=== PATIENT | female | born 1975 | race African-American/Black ===

== ENCOUNTER 2017-02-10 10:36 | Observation (INO) | payer OTHER ==
[~2017-02-10 10:36] MED LIST: ASPI81CH CHEW; ATOR20TA15 PO; FERR325T8 PO; LOSA50TA PO; METO100T9 PO; SERT-132 PO
--- NOTE | 2017-02-10 11:42 | HHI.HP ---
HPI Service [facility] Primary Care Physician Non-Staff Admission Diagnosis Diagnoses: (1) Chest pain Diagnosis: Principal Travel History International Travel<30 Days: No Contact w/Intl Traveler <30 Da: No History of Present Illness Written by Daniel Oliveira, acting as scribe for Dr. Gould on 02/10/17 at 11: 41. 41-year-old female with known history of hypertension, hyperlipidemia, coronary artery disease status post stenting, rheumatoid arthritis, chronic pain who presented to the hospital because of chest discomfort. Patient has a rather complicated recent history. 10 days ago she did go to [facility] with same complaint and underwent cardiac catheterization with stent placement. Patient states that she now has a total of 5 stents. She has not followed up with the hr leader. She states that she called for an appointment however they did not take her insurance so she was not able to follow-up. The patient did go to [facility] in [place] approximate 3 days ago for similar complaints with chest discomfort. Patient was found to have a hemoglobin of 7.2 and had a full hematology workup performed. Patient has follow-up with her dredge hand this afternoon. Patient also has initial appointment with her primary medical doctor today at 11 AM. Patient states that she ran out of her medication metoprolol 3 days ago and since then she has noticed her blood pressure being elevated more frequently. She has had intermittent chest discomfort since being discharged from the hospital was gotten worse with the elevation in her blood pressure. She states the pain is located center part of her chest with a fullness into her neck. They're associated nausea, no vomiting. She has had shortness of breath, lightheadedness, dizziness. Denies any diaphoresis. Patient did go to emergency department and had initial workup done which was unremarkable. Is recommended that the patient be observed and chest pain center. I will need to contact patient's hr leader in [place] in order to arrange appropriate management of this patient. Review of Systems Respiratory: COMPLAINS OF: Shortness of breath Cardiovascular: COMPLAINS OF: Chest pain Gastrointestinal: COMPLAINS OF: Nausea Except as stated in HPI: all other systems reviewed are Neg Past Family Social History Past Medical History Hypertension Hyperlipidemia Rheumatoid arthritis History of myocardial infarction Coronary artery disease Diabetes Past Surgical History Cardiac catheterization status post 5 stents Reported Medications Reported Meds & Active Scripts Active [Metoprolol Succinate ER 24 HR ] 1 EA Ea 100 Mg PO DAILY Reported Sertraline (Sertraline HCl) 50 Mg Tab 50 Mg PO DAILY Metoprolol Succinate ER 24 HR (Metoprolol Succinate) 100 Mg Tab 100 Mg PO DAILY Losartan (Losartan Potassium) 50 Mg Tab 50 Mg PO DAILY Ferrous Sulfate 325 Mg (65 Mg Iron) Tablet 325 Mg PO BIDPC Atorvastatin (Atorvastatin Calcium) 20 Mg Tab 20 Mg PO HS Aspirin 81 Mg Chew 81 Mg CHEW DAILY Allergies: Coded Allergies: Penicillins (Verified Allergy, Severe, Hives, 02/10/17) Family History Reviewed and remarkable for heart disease, diabetes Social History Patient quit smoking a few days ago. Prior to that she smoked one pack a cigarettes a day since she was 16 years old. Denies any alcohol or illicit drugs Physical Exam Physical Exam GENERAL: Well-developed, well-nourished, in no acute distress. alert and orientated HEENT: Head is normocephalic without any lesions or masses noted. Facial features are symmetric. Eyes: Pupils equal round reactive to light. Extraocular muscles are intact. Conjunctivae were clear. Oropharyngeal: Pharynx without any erythema edema. Tongue is midline without deviation. Buccal mucosa is moist without any masses or lesions NECK: Supple without any masses. Trachea midline no deviation. No JVD, no bruits are appreciated CARDIAC: Regular rhythm, regular rate. S1/S2 are heard. No murmurs gallops or rubs. LUNGS: Clear to auscultation bilaterally. No wheeze, rhonchi or rales. No use of accessory muscles on inspiration or expiration. ABDOMEN: Soft, nontender. Nondistended. Bowel sounds heard in all 4 quadrants. No organomegaly or masses. Negative rebound, negative guarding EXTREMITIES: No edema, pulses are equal bilaterally. No cyanosis or clubbing NEUROLOGY: Mood and affect appear appropriate. Cranial nerves II through XII grossly intact. Muscle strength 5/5 in upper and lower extremities bilaterally. Deep tendon reflexes are 2+ in upper and lower extremities bilaterally. Assessment and Plan Assessment and Plan Chest pain, typical Patient does have increased risk factors to include hypertension, hyperlipidemia, coronary disease, tobacco use, family history of heart disease Patient has been ruled out for acute coronary event with serial cardiac enzymes which are negative, serial EKGs without any changes. Patient with recent cardiac catheterization 10 days ago with stent placement. I did take the time to contact the patient's hr leader . His office was very receptive and made an appointment for the patient. Was able to schedule patient appointment for tomorrow morning 02/11/17 at 9 AM for appropriate outpatient follow-up We'll continue home medications with aspirin, metoprolol, atorvastatin, losartan. Hypertension, hyperlipidemia, coronary artery disease Home medications have been continued Anemia Ferrous sulfate 3 was continued Patient continue follow-up with outpatient dredge hand Outpatient follow-up I also took the time to contact the patient's primary medical doctor in [facility]. Was able to reschedule her outpatient appointment for her regular medical illnesses to 02/15/17 at 11 AM. DVT prevention Low risk, early ambulation Discharge disposition Discharge home in stable condition Activity: Ad татьяна. Diet: Healthy heart diet Medications per medication reconciliation Follow-up primary medical doctor 02/15/17 11 AM, follow-up with hr leader 02/11 at 9 AM Code Status Full code Discussed Condition With Patient, nursing staff, primary medical doctor's office, hr leader office Daniel Oliveira Feb 10, 2017 11:42 Mich Gould MD Feb 10, 2017 11:42
[2017-02-10 11:48] VITALS: PULSE 91
[2017-02-10] MEDS ORDERED: ONDANSETRON HCL 4 MG/2 ML VIAL IVP PRN (12:15)
[2017-02-10] MEDS ORDERED: ACETAMINOPHEN/HYDROcodone 325 MG/7.5 MG TAB PO PRN (12:15)
[2017-02-10] MEDS ORDERED: ACETAMINOPHEN 325 MG TAB PO PRN ×2 (12:15)
[2017-02-10] MEDS ORDERED: NALOXONE HCL 0.4 MG/ML AMP IV PRN (12:15)
[2017-02-10] MEDS ORDERED: SODIUM CHLORIDE 0.9% FLUSH 10 ML FLUSH IV FLUSH PRN (12:15)
[2017-02-10] MEDS ORDERED: METOPROLOL SUCCINATE PO (12:17)
[2017-02-10] MEDS ORDERED: ZOLO50TA PO (12:17)
[2017-02-10] MEDS ORDERED: ATOR20TA15 PO (12:17)
[2017-02-10] MEDS ORDERED: COZA50TA PO (12:17)
[2017-02-10 12:58] LABS: CREATINE KINASE 25 U/L (26-192)
--- NOTE | 2017-02-10 13:42 | HHI.DCPOC ---
Discharge Care Plan Diagnosis: (1) Chest pain Goals to Promote Your Health * To prevent worsening of your condition and complications * To maintain your health at the optimal level Directions to Meet Your Goals Take your medications as prescribed Follow your dietary instruction Follow activity as directed Keep your appointments as scheduled Take your immunizations and boosters as scheduled If your symptoms worsen call your PCP, if no PCP go to Urgent Care Center or Emergency Room Smoking is Dangerous to Your Health. Avoid second hand smoke Call the 24-hour hour crisis hotline for domestic abuse at Daniel Oliveira Feb 10, 2017 13:42
[2017-02-10 15:26] VITALS: BP 139/87; PULSE 91; RESP 18; TEMP 96.3; O2SAT 99
[2017-02-10] MEDS ORDERED: FERROUS SULFATE 325 MG (65 MG ELEMENTAL IRON) TAB PO SCH (18:00)
[2017-02-10] MEDS ORDERED: ATORVASTATIN 20 MG TAB PO SCH (21:00)
[2017-02-10] MEDS ORDERED: SODIUM CHLORIDE 0.9% FLUSH 10 ML FLUSH IV FLUSH SCH (21:00)
[2017-02-11] MEDS ORDERED: LOSARTAN 50 MG TAB PO SCH (09:00)
[2017-02-11] MEDS ORDERED: SERTRALINE HCL 50 MG TAB PO SCH (09:00)
[2017-02-11] MEDS ORDERED: ASPIRIN 81 MG CHEW TAB CHEW SCH (09:00)
[2017-02-11] MEDS ORDERED: METOPROLOL SUCCINATE 50 MG EXTENDED RELEASE TAB PO SCH (09:00)
--- NOTE | 2017-02-11 09:24 | EKG ---
Date Performed: 02/10/2017 Time Performed: 12:04:52 PTAGE: 41 years EKG: Sinus rhythm NORMAL ECG NO PREVIOUS TRACING DOCTOR: Kali New Interpretating Date/Time 02/11/2017 09:10:16
[2017-02-28] MEDS ORDERED: FAMO1TAB73 PO (17:29)
[2017-02-28] MEDS ORDERED: PRED50 PO (17:29)
[2017-02-28] MEDS ORDERED: TOPR100T PO (17:33)
[2017-02-28] MEDS ORDERED: HUMALOG SQ (17:37)
[2017-02-28] MEDS ORDERED: LANTUS2P SQ (17:37)
== END 2017-02-10 16:01 | disposition home or self-care (01) ==
LOC: PHEDDLT 10:36 → PH3A 10:46
PROVIDERS: ADMIT Hospitalist; ATTEND Hospitalist
DX: R07.89 Other chest pain (principal); I25.10 Atherosclerotic heart disease of native coronary artery without angina pectoris; I10 Essential (primary) hypertension; E11.9 Type 2 diabetes mellitus without complications; E78.5 Hyperlipidemia, unspecified; D64.9 Anemia, unspecified; I25.2 Old myocardial infarction; M06.9 Rheumatoid arthritis, unspecified; Z72.0 Tobacco use; Z82.49 Family history of ischemic heart disease and other diseases of the circulatory system; Z95.5 Presence of coronary angioplasty implant and graft
CPT/HCPCS: 71010; 71275; 80048; 80307; 82550; 83735; 84443; 84484; 85025; 85379; 85610; 85652; 85730; 93005; 96374; 96375; 99285; G0378; J1885; J2270; J2405; J2930; Q9967; 99281

== ENCOUNTER 2017-04-18 01:07 | Emergency (ER) | payer MEDICAID ==
[~2017-04-18] VITALS: Ht 162.6 cm; Wt 60.0 kg
[~2017-04-18 01:07] MED LIST changes: +COZA50TA PO; +FAMO1TAB73 PO; +HUMALOG SQ; +LANTUS2P SQ; -LOSA50TA PO; -METO100T9 PO; +PRED50 PO; -SERT-132 PO; +TOPR100T PO
[2017-04-18 01:09] VITALS: BP 142/84; PULSE 91; RESP 16; TEMP 98.5; O2SAT 99
[2017-04-18] MEDS ORDERED: ZOLO25TA PO (02:24)
[2017-04-18] MEDS ORDERED: TRAZ50TA12 PO (02:24)
[2017-04-18] MEDS ORDERED: ALPR.5 PO (02:24)
[2017-04-18] MEDS ORDERED: ISOS20TA PO (02:24)
[2017-04-18] MEDS ORDERED: SODIUM CHLORIDE 0.9% FLUSH 10 ML FLUSH IV FLUSH PRN (02:30)
[2017-04-18] MEDS ORDERED: KETOROLAC TROMETHAMINE 30 MG/ML (IVP) VIAL IVP ONE (02:30)
--- NOTE | 2017-04-18 02:46 | PD ---
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 She also states that she has been having sciatica pain on the right side for the past few days as well. She's not tried any pain medication at home. Denies any saddle anesthesia difficulty urinating. She states she saw a little bit of blood in her urine recently as well. She states she has an appointment to follow-up with an ovarian cancer specialist later this month, she is concerned that her mass may have gotten worse though. Denies any nausea denies vomiting denies any constipation denies any fevers. States pain is severe, right lower quadrant, nonradiating, context as above PFSH Past Medical History Hx Anticoagulant Therapy: Yes (ASA) Bipolar Disorder: Yes Depression: Yes Cardiac Catheterization: Yes Cardiovascular Problems: Yes (cad; chf) High Cholesterol: Yes Congestive Heart Failure: Yes Coronary Artery Disease: Yes Diabetes: Yes Patient Takes Glucophage: No Diminished Hearing: No Hypertension: Yes ?: Not LMP: 03/24/17 : 3 Para: 2 Tubal Ligation: Yes Past Surgical History Appendectomy: Yes Cholecystectomy: Yes Coronary Stent: Yes (5) Family History Family Hypercholesterolemia: Yes Social History Alcohol Use: No Tobacco Use: No Substance Use: No Allergies-Medications (Allergen,Severity, Reaction): Coded Allergies: Penicillins (Verified Allergy, Severe, Hives, 04/18/17) shellfish derived (Verified Allergy, Unknown, RASH , 04/18/17) Reported Meds & Prescriptions Reported Meds & Active Scripts Active Cozaar (Losartan Potassium) 50 Mg Tab 50 Mg PO DAILY Atorvastatin (Atorvastatin Calcium) 20 Mg Tab 20 Mg PO HS Reported Xanax (Alprazolam) 0.5 Mg Tab 0.5 Mg PO Q4H PRN Trazodone (Trazodone HCl) 50 Mg Tab 50 Mg PO HS Zoloft (Sertraline HCl) 25 Mg Tab Unknown Dose PO DAILY Isosorbide Mononitrate 20 Mg Tab 20 Mg PO DAILY Take 2 doses 7 hours apart. Humalog Inj (Insulin Human Lispro) 1,000 Unit/10 Ml Vial 0 SQ TIDAC PRN Lantus Inj (Insulin Glargine) 1,000 Unit/10 Ml Vial 30 Units SQ HS Toprol XL (Metoprolol Succinate) 100 Mg Tab 100 Mg PO BID Ferrous Sulfate 325 Mg (65 Mg Iron) Tablet 325 Mg PO BIDPC Aspirin 81 Mg Chew 81 Mg CHEW DAILY Review of Systems Except as stated in HPI: all other systems reviewed are Neg Physical Exam Narrative GENERAL: WD/WN in nad. SKIN: Warm and dry. HEAD: Atraumatic. Normocephalic. EYES: Pupils equal and round. No scleral icterus. No injection or drainage. ENT: No nasal bleeding or discharge. Mucous membranes pink and moist. NECK: Trachea midline. No JVD. CARDIOVASCULAR: Regular rate and rhythm. RESPIRATORY: No accessory muscle use. Clear to auscultation. Breath sounds equal bilaterally. GASTROINTESTINAL: Abdomen soft, non-tender, nondistended. Hepatic and splenic margins not palpable. : declined by patient. MUSCULOSKELETAL: Extremities without clubbing, cyanosis, or edema. No obvious deformities. NEUROLOGICAL: Awake and alert. No obvious cranial nerve deficits. Motor grossly within normal limits. Five out of 5 muscle strength in the arms and legs. Normal speech. PSYCHIATRIC: Appropriate mood and affect; insight and judgment normal. Data Data Last Documented VS Vital Signs Date Time Temp Pulse Resp B/P (MAP) Pulse Ox O2 Delivery O2 Flow Rate FiO2 04/18/17 05:31 04/18/17 01:09 98.5 91 16 99 Room Air Orders Orders Complete Blood Count With Diff (04/18/17 02:28) Comprehensive Metabolic Panel (04/18/17 02:28) Lipase (04/18/17 02:28) Urinalysis - C+S If Indicated (04/18/17 02:28) Iv Access Insert/Monitor (04/18/17 02:28) Ecg Monitoring (04/18/17 02:28) Oximetry (04/18/17 02:28) Sodium Chloride 0.9% Flush (Ns Flush) (04/18/17 02:30) Ketorolac Inj (Toradol Inj) (04/18/17 02:30) Ed Urine Pregnancytest Poc (04/18/17 02:28) Us Pelvis Comp W Doppler (04/18/17 ) Ed Discharge Order (04/18/17 05:14) Labs Laboratory Tests Test 04/18/17 02:30 04/18/17 03:40 White Blood Count 11.3 TH/MM3 Red Blood Count 4.07 MIL/MM3 Hemoglobin 11.7 GM/DL Hematocrit 34.6 % Mean Corpuscular Volume 85.2 FL Mean Corpuscular Hemoglobin 28.8 PG Mean Corpuscular Hemoglobin Concent 33.8 % Red Cell Distribution Width 18.1 % Platelet Count 416 TH/MM3 Mean Platelet Volume 7.4 FL Neutrophils (%) (Auto) 58.0 % Lymphocytes (%) (Auto) 32.9 % Monocytes (%) (Auto) 5.4 % Eosinophils (%) (Auto) 2.9 % Basophils (%) (Auto) 0.8 % Neutrophils # (Auto) 6.6 TH/MM3 Lymphocytes # (Auto) 3.7 TH/MM3 Monocytes # (Auto) 0.6 TH/MM3 Eosinophils # (Auto) 0.3 TH/MM3 Basophils # (Auto) 0.1 TH/MM3 CBC Comment DIFF FINAL Differential Comment Blood Urea Nitrogen 20 MG/DL Creatinine 1.03 MG/DL Random Glucose 257 MG/DL Total Protein 8.0 GM/DL Albumin 3.9 GM/DL Calcium Level 9.5 MG/DL Alkaline Phosphatase 114 U/L Aspartate Amino Transf (AST/SGOT) 15 U/L Alanine Aminotransferase (ALT/SGPT) 24 U/L Total Bilirubin 0.2 MG/DL Sodium Level 135 MEQ/L Potassium Level 3.8 MEQ/L Chloride Level 103 MEQ/L Carbon Dioxide Level 24.6 MEQ/L Anion Gap 7 MEQ/L Estimat Glomerular Filtration Rate 72 ML/MIN Lipase 390 U/L Urine Color YELLOW Urine Turbidity HAZY Urine pH 5.5 Urine Specific [place] 1.026 Urine Protein TRACE mg/dL Urine Glucose (UA) 1000 mg/dL Urine Ketones NEG mg/dL Urine Occult Blood TRACE Urine Nitrite NEG Urine Bilirubin NEG Urine Urobilinogen LESS THAN 2.0 MG/DL Urine Leukocyte Esterase LARGE Urine RBC 10 /hpf Urine WBC 6 /hpf Urine Squamous Epithelial Cells 34 /hpf Urine Bacteria OCC /hpf Microscopic Urinalysis Comment CULT NOT INDICATED MDM Medical Decision Making Medical Screen Exam Complete: Yes Emergency Medical Condition: Yes Differential Diagnosis CHronic pelvic pain, ovarian cyst, torsion, PID, sciatica. Narrative Course Patient is acute on chronic abdominal pain and sciatic pain all with low risk features. torsion excluded in er with pelvic US. Discussed need for testing for infection and STD and patient declined stating she would do this with her MIXER WET POUR. labs are reassuring, pain meds given and patient appears comfortable. Discussed follow up with [employer]OUR and return to ed criteria. Diagnosis Primary Impression: Abdominal pain Qualified Codes: R10.84 - Generalized abdominal pain Additional Instructions: Follow up with your OBGYN as scheduled. Disposition: 01 DISCHARGE HOME Condition: Stable Mk Mcdonald MD Apr 18, 2017 02:46
[2017-04-18 02:49] LABS: AUTOMATED NEUTROPHIL # 6.6 TH/MM3 (1.8-7.7); BASOPHIL # 0.1 TH/MM3 (0-0.2); BASOPHIL % 0.8 % (0.0-2.0); EOSINOPHIL # 0.3 TH/MM3 (0-0.4); EOSINOPHIL % 2.9 % (0.0-4.0); HEMATOCRIT 34.6 % (35.0-46.0); HEMO FLAGS DIFF FINAL; LYMPH % 32.9 % (9.0-44.0); LYMPHOCYTE # 3.7 TH/MM3 (1.0-4.8); MEAN CELL VOLUME 85.2 FL (80.0-100.0); MEAN CORPUSCULAR HEMOGLOBIN 28.8 PG (27.0-34.0); MEAN CORPUSCULAR HGB CONC 33.8 % (32.0-36.0); MONO % 5.4 % (0.0-8.0); PLATELET COUNT 416 TH/MM3 (150-450); RED BLOOD COUNT 4.07 MIL/MM3 (4.00-5.30); RED CELL DISTRIBUTION WIDTH 18.1 % (11.6-17.2); WHITE BLOOD COUNT 11.3 TH/MM3 (4.0-11.0)
[2017-04-18 03:13] LABS: ALKALINE PHOSPHATASE 114 U/L (45-117); ALT (GPT) 24 U/L (10-53); ANION GAP 7 MEQ/L (5-15); AST (GOT) 15 U/L (15-37); BICARBONATE 24.6 MEQ/L (21.0-32.0); BLOOD UREA NITROGEN 20 MG/DL (7-18); CHLORIDE 103 MEQ/L (98-107); GLOMERULAR FILTRATION RATE 72 ML/MIN (>89); POTASSIUM 3.8 MEQ/L (3.5-5.1); SODIUM (NA) 135 MEQ/L (136-145); TOTAL BILIRUBIN ADULT 0.2 MG/DL (0.2-1.0)
--- NOTE | 2017-04-18 04:01 | RADRPT ---
EXAM DATE/TIME: 04/18/2017 03:12 [facility] COMPARISON: No previous studies available for comparison. INDICATIONS : Pelvic pain. MEDICAL HISTORY : Hypercholesterolemia. Hypertension. Coronary artery disease. Congestive heart failure. Diabetes. SURGICAL HISTORY : Appendectomy. Cholecystectomy. Tubal ligation. Cardiac catheterization. ENCOUNTER: Initial ACUITY: 4-6 days PAIN SCORE: 8/10 LOCATION: Bilateral pelvis MEASUREMENTS: UTERUS: 9.5 x 6.1 x 3.8 cm ENDOMETRIAL STRIPE: 6 mm RIGHT OVARY: 4.3 x 2.2 x 2.2 cm LEFT OVARY: 2.5 x 1.8 x 1.6 cm FINDINGS: UTERUS: The myometrium has homogeneous echotexture without mass. RIGHT OVARY: There is a complex hypoechoic cystic appearing lesion in the right ovary measuring 1.7 x 1.5 x 1.2 cm which demonstrated no color flow. LEFT OVARY: Ovary contains no mass or significant cystic lesion. MISCELLANEOUS: No free fluid. CONCLUSION: 1. Complex hypoechoic cystic lesion in the right ovary most consistent with a complex cyst. 2. The uterus and left ovary are unremarkable. Julian Michel MD on April 18, 2017 at 3:58 Board Certified Radiologist. This report was verified electronically.
[2017-04-18 04:08] LABS: BACTERIA, URINE OCC /hpf; BLOOD, URINE TRACE (NEG); COMMENT (UR) CULT NOT INDICATED; CULTURE IF INDICATED CULT NOT INDICATED; GLUCOSE,URINE 1000 mg/dL (NEG); KETONE, URINE NEG (NEG); NITRITE,URINE NEG (NEG); PH, URINE 5.5 (5.0-8.5); SQUAMOUS EPITHELIAL CELL URINE 34 /hpf (0-5); URINE COLOR YELLOW (YELLW/STRAW)
== END 2017-04-18 05:41 | disposition home or self-care (01) ==
LOC: NEPE 01:07
DX: R10.31 Right lower quadrant pain (principal); G89.29 Other chronic pain; M54.30 Sciatica, unspecified side; F31.9 Bipolar disorder, unspecified; I25.10 Atherosclerotic heart disease of native coronary artery without angina pectoris; I11.0 Hypertensive heart disease with heart failure; I50.9 Heart failure, unspecified; E78.00 Pure hypercholesterolemia, unspecified; E11.9 Type 2 diabetes mellitus without complications
CPT/HCPCS: 76856; 80053; 81001; 83690; 84703; 85025; 93975; 96374; 99285; J1885

== ENCOUNTER 2017-07-01 04:39 | Observation (INO) | payer MEDICAID, OTHER ==
[2017-07-01] VITALS (10 sets, daily range): BP systolic 136–205; BP diastolic 79–94; PULSE 69–83; RESP 14–20; TEMP 97.9–98.8; O2SAT 93–100
[~2017-07-01] VITALS: Ht 152.4 cm; Wt 61.3 kg
[~2017-07-01 04:39] MED LIST changes: +ALPR.5 PO; +ASPI-516 CHEW; -ASPI81CH CHEW; -FAMO1TAB73 PO; +FERR325T18 PO; -FERR325T8 PO; +ISOS20TA PO; -PRED50 PO; +TRAZ50TA12 PO; +ZOLO25TA PO
[2017-07-01] MEDS ORDERED: METO25TA3 PO (04:59)
[2017-07-01] MEDS ORDERED: MORPHINE SULFATE 2 MG/ML INJ IV PUSH ONE ×3 (05:00→21:45)
[2017-07-01] MEDS ORDERED: ONDANSETRON HCL 4 MG/2 ML VIAL IV PUSH ONE (05:00)
[2017-07-01] MEDS ORDERED: LANTUS2P SQ (05:18)
[2017-07-01] MEDS ORDERED: ZOLO50TA PO (05:18)
[2017-07-01 05:29] LABS: AUTOMATED NEUTROPHIL # 6.8 TH/MM3 (1.8-7.7); BASOPHIL # 0.1 TH/MM3 (0-0.2); BASOPHIL % 1.4 % (0.0-2.0); EOSINOPHIL # 0.3 TH/MM3 (0-0.4); EOSINOPHIL % 2.9 % (0.0-4.0); HEMATOCRIT 27.6 % (35.0-46.0); HEMOGLOBIN 9.6 GM/DL (11.6-15.3); LYMPH % 16.7 % (9.0-44.0); LYMPHOCYTE # 1.5 TH/MM3 (1.0-4.8); MEAN CELL VOLUME 85.9 FL (80.0-100.0); MEAN CORPUSCULAR HEMOGLOBIN 29.9 PG (27.0-34.0); MEAN CORPUSCULAR HGB CONC 34.9 % (32.0-36.0); MEAN PLATELET VOLUME 6.9 FL (7.0-11.0); MONO % 5.3 % (0.0-8.0); MONOCYTE # 0.5 TH/MM3 (0-0.9); NEUT % 73.7 % (16.0-70.0); PLATELET COUNT 567 TH/MM3 (150-450); RED BLOOD COUNT 3.21 MIL/MM3 (4.00-5.30); RED CELL DISTRIBUTION WIDTH 14.5 % (11.6-17.2); WHITE BLOOD COUNT 9.2 TH/MM3 (4.0-11.0)
--- NOTE | 2017-07-01 05:30 | RADRPT ---
EXAM DATE/TIME: 07/01/2017 05:09 [facility] COMPARISON: No previous studies available for comparison. INDICATIONS : Chest pain. MEDICAL HISTORY : Myocardial infarction. Hypertension Diabetes mellitus type II. SURGICAL HISTORY : CABG. ENCOUNTER: Initial ACUITY: 1 day PAIN SCORE: 10/10 LOCATION: Bilateral chest FINDINGS: PA and lateral views of the chest demonstrate the lungs to be symmetrically aerated without evidence of mass, infiltrate or effusion. Myocardium. No pulmonary vascular engorgement. Median sternotomy wir es. Osseous structures are intact. CONCLUSION: 1. Cardiomegaly. 2. Clear lungs. Guille Ruffin Jr., MD on July 01, 2017 at 5:28 Board Certified Radiologist. This report was verified electronically.
[2017-07-01 05:50] LABS: ALBUMIN 2.8 GM/DL (3.4-5.0); AST (GOT) 17 U/L (15-37); BICARBONATE 25.1 MEQ/L (21.0-32.0); BLOOD UREA NITROGEN 6 MG/DL (7-18); CALCIUM 8.8 MG/DL (8.5-10.1); CHLORIDE 103 MEQ/L (98-107); CREATININE 0.79 MG/DL (0.50-1.00); GLOMERULAR FILTRATION RATE 98 ML/MIN (>89); GLUCOSE,RANDOM 246 MG/DL (74-106); LIPASE 177 U/L (73-393); SODIUM (NA) 140 MEQ/L (136-145)
--- NOTE | 2017-07-01 05:50 | PD ---
HPI Chief Complaint: Chest Pain Time Seen by Provider: 04:55 Travel History International Travel<30 days: No Contact w/Intl Traveler<30days: No Traveled to known affect area: No History of Present Illness HPI 41-year-old female 1 week post operative CABG. She had a open-heart triple- vessel surgery at [facility] in [place]. 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 Her mother of 43 from a massive heart attack her aunt of 45 and her grandmother at 62 from coronary artery disease that led to cardiac .She was enroute to have CABG at [facility] when had [place] , and taken to [place] She is now out of the hospital for 5 days. She was lying on a air mattress where she sleeping with her cousin. And she turned and felt sudden pop near her sternum and her upper back. She has a fresh CABG scar. No signs of diffusion of her wound however possibly she moved her sternum and wires with movement tonight. She is not She has no decrease in breath sounds she has well aerated lungs heart rate is normal rate however she is mildly hypertensive 202/70. She says it is out of pain that she's having such hypertension. PFSH Past Medical History Hx Anticoagulant Therapy: Yes (ASA) Bipolar Disorder: Yes Depression: Yes Cardiac Catheterization: Yes Cardiovascular Problems: Yes (CAD) High Cholesterol: Yes Congestive Heart Failure: Yes Coronary Artery Disease: Yes Diabetes: Yes Patient Takes Glucophage: No Diminished Hearing: No Hypertension: Yes ?: Not : 3 Para: 2 Tubal Ligation: Yes Past Surgical History Appendectomy: Yes Cholecystectomy: Yes Coronary Stent: Yes (5) Family History Family Hypercholesterolemia: Yes Social History Alcohol Use: No Tobacco Use: No Substance Use: No Allergies-Medications (Allergen,Severity, Reaction): Coded Allergies: Penicillins (Verified Allergy, Severe, Hives, 07/01/17) shellfish derived (Verified Allergy, Unknown, RASH , 07/01/17) Reported Meds & Prescriptions Reported Meds & Active Scripts Active Atorvastatin (Atorvastatin Calcium) 20 Mg Tab 20 Mg PO HS Reported Lantus Inj (Insulin Glargine) 1,000 Unit/10 Ml Vial 30 Units SQ HS Zoloft (Sertraline HCl) 50 Mg Tab 50 Mg PO DAILY Metoprolol Tartrate 25 Mg Tab 25 Mg PO BID Xanax (Alprazolam) 0.5 Mg Tab 0.5 Mg PO Q4H PRN Humalog Inj (Insulin Human Lispro) 1,000 Unit/10 Ml Vial 0 SQ TIDAC PRN Ferrous Sulfate 325 Mg (65 Mg Iron) Tablet 325 Mg PO BIDPC Aspirin 81 Mg Chew 81 Mg CHEW DAILY Review of Systems Except as stated in HPI: all other systems reviewed are Neg Cardiovascular: Positive: Chest Pain or Discomfort Gastrointestinal: Positive: Nausea (upper back pain ) Physical Exam Narrative GENERAL: Patient is awake alert complaining of pain in the substernal area as well as substernal and upper left back SKIN: Warm and dry. HEAD: Atraumatic. Normocephalic. EYES: Pupils equal and round. No scleral icterus. No injection or drainage. ENT: No nasal bleeding or discharge. Mucous membranes pink and moist. NECK: Trachea midline. No JVD. CARDIOVASCULAR: Regular rate and rhythm. RESPIRATORY: No accessory muscle use. Clear to auscultation. Breath sounds equal bilaterally. CHEST Sternum midline vertical scar fresh not infected no dishesion of wound edges GASTROINTESTINAL: Abdomen soft, non-tender, nondistended. Hepatic and splenic margins not palpable. MUSCULOSKELETAL: Extremities without clubbing, cyanosis, or edema. No obvious deformities. NEUROLOGICAL: Awake and alert. No obvious cranial nerve deficits. Motor grossly within normal limits. Five out of 5 muscle strength in the arms and legs. Normal speech. PSYCHIATRIC: Appropriate mood and affect; insight and judgment normal. Data Data Last Documented VS Vital Signs Date Time Temp Pulse Resp B/P (MAP) Pulse Ox O2 Delivery O2 Flow Rate FiO2 07/01/17 07:12 79 14 158/86 (110) 97 Room Air Orders Orders Morphine Inj (Morphine Inj) (07/01/17 05:00) Electrocardiogram (07/01/17 04:57) Complete Blood Count With Diff (07/01/17 04:57) Comprehensive Metabolic Panel (07/01/17 04:57) Lipase (07/01/17 04:57) Chest, Pa & Lat (07/01/17 04:57) Troponin I (07/01/17 04:57) Ondansetron Inj (Zofran Inj) (07/01/17 05:00) Fentanyl Inj (Fentanyl Inj) (07/01/17 05:45) Labetalol Inj (Trandate Inj) (07/01/17 06:00) Place In Observation (07/01/17 ) Vital Signs (Adult) Q4H (07/01/17 08:00) Activity Oob With Assistance (07/01/17 08:00) Refining Machine Operator / Telemetry .CONTINUOUS (07/01/17 08:00) Intake + Output PRIYA.QSHIFT (07/01/17 08:00) Sodium Chloride 0.9% Flush (Ns Flush) (07/01/17 08:00) Sodium Chloride 0.9% Flush (Ns Flush) (07/01/17 09:00) Ondansetron Inj (Zofran Inj) (07/01/17 08:00) Creatine Kinase (Cpk) (07/01/17 08:00) Creatine Kinase (Cpk) (07/01/17 14:00) Troponin I (07/01/17 08:00) Troponin I (07/01/17 14:00) Electrocardiogram (07/01/17 08:00) Electrocardiogram (07/01/17 14:00) Scd Bilateral/Knee High PRIYA.BID (07/01/17 08:00) Naloxone Inj (Narcan Inj) (07/01/17 08:00) Docusate Sodium-Senna (Gracy-Colace) (07/01/17 09:00) Magnesium Hydroxide Liq (Milk Of Magnesi (07/01/17 08:00) Sennosides (Senokot) (07/01/17 08:00) Bisacodyl Supp (Dulcolax Supp) (07/01/17 08:00) Lactulose Liq (Lactulose Liq) (07/01/17 08:00) Admit Order (Ed Use Only) (07/01/17 08:00) Labs Laboratory Tests Test 07/01/17 05:13 White Blood Count 9.2 TH/MM3 Red Blood Count 3.21 MIL/MM3 Hemoglobin 9.6 GM/DL Hematocrit 27.6 % Mean Corpuscular Volume 85.9 FL Mean Corpuscular Hemoglobin 29.9 PG Mean Corpuscular Hemoglobin Concent 34.9 % Red Cell Distribution Width 14.5 % Platelet Count 567 TH/MM3 Mean Platelet Volume 6.9 FL Neutrophils (%) (Auto) 73.7 % Lymphocytes (%) (Auto) 16.7 % Monocytes (%) (Auto) 5.3 % Eosinophils (%) (Auto) 2.9 % Basophils (%) (Auto) 1.4 % Neutrophils # (Auto) 6.8 TH/MM3 Lymphocytes # (Auto) 1.5 TH/MM3 Monocytes # (Auto) 0.5 TH/MM3 Eosinophils # (Auto) 0.3 TH/MM3 Basophils # (Auto) 0.1 TH/MM3 CBC Comment DIFF FINAL Differential Comment Blood Urea Nitrogen 6 MG/DL Creatinine 0.79 MG/DL Random Glucose 246 MG/DL Total Protein 7.4 GM/DL Albumin 2.8 GM/DL Calcium Level 8.8 MG/DL Alkaline Phosphatase 130 U/L Aspartate Amino Transf (AST/SGOT) 17 U/L Alanine Aminotransferase (ALT/SGPT) 21 U/L Total Bilirubin 0.2 MG/DL Sodium Level 140 MEQ/L Potassium Level 3.2 MEQ/L Chloride Level 103 MEQ/L Carbon Dioxide Level 25.1 MEQ/L Anion Gap 12 MEQ/L Estimat Glomerular Filtration Rate 98 ML/MIN Troponin I 0.08 NG/ML Lipase 177 U/L MDM Medical Decision Making Medical Screen Exam Complete: Yes Emergency Medical Condition: Yes Medical Record Reviewed: Yes Differential Diagnosis sternotomy pain ACS graft slippage GERD PE sternal separation other Narrative Course pt has risk factors for ACS even though recent grafts done possible failure to stay patent and ischemia is possible. Pt has elevations in lead III and flips T waves on EKG anterior septal leads again mostlikely post operative. I call to [facility] and try to get old records and EKG from post operative period , I am only able to talk to a medical services assistant who reads me her trop on discharge which was slightly elevated. Pt is pain free after medical managemtn in ER with IV narcotics but needs admit and serial trop , her first trop slightly elevated , could be trending downwards .. Medical records requested from [place] they will snd in AM , pt admitted Critical Care Narrative close monitoring and multiple calls to get trop and EKG from [facility] to assure no ACS post operative and ischemic / or reperfusion arrhythmia , 30 mins CC time Diagnosis Primary Impression: Post-operative pain Additional Impression: Chest pain Qualified Codes: R07.9 - Chest pain, unspecified Admitting Information Admitting Physician Requests: Admit Scripts Walker with Front Wheels (Walker with Front Wheels) 1 Mis Mis EA .ROUTE DIRECTED, #1 0 Refills Prov: Hannah Lu 07/04/17 Hydrocodone-Acetaminophen ([place]) 5 Mg-325 Mg Tab 1 TAB PO Q6H Y for PAIN, #12 TAB 0 Refills Prov: Rafa Narayanan MD 07/04/17 Nitroglycerin SL (Nitroglycerin SL) 0.4 Mg Subl 0.4 MG SL DIRECTED Y for CHEST PAIN, #100 TAB.SL 0 Refills ONE TABLET UNDER THE TONGUE NEEDED FOR CHEST PAIN, MAY REPEAT EVERY FIVE MINUTES FOR A TOTAL OF 3 DOSES OR CALL 911 IF NO RELIEF Prov: Hannah Lu 07/04/17 Clindamycin (Clindamycin) 300 Mg Cap 600 MG PO Q8H for Infection for 7 Days, #42 CAP 0 Refills Prov: Hannah Lu 07/04/17 Brett Madrigal MD Jul 01, 2017 05:50
[2017-07-01 05:56] LABS: ALKALINE PHOSPHATASE 130 U/L (45-117); ALT (GPT) 21 U/L (10-53); TOTAL BILIRUBIN ADULT 0.2 MG/DL (0.2-1.0); TOTAL PROTEIN 7.4 GM/DL (6.4-8.2); TROPONIN I 0.08 NG/ML (0.02-0.05)
[2017-07-01] MEDS ORDERED: LABETALOL HCL 100 MG/20 ML VIAL IV PUSH ONE (06:00)
[2017-07-01] MEDS ORDERED: MAGNESIUM HYDROXIDE SUSP 30 ML CUP PO PRN (08:00)
[2017-07-01] MEDS ORDERED: NALOXONE HCL 0.4 MG/ML AMP IV PUSH PRN (08:00)
[2017-07-01] MEDS ORDERED: SENNOSIDES 8.6 MG TAB PO PRN (08:00)
[2017-07-01] MEDS ORDERED: BISACODYL 10 MG SUPP RECTAL PRN (08:00)
[2017-07-01] MEDS ORDERED: SODIUM CHLORIDE 0.9% FLUSH 10 ML FLUSH IV FLUSH PRN (08:00)
[2017-07-01] MEDS ORDERED: LACTULOSE SYRUP 20 GM/30 ML CUP PO PRN (08:00)
[2017-07-01] MEDS ORDERED: GLUCAGON 1 MG/ML VIAL OTHER PRN (08:15)
[2017-07-01] MEDS ORDERED: DEXTROSE 50% IN WATER 50 ML VIAL(D50) IV PUSH PRN (08:15)
[2017-07-01] MEDS ORDERED: NITROGLYCERIN 2% OINT 1 GM PACKET TOPICAL PRN (08:15)
[2017-07-01] MEDS: ASPIRIN 81 MG CHEW TAB CHEW SCH (09:59)
[2017-07-01] MEDS: DOCUSATE SODIUM 50 MG/SENNA 8.6 MG TAB PO SCH ×2 (09:59→21:44)
[2017-07-01] MEDS: METOPROLOL TARTRATE 25 MG TAB PO SCH ×2 (09:59→21:45)
[2017-07-01] MEDS: FERROUS SULFATE 325 MG (65 MG ELEMENTAL IRON) TAB PO SCH ×2 (09:59→17:29)
[2017-07-01] MEDS: MORPHINE SULFATE 2 MG/ML INJ IV PUSH PRN ×3 (10:07→17:30)
[2017-07-01] MEDS: ONDANSETRON HCL 4 MG/2 ML VIAL IVP PRN ×2 (10:07→21:39)
[2017-07-01 10:30] LABS: TROPONIN I 0.08 NG/ML (0.02-0.05)
[2017-07-01] MEDS: ALPRAZolam 0.5 MG TAB PO PRN ×2 (10:55→21:58)
[2017-07-01] MEDS: SERTRALINE HCL 50 MG TAB PO SCH (10:55)
[2017-07-01] MEDS: SODIUM CHLORIDE 0.9% FLUSH 10 ML FLUSH IV FLUSH SCH ×2 (10:56→21:39)
[2017-07-01] MEDS: INSULIN ASPART SUPPLEMENTAL SCALE SQ SCH ×3 (12:00→22:07)
[2017-07-01] MEDS ORDERED: ACETAMINOPHEN/HYDROcodone 325 MG/7.5 MG TAB PO PRN (15:00)
[2017-07-01] MEDS ORDERED: ACETAMINOPHEN/HYDROcodone 325 MG/10 MG TAB PO PRN (15:00)
[2017-07-01 15:39] LABS: TROPONIN I 0.08 NG/ML (0.02-0.05)
[2017-07-01] MEDS ORDERED: oxyCODONE/ACETAMINOPHEN 7.5 MG/325 MG TAB PO PRN (16:30)
--- NOTE | 2017-07-01 16:35 | HHI.HP ---
[facility] Zunilda Trujillo MD Admission Diagnosis post CABG pain Diagnoses: Travel History International Travel<30 Days: No Contact w/Intl Traveler <30 Da: No Traveled to Known Affected Are: No History of Present Illness Patient is a 41-year-old female with past medical history of hypertension, hyperlipidemia, CAD status post CABG 2 weeks ago, has a history of WA 7, rheumatoid arthritis, chronic pain, history of hemorrhagic cyst, diabetes on insulin presented to the emergency room with excruciating chest pain. Patient states that she was discharged on June 22 (had her CABG done on June 15 ) at [facility]. She has been staying with her cousin and been sleeping on a air mattress. Apparently as she was turning this morning she heard a crack and experienced excruciating pain 10 out of 10 with elevated her blood pressures. She came to the emergency room for further evaluation. She was given fentanyl and her pain decreased from to 3 out of 10 but now is back up to 8 out of 10. She does have radiation to her back. She admits to nausea but no vomiting. She admits to headache. She denies any diaphoresis. States that she was on Percocet prior to this but she went finished a course of Percocets. 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 Pain right now as an 8 out of 10. Morphine is not really making it better. Review of Systems Except as stated in HPI: all other systems reviewed are Neg Past Family Social History Past Medical History hypertension, hyperlipidemia, CAD status post CABG 2 weeks ago, has a history of WA 7, rheumatoid arthritis, chronic pain, history of hemorrhagic cyst, diabetes Past Surgical History Cardiac catheter status post 6 stents placed, CABG, cholecystectomy, appendectomy, tubal ligation Reported Medications Reported Meds & Active Scripts Active Atorvastatin (Atorvastatin Calcium) 20 Mg Tab 20 Mg PO HS Reported Lantus Inj (Insulin Glargine) 1,000 Unit/10 Ml Vial 20 Units SQ HS Zoloft (Sertraline HCl) 50 Mg Tab 50 Mg PO DAILY Metoprolol Tartrate 25 Mg Tab 25 Mg PO BID Xanax (Alprazolam) 0.5 Mg Tab 0.5 Mg PO Q4H PRN Humalog Inj (Insulin Human Lispro) 1,000 Unit/10 Ml Vial 0 SQ TIDAC PRN Ferrous Sulfate 325 Mg (65 Mg Iron) Tablet 325 Mg PO BIDPC Aspirin 81 Mg Chew 81 Mg CHEW DAILY Allergies: Coded Allergies: Penicillins (Verified Allergy, Severe, Hives, 07/01/17) shellfish derived (Verified Allergy, Unknown, RASH , 07/01/17) Family History Mother at age 42 of an WA, she also had sarcoidosis, grandmother had pancreatic cancer. Diabetes also runs in the family. Social History She quit smoking about a month ago. Used to smoke a pack a day then decreased to a pack a week.She has been smoking since the age of 16. Denies alcohol or illegal drug use. Physical Exam Vital Signs Vital Signs Date Time Temp Pulse Resp B/P (MAP) Pulse Ox O2 Delivery O2 Flow Rate FiO2 07/01/17 15:57 98.8 74 20 167/81 (109) 97 07/01/17 15:43 18 07/01/17 13:44 18 07/01/17 12:13 98.5 69 20 136/81 (99) 98 07/01/17 10:44 98.6 81 20 156/93 (114) 95 07/01/17 09:37 78 18 184/94 (124) 100 Room Air 07/01/17 07:12 79 14 158/86 (110) 97 Room Air 07/01/17 06:18 79 18 165/79 (107) Room Air 07/01/17 05:51 78 179/90 (119) 07/01/17 04:54 98 07/01/17 04:41 83 18 195/94 (127) 98 Physical Exam GENERAL: This is a well-nourished, well-developed patient, appears tired. SKIN: Large incision over her chest. Healing well with no signs of infection HEAD: Atraumatic. Normocephalic. No temporal or scalp tenderness. EYES: Pupils equal round and reactive. Extraocular motions intact. No scleral icterus. No injection or drainage. ENT: Nose without drainage. Airway patent. NECK: Trachea midline. Supple CARDIOVASCULAR: Regular rate and rhythm without murmurs. RESPIRATORY: Clear to auscultation. Breath sounds equal bilaterally. No wheezes GASTROINTESTINAL: Abdomen soft, non-tender, nondistended. No guarding. MUSCULOSKELETAL: Extremities without edema. Moves extremities. NEUROLOGICAL: Awake and alert. Motor and sensory grossly within normal limits. Normal speech. Laboratory Laboratory Tests Test 07/01/17 05:13 07/01/17 09:50 07/01/17 14:24 White Blood Count 9.2 Red Blood Count 3.21 Hemoglobin 9.6 Hematocrit 27.6 Mean Corpuscular Volume 85.9 Mean Corpuscular Hemoglobin 29.9 Mean Corpuscular Hemoglobin Concent 34.9 Red Cell Distribution Width 14.5 Platelet Count 567 Mean Platelet Volume 6.9 Neutrophils (%) (Auto) 73.7 Lymphocytes (%) (Auto) 16.7 Monocytes (%) (Auto) 5.3 Eosinophils (%) (Auto) 2.9 Basophils (%) (Auto) 1.4 Neutrophils # (Auto) 6.8 Lymphocytes # (Auto) 1.5 Monocytes # (Auto) 0.5 Eosinophils # (Auto) 0.3 Basophils # (Auto) 0.1 CBC Comment DIFF FINAL Differential Comment Blood Urea Nitrogen 6 Creatinine 0.79 Random Glucose 246 Total Protein 7.4 Albumin 2.8 Calcium Level 8.8 Alkaline Phosphatase 130 Aspartate Amino Transf (AST/SGOT) 17 Alanine Aminotransferase (ALT/SGPT) 21 Total Bilirubin 0.2 Sodium Level 140 Potassium Level 3.2 Chloride Level 103 Carbon Dioxide Level 25.1 Anion Gap 12 Estimat Glomerular Filtration Rate 98 Troponin I 0.08 0.08 0.08 Lipase 177 Total Creatine Kinase 31 45 Result Diagram: 07/01/17 0513 07/01/17 0513 Imaging Last Impressions Chest X-Ray 07/01/17 0457 Signed Impressions: Service Date/Time: June 05:09 - CONCLUSION: 1. Cardiomegaly. 2. Clear lungs. Guille Ruffin Jr., MD Caprini VTE Risk Assessment Caprini VTE Risk Assessment: Mod/High Risk (score >= 2) Caprini Risk Assessment Model Point Value = 1 Point Value = 2 Point Value = 3 Point Value = 5 Age 41-60 Minor surgery BMI > 25 kg/m2 Swollen legs Varicose veins or History of unexplained or recurrent spontaneous Oral contraceptives or hormone replacement Sepsis (< 1 month) Serious lung disease, including pneumonia (< 1 month) Abnormal pulmonary function Acute myocardial infarction Congestive heart failure (< 1 month) History of inflammatory bowel disease Medical patient at bed rest Age 61-74 Arthroscopic surgery Major open surgery (> 45 min) Laparoscopic surgery (> 45 min) Malignancy Confined to bed (> 72 hours) Immobilizing plaster cast Central venous access Age >= 75 History of VTE Family history of VTE Factor V Leiden Prothrombin [id number] Lupus anticoagulant Anticardiolipin antibodies Elevated serum homocysteine Heparin-induced thrombocytopenia Other congenital or acquired thrombophilia Stroke (< 1 month) Elective arthroplasty Hip, pelvis, or leg fracture Acute spinal cord injury (< 1 month) Prophylaxis Regimen Total Risk Factor Score Risk Level Prophylaxis Regimen 0-1 Low Early ambulation 2 Moderate Order ONE of the following: *Sequential Compression Device (SCD) *Heparin 5000 units SQ BID 3-4 Higher Order ONE of the following medications: *Heparin 5000 units SQ TID *Enoxaparin/Lovenox 40 mg SQ daily (WT < 150 kg, CrCl > 30 mL/min) *Enoxaparin/Lovenox 30 mg SQ daily (WT < 150 kg, CrCl > 10-29 mL/min) *Enoxaparin/Lovenox 30 mg SQ BID (WT < 150 kg, CrCl > 30 mL/min) AND/OR *Sequential Compression Device (SCD) 5 or more Highest Order ONE of the following medications: *Heparin 5000 units SQ TID (Preferred with Epidurals) *Enoxaparin/Lovenox 40 mg SQ daily (WT < 150 kg, CrCl > 30 mL/min) *Enoxaparin/Lovenox 30 mg SQ daily (WT < 150 kg, CrCl > 10-29 mL/min) *Enoxaparin/Lovenox 30 mg SQ BID (WT < 150 kg, CrCl > 30 mL/min) AND *Sequential Compression Device (SCD) Assessment and Plan Assessment and Plan Chest pain: Patient experiencing excruciating chest pain at the incision site with some radiation to her back after rolling on an air mattress. Patient with extensive cardiac history and she is status post CABG admitted to [facility] June 05, 2017 and per pt discharged on 06/22, CABG done on . Patient is known to Dr. Hernandez. Serial troponins are 0.08 x3. I have consulted cardiology for further evaluation recommendations although I do suspect that her pain may be coming from her incision as she may have pulled on the wires when moving around however will be cautions and get a cardiac eval. After discussion with the ED physician, I was told that her troponin was lower than 0.08 was CABG. pt confirms this. I reviewed records and last trop was 0.045 on 06/11. EKG reviewed and shows T wave inversions on lead V1-6.I do not appreciate any ST elevations. Hypertension: Home meds have been resumed. Better controlled. Still somewhat elevated however this may be related to her pain. Continue aggressive pain control. Hyperlipidemia: Home med resumed rheumatoid arthritis: stable diabetes: resumed home dose insulin w slidding scale, heart healthy and DM diet. Code Status Pt wishes to be DNR and doesn't want any blood transfusions. Discussed Condition With ER physician, patient and RN Elizabeth Acevedo MD Jul 01, 2017 16:35
[2017-07-01] MEDS ORDERED: POTASSIUM CHLORIDE 20 MEQ CONTROLLED RELEASE TAB PO ONE (17:00)
[2017-07-01] MEDS ORDERED: ENALAPRILAT 1.25 MG/ML VIAL IV PUSH PRN (17:00)
[2017-07-01] MEDS: oxyCODONE/ACETAMINOPHEN 10 MG/325 MG TAB PO PRN (17:51)
--- NOTE | 2017-07-01 19:36 | EKG ---
Date Performed: 07/01/2017 Time Performed: 14:42:42 PTAGE: 41 years EKG: Sinus rhythm POSSIBLE LEFT ATRIAL ENLARGEMENT MODERATE T-WAVE ABNORMALITY, CONSIDER ANTEROLATERAL ISCHEMIA ABNORM AL ECG Since PREVIOUS TRACING , no significant change noted PREVIOUS TRACIN07/01/2017 09.56 DOCTOR: Tracy Cast Interpretating Date/Time 07/01/2017 19:36:20
[2017-07-01] MEDS ORDERED: INSULIN DETEMIR 100 UNITS/ML VIAL SQ SCH (21:00)
[2017-07-01] MEDS: ATORVASTATIN 20 MG TAB PO SCH (21:44)
[2017-07-01] MEDS ORDERED: cloNIDine HCL 0.1 MG TAB PO ONE (21:45)
[2017-07-01] MEDS: INSULIN DETEMIR 100 UNITS/ML VIAL SQ SCH (22:06)
[2017-07-02] VITALS (8 sets, daily range): BP systolic 118–174; BP diastolic 68–94; PULSE 63–88; RESP 16–18; TEMP 98–98.7; O2SAT 96–97
[2017-07-02] MEDS: INSULIN ASPART SUPPLEMENTAL SCALE SQ SCH ×4 (07:34→22:00)
[2017-07-02] MEDS: DOCUSATE SODIUM 50 MG/SENNA 8.6 MG TAB PO SCH ×2 (07:46→22:00)
[2017-07-02] MEDS: SERTRALINE HCL 50 MG TAB PO SCH (07:46)
[2017-07-02] MEDS: METOPROLOL TARTRATE 25 MG TAB PO SCH ×2 (07:46→22:00)
[2017-07-02] MEDS: FERROUS SULFATE 325 MG (65 MG ELEMENTAL IRON) TAB PO SCH ×2 (07:47→18:37)
[2017-07-02] MEDS: ASPIRIN 81 MG CHEW TAB CHEW SCH (07:47)
[2017-07-02] MEDS: SODIUM CHLORIDE 0.9% FLUSH 10 ML FLUSH IV FLUSH SCH ×2 (07:48→22:00)
[2017-07-02] MEDS: MORPHINE SULFATE 2 MG/ML INJ IV PUSH PRN ×2 (07:48→16:06)
[2017-07-02] MEDS: ONDANSETRON HCL 4 MG/2 ML VIAL IVP PRN (07:58)
[2017-07-02] MEDS: ALPRAZolam 0.5 MG TAB PO PRN ×2 (11:44→18:37)
[2017-07-02] MEDS: oxyCODONE/ACETAMINOPHEN 10 MG/325 MG TAB PO PRN ×2 (11:45→18:38)
--- NOTE | 2017-07-02 13:03 | MB ---
cc: ONESIMO VILLASENOR M.D. DATE OF CONSULTATION 07/02/2017 REASON FOR CONSULTATION Chest pain status post CABG . HISTORY OF PRESENT ILLNESS This is a 41-year-old female who I saw one time in my office for a history of coronary artery disease and multiple stents, hyperlipidemia, hypertension, rheumatoid arthritis and type 2 diabetes mellitus. I ordered a cardiac evaluation on this patient, however, the patient disappeared and did not show up for her appointment a couple of times. Apparently she was in the [place] when she passed out. She was taken to the [facility] and was found to have had a heart attack. She had a left heart catheterization and from there she was rushed and had one-vessel bypass surgery with the ASH to LAD two weeks ago. Last night she presented to [place] emergency room with severe chest pain and a toothache. The patient denies unprovoked or exertional shortness of breath. She also denies light-headedness, dizziness, lower extremity edema or PND. The initial workup included a 12-lead EKG which showed a normal sinus and mild T-wave inversions. Cardiac enzyme came back slightly positive with a troponin of 0.08. The pain is localized around the incision line on her sternum, however, the patient does not have any exertional exacerbation of this pain. ALLERGIES PENICILLIN, SHELLFISH. PAST MEDICAL HISTORY 1. As mentioned above, coronary artery disease status post multiple stents and recent one-vessel bypass surgery in [place] two weeks ago. 2. Hypertension 3. Hyperlipidemia 4. Type 2 diabetes mellitus 5. Rheumatoid arthritis 6. Chronic pain REVIEW OF SYSTEMS HEENT: No complaints of light headedness or dizziness. CARDIOVASCULAR: Acute chest pain two weeks after one vessel bypass open heart surgery. PULMONARY: No history of asthma or COPD. GI: No history of GERD, GI bleed. : No history of renal failure. ENDOCRINE: Positive for type 2 diabetes mellitus. MUSCULOSKELETAL: Positive for rheumatoid arthritis. The remainder of her review of systems is within normal limits. PHYSICAL EXAMINATION VITAL SIGNS: Temperature of 98.8, heart rate of 70, respiratory rate of 16. The patient's blood pressure is 100/97. NECK: Supple with no jugular venous distention. CHEST: Clear to auscultation and percussion. HEART: S1 normal intensity, S2 single, regular rate and rhythm. No S3 appreciated. ABDOMEN: Benign. EXTREMITIES: No edema, clubbing or cyanosis. IMPRESSION 1. Localized chest pain around the sternal incision secondary to open heart surgery. 2. Abscess and severe swelling on the right side of the lower jaw. 3. History of coronary artery disease status post multiple stenting. 4. Hypertension 5. Hyperlipidemia 6. Type 2 diabetes mellitus 7. Rheumatoid arthritis 8. Chronic pain RECOMMENDATIONS I believe the chest pain is secondary to recent open heart surgery with an incision in the sternum. I recommend pain medications. There is no impression of an acute coronary syndrome. The EKG changes and the mildly positive troponin is expected two weeks after open heart surgery. There is no risk of the patient developing endocarditis with her tooth abscess, however, I recommended antibiotics because that is pretty large. Thank you for this consultation. I will see the patient in my office for followup in the next week. MD WILLI Maldonado/RASHAWN /12:03 PM /12:46 PM
[2017-07-02] MEDS ORDERED: CLINDAMYCIN INJ 600 MG in SODIUM CHLORIDE 0.9% INJ 100 ML IV SCH (13:15)
--- NOTE | 2017-07-02 13:22 | HHI.PR ---
Subjective Remarks Pt states that her chest pain is improved on currently regimen but she did require some IV morphine earlier. Pt now has pain in her left lower jaw and noticed swelling over night. Has trouble chewing and the percocets don't seem to help her jaw pain. Objective Vitals Vital Signs Date Time Temp Pulse Resp B/P (MAP) Pulse Ox O2 Delivery O2 Flow Rate FiO2 07/02/17 11:59 98.0 88 18 155/80 (105) 97 07/02/17 08:58 18 07/02/17 07:41 98.7 75 18 174/90 (118) 97 07/02/17 04:57 98.0 66 18 121/69 (86) 97 07/02/17 04:45 63 07/02/17 00:00 65 07/01/17 21:51 14 07/01/17 21:15 80 07/01/17 20:51 97.9 82 18 205/88 (127) 93 07/01/17 19:00 18 07/01/17 15:57 98.8 74 20 167/81 (109) 97 07/01/17 15:43 18 07/01/17 13:44 18 I/O 07/01/17 07/01/17 07/01/17 07/02/17 07/02/17 07/02/17 07:00 15:00 23:00 07:00 15:00 23:00 Intake Total 240 ml 240 ml Balance 240 ml 240 ml Intake Oral 240 ml 240 ml # Voids 1 Result Diagram: 07/01/17 0513 07/01/17 0513 Imaging Last Impressions Chest X-Ray 07/01/17 0457 Signed Impressions: Service Date/Time: June 05:09 - CONCLUSION: 1. Cardiomegaly. 2. Clear lungs. Guille Ruffin Jr., MD Objective Remarks GENERAL: This is a well-nourished, well-developed patient, appears tired. SKIN: Large incision over her chest. Healing well with no signs of infection ENT: large abscess noted on the right lower mandible, no obvious pus noted but very tender to touch, swelling over the jaw also noted NECK: Trachea midline. Supple CARDIOVASCULAR: Regular rate and rhythm without murmurs. RESPIRATORY: Clear to auscultation. Breath sounds equal bilaterally. No wheezes GASTROINTESTINAL: Abdomen soft, non-tender, nondistended. No guarding. MUSCULOSKELETAL: Extremities without edema. Moves extremities. NEUROLOGICAL: Awake and alert. Motor and sensory grossly within normal limits. Normal speech. A/P Assessment and Plan Chest pain: Patient with extensive cardiac history and she is status post CABG admitted to [facility] June 05, 2017 and per pt discharged on , CABG done on 06/15/17. Patient is known to Dr. Hernandez. Patient experiencing excruciating chest pain at the incision site with some radiation to her back after rolling on an air mattress on admission, pt was evaluated by Dr. Hernandez, optical goods drill operator and pain is secondary to recent open heart surgery. He recommended to continue pain control and f/u as an outpatient w him. Hypertension: on Home meds have been resumed. Better controlled. Still somewhat elevated however this may be related to her pain. Tooth abscess; noted today. start IV clindamycin. I have placed a call to Dr. Duran, [place] and will discuss case w him. Pt doesn't have a dentist she follows with Hyperlipidemia: Home med resumed rheumatoid arthritis: stable diabetes: resumed home dose insulin w slidding scale, heart healthy and DM diet. Discharge Planning started on IV clinda. Hopefully she responds to the abx. awaiting call back from Elizabeth Vega MD Jul 02, 2017 13:22
[2017-07-02] MEDS: CLINDAMYCIN 600 MG/NS PREMIX 50 ML IV SCH (16:06)
--- NOTE | 2017-07-02 18:31 | EKG ---
Date Performed: 07/01/2017 Time Performed: 09:56:40 PTAGE: 41 years EKG: Sinus rhythm POSSIBLE LEFT ATRIAL ENLARGEMENT MODERATE T-WAVE ABNORMALITY, CONSIDER LATERAL ISCHEMIA ABNORMAL ECG PREVIOUS TRACING : 07/01/2017 04.42 DOCTOR: Pedro Thompson Interpretating Date/Time 07/02/2017 18:31:20
[2017-07-02] MEDS: INSULIN DETEMIR 100 UNITS/ML VIAL SQ SCH (22:00)
[2017-07-02] MEDS: ATORVASTATIN 20 MG TAB PO SCH (22:00)
--- NOTE | 2017-07-02 23:17 | EKG ---
Date Performed: 07/01/2017 Time Performed: 04:42:24 PTAGE: 41 years EKG: Sinus rhythm MODERATE T-WAVE ABNORMALITY, CONSIDER ANTEROLATERAL ISCHEMIA ABNORMAL ECG NO PREVIOUS TRACING DOCTOR: Pedro Thompson Interpretating Date/Time 07/02/2017 23:17:07
[2017-07-03] MEDS: CLINDAMYCIN 600 MG/NS PREMIX 50 ML IV SCH ×3 (00:21→16:02)
[2017-07-03] MEDS: oxyCODONE/ACETAMINOPHEN 10 MG/325 MG TAB PO PRN ×3 (00:21→17:52)
[2017-07-03 03:44] VITALS: BP 105/64; PULSE 68; RESP 16; TEMP 97.7; O2SAT 99
[2017-07-03] MEDS: ONDANSETRON HCL 4 MG/2 ML VIAL IVP PRN ×3 (04:00→20:10)
[2017-07-03] MEDS: MORPHINE SULFATE 2 MG/ML INJ IV PUSH PRN ×3 (06:08→20:10)
[2017-07-03 08:00] VITALS: BP 105/59; PULSE 68; RESP 20; TEMP 96.1; O2SAT 96
[2017-07-03] MEDS: INSULIN ASPART SUPPLEMENTAL SCALE SQ SCH ×3 (08:00→17:50)
[2017-07-03 08:10] VITALS: PULSE 66
[2017-07-03] MEDS: METOPROLOL TARTRATE 25 MG TAB PO SCH (08:51)
[2017-07-03] MEDS: SERTRALINE HCL 50 MG TAB PO SCH (08:52)
[2017-07-03] MEDS: ASPIRIN 81 MG CHEW TAB CHEW SCH (08:52)
[2017-07-03] MEDS: FERROUS SULFATE 325 MG (65 MG ELEMENTAL IRON) TAB PO SCH ×2 (08:52→17:55)
[2017-07-03] MEDS: DOCUSATE SODIUM 50 MG/SENNA 8.6 MG TAB PO SCH (08:52)
[2017-07-03] MEDS: ALPRAZolam 0.5 MG TAB PO PRN ×2 (09:18→17:52)
[2017-07-03] MEDS: SODIUM CHLORIDE 0.9% FLUSH 10 ML FLUSH IV FLUSH SCH ×2 (09:20→21:00)
[2017-07-03 12:00] VITALS: BP 130/70; PULSE 70; RESP 20; TEMP 96.5; O2SAT 99
--- NOTE | 2017-07-03 13:06 | HHI.PR ---
Subjective Remarks in no acute distress. still with on and off chest pain and some pain to the right jaw. no fever. Objective Vitals Vital Signs Date Time Temp Pulse Resp B/P (MAP) Pulse Ox O2 Delivery O2 Flow Rate FiO2 07/03/17 08:00 96.1 68 20 105/59 (74) 96 07/03/17 03:44 97.7 68 16 105/64 (78) 99 07/02/17 23:24 98.2 71 16 119/68 (85) 97 07/02/17 19:58 98.5 84 16 118/69 (85) 97 07/02/17 16:11 18 07/02/17 14:20 88 18 169/94 (119) 96 I/O 07/02/17 07/02/17 07/02/17 07/03/17 07/03/17 07/03/17 07:00 15:00 23:00 07:00 15:00 23:00 # Voids 1 Result Diagram: 07/01/17 0513 07/01/17 0513 Imaging Last Impressions Chest X-Ray 07/01/17 0457 Signed Impressions: Service Date/Time: June 05:09 - CONCLUSION: 1. Cardiomegaly. 2. Clear lungs. Guille Ruffin Jr., MD Objective Remarks GENERAL: This is a well-nourished, well-developed patient, in no apparent distress. CARDIOVASCULAR: Regular rate and regular rhythm without murmurs, gallops, or rubs. RESPIRATORY: Clear to auscultation. Breath sounds equal bilaterally. No wheezes , rales, or rhonchi. GASTROINTESTINAL: Abdomen soft, non-tender, nondistended. Normal, active bowel sounds MUSCULOSKELETAL: Extremities without clubbing, cyanosis, or edema. NEURO: Alert & Oriented x4 to person, place, time, situation. Moves all ext x4 Medications and IVs Inpatient Medications Acetaminophen/ Hydrocodone Bitart ([place] 7.5-325 Mg) 1 tab Q4H PRN PO PAIN SCALE 3 TO 6; Start 07/01/17 at 15:00; Stop 07/01/17 at 16:31; Status DC Acetaminophen/ Hydrocodone Bitart ([place] 10-325 Mg) 1 tab Q4H PRN PO PAIN SCALE 7 TO 10; Start 07/01/17 at 15:00; Stop 07/01/17 at 16:31; Status DC Alprazolam (Xanax) 0.5 mg Q4H PRN PO ANXIETY Last administered on 07/03/17at 09: 18; Start 07/01/17 at 08:15 Aspirin (Aspirin Chew) 81 mg DAILY CHEW Last administered on 07/03/17at 08:52; Start 07/01/17 at 09:00 Atorvastatin Calcium (Lipitor) 20 mg HS PO Last administered on 07/02/17at 22:00 ; Start 07/01/17 at 21:00 Bisacodyl (Dulcolax Supp) 10 mg DAILY PRN RECTAL SEVERE CONSITIPATION; Start at 08:00 Clindamycin/ Sodium Chloride 50 ml @ 100 mls/hr Q8H IV Last administered on 07/03/17at 06:06; Start 07/02/17 at 14:00 Clonidine (Catapres) 0.1 mg ONCE ONCE PO Last administered on 07/01/17at 21:45; Start 07/01/17 at 21:45; Stop 07/01/17 at 21:46; Status DC Dextrose (D50w (Vial) Inj) 50 ml UNSCH PRN IV PUSH HYPOGLYCEMIA-SEE COMMENTS; Start 07/01/17 at 08:15 Enalaprilat (Vasotec Inj) 1.25 mg Q6H PRN IV PUSH SBP>160, DBP>90 Last administered on 07/01/17at 17:55; Start 07/01/17 at 17:00 Fentanyl Citrate (fentaNYL INJ) 50 mcg ONCE ONCE IV PUSH Last administered on 07/01/17at 05:46; Start 07/01/17 at 05:45; Stop 07/01/17 at 05:46; Status DC Ferrous Sulfate (Ferrous Sulfate) 325 mg BIDPC PO Last administered on at 08:52; Start 07/01/17 at 09:00 Glucagon (Glucagon Inj) 1 mg UNSCH PRN OTHER HYPOGLYCEMIA-SEE COMMENTS; Start 07/01/17 at 08:15 Insulin Aspart (NovoLOG SUPPLEMENTAL SCALE) 1 ACHS SLIDING SCALE SQ Last administered on 07/03/17at 12:55; Start 07/01/17 at 12:00 Insulin Detemir (Levemir Inj) 30 units HS SQ Last administered on 07/02/17at 22: 00; Start 07/01/17 at 21:00 Labetalol HCl (Trandate Inj) 10 mg ONCE ONCE IV PUSH Last administered on at 06:17; Start 07/01/17 at 06:00; Stop 07/01/17 at 06:01; Status DC Lactulose (Lactulose Liq) 30 ml DAILY PRN PO SEVERE CONSITIPATION; Start at 08:00 Magnesium Hydroxide (Milk Of Magnesia Liq) 30 ml Q12H PRN PO Mild constipation ; Start 07/01/17 at 08:00 Metoprolol Tartrate (Lopressor) 25 mg BID PO Last administered on 07/03/17at 08: 51; Start 07/01/17 at 09:00 Morphine Sulfate (Morphine Inj) 2 mg ONCE ONCE IV PUSH Last administered on 07/01/17at 21:46; Start 07/01/17 at 21:45; Stop 07/01/17 at 21:46; Status DC Naloxone HCl (Narcan Inj) 0.4 mg UNSCH PRN IV PUSH SEE LABEL COMMENTS; Start at 08:00 Nitroglycerin (Nitroglycerin 2% Oint) 0.5 inch Q6H PRN TOPICAL CHEST PAIN; Start 07/01/17 at 08:15 Ondansetron HCl (Zofran Inj) 4 mg Q6H PRN IVP NAUSEA OR VOMITING Last administered on 07/03/17at 13:01; Start 07/01/17 at 08:00 Oxycodone/ Acetaminophen (Percocet 7.5-325 Mg) 1 tab Q4H PRN PO PAIN SCALE 3 TO 5; Start 07/01/17 at 16:30 Oxycodone/ Acetaminophen (Percocet 10-325 Mg) 1 tab Q4H PRN PO PAIN SCALE 7 TO 10 Last administered on 07/03/17at 09:19; Start 07/01/17 at 16:30 Potassium Chloride (KCl) 40 meq ONCE ONCE PO Last administered on 07/01/17at 17: 29; Start 07/01/17 at 17:00; Stop 07/01/17 at 17:25; Status DC Senna/Docusate Sodium (Gracy-Colace) 1 tab BID PO Last administered on 07/03/17at 08:52; Start 07/01/17 at 09:00 Sennosides (Senokot) 17.2 mg Q12H PRN PO Moderate constipation; Start 07/01/17 at 08:00 Sertraline HCl (Zoloft) 50 mg DAILY PO Last administered on 07/03/17at 08:52; Start 07/01/17 at 09:00 Sodium Chloride (NS Flush) 2 ml BID IV FLUSH Last administered on 07/03/17at 09: 20; Start 07/01/17 at 09:00 A/P Assessment and Plan A/P Chest pain: Patient with extensive cardiac history and she is status post CABG admitted to [facility] June 05, 2017 and per pt discharged on , CABG done on 06/15/17. Patient is known to Dr. Hernandez. Patient experiencing excruciating chest pain at the incision site with some radiation to her back after rolling on an air mattress on admission, pt was evaluated by Dr. Hernandez, plate corrector and pain is secondary to recent open heart surgery. He recommended to continue pain control and f/u as an outpatient with him. Hypertension: on Home meds have been resumed. Better controlled. Still somewhat elevated however this may be related to her pain. Tooth abscess; continue IV clindamycin.case has been d/w Dr. Duran, [facility] ; recommended abx, pain control and f/u in the office. Hyperlipidemia: Home med resumed rheumatoid arthritis: stable diabetes: resumed home dose insulin w slidding scale, heart healthy and DM diet. Discharge Planning dc home tomorrow if stable. Rafa Narayanan MD Jul 03, 2017 13:06
[2017-07-03 16:00] VITALS: BP 103/63; PULSE 96; RESP 20; TEMP 97.3; O2SAT 99
[2017-07-03 20:22] VITALS: BP 168/80; PULSE 77; RESP 16; TEMP 98.4; O2SAT 99
[2017-07-04] VITALS (7 sets, daily range): BP systolic 124–151; BP diastolic 60–80; PULSE 68–73; RESP 15–20; TEMP 98.2–98.7; O2SAT 96–98
[2017-07-04] MEDS: ATORVASTATIN 20 MG TAB PO SCH ×2 (00:05→20:28)
[2017-07-04] MEDS: oxyCODONE/ACETAMINOPHEN 10 MG/325 MG TAB PO PRN ×3 (00:05→18:41)
[2017-07-04] MEDS: DOCUSATE SODIUM 50 MG/SENNA 8.6 MG TAB PO SCH ×3 (00:06→20:28)
[2017-07-04] MEDS: METOPROLOL TARTRATE 25 MG TAB PO SCH ×3 (00:06→20:28)
[2017-07-04] MEDS: CLINDAMYCIN 600 MG/NS PREMIX 50 ML IV SCH ×4 (00:07→22:00)
[2017-07-04] MEDS: INSULIN ASPART SUPPLEMENTAL SCALE SQ SCH ×5 (00:28→21:00)
[2017-07-04] MEDS: INSULIN DETEMIR 100 UNITS/ML VIAL SQ SCH ×2 (00:29→21:00)
[2017-07-04] MEDS: MORPHINE SULFATE 2 MG/ML INJ IV PUSH PRN ×3 (05:05→20:28)
--- NOTE | 2017-07-04 08:44 | HHI.PR ---
Subjective Remarks in no acute distress. pain and swelling of the right jaw has much improved. no other complaints over night. Objective Vitals Vital Signs Date Time Temp Pulse Resp B/P (MAP) Pulse Ox O2 Delivery O2 Flow Rate FiO2 07/04/17 08:19 98.2 69 20 124/62 (82) 96 07/04/17 05:37 18 07/04/17 04:25 98.7 72 16 151/80 (103) 98 07/04/17 00:38 98.2 73 15 143/78 (99) 97 07/04/17 00:38 18 07/03/17 20:22 98.4 77 16 168/80 (109) 99 07/03/17 16:00 97.3 96 20 103/63 (76) 99 07/03/17 12:00 96.5 70 20 130/70 (90) 99 I/O 07/03/17 07/03/17 07/03/17 07/04/17 07/04/17 07/04/17 07:00 15:00 23:00 07:00 15:00 23:00 Intake Total 2 ml 250 ml Balance 2 ml 250 ml Intake Oral 200 ml IV Total 2 ml 50 ml # Voids 1 3 # Bowel Movements 0 Result Diagram: 07/01/17 0513 07/01/17 0513 Imaging Last Impressions Chest X-Ray 07/01/17 0457 Signed Impressions: Service Date/Time: June 05:09 - CONCLUSION: 1. Cardiomegaly. 2. Clear lungs. Guille Ruffin Jr., MD Objective Remarks GENERAL: This is a well-nourished, well-developed patient, in no apparent distress. CARDIOVASCULAR: Regular rate and regular rhythm without murmurs, gallops, or rubs. RESPIRATORY: Clear to auscultation. Breath sounds equal bilaterally. No wheezes , rales, or rhonchi. GASTROINTESTINAL: Abdomen soft, non-tender, nondistended. Normal, active bowel sounds MUSCULOSKELETAL: Extremities without clubbing, cyanosis, or edema. NEURO: Alert & Oriented x4 to person, place, time, situation. Moves all ext x4 Medications and IVs Inpatient Medications Acetaminophen/ Hydrocodone Bitart ([place] 7.5-325 Mg) 1 tab Q4H PRN PO PAIN SCALE 3 TO 6; Start 07/01/17 at 15:00; Stop 07/01/17 at 16:31; Status DC Acetaminophen/ Hydrocodone Bitart ([place] 10-325 Mg) 1 tab Q4H PRN PO PAIN SCALE 7 TO 10; Start 07/01/17 at 15:00; Stop 07/01/17 at 16:31; Status DC Alprazolam (Xanax) 0.5 mg Q4H PRN PO ANXIETY Last administered on 07/03/17at 17: 52; Start 07/01/17 at 08:15 Aspirin (Aspirin Chew) 81 mg DAILY CHEW Last administered on 07/03/17at 08:52; Start 07/01/17 at 09:00 Atorvastatin Calcium (Lipitor) 20 mg HS PO Last administered on 07/04/17at 00:05 ; Start 07/01/17 at 21:00 Bisacodyl (Dulcolax Supp) 10 mg DAILY PRN RECTAL SEVERE CONSITIPATION; Start at 08:00 Clindamycin/ Sodium Chloride 50 ml @ 100 mls/hr Q8H IV Last administered on 07/04/17at 06:23; Start 07/02/17 at 14:00 Clonidine (Catapres) 0.1 mg ONCE ONCE PO Last administered on 07/01/17at 21:45; Start 07/01/17 at 21:45; Stop 07/01/17 at 21:46; Status DC Dextrose (D50w (Vial) Inj) 50 ml UNSCH PRN IV PUSH HYPOGLYCEMIA-SEE COMMENTS; Start 07/01/17 at 08:15 Enalaprilat (Vasotec Inj) 1.25 mg Q6H PRN IV PUSH SBP>160, DBP>90 Last administered on 07/01/17at 17:55; Start 07/01/17 at 17:00 Fentanyl Citrate (fentaNYL INJ) 50 mcg ONCE ONCE IV PUSH Last administered on 07/01/17at 05:46; Start 07/01/17 at 05:45; Stop 07/01/17 at 05:46; Status DC Ferrous Sulfate (Ferrous Sulfate) 325 mg BIDPC PO Last administered on at 17:55; Start 07/01/17 at 09:00 Glucagon (Glucagon Inj) 1 mg UNSCH PRN OTHER HYPOGLYCEMIA-SEE COMMENTS; Start 07/01/17 at 08:15 Insulin Aspart (NovoLOG SUPPLEMENTAL SCALE) 1 ACHS SLIDING SCALE SQ Last administered on 07/04/17at 00:28; Start 07/01/17 at 12:00 Insulin Detemir (Levemir Inj) 30 units HS SQ Last administered on 07/04/17at 00: 29; Start 07/01/17 at 21:00 Labetalol HCl (Trandate Inj) 10 mg ONCE ONCE IV PUSH Last administered on at 06:17; Start 07/01/17 at 06:00; Stop 07/01/17 at 06:01; Status DC Lactulose (Lactulose Liq) 30 ml DAILY PRN PO SEVERE CONSITIPATION; Start at 08:00 Magnesium Hydroxide (Milk Of Magnesia Liq) 30 ml Q12H PRN PO Mild constipation ; Start 07/01/17 at 08:00 Metoprolol Tartrate (Lopressor) 25 mg BID PO Last administered on 07/04/17at 00: 06; Start 07/01/17 at 09:00 Morphine Sulfate (Morphine Inj) 2 mg ONCE ONCE IV PUSH Last administered on 07/01/17at 21:46; Start 07/01/17 at 21:45; Stop 07/01/17 at 21:46; Status DC Naloxone HCl (Narcan Inj) 0.4 mg UNSCH PRN IV PUSH SEE LABEL COMMENTS; Start at 08:00 Nitroglycerin (Nitroglycerin 2% Oint) 0.5 inch Q6H PRN TOPICAL CHEST PAIN; Start 07/01/17 at 08:15 Ondansetron HCl (Zofran Inj) 4 mg Q6H PRN IVP NAUSEA OR VOMITING Last administered on 07/03/17at 20:10; Start 07/01/17 at 08:00 Oxycodone/ Acetaminophen (Percocet 7.5-325 Mg) 1 tab Q4H PRN PO PAIN SCALE 3 TO 5; Start 07/01/17 at 16:30 Oxycodone/ Acetaminophen (Percocet 10-325 Mg) 1 tab Q4H PRN PO PAIN SCALE 7 TO 10 Last administered on 07/04/17at 00:05; Start 07/01/17 at 16:30 Potassium Chloride (KCl) 40 meq ONCE ONCE PO Last administered on 07/01/17at 17: 29; Start 07/01/17 at 17:00; Stop 07/01/17 at 17:25; Status DC Senna/Docusate Sodium ([place]acy-Colace) 1 tab BID PO Last administered on 07/04/17at 00:06; Start 07/01/17 at 09:00 Sennosides (Senokot) 17.2 mg Q12H PRN PO Moderate constipation; Start 07/01/17 at 08:00 Sertraline HCl (Zoloft) 50 mg DAILY PO Last administered on 07/03/17at 08:52; Start 07/01/17 at 09:00 Sodium Chloride (NS Flush) 2 ml BID IV FLUSH Last administered on 07/03/17at 09: 20; Start 07/01/17 at 09:00 A/P Assessment and Plan A/P Chest pain: Patient with extensive cardiac history and she is status post CABG admitted to [facility] June 05, 2017 and per pt discharged on , CABG done on 06/15/17. Patient is known to Dr. Hernandez. Patient experiencing excruciating chest pain at the incision site with some radiation to her back after rolling on an air mattress on admission, pt was evaluated by Dr. Hernandez, alarm service technician and pain is secondary to recent open heart surgery. He recommended to continue pain control and f/u as an outpatient with him. Hypertension: on Home meds have been resumed. Better controlled. Tooth abscess; awitch to po clindamycin.case has been d/w Dr. Duran, [facility] ; recommended abx, pain control and f/u in the office. Hyperlipidemia: Home med resumed rheumatoid arthritis: stable diabetes: resumed home dose insulin w slidding scale, heart healthy and DM diet. Discharge Planning dc home today. f/u; pcp, cardiology and oral surgery. Rafa Narayanan MD Jul 04, 2017 08:44
[2017-07-04] MEDS ORDERED: CLIN300C5 PO (08:45)
[2017-07-04] MEDS ORDERED: NITR1SUB3 SL (08:46)
--- NOTE | 2017-07-04 08:50 | HHI.DS ---
Discharge Summary Admission Date Jul 01, 2017 at 08:02 Discharge Date: Jul 04, 2017 Admitting Diagnosis post CABG pain (1) Tooth abscess ICD Code: K04.7 - Periapical abscess without sinus Diagnosis: Secondary (2) Chest pain ICD Code: R07.9 - Chest pain Diagnosis: Principal Status: Acute Procedures none Brief History - From Admission Patient is a 41-year-old female with past medical history of hypertension, hyperlipidemia, CAD status post CABG 2 weeks ago, has a history of UT 7, rheumatoid arthritis, chronic pain, history of hemorrhagic cyst, diabetes on insulin presented to the emergency room with excruciating chest pain. Patient states that she was discharged on June 22 (had her CABG done on June 15 ) at [facility]. She has been staying with her cousin and been sleeping on a air mattress. Apparently as she was turning this morning she heard a crack and experienced excruciating pain 10 out of 10 with elevated her blood pressures. She came to the emergency room for further evaluation. She was given fentanyl and her pain decreased from to 3 out of 10 but now is back up to 8 out of 10. She does have radiation to her back. She admits to nausea but no vomiting. She admits to headache. She denies any diaphoresis. States that she was on Percocet prior to this but she went finished a course of Percocets. He tells me that she is known to Dr. Hernandez, soup person. Pain right now as an 8 out of 10. Morphine is not really making it better. CBC/BMP: 07/01/17 0513 07/01/17 0513 Significant Findings Laboratory Tests Test 07/01/17 09:50 07/01/17 14:24 Troponin I 0.08 NG/ML (0.02-0.05) 0.08 NG/ML (0.02-0.05) Imaging Last Impressions Chest X-Ray 07/01/17 0457 Signed Impressions: Service Date/Time: June 05:09 - CONCLUSION: 1. Cardiomegaly. 2. Clear lungs. Guille Ruffin Jr., MD PE at Discharge GENERAL: This is a well-nourished, well-developed patient, in no apparent distress. CARDIOVASCULAR: Regular rate and regular rhythm without murmurs, gallops, or rubs. RESPIRATORY: Clear to auscultation. Breath sounds equal bilaterally. No wheezes , rales, or rhonchi. GASTROINTESTINAL: Abdomen soft, non-tender, nondistended. Normal, active bowel sounds MUSCULOSKELETAL: Extremities without clubbing, cyanosis, or edema. NEURO: Alert & Oriented x4 to person, place, time, situation. Moves all ext x4 Hospital Course patient was admitted with chest pain. she was seen by cardiology who recommended outpatient follow-up. she was found to have a tooth abscess for which she was placed on IV antibiotic. case was d/w the oral surgery who recommended outpatient follow-up. Pt Condition on Discharge: Stable Discharge Disposition: Disch w/ Home Health Serv Discharge Time: <= 30 minutes Discharge Instructions DIET: Follow Instructions for: Heart Healthy Diet Activities you can perform: Regular-No Restrictions Rafa Narayanan MD Jul 04, 2017 08:50
[2017-07-04] MEDS: ASPIRIN 81 MG CHEW TAB CHEW SCH (09:21)
[2017-07-04] MEDS: FERROUS SULFATE 325 MG (65 MG ELEMENTAL IRON) TAB PO SCH ×2 (09:21→18:41)
[2017-07-04] MEDS: SERTRALINE HCL 50 MG TAB PO SCH (09:21)
[2017-07-04] MEDS: SODIUM CHLORIDE 0.9% FLUSH 10 ML FLUSH IV FLUSH SCH ×2 (09:22→20:50)
[2017-07-04] MEDS: ONDANSETRON HCL 4 MG/2 ML VIAL IVP PRN (09:26)
[2017-07-04 10:01] LABS: MAGNESIUM 1.8 MG/DL (1.5-2.5)
[2017-07-04] MEDS ORDERED: NORC5TAB PO (11:25)
[2017-07-04] MEDS ORDERED: WALKER WHEELS/F1 MIS (12:13)
--- NOTE | 2017-07-04 14:34 | HHI.FF ---
Face to Face Verification Diagnosis: (1) S/P CABG (coronary artery bypass graft) (2) Physical deconditioning Physical Therapy Order: Evaluate and Treat, Improve ambulation, Strength and gait training I have seen patient Piper Nielsen on 07/04/17. My clinical findings support the need for the requested home health care services because: Ltd mobility - disease progression Deconditioned w/ increased weakness Limited ability to care for self I certify that my clinical findings support that this patient is homebound because: Post-op weakness Unsteady gait/balance Unsafe to leave home unassisted Unable to use public transportation Hannah Lu Jul 04, 2017 14:34
[2017-07-04] MEDS: ALPRAZolam 0.5 MG TAB PO PRN (20:29)
[2017-07-05] VITALS: BP 153/81; PULSE 75; RESP 17; TEMP 98.9; O2SAT 95
[2017-07-05 04:00] VITALS: BP 149/68; PULSE 79; RESP 18; TEMP 97.8; O2SAT 96
[2017-07-05] MEDS: MORPHINE SULFATE 2 MG/ML INJ IV PUSH PRN (04:21)
[2017-07-05] MEDS: ONDANSETRON HCL 4 MG/2 ML VIAL IVP PRN (04:35)
[2017-07-05] MEDS: CLINDAMYCIN 600 MG/NS PREMIX 50 ML IV SCH (06:23)
[2017-07-05 07:45] VITALS: PULSE 71
--- NOTE | 2017-07-05 08:45 | HHI.PR ---
Subjective Remarks in no acute distress. no chest pain or sob. no new complaints. Objective Vitals Vital Signs Date Time Temp Pulse Resp B/P (MAP) Pulse Ox O2 Delivery O2 Flow Rate FiO2 07/05/17 05:21 18 07/05/17 04:00 97.8 79 18 149/68 (95) 96 07/05/17 00:00 98.9 75 17 153/81 (105) 95 07/04/17 19:38 18 07/04/17 18:42 98.2 70 18 125/60 (81) 96 07/04/17 15:15 70 07/04/17 12:53 98.2 68 20 128/60 (82) 98 I/O 07/04/17 07/04/17 07/04/17 07/05/17 07/05/17 07/05/17 07:00 15:00 23:00 07:00 15:00 23:00 Intake Total 200 ml 200 ml Balance 200 ml 200 ml Intake Oral 200 ml 200 ml Result Diagram: 07/01/17 0513 07/04/17 0921 Imaging Last Impressions Chest X-Ray 07/01/17 0457 Signed Impressions: Service Date/Time: June 05:09 - CONCLUSION: 1. Cardiomegaly. 2. Clear lungs. Guille Ruffin Jr., MD Objective Remarks GENERAL: This is a well-nourished, well-developed patient, in no apparent distress. CARDIOVASCULAR: Regular rate and regular rhythm without murmurs, gallops, or rubs. RESPIRATORY: Clear to auscultation. Breath sounds equal bilaterally. No wheezes , rales, or rhonchi. GASTROINTESTINAL: Abdomen soft, non-tender, nondistended. Normal, active bowel sounds MUSCULOSKELETAL: Extremities without clubbing, cyanosis, or edema. NEURO: Alert & Oriented x4 to person, place, time, situation. Moves all ext x4 Procedures none Medications and IVs Inpatient Medications Acetaminophen/ Hydrocodone Bitart ([place] 7.5-325 Mg) 1 tab Q4H PRN PO PAIN SCALE 3 TO 6; Start 07/01/17 at 15:00; Stop 07/01/17 at 16:31; Status DC Acetaminophen/ Hydrocodone Bitart ([place] 10-325 Mg) 1 tab Q4H PRN PO PAIN SCALE 7 TO 10; Start 07/01/17 at 15:00; Stop 07/01/17 at 16:31; Status DC Alprazolam (Xanax) 0.5 mg Q4H PRN PO ANXIETY Last administered on 07/04/17at 20: 29; Start 07/01/17 at 08:15 Aspirin (Aspirin Chew) 81 mg DAILY CHEW Last administered on 07/04/17at 09:21; Start 07/01/17 at 09:00 Atorvastatin Calcium (Lipitor) 20 mg HS PO Last administered on 07/04/17at 20:28 ; Start 07/01/17 at 21:00 Bisacodyl (Dulcolax Supp) 10 mg DAILY PRN RECTAL SEVERE CONSITIPATION; Start at 08:00 Clindamycin/ Sodium Chloride 50 ml @ 100 mls/hr Q8H IV Last administered on 07/05/17at 06:23; Start 07/02/17 at 14:00 Clonidine (Catapres) 0.1 mg ONCE ONCE PO Last administered on 07/01/17at 21:45; Start 07/01/17 at 21:45; Stop 07/01/17 at 21:46; Status DC Dextrose (D50w (Vial) Inj) 50 ml UNSCH PRN IV PUSH HYPOGLYCEMIA-SEE COMMENTS; Start 07/01/17 at 08:15 Enalaprilat (Vasotec Inj) 1.25 mg Q6H PRN IV PUSH SBP>160, DBP>90 Last administered on 07/01/17at 17:55; Start 07/01/17 at 17:00 Fentanyl Citrate (fentaNYL INJ) 50 mcg ONCE ONCE IV PUSH Last administered on 07/01/17at 05:46; Start 07/01/17 at 05:45; Stop 07/01/17 at 05:46; Status DC Ferrous Sulfate (Ferrous Sulfate) 325 mg BIDPC PO Last administered on at 18:41; Start 07/01/17 at 09:00 Glucagon (Glucagon Inj) 1 mg UNSCH PRN OTHER HYPOGLYCEMIA-SEE COMMENTS; Start 07/01/17 at 08:15 Insulin Aspart (NovoLOG SUPPLEMENTAL SCALE) 1 ACHS SLIDING SCALE SQ Last administered on 07/04/17at 00:28; Start 07/01/17 at 12:00 Insulin Detemir (Levemir Inj) 30 units HS SQ Last administered on 07/04/17at 00: 29; Start 07/01/17 at 21:00 Labetalol HCl (Trandate Inj) 10 mg ONCE ONCE IV PUSH Last administered on at 06:17; Start 07/01/17 at 06:00; Stop 07/01/17 at 06:01; Status DC Lactulose (Lactulose Liq) 30 ml DAILY PRN PO SEVERE CONSITIPATION; Start at 08:00 Magnesium Hydroxide (Milk Of Magnesia Liq) 30 ml Q12H PRN PO Mild constipation ; Start 07/01/17 at 08:00 Metoprolol Tartrate (Lopressor) 25 mg BID PO Last administered on 07/04/17 20: 28; Start 07/01/17 at 09:00 Morphine Sulfate (Morphine Inj) 2 mg ONCE ONCE IV PUSH Last administered on 07/01/17at 21:46; Start 07/01/17 at 21:45; Stop 07/01/17 at 21:46; Status DC Naloxone HCl (Narcan Inj) 0.4 mg UNSCH PRN IV PUSH SEE LABEL COMMENTS; Start at 08:00 Nitroglycerin (Nitroglycerin 2% Oint) 0.5 inch Q6H PRN TOPICAL CHEST PAIN; Start 07/01/17 at 08:15 Ondansetron HCl (Zofran Inj) 4 mg Q6H PRN IVP NAUSEA OR VOMITING Last administered on 07/05/17at 04:35; Start 07/01/17 at 08:00 Oxycodone/ Acetaminophen (Percocet 7.5-325 Mg) 1 tab Q4H PRN PO PAIN SCALE 3 TO 5; Start 07/01/17 at 16:30 Oxycodone/ Acetaminophen (Percocet 10-325 Mg) 1 tab Q4H PRN PO PAIN SCALE 7 TO 10 Last administered on 07/04/17at 18:41; Start 07/01/17 at 16:30 Potassium Chloride (KCl) 40 meq ONCE ONCE PO Last administered on 07/01/17at 17: 29; Start 07/01/17 at 17:00; Stop 07/05/17 at 04:10; Status DC Senna/Docusate Sodium (Gracy-Colace) 1 tab BID PO Last administered on 07/04/17at 20:28; Start 07/01/17 at 09:00 Sennosides (Senokot) 17.2 mg Q12H PRN PO Moderate constipation; Start 07/01/17 at 08:00 Sertraline HCl (Zoloft) 50 mg DAILY PO Last administered on 07/04/17at 09:21; Start 07/01/17 at 09:00 Sodium Chloride (NS Flush) 2 ml BID IV FLUSH Last administered on 07/04/17at 09: 22; Start 07/01/17 at 09:00 A/P Problem List: (1) Tooth abscess ICD Code: K04.7 - Periapical abscess without sinus (2) Chest pain ICD Code: R07.9 - Chest pain Status: Acute Assessment and Plan A/P Chest pain: Patient with extensive cardiac history and she is status post CABG admitted to [facility] June 05, 2017 and per pt discharged on , CABG done on 06/15/17. Patient is known to Dr. Hernandez. Patient experiencing excruciating chest pain at the incision site with some radiation to her back after rolling on an air mattress on admission, pt was evaluated by Dr. Hernandez, return agent and pain is secondary to recent open heart surgery. He recommended to continue pain control and f/u as an outpatient with him. Hypertension: on Home meds have been resumed. Better controlled. Tooth abscess; awitch to po clindamycin.case has been d/w Dr. Duran, [facility] ; recommended abx, pain control and f/u in the office. Hyperlipidemia: Home med resumed rheumatoid arthritis: stable diabetes: resumed home dose insulin w slidding scale, heart healthy and DM diet. Discharge Planning dc to rehab when the arrangements made. f/u; pcp, cardiology and oral surgery. Rafa Narayanan MD Jul 05, 2017 08:45
[2017-07-05] MEDS: INSULIN ASPART SUPPLEMENTAL SCALE SQ SCH (08:54)
[2017-07-05 09:01] VITALS: BP 158/88; PULSE 73; RESP 16; TEMP 98.1; O2SAT 96
[2017-07-05] MEDS: METOPROLOL TARTRATE 25 MG TAB PO SCH (09:04)
[2017-07-05] MEDS: SERTRALINE HCL 50 MG TAB PO SCH (09:04)
[2017-07-05] MEDS: ASPIRIN 81 MG CHEW TAB CHEW SCH (09:05)
[2017-07-05] MEDS: FERROUS SULFATE 325 MG (65 MG ELEMENTAL IRON) TAB PO SCH (09:05)
[2017-07-05] MEDS: DOCUSATE SODIUM 50 MG/SENNA 8.6 MG TAB PO SCH (09:05)
[2017-07-05] MEDS: SODIUM CHLORIDE 0.9% FLUSH 10 ML FLUSH IV FLUSH SCH (09:05)
--- NOTE | 2017-07-05 09:25 | HHI.DCPOC ---
Discharge Care Plan Diagnosis: (1) Tooth abscess (2) Physical deconditioning (3) S/P CABG (coronary artery bypass graft) (4) Chest pain Goals to Promote Your Health * To prevent worsening of your condition and complications * To maintain your health at the optimal level Directions to Meet Your Goals Follow-up with her guest services attendant Dr. Hernandez as outpatient. Follow up with Dr. Duran of oral maxillofacial surgeon for possible drainage and/or tooth extraction. Take your medications as prescribed Follow your dietary instruction Follow activity as directed Keep your appointments as scheduled Take your immunizations and boosters as scheduled If your symptoms worsen call your PCP, if no PCP go to Urgent Care Center or Emergency Room Smoking is Dangerous to Your Health. Avoid second hand smoke Call the 24-hour hour crisis hotline for domestic abuse at [facility] Lu Jul 05, 2017 09:25
[2017-07-05] MEDS ORDERED: ACETAMINOPHEN/HYDROcodone 325 MG/7.5 MG TAB PO PRN (09:45)
[2017-07-05] MEDS ORDERED: ACETAMINOPHEN/HYDROcodone 325 MG/5 MG TAB PO PRN (09:45)
[2017-07-05] MEDS ORDERED: MORPHINE SULFATE 2 MG/ML INJ IV PUSH PRN (10:45)
== END 2017-07-05 13:21 | disposition home or self-care (01) ==
LOC: NEPC 04:39 → NEDA 08:02 → NEPHCDU 10:28 → UNDODISOB 07-04 16:46
PROVIDERS: ADMIT Internal Medicine; ATTEND Internal Medicine
DX: R07.9 Chest pain, unspecified (principal); G89.18 Other acute postprocedural pain; K04.7 Periapical abscess without sinus; I25.10 Atherosclerotic heart disease of native coronary artery without angina pectoris; I11.0 Hypertensive heart disease with heart failure; I50.9 Heart failure, unspecified; I25.2 Old myocardial infarction; E78.5 Hyperlipidemia, unspecified; E11.9 Type 2 diabetes mellitus without complications; M06.9 Rheumatoid arthritis, unspecified; F17.210 Nicotine dependence, cigarettes, uncomplicated; Z79.4 Long term (current) use of insulin; Z95.5 Presence of coronary angioplasty implant and graft; Z95.1 Presence of aortocoronary bypass graft
CPT/HCPCS: 71046; 80053; 82550; 82948; 83690; 83735; 84132; 84484; 85025; 93005; 96372; 96374; 96375; 96376; 97161; 99291; G0378; G8987; G8988; J1815; J2270; J2405; J3010

== ENCOUNTER 2017-07-19 21:13 | Emergency (ER) | payer OTHER ==
[2017-07-20] MEDS: MORPHINE SULFATE 4 MG/ML INJ IV PUSH (00:15)
[2017-07-20] MEDS: ONDANSETRON HCL 4 MG/2 ML VIAL IV (00:15)
[2017-07-20 01:10] LABS: AUTOMATED NEUTROPHIL # 7.4 TH/MM3 (1.8-7.7); BASOPHIL # 0.1 TH/MM3 (0-0.2); BASOPHIL % 0.5 % (0.0-2.0); EOSINOPHIL # 0.3 TH/MM3 (0-0.4); EOSINOPHIL % 2.8 % (0.0-4.0); HEMATOCRIT 36.5 % (35.0-46.0); HEMO FLAGS DIFF FINAL; HEMOGLOBIN 12.1 GM/DL (11.6-15.3); LYMPH % 31.2 % (9.0-44.0); LYMPHOCYTE # 3.8 TH/MM3 (1.0-4.8); MEAN CELL VOLUME 85.8 FL (80.0-100.0); MEAN CORPUSCULAR HEMOGLOBIN 28.4 PG (27.0-34.0); MEAN CORPUSCULAR HGB CONC 33.1 % (32.0-36.0); MEAN PLATELET VOLUME 7.3 FL (7.0-11.0); MONO % 5.4 % (0.0-8.0); MONOCYTE # 0.7 TH/MM3 (0-0.9); NEUT % 60.1 % (16.0-70.0); PLATELET COUNT 472 TH/MM3 (150-450); RED BLOOD COUNT 4.25 MIL/MM3 (4.00-5.30); WHITE BLOOD COUNT 12.3 TH/MM3 (4.0-11.0)
[2017-07-20] MEDS: LABETALOL HCL 100 MG/20 ML VIAL IV PUSH (01:15)
[2017-07-20 01:17] LABS: ANION GAP 8 MEQ/L (5-15); BICARBONATE 25.9 MEQ/L (21.0-32.0); BLOOD UREA NITROGEN 13 MG/DL (7-18); CALCIUM 9.1 MG/DL (8.5-10.1); CHLORIDE 101 MEQ/L (98-107); CREATININE 0.89 MG/DL (0.50-1.00); GLOMERULAR FILTRATION RATE 85 ML/MIN (>89); GLUCOSE,RANDOM 200 MG/DL (74-106); POTASSIUM 3.6 MEQ/L (3.5-5.1); SODIUM (NA) 135 MEQ/L (136-145)
== END 2017-07-20 02:43 | disposition home or self-care (01) ==
LOC: NEPC 21:13
DX: R07.89 Other chest pain (principal); S09.90XA Unspecified injury of head, initial encounter; E78.00 Pure hypercholesterolemia, unspecified; E11.9 Type 2 diabetes mellitus without complications; F31.9 Bipolar disorder, unspecified; I25.10 Atherosclerotic heart disease of native coronary artery without angina pectoris; I11.0 Hypertensive heart disease with heart failure; I50.9 Heart failure, unspecified; W10.9XXA Fall (on) (from) unspecified stairs and steps, initial encounter; Z79.4 Long term (current) use of insulin; Z87.891 Personal history of nicotine dependence; Z95.1 Presence of aortocoronary bypass graft
CPT/HCPCS: 70450; 71046; 72125; 80048; 85025; 93005; 96374; 96375; 99285-25

== ENCOUNTER 2017-07-25 00:10 | Observation (INO) | payer OTHER ==
[~2017-07-25] VITALS: Ht 162.6 cm; Wt 70.6 kg
[2017-07-25] VITALS (13 sets, daily range): BP systolic 106–130; BP diastolic 57–80; PULSE 77–97; RESP 16–20; TEMP 98–100.1; O2SAT 94–100
[~2017-07-25 00:10] MED LIST changes: +CLIN300C5 PO; -COZA50TA PO; -ISOS20TA PO; +METO25TA3 PO; +NITR1SUB3 SL; +NORC5TAB PO; -TOPR100T PO; -TRAZ50TA12 PO; +WALKER WHEELS/F1 MIS; -ZOLO25TA PO; +ZOLO50TA PO
--- NOTE | 2017-07-25 00:49 | PD ---
HPI Chief Complaint: Chest Pain Time Seen by Provider: 00:46 Travel History International Travel<30 days: No Contact w/Intl Traveler<30days: No Traveled to known affect area: No History of Present Illness HPI 41-year-old female patient with previous history of CAD status post stenting and CABG, WA on June 04, LAD stents, hypertension, diabetes, presents to the ER today for 1 day history of left-sided chest pains with radiation down the left arm, left leg, and left neck area. She states is currently a 10 out of 10. She denies any shortness of breath, coughing, fevers, but states she has been nauseous. She denies any other issues. She states that the last time she had the symptoms, she had an [place]. Modifying Factors: None Associated Signs & Symptoms: Left-sided chest, arm, leg pain Risk Factors: Cardiac history PFSH Past Medical History Hx Anticoagulant Therapy: Yes (ASA) Arthritis: Yes Blood Disorders: No Bipolar Disorder: Yes Anxiety: Yes Depression: Yes Cancer: No Cardiac Catheterization: Yes Cardiovascular Problems: Yes (CAD) High Cholesterol: Yes Congestive Heart Failure: Yes Coronary Artery Disease: Yes Diabetes: Yes Patient Takes Glucophage: No Diminished Hearing: No Endocrine: Yes Hypertension: Yes Implanted Vascular Access Dvce: Yes Musculoskeletal: No Neurologic: No Psychiatric: Yes Reproductive: No Respiratory: No ?: Not : 3 Para: 2 Miscarriage: 1 Tubal Ligation: Yes (1999) Past Surgical History Appendectomy: Yes (1980) Body Medical Devices: STENTS Cardiac Surgery: Yes (triple bypass 06/15/17) Cholecystectomy: Yes (2012) Coronary Stent: Yes () Other Surgery: Yes Family History Family Hypercholesterolemia: Yes Social History Alcohol Use: No Tobacco Use: No (quit in May 2017) Substance Use: No Allergies-Medications (Allergen,Severity, Reaction): Coded Allergies: Penicillins (Verified Allergy, Severe, Hives, 07/25/17) shellfish derived (Verified Allergy, Unknown, RASH , 07/25/17) Reported Meds & Prescriptions Reported Meds & Active Scripts Active [place] (Hydrocodone-Acetaminophen) 5 Mg-325 Mg Tab 1 Tab PO Q6H PRN Walker with Front Wheels (Device) 1 Mis Mis Ea .ROUTE DIRECTED Nitroglycerin SL (Nitroglycerin) 0.4 Mg Subl 0.4 Mg SL DIRECTED PRN ONE TABLET UNDER THE TONGUE NEEDED FOR CHEST PAIN, MAY REPEAT EVERY FIVE MINUTES FOR A TOTAL OF 3 DOSES OR CALL 911 IF NO RELIEF Clindamycin (Clindamycin HCl) 300 Mg Cap 600 Mg PO Q8H 7 Days Atorvastatin (Atorvastatin Calcium) 20 Mg Tab 20 Mg PO HS Reported Lantus Inj (Insulin Glargine) 1,000 Unit/10 Ml Vial 30 Units SQ HS Zoloft (Sertraline HCl) 50 Mg Tab 50 Mg PO DAILY Metoprolol Tartrate 25 Mg Tab 25 Mg PO BID Xanax (Alprazolam) 0.5 Mg Tab 0.5 Mg PO Q4H PRN Humalog Inj (Insulin Human Lispro) 1,000 Unit/10 Ml Vial 0 SQ TIDAC PRN Ferrous Sulfate 325 Mg (65 Mg Iron) Tablet 325 Mg PO BIDPC Aspirin 81 Mg Chew 81 Mg CHEW DAILY Review of Systems Except as stated in HPI: all other systems reviewed are Neg Physical Exam Narrative GENERAL: Well-developed middle age female patient currently in mild distress. Awake and oriented 3. SKIN: Focused skin assessment warm/dry. HEAD: Atraumatic. Normocephalic. EYES: Pupils equal and round. No scleral icterus. No injection or drainage. ENT: No nasal bleeding or discharge. Mucous membranes pink and moist. NECK: Trachea midline. No JVD. Supple. CARDIOVASCULAR: Regular rate and rhythm. No murmur appreciated. Pulses are present and equal bilaterally. RESPIRATORY: No accessory muscle use. Clear to auscultation. Breath sounds equal bilaterally. GASTROINTESTINAL: Abdomen soft, non-tender, nondistended. Hepatic and splenic margins not palpable. MUSCULOSKELETAL: No obvious deformities. No clubbing. No cyanosis. No edema. NEUROLOGICAL: Awake and alert. No obvious cranial nerve deficits. Motor grossly within normal limits. Normal speech. PSYCHIATRIC: Appropriate mood and affect; insight and judgment normal. Data Data Last Documented VS Vital Signs Date Time Temp Pulse Resp B/P (MAP) Pulse Ox O2 Delivery O2 Flow Rate FiO2 07/25/17 00:49 90 16 100 Room Air 07/25/17 00:49 2.00 07/25/17 00:33 98.0 108/57 (74) Orders Orders Electrocardiogram (07/25/17 00:46) Ckmb (Isoenzyme) Profile (07/25/17 00:46) Complete Blood Count With Diff (07/25/17 00:46) Comprehensive Metabolic Panel (07/25/17 00:46) Magnesium (Mg) (07/25/17 00:46) Prothrombin Time / Inr (Pt) (07/25/17 00:46) Act Partial Throm Time (Ptt) (07/25/17 00:46) Troponin I (07/25/17 00:46) Chest, Single Ap (07/25/17 00:46) Ecg Monitoring (07/25/17 00:46) Bilateral Bp Monitoring (07/25/17 00:46) Iv Access Insert/Monitor (07/25/17 00:46) Oximetry (07/25/17 00:46) Oxygen Administration (07/25/17 00:46) Aspirin Chew (Aspirin Chew) (07/25/17 01:00) Sodium Chloride 0.9% Flush (Ns Flush) (07/25/17 01:00) Cta Thor Abd Aorta W Iv C W3d (07/25/17 00:46) Ed Urine Pregnancytest Poc (07/25/17 00:46) Morphine Inj (Morphine Inj) (07/25/17 01:15) Ondansetron Inj (Zofran Inj) (07/25/17 01:15) Iohexol 350 Inj (Omnipaque 350 Inj) (07/25/17 02:08) Morphine Inj (Morphine Inj) (07/25/17 03:00) Labs Laboratory Tests Test 07/25/17 01:00 White Blood Count 15.2 TH/MM3 Red Blood Count 3.97 MIL/MM3 Hemoglobin 11.3 GM/DL Hematocrit 33.2 % Mean Corpuscular Volume 83.5 FL Mean Corpuscular Hemoglobin 28.4 PG Mean Corpuscular Hemoglobin Concent 34.0 % Red Cell Distribution Width 15.8 % Platelet Count 368 TH/MM3 Mean Platelet Volume 7.6 FL Neutrophils (%) (Auto) 77.3 % Lymphocytes (%) (Auto) 15.2 % Monocytes (%) (Auto) 6.0 % Eosinophils (%) (Auto) 1.0 % Basophils (%) (Auto) 0.5 % Neutrophils # (Auto) 11.8 TH/MM3 Lymphocytes # (Auto) 2.3 TH/MM3 Monocytes # (Auto) 0.9 TH/MM3 Eosinophils # (Auto) 0.2 TH/MM3 Basophils # (Auto) 0.1 TH/MM3 CBC Comment DIFF FINAL Differential Comment Prothrombin Time 9.9 SEC Prothromb Time International Ratio 1.0 RATIO Activated Partial Thromboplast Time 25.7 SEC Blood Urea Nitrogen 22 MG/DL Creatinine 0.94 MG/DL Random Glucose 282 MG/DL Total Protein 7.7 GM/DL Albumin 3.5 GM/DL Calcium Level 8.9 MG/DL Magnesium Level 1.6 MG/DL Alkaline Phosphatase 129 U/L Aspartate Amino Transf (AST/SGOT) 9 U/L Alanine Aminotransferase (ALT/SGPT) 14 U/L Total Bilirubin 0.2 MG/DL Sodium Level 136 MEQ/L Potassium Level 3.6 MEQ/L Chloride Level 102 MEQ/L Carbon Dioxide Level 26.3 MEQ/L Anion Gap 8 MEQ/L Estimat Glomerular Filtration Rate 80 ML/MIN Total Creatine Kinase 30 U/L Troponin I 0.09 NG/ML MDM Medical Decision Making Medical Screen Exam Complete: Yes Emergency Medical Condition: Yes Medical Record Reviewed: Yes Interpretation(s) EKG shows normal sinus rhythm at a rate of 86 bpm with no signs of acute ST-T changes. Laboratory Tests Test 07/25/17 01:00 White Blood Count 15.2 TH/MM3 (4.0-11.0) Red Blood Count 3.97 MIL/MM3 (4.00-5.30) Hemoglobin 11.3 GM/DL (11.6-15.3) Hematocrit 33.2 % (35.0-46.0) Neutrophils (%) (Auto) 77.3 % (16.0-70.0) Neutrophils # (Auto) 11.8 TH/MM3 (1.8-7.7) Blood Urea Nitrogen 22 MG/DL (7-18) Random Glucose 282 MG/DL (74-106) Alkaline Phosphatase 129 U/L (45-117) Aspartate Amino Transf (AST/SGOT) 9 U/L (15-37) Estimat Glomerular Filtration Rate 80 ML/MIN (>89) Troponin I 0.09 NG/ML (0.02-0.05) Differential Diagnosis ACS versus cervical radiculopathy versus aortic dissection Narrative Course Lab work shows elevation of troponin. EKG did not show any signs of acute changes. There is concern that this could be related to a non-ST elevation [place] considering the patient's history. Aspirin, nitroglycerin, and morphine was given in the ER. CT was done due to the atypical symptoms and did not show any signs of dissection or aortic aneurysm. She does have some signs of pericardial effusion and my plan at this point would be to admit her for further evaluation. Case is discussed with family practice resident service for admission. Diagnosis Primary Impression: Chest pain Additional Impression: Pericardial effusion Admitting Information Admitting Physician Requests: Admit Alexa Crump MD Jul 25, 2017 00:49
[2017-07-25] MEDS ORDERED: SODIUM CHLORIDE 0.9% FLUSH 10 ML FLUSH IVF PRN (01:00)
[2017-07-25] MEDS ORDERED: ASPIRIN 81 MG CHEW TAB PO ONE (01:00)
--- NOTE | 2017-07-25 01:13 | RADRPT ---
EXAM DATE/TIME: 07/25/2017 01:01 [facility] COMPARISON: CHEST SINGLE AP, February 10, 2017, 2:47. INDICATIONS : Sudden onset left sided chest pain radiating down left arm MEDICAL HISTORY : Hypercholesterolemia. Diabetes mellitus type II. Congestive heart failure. HTN SURGICAL HISTORY : Tubal ligation. Appendectomy. Cholecystectomy. Triple bypass ENCOUNTER: Initial ACUITY: 1 day PAIN SCORE: 7/10 LOCATION: Bilateral chest FINDINGS: The patient is status post sternotomy. The heart size is normal. The lungs are clear. CONCLUSION: No acute disease. Kurt Lim MD on July 25, 2017 at 1:10 Board Certified Radiologist. This report was verified electronically.
[2017-07-25] MEDS ORDERED: MORPHINE SULFATE 2 MG/ML INJ IV PUSH ONE ×2 (01:15→03:00)
[2017-07-25] MEDS ORDERED: ONDANSETRON HCL 4 MG/2 ML VIAL IV PUSH ONE (01:15)
[2017-07-25 01:35] LABS: AUTOMATED NEUTROPHIL # 11.8 TH/MM3 (1.8-7.7); BASOPHIL # 0.1 TH/MM3 (0-0.2); BASOPHIL % 0.5 % (0.0-2.0); EOSINOPHIL # 0.2 TH/MM3 (0-0.4); HEMATOCRIT 33.2 % (35.0-46.0); HEMOGLOBIN 11.3 GM/DL (11.6-15.3); LYMPH % 15.2 % (9.0-44.0); LYMPHOCYTE # 2.3 TH/MM3 (1.0-4.8); MEAN CELL VOLUME 83.5 FL (80.0-100.0); MEAN CORPUSCULAR HEMOGLOBIN 28.4 PG (27.0-34.0); MEAN PLATELET VOLUME 7.6 FL (7.0-11.0); MONOCYTE # 0.9 TH/MM3 (0-0.9); NEUT % 77.3 % (16.0-70.0); PLATELET COUNT 368 TH/MM3 (150-450); RED BLOOD COUNT 3.97 MIL/MM3 (4.00-5.30); RED CELL DISTRIBUTION WIDTH 15.8 % (11.6-17.2); WHITE BLOOD COUNT 15.2 TH/MM3 (4.0-11.0)
[2017-07-25 01:41] LABS: PROTHROMBIN TIME - PATIENT 9.9 SEC (9.8-11.6)
[2017-07-25 01:49] LABS: ALBUMIN 3.5 GM/DL (3.4-5.0); ALT (GPT) 14 U/L (10-53); AST (GOT) 9 U/L (15-37); BICARBONATE 26.3 MEQ/L (21.0-32.0); BLOOD UREA NITROGEN 22 MG/DL (7-18); CALCIUM 8.9 MG/DL (8.5-10.1); CHLORIDE 102 MEQ/L (98-107); CREATININE 0.94 MG/DL (0.50-1.00); GLOMERULAR FILTRATION RATE 80 ML/MIN (>89); GLUCOSE,RANDOM 282 MG/DL (74-106); MAGNESIUM 1.6 MG/DL (1.5-2.5); SODIUM (NA) 136 MEQ/L (136-145)
[2017-07-25 01:53] LABS: ALKALINE PHOSPHATASE 129 U/L (45-117); TOTAL BILIRUBIN ADULT 0.2 MG/DL (0.2-1.0); TOTAL PROTEIN 7.7 GM/DL (6.4-8.2); TROPONIN I 0.09 NG/ML (0.02-0.05)
[2017-07-25] MEDS ORDERED: IOHEXOL 350 MG/ML 10 ML VIAL (for RAD DIAG) IVCONTRAST ONE (02:08)
--- NOTE | 2017-07-25 02:46 | RADRPT ---
EXAM DATE/TIME: 07/25/2017 02:07 [facility] COMPARISON: CHEST PA & LAT, July 01, 2017, 5:09. INDICATIONS : Left chest pain; rule out aortic dissection. IV CONTRAST: 94 cc Omnipaque 350 (iohexol) IV RADIATION DOSE: 12.51 CTDIvol (mGy) MEDICAL HISTORY : Cardiovascular disease. Hypertension. SURGICAL HISTORY : CABG Appendectomy.Cholecystectomy.Tubal ligation, cardiac stents ENCOUNTER: Initial ACUITY: 1 day PAIN SCALE: 10/10 LOCATION: Left chest TECHNIQUE: Volumetric scanning was performed using a multi-row detector CT scanner. The data was post processed with a variety of visualization algorithms including full volume maximum intensity projection, multi -planar sliding thin slab reformation, curved planar reformation, and surface rendering techniques. Using automated exposure control and adjustment of the mA and/or kV according to patient size, radiat ion dose was kept as low as reasonably achievable to obtain optimal diagnostic quality images. DICOM format image data is available electronically for review and comparison. FINDINGS: LUNGS: There is mild increased density posterior lower lobes bilaterally likely related to minimal atelectas is or consolidation. MEDIASTINUM: The patient is status post sternotomy. There is a moderate pericardial effusion measuring up to 0.9 c m. There is an increased soft tissue density seen posterior to the sternum. There is adenopathy in th e prevascular, right paratracheal and AP window regions measuring up to 1.4 cm. ABDOMEN: The liver and spleen are free of focal defects. The gallbladder and pancreas demonstrate no abnormali ty. The adrenal glands are normal. The kidneys demonstrate no evidence of solid renal mass or hydrone phrosis. No free fluid or abdominal masses are identified. No para-aortic adenopathy is seen. PELVIS: No evidence of free fluid or pelvic mass. No abnormally enlarged inguinal or retroperitoneal lymph no sandhya are present. The bladder is unremarkable. There are appear to be cysts at the ovaries bilaterally seen as peripheral areas of enhancement measuring 2.4 cm on the right and 1.5 cm on the left. THORACIC AORTA: The thoracic aortic root is normal with normal branching of the great vessels. There is no evidence of aneurysm or dissection. ABDOMINAL AORTA: The aorta is normal in caliber without aneurysm or dissection. The renal arteries are patent bilater ally. The proximal celiac and superior mesenteric arteries are patent and normal in diameter. PELVIC VESSELS: There is atherosclerotic change of the common iliac regions bilaterally. The internal iliac and exter nal iliac vessels are patent without aneurysm or stenosis. CONCLUSION: 1. Moderate pericardial effusion measuring up to 0.9 cm. 2. Diffuse soft tissue density seen posterior to the sternum. The patient is status post sternotomy. It is uncertain when the patient underwent surgery. 3. Enlarged lymph nodes in the mediastinum. 4. All these findings can also be associated with infection following coronary bypass surgery in the correct clinical situation. Kurt Lim MD on July 25, 2017 at 2:37 Board Certified Radiologist. This report was verified electronically.
[2017-07-25] MEDS ORDERED: IOHEXOL 350 MG/ML 100 ML BTL (for Cath Lab) OTHER ONE (03:27)
--- NOTE | 2017-07-25 04:06 | HHI.HP ---
HPI Service Family Medicine Primary Care Physician Zunilda Trujillo MD Admission Diagnosis atypical chest pain/non-ST elevation NC/pericardial effusion Diagnoses: International Travel<30 Days: No Contact w/Intl Traveler<30days: No Known Affected Area: No History of Present Illness 41 y/o F, hx of multiple previous NC's in the last 2 years, presents with chest pain and shortness of breath. She was scared she was going to fall asleep and from another NC, so she called [facility]. She had tried 2 tramadols and this did not alleviate her pain, and morphine x 2 in the ED did not alleviate the pain either. The pain started at 12:30PM on 07/24 and started in the posterior left shoulder area and radiated down the left side of her chest, left arm to the fingers, and down posteriorly to the edge of the shoulder blade. The pain is a sharp pain and has continued to be 10/10 despite medications. When she turns her head to the left the pain increases. This pain feels the same as when she had her NC. She continues to feel numbness in her left arm and left leg, and severe weakness of the left leg. She also has vague LUQ abdominal pain. She was nauseas during the episode but this has been alleviated by zofran. She has also had a mild headache since 8PM last night which is unique for her. She does admit to feeling sweats/chills and she feels like her left arm is cold and numb. er SOB started a few hours after her chest pain and occurs with inspiration. This is also similar to previous heart attacks. Her last heart attack was in 06/04/17 in [place] which led to a triple bypass. She passed out at the [place] and [facility] took her to [facility]. Previous to this, she had a heart attack in March 2017 in [facility] and had a stent placed. Review of Systems Constitutional: DENIES: Weight loss, Chills Endocrine: DENIES: Polydipsia, Polyuria Eyes: COMPLAINS OF: Blurred vision (+ blurry vision in R eye x 1 week, and sees spots in right eye) Ears, nose, mouth, throat: DENIES: Throat pain Respiratory: DENIES: Cough, Wheezing Cardiovascular: COMPLAINS OF: Palpitations (yes on Wednesday while laying down, for the first time), DENIES: Syncope Gastrointestinal: DENIES: Constipation, Diarrhea Genitourinary: DENIES: Abnormal vaginal bleeding, Dysmenorrhea Integumentary: DENIES: Rash Neurologic: DENIES: Paresthesias, Seizures Psychiatric: COMPLAINS OF: Depression (positive bipolar depression), DENIES: Confusion Past Family Social History Past Medical History CAD: 7 heart attacks (1st in 2015, last in May 2017 as per HPI), 6 stents, triple bypass - in [facility] but lost insurance, sees PCP Dr. Trujillo in [place] ( last saw 2 weeks ago), does not currently have cardiology follow up Bipolar disorder DMII HTN Past Surgical History Gallbladder removed 2012 BTL 1999 Appendectomy 1980 Allergies: Coded Allergies: Penicillins (Verified Allergy, Severe, Hives, 07/25/17) shellfish derived (Verified Allergy, Unknown, RASH , 07/25/17) Family History Mother: CAD Grandmother: pancreatic Ca, CAD Aunt: CAD, stroke Social History lives in [place] with a cousin, lives in apartment, no job but gets child support and food stamps smoked 1ppd/day x 25 years (stopped 4 months ago), non-drinker, no drug use Physical Exam Vital Signs Vital Signs Date Time Temp Pulse Resp B/P (MAP) Pulse Ox O2 Delivery O2 Flow Rate FiO2 07/25/17 00:49 90 16 100 Room Air 07/25/17 00:49 100 Nasal Cannula 2.00 07/25/17 00:38 89 16 100 Nasal Cannula 2.00 07/25/17 00:33 98.0 89 16 108/57 (74) 97 Physical Exam GENERAL: This is a well-nourished, well-developed patient, in no apparent distress. no facial droop, normal speech SKIN: No rashes, ecchymoses or lesions. Cool and dry. HEAD: Atraumatic. Normocephalic. No temporal or scalp tenderness. EYES: Pupils equal round and reactive. Extraocular motions intact. No scleral icterus. No injection or drainage. ENT: Nose without bleeding, purulent drainage or septal hematoma. Throat without erythema, tonsillar hypertrophy or exudate. Uvula midline. Airway patent. NECK: Trachea midline. No JVD or lymphadenopathy. Supple, nontender, no meningeal signs. CARDIOVASCULAR: Regular rate and rhythm without murmurs, gallops, or rubs. L shoulder pain is recreated with deep palpation RESPIRATORY: Clear to auscultation. Breath sounds equal bilaterally. No wheezes , rales, or rhonchi. GASTROINTESTINAL: Abdomen soft, non-tender, nondistended. No hepato-splenomegaly , or palpable masses. No guarding. hypoactive bowel sounds MUSCULOSKELETAL: Extremities without clubbing, cyanosis, or edema. No joint tenderness, effusion, or edema noted. No calf tenderness. Negative Homans sign bilaterally. NEUROLOGICAL: Awake and alert. Cranial nerves II through XII intact. Motor and sensory grossly within normal limits. 5/5 strength RUE, 4/5 strength in LUE, 5/ 5 RLE, 3/5 strength LLE Laboratory Laboratory Tests Test 07/25/17 01:00 White Blood Count 15.2 Red Blood Count 3.97 Hemoglobin 11.3 Hematocrit 33.2 Mean Corpuscular Volume 83.5 Mean Corpuscular Hemoglobin 28.4 Mean Corpuscular Hemoglobin Concent 34.0 Red Cell Distribution Width 15.8 Platelet Count 368 Mean Platelet Volume 7.6 Neutrophils (%) (Auto) 77.3 Lymphocytes (%) (Auto) 15.2 Monocytes (%) (Auto) 6.0 Eosinophils (%) (Auto) 1.0 Basophils (%) (Auto) 0.5 Neutrophils # (Auto) 11.8 Lymphocytes # (Auto) 2.3 Monocytes # (Auto) 0.9 Eosinophils # (Auto) 0.2 Basophils # (Auto) 0.1 CBC Comment DIFF FINAL Differential Comment Prothrombin Time 9.9 Prothromb Time International Ratio 1.0 Activated Partial Thromboplast Time 25.7 Blood Urea Nitrogen 22 Creatinine 0.94 Random Glucose 282 Total Protein 7.7 Albumin 3.5 Calcium Level 8.9 Magnesium Level 1.6 Alkaline Phosphatase 129 Aspartate Amino Transf (AST/SGOT) 9 Alanine Aminotransferase (ALT/SGPT) 14 Total Bilirubin 0.2 Sodium Level 136 Potassium Level 3.6 Chloride Level 102 Carbon Dioxide Level 26.3 Anion Gap 8 Estimat Glomerular Filtration Rate 80 Total Creatine Kinase 30 Troponin I 0.09 Result Diagram: 07/25/17 0100 07/25/17 0100 Septic Shock Reassessment Septic shock perfusion: reassessment completed Caprini VTE Risk Assessment Caprini VTE Risk Assessment: No/Low Risk (score <= 1) Caprini Risk Assessment Model Point Value = 1 Point Value = 2 Point Value = 3 Point Value = 5 Age 41-60 Minor surgery BMI > 25 kg/m2 Swollen legs Varicose veins or History of unexplained or recurrent spontaneous Oral contraceptives or hormone replacement Sepsis (< 1 month) Serious lung disease, including pneumonia (< 1 month) Abnormal pulmonary function Acute myocardial infarction Congestive heart failure (< 1 month) History of inflammatory bowel disease Medical patient at bed rest Age 61-74 Arthroscopic surgery Major open surgery (> 45 min) Laparoscopic surgery (> 45 min) Malignancy Confined to bed (> 72 hours) Immobilizing plaster cast Central venous access Age >= 75 History of VTE Family history of VTE Factor V Leiden Prothrombin [id number] Lupus anticoagulant Anticardiolipin antibodies Elevated serum homocysteine Heparin-induced thrombocytopenia Other congenital or acquired thrombophilia Stroke (< 1 month) Elective arthroplasty Hip, pelvis, or leg fracture Acute spinal cord injury (< 1 month) Prophylaxis Regimen Total Risk Factor Score Risk Level Prophylaxis Regimen 0-1 Low Early ambulation 2 Moderate Order ONE of the following: *Sequential Compression Device (SCD) *Heparin 5000 units SQ BID 3-4 Higher Order ONE of the following medications: *Heparin 5000 units SQ TID *Enoxaparin/Lovenox 40 mg SQ daily (WT < 150 kg, CrCl > 30 mL/min) *Enoxaparin/Lovenox 30 mg SQ daily (WT < 150 kg, CrCl > 10-29 mL/min) *Enoxaparin/Lovenox 30 mg SQ BID (WT < 150 kg, CrCl > 30 mL/min) AND/OR *Sequential Compression Device (SCD) 5 or more Highest Order ONE of the following medications: *Heparin 5000 units SQ TID (Preferred with Epidurals) *Enoxaparin/Lovenox 40 mg SQ daily (WT < 150 kg, CrCl > 30 mL/min) *Enoxaparin/Lovenox 30 mg SQ daily (WT < 150 kg, CrCl > 10-29 mL/min) *Enoxaparin/Lovenox 30 mg SQ BID (WT < 150 kg, CrCl > 30 mL/min) AND *Sequential Compression Device (SCD) Assessment and Plan Assessment and Plan 41 y/o F, pmhx of CAD with multiple recent NC's, CABG, and stent placement, presents with chest discomfort and elevated troponin. WBC found to be elevated and CT reveals pericardial effusion. Code Status Full Code Discussed Condition With Problem List: (1) Chest pain ICD Codes: R07.9 - Chest pain Status: Acute Plan: Initial troponin elevated at .09 f/u serial troponins x 2 STAT EKG f/u serial EKG's Nitro topical PRN chest pain Morphine PRN CP Supplemental O2 for sats <92% Cont home Metoprolol (hold for SBP <100, HR <50) Add Lipitor 40 HS (2) Pericardial effusion ICD Codes: I31.3 - Pericardial effusion (noninflammatory) Status: Acute Plan: R/o pericarditis, + pleuritic chest pain - afebrile, HR WNL, no pericardial friction rub, no JVD - f/u troponins - f/u ESR, CRP - f/u Echo Pericardial effusion differential as follows: - Post-op hemopericardium - NC - Aortic dissection (r/o with CT) Aorta CTA: Moderate pericardial effusion measuring 0.9 cm. Diffuse soft tissue density seen posterior to the sternum. Enlarged lymph nodes in the mediastinum. All these findings can be associated with infection following CABG (3) Hypertension ICD Codes: I10 - Essential (primary) hypertension Status: Chronic Plan: Blood pressure 108/57 on admission Continue blood pressure meds and hold for hypotension (4) Diabetes ICD Codes: E11.9 - Type 2 diabetes mellitus without complications Plan: Hold home insulin regimen Follow-up bedside glucose levels Cover with low-dose sliding scale (5) Left-sided weakness ICD Codes: R53.1 - Weakness Status: Acute Plan: Rule out stroke - Rule out ACS - Continue statin - Follow up lipid panel - CT noncontrast head - MRI brain -MRA brain -MRA carotids - Neuro checks every 4 - NIH stroke scale - Follow up echo (6) fen/ppx Status: Acute Plan: Fluids: Nothing by mouth until ACS protocol ruled out Electrolytes: Follow-up BMP in a.m. and titrate accordingly Nutrition: Nothing by mouth GI ppx: Protonix daily for hx of reflux/CP DVT ppx: Hold, Elvia Franklin MD R2 Jul 25, 2017 04:05
[2017-07-25] MEDS ORDERED: ACETAMINOPHEN/HYDROcodone 325 MG/7.5 MG TAB PO PRN (04:45)
[2017-07-25] MEDS ORDERED: ACETAMINOPHEN 500 MG CPLT PO PRN (04:45)
[2017-07-25] MEDS ORDERED: ALPRAZolam 0.5 MG TAB PO PRN (05:00)
[2017-07-25] MEDS ORDERED: GLUCAGON 1 MG/ML VIAL OTHER PRN (05:00)
[2017-07-25] MEDS ORDERED: DEXTROSE 50% IN WATER 50 ML VIAL(D50) IV PUSH PRN (05:00)
[2017-07-25] MEDS: MORPHINE SULFATE 4 MG/ML INJ IV PUSH PRN ×7 (05:21→22:36)
[2017-07-25] MEDS: SODIUM CHLORIDE 0.9% FLUSH 10 ML FLUSH IV FLUSH PRN ×2 (05:22→07:25)
[2017-07-25] MEDS ORDERED: NITROGLYCERIN 2% OINT 1 GM PACKET TOP SCH (06:00)
[2017-07-25] MEDS: SODIUM CHLORIDE 0.9% FLUSH 10 ML FLUSH IV FLUSH SCH ×2 (09:00→20:37)
[2017-07-25] MEDS ORDERED: ASPIRIN 81 MG CHEW TAB CHEW SCH (09:00)
[2017-07-25] MEDS ORDERED: ACETAMINOPHEN/HYDROcodone 325 MG/5 MG TAB PO PRN (09:45)
[2017-07-25] MEDS: INSULIN ASPART SUPPLEMENTAL SCALE SQ SCH ×3 (10:08→21:00)
[2017-07-25] MEDS: FERROUS SULFATE 325 MG (65 MG ELEMENTAL IRON) TAB PO SCH ×2 (10:09→18:03)
[2017-07-25] MEDS: METOPROLOL TARTRATE 25 MG TAB PO SCH ×2 (10:09→20:37)
[2017-07-25] MEDS: PANTOPRAZOLE SOD 40 MG DELAYED RELEASE TAB PO SCH (10:10)
[2017-07-25] MEDS: SERTRALINE HCL 50 MG TAB PO SCH (10:10)
[2017-07-25 11:17] LABS: HEMOGLOBIN A1C 8.6 % (4.3-6.0)
--- NOTE | 2017-07-25 12:18 | EKG ---
Date Performed: 07/25/2017 Time Performed: 00:20:40 PTAGE: 41 years EKG: Sinus rhythm POSSIBLE LEFT ATRIAL ENLARGEMENT INDETERMINATE AXIS PATTERN CONSISTENT WITH PULMONARY DISEASE POSSIB LE RIGHT VENTRICULAR CONDUCTION DELAY MODERATE T-WAVE ABNORMALITY, CONSIDER ANTEROLATERAL ISCHEMIA AB NORMAL ECG PREVIOUS TRACING 07/14/17 Since the prior tracing, there has been no significant change DOCTOR: Omero Lew Interpretating Date/Time 07/25/2017 12:16:37
--- NOTE | 2017-07-25 12:18 | EKG ---
Date Performed: 07/25/2017 Time Performed: 05:09:20 PTAGE: 41 years EKG: Sinus rhythm Possible left atrial abnormality rSr'(V1) - probable normal variant Lateral T wave changes are abnor mal Abnormal ECG PREVIOUS TRACING : 07/19/2017 23.33 Since the prior tracing, there has been no significant zepeda DOCTOR: Omero Lew Interpretating Date/Time 07/25/2017 12:16:50
--- NOTE | 2017-07-25 12:22 | HHI.FPPN ---
Subjective Remarks Attending medical note: 41-year-old female admitted with chest pain and shortness of breath. Very significant past medical history of having had coronary bypass grafting at [facility] in [place] on 06/04/17. 3 vessels bypassed. Patient has had a series of myocardial infarctions over the last 2 years and a very strong family history of ischemic heart disease. The most recent pain started midday on 07/24/17 in the left posterior shoulder radiating to the left side of the chest and into the left arm down to the hands. Described as sharp and 10 over 10. There is a positional component to the pain and is also made worse on deep inspiration. Patient also describes a heaviness to her left lower extremity and possible left-sided weakness. Past medical history also includes hypertension. Initial EKG did show nonspecific ST -T wave changes with T-wave inversion in the precordial leads. Troponin 0.09. Please refer to the resident history and physical for complete discussion of past medical history, social, family history and review of systems. Objective Vitals Vital Signs Date Time Temp Pulse Resp B/P (MAP) Pulse Ox O2 Delivery O2 Flow Rate FiO2 07/25/17 08:00 98.6 83 20 106/66 (79) 94 07/25/17 05:17 98.5 86 18 130/72 (91) 97 07/25/17 04:45 100 Nasal Cannula 2.00 07/25/17 00:49 90 16 100 Room Air 07/25/17 00:49 100 Nasal Cannula 2.00 07/25/17 00:38 89 16 100 Nasal Cannula 2.00 07/25/17 00:33 98.0 89 16 108/57 (74) 97 Result Diagram: 07/25/17 0100 07/25/17 0100 Objective Remarks Vital signs noted. Presenting blood pressure 108/57 pulse 90 per minute respirations 16 temperature afebrile. Gen. appearance comfortable although is complaining of left shoulder pain radiating to the left back and some left anterior left chest pain. HEENT: Nonlocalizing. Neck: No bruits. Lungs: Diminished clear breath sounds, no definite localized findings. Cardiac: S1-S2 no pericardial rubs appreciated. No irregularities in rhythm, no significant murmurs. Abdomen: Soft, no organomegaly, no tenderness. Extremities: Without edema, feet are warm and dry. Neurologic: Cranial nerves II through XII not localize grossly. No drift to the outstretched arm. Patient can with difficulty due to pain stand on her tiptoes, also on her heels. Because of discomfort did not ask her to arise from a squatting position. A/P Assessment and Plan Clinical assessment: 41-year-old woman with very significant history of vascular disease, status post multiple MIs, stent placement, CABG 3 the latter one month ago in [place], [place]. Now admitted with chest pain which appears to be more somatic related to left shoulder, left neck, back. Aggravated by position, worse with deep inspiration. Note is made of her EKG and troponin levels, the troponin levels have been elevated in this range over time. Question if the patient has developed a post pericardiotomy syndrome, a Jeanette's type picture. Cardiology consult will be pending. Hyperlipidemia Hypertension Diabetes mellitus last hemoglobin A1c in chart noted on 07/25/17 to be 8.6. Patient seen and examined. Case reviewed and discussed with resident team. Agree with plan of care is discussed with me and documented in the resident note. Problem List: (1) Chest pain ICD Codes: R07.9 - Chest pain Status: Acute Plan: Initial troponin elevated at .09 f/u serial troponins x 2 STAT EKG f/u serial EKG's Nitro topical PRN chest pain Morphine PRN CP Supplemental O2 for sats <92% Cont home Metoprolol (hold for SBP <100, HR <50) Add Lipitor 40 HS (2) Pericardial effusion ICD Codes: I31.3 - Pericardial effusion (noninflammatory) Status: Acute Plan: R/o pericarditis, + pleuritic chest pain - afebrile, HR WNL, no pericardial friction rub, no JVD - f/u troponins - f/u ESR, CRP - f/u Echo Pericardial effusion differential as follows: - Post-op hemopericardium - MD - Aortic dissection (r/o with CT) Aorta CTA: Moderate pericardial effusion measuring 0.9 cm. Diffuse soft tissue density seen posterior to the sternum. Enlarged lymph nodes in the mediastinum. All these findings can be associated with infection following CABG (3) Hypertension ICD Codes: I10 - Essential (primary) hypertension Status: Chronic Plan: Blood pressure 108/57 on admission Continue blood pressure meds and hold for hypotension (4) Diabetes ICD Codes: E11.9 - Type 2 diabetes mellitus without complications Plan: Hold home insulin regimen Follow-up bedside glucose levels Cover with low-dose sliding scale (5) Left-sided weakness ICD Codes: R53.1 - Weakness Status: Acute Plan: Rule out stroke - Rule out ACS - Continue statin - Follow up lipid panel - CT noncontrast head - MRI brain -MRA brain -MRA carotids - Neuro checks every 4 - NIH stroke scale - Follow up echo (6) fen/ppx Status: Acute Plan: Fluids: Nothing by mouth until ACS protocol ruled out Electrolytes: Follow-up BMP in a.m. and titrate accordingly Nutrition: Nothing by mouth GI ppx: Protonix daily for hx of reflux/CP DVT ppx: Hold, SCDs Je Ann MD Jul 25, 2017 12:21
--- NOTE | 2017-07-25 15:32 | MB ---
cc: IVELISSE OBRIEN DO DATE OF CONSULTATION: 07/25/2017 REASON FOR CONSULTATION: Chest pain, elevated troponin. HISTORY OF PRESENT ILLNESS: Piper Nielsen is a 41-year-old female who presented to the [facility] Emergency Room due to chest pain. The patient has had a difficult history over the past few months but apparently she originally had six stents placed over the past two years. She was seeing Dr. Hernandez but has since lost her insurance and can no longer see him. Then she was in the [place] and passed out. When she woke up, she was in the hospital and had a heart attack. Apparently she had already had a cardiac catheterization previously and they got the records and decided that she needed one-vessel bypass with the ASH to LAD. She presented here to [place] earlier this month for chest pain which was felt to be musculoskeletal due to her incision. She since went home and presented again with chest pain after falling down a set of wet stairs. This time, she was lying in bed and noted the pain coming down the left side of her neck and into the left shoulder down the left side of her chest and into her leg as well as down her left arm. The pain is sharp in nature. It hurts more with deep breaths. She took two Tramadol and this did not alleviate her pain. She states that she was scared that she was going to fall asleep and from another myocardial infarction and so she called EMS. In the emergency room, she was given two doses of morphine, which she states did not help, although she believes that the doses were too small and she required more medications. PAST MEDICAL HISTORY: 1. Coronary artery disease with a history of multiple myocardial infarctions. 2. Bipolar disorder. 3. Diabetes mellitus. 4. Hypertension. PAST SURGICAL HISTORY: 1. History of six stents per the patient. 2. Single-vessel bypass with ASH to the left anterior descending in [facility] in [place] (May of 2017). 3. Gallbladder removed (2012). 4. BPL (2010). 5. Appendectomy (1980). ALLERGIES: 1. PENICILLIN. 2. SHELLFISH. MEDICATIONS: 1. Clindamycin 600 milligrams every 8 hours for seven days. 2. Iron 325 milligrams twice a day. 3. Lipitor 20 milligrams every night. 4. Nitro sublingual as needed for chest pain. 5. Metoprolol Tartrate 25 milligrams twice a day. 6. [place] 5/325 every six hours as needed for pain. 7. Zoloft 50 milligrams daily. 8. Xanax 0.5 milligrams every four hours as needed for anxiety. 9. Lantus 30 units every night. 10. Humalog sliding scale. FAMILY HISTORY: Multiple people in her family on her mother's side had coronary artery disease at a young age. SOCIAL HISTORY: The patient smokes one pack a day for twenty-five years stopping around four months ago. She denies alcohol or drug abuse. REVIEW OF SYSTEMS Fourteen systems were reviewed including osteopathic with pertinent positives and negatives as above; otherwise negative. PHYSICAL EXAMINATION: VITAL SIGNS: Temperature 98.5, heart rate 86, blood pressure 130/72, respirations 18, pulse ox 97% on room air. GENERAL: In general the patient appears well and in no acute distress, alert awake and oriented x3. HEAD, EYES, EARS, NOSE, THROAT: Extraocular muscles intact. Mucous membranes moist. NECK: Supple. No JVD at 45 degrees. No carotid bruits heard bilaterally. Carotid upstroke is brisk in nature. HEART: Regular rate and rhythm. Positive first and second heart sounds with no noted murmurs, gallops or rubs. Pain is increased with deep breathing. Pain is also reproduced and increased with palpation of the anterior chest wall along the incision. LUNGS: Clear to auscultation bilaterally. No wheezes, rales or rhonchi. ABDOMEN: The abdomen is soft, nontender and nondistended. No organomegaly noted. EXTREMITIES: No clubbing, cyanosis or edema. Femoral and distal pulses are intact bilaterally. NEUROLOGIC: No focal deficits. OSTEOPATHIC: Osteopathically, no kyphoscoliosis, lordosis or paraspinal tender points. LABORATORY FINDINGS: Hemoglobin 15.3, hematocrit 33.2, platelets 368,000. Potassium 3.6, BUN 22, creatinine 0.94. Troponin 0.09. EKGs: Electrocardiogram (July 25, 2017 at 11:13): sinus rhythm, anteroseptal and lateral T-wave changes possibly nonspecific versus ischemic in nature. IMPRESSION: 1. Noncoronary chest pain more likely alert pleuritic versus musculoskeletal. 2. Small pericardial effusion noted on CT. 3. Hypertension 4. Diabetes mellitus 5. History of coronary artery disease with a history of myocardial infarction as well as coronary artery bypass grafting. 6. Family history of premature coronary artery disease. 7. Elevated troponin. 8. History of tobacco abuse. RECOMMENDATIONS: Piper Nielsen presented with chest pain which is very atypical for coronary insufficiency and appears to be more pleuritic or musculoskeletal in nature. 1. She does have an EKG which does show S-T-T wave changes laterally with significant change from her previous one in early June. These changes may be nonspecific versus possibly due to ischemia. 2. She does have a mildly elevated troponin which is similar to her previous admission. We will continue to follow this for three sets. 3. As she may have Jeanette syndrome, although EKG does not show typical pericarditis pattern, will check an erythrocyte sedimentation rate to further determine acute reactive nature. If felt to be pericarditis, possibly Jeanette syndrome, then she will be placed on aspirin high-dose therapy [id number]. 4. Depending on the results of the echo and the troponins, may consider doing a stress test as I think this will help determine further if she has true ischemia but also help the patient if there is no ischemia to feel better and less anxious about her situation. 5. Further recommendations will be made based on the hospital course. Thank you for allowing me to see Piper Nielsen. If there are any questions, please do not hesitate to call. Ivelisse Obrien DO VGP/JCC /12:59 PM /3:08 PM
[2017-07-25] MEDS ORDERED: KETOROLAC TROMETHAMINE 30 MG/ML (IVP) VIAL IV PUSH ONE (18:45)
[2017-07-25 18:58] LABS: TROPONIN I 0.06 NG/ML (0.02-0.05)
[2017-07-25] MEDS: ATORVASTATIN 40 MG TAB PO SCH (20:37)
[2017-07-25] MEDS ORDERED: ATORVASTATIN 40 MG TAB PO SCH (21:00)
[2017-07-26] VITALS (9 sets, daily range): BP systolic 107–157; BP diastolic 60–97; PULSE 79–99; RESP 18–20; TEMP 97.8–100.6; O2SAT 9–98
[2017-07-26] MEDS: MORPHINE SULFATE 4 MG/ML INJ IV PUSH PRN ×4 (01:21→18:09)
[2017-07-26] MEDS ORDERED: ACETAMINOPHEN 325 MG TAB PO PRN (07:45)
[2017-07-26] MEDS ORDERED: NALOXONE HCL 0.4 MG/ML AMP IV PUSH PRN (07:45)
[2017-07-26] MEDS ORDERED: MORPHINE SULFATE 2 MG/ML INJ IV PUSH PRN (07:45)
[2017-07-26] MEDS ORDERED: ACETAMINOPHEN/HYDROcodone 325 MG/5 MG TAB PO PRN (07:45)
[2017-07-26] MEDS: INSULIN ASPART SUPPLEMENTAL SCALE SQ SCH ×4 (08:00→22:11)
[2017-07-26] MEDS: SERTRALINE HCL 50 MG TAB PO SCH (08:50)
[2017-07-26] MEDS: ASPIRIN 325 MG TAB PO SCH (08:50)
[2017-07-26] MEDS: SODIUM CHLORIDE 0.9% FLUSH 10 ML FLUSH IV FLUSH SCH ×2 (08:50→22:10)
[2017-07-26] MEDS: ACETAMINOPHEN/HYDROcodone 325 MG/7.5 MG TAB PO PRN (08:51)
[2017-07-26] MEDS: METOPROLOL TARTRATE 25 MG TAB PO SCH ×2 (08:51→22:10)
[2017-07-26] MEDS: PANTOPRAZOLE SOD 40 MG DELAYED RELEASE TAB PO SCH (08:53)
[2017-07-26] MEDS: FERROUS SULFATE 325 MG (65 MG ELEMENTAL IRON) TAB PO SCH ×2 (08:53→17:25)
[2017-07-26 09:49] LABS: AUTOMATED NEUTROPHIL # 10.2 TH/MM3 (1.8-7.7); BASOPHIL % 0.3 % (0.0-2.0); EOSINOPHIL # 0.2 TH/MM3 (0-0.4); EOSINOPHIL % 1.1 % (0.0-4.0); HEMATOCRIT 32.4 % (35.0-46.0); LYMPH % 13.3 % (9.0-44.0); LYMPHOCYTE # 1.8 TH/MM3 (1.0-4.8); MEAN CORPUSCULAR HEMOGLOBIN 28.4 PG (27.0-34.0); MEAN CORPUSCULAR HGB CONC 33.8 % (32.0-36.0); MEAN PLATELET VOLUME 7.6 FL (7.0-11.0); MONO % 8.1 % (0.0-8.0); MONOCYTE # 1.1 TH/MM3 (0-0.9); NEUT % 77.2 % (16.0-70.0); PLATELET COUNT 313 TH/MM3 (150-450); RED BLOOD COUNT 3.86 MIL/MM3 (4.00-5.30); RED CELL DISTRIBUTION WIDTH 16.1 % (11.6-17.2); WHITE BLOOD COUNT 13.2 TH/MM3 (4.0-11.0)
[2017-07-26 10:38] LABS: BLOOD UREA NITROGEN 20 MG/DL (7-18); CALCIUM 8.6 MG/DL (8.5-10.1); CHLORIDE 99 MEQ/L (98-107); CHOLESTEROL 134 MG/DL (120-200); CREATININE 0.82 MG/DL (0.50-1.00); GLOMERULAR FILTRATION RATE 94 ML/MIN (>89); GLUCOSE,RANDOM 147 MG/DL (74-106); SODIUM (NA) 135 MEQ/L (136-145)
[2017-07-26] MEDS ORDERED: REGADENOSON INJ 0.4 MG/5 ML SYR ONE (10:39)
[2017-07-26 10:46] LABS: CHOLESTEROL/ HDL RATIO 3.09 RATIO; HDL CHOLESTEROL 43.3 MG/DL (40.0-60.0); LDL CHOLESTEROL 55 MG/DL (0-99); TRIGLYCERIDES 179 MG/DL (42-150)
--- NOTE | 2017-07-26 11:19 | HHI.FPPN ---
Subjective Remarks Pt seen and examined bedside today. Pt is currently getting her echocardiogram and is s/p myocardial perfusion scan this AM. She continues to feel wobbly when she ambulates but she is able to go to the bathroom by herself. Denies any pain with urination. Continues to complain of the same 10/10 chest pain that radiates to her arm and leg, and is not alleviated by morphine. She states she believes her SOB on inspiration is getting worse today. She is not in respiratory distress at time of exam. She has been experiencing fever/chills since this AM. +BM. No N/V (Elvia Betancourt MD R2) Objective Vitals Vital Signs Date Time Temp Pulse Resp B/P (MAP) Pulse Ox O2 Delivery O2 Flow Rate FiO2 07/26/17 08:41 100.6 95 18 134/63 (86) 97 07/26/17 04:00 99.2 99 18 129/77 (94) 95 07/26/17 03:44 85 07/26/17 00:00 99.7 83 18 107/60 (76) 9 07/25/17 23:45 86 07/25/17 20:41 98 21 07/25/17 20:00 100.1 97 18 123/74 (90) 96 07/25/17 19:44 95 07/25/17 18:07 99.6 90 20 114/80 (91) 99 07/25/17 16:00 82 07/25/17 13:33 20 07/25/17 12:05 94 07/25/17 12:00 98.1 77 20 110/70 (83) 97 I/O 07/25/17 07/25/17 07/25/17 07/26/17 07/26/17 07/26/17 07:00 15:00 23:00 07:00 15:00 23:00 Intake Total 360 ml Output Total 0 ml Balance 360 ml Intake Oral 360 ml Output Urine Total 0 ml # Voids 2 # Bowel Movements 0 (Elvia Betancourt MD R2) Result Diagram: 07/26/17 0849 07/26/17 0849 Objective Remarks Vital signs noted. Temp of 100.6 this AM Gen. appearance comfortable although is complaining of left shoulder pain radiating to the left back and some left anterior left chest pain. HEENT: Nonlocalizing. Neck: No bruits. Lungs: Diminished clear breath sounds, no definite localized findings. Cardiac: S1-S2 no pericardial rubs appreciated. No irregularities in rhythm, no significant murmurs. Abdomen: Soft, no organomegaly, no tenderness. Extremities: Without edema, feet are warm and dry. Neurologic: Cranial nerves II through XII not localize grossly. No drift to the outstretched arm. (Elvia Betancourt MD R2) A/P Assessment and Plan Clinical assessment: 41-year-old woman with very significant history of vascular disease, status post multiple MIs, stent placement, CABG 3 the latter one month ago in [place], [place]. Now admitted with chest pain which appears to be more somatic related to left shoulder, left neck, back. Aggravated by position, worse with deep inspiration. Note is made of her EKG and troponin levels, the troponin levels have been elevated in this range over time. Question if the patient has developed a post pericardiotomy syndrome, a Jeanette's type picture. Cardiology consult will be pending. Hyperlipidemia Hypertension Diabetes mellitus last hemoglobin A1c in chart noted on 07/25/17 to be 8.6. Patient seen and examined. Case reviewed and discussed with resident team. Agree with plan of care is discussed with me and documented in the resident note. Discharge Planning pending cardiac cath, cardiac clearance, and clinical improvement (Elvia Betancourt MD R2) Problem List: (1) Chest pain ICD Codes: R07.9 - Chest pain Status: Acute Plan: Initial troponin elevated at .09, trend was --> .07, .06 f/u serial troponins x 2 Per cardiac consult; - She does have an EKG which does show S-T-T wave changes laterally with significant change from her previous one in early June. These changes may be nonspecific versus possibly due to ischemia - f/u Mycocardial perfusion scan results Nitro topical PRN chest pain [place] and morphine PRN CP Supplemental O2 for sats <92% Cont home Metoprolol (hold for SBP <100, HR <50) Cont Lipitor 40 HS (2) Pericardial effusion ICD Codes: I31.3 - Pericardial effusion (noninflammatory) Status: Acute Plan: R/o pericarditis, + pleuritic chest pain, febrile this AM at 100.6 and HR 95 (NEW) - no pericardial friction rub, no JVD - elevated ESR, elevated CRP - f/u Echo Pericardial effusion differential as follows: - Post-op hemopericardium - [place] - Jeanette Syndrome Aorta CTA: Moderate pericardial effusion measuring 0.9 cm. Diffuse soft tissue density seen posterior to the sternum. Enlarged lymph nodes in the mediastinum. All these findings can be associated with infection following CABG (3) Hypertension ICD Codes: I10 - Essential (primary) hypertension Status: Chronic Plan: Blood pressure 108/57 on admission Continue blood pressure meds and hold for hypotension (4) Diabetes ICD Codes: E11.9 - Type 2 diabetes mellitus without complications Plan: Hold home insulin regimen Follow-up bedside glucose levels Cover with low-dose sliding scale (5) fen/ppx Status: Acute Plan: Fluids: Nothing by mouth for myocardial perfusion scan Electrolytes: Follow-up BMP in a.m. and titrate accordingly Nutrition: Nothing by mouth GI ppx: Protonix daily for hx of reflux/CP DVT ppx: Hold, SCDs (Elvia Betancourt MD R2) Elvia Betancourt MD R2 Jul 26, 2017 11:19 Je Ann MD Jul 26, 2017 12:40
[2017-07-26] MEDS ORDERED: AMINOPHYLLINE INJ 250 MG/10 ML VIAL ONE (11:26)
--- NOTE | 2017-07-26 12:17 | RADRPT ---
EXAM DATE/TIME: 07/26/2017 10:20 [facility] COMPARISON: No previous studies available for comparison. INDICATIONS : Substernal chest pain with elevated troponins. Angina. Coronary artery disease. DOSE: 26.1 mCi Tc99m Myoview at stress. 8.5 mCi Tc99m Myoview at rest. 0.4 mg Lexiscan STRESS SYMPTOMS: Dyspnea and headache. EJECTION FRACTION: 65% MEDICAL HISTORY : Hypertension. Diabetes mellitus type 2. SURGICAL HISTORY : Cholecystectomy. Coronary artery stent. Appendectomy. ENCOUNTER: Initial ACUITY: 2 days PAIN SCALE: 4/10 LOCATION: Substernal chest TECHNIQUE: The patient underwent pharmacologic stress with infusion of prescribed dose. Continuous ECG tracing was monitored during stress. Gated SPECT imaging was performed after stress and conventional SPECT i maging was performed at rest. The examination was performed on a SPECT/CT scanner, both attenuation and non-corrected datasets were reviewed. FINDINGS: DISTRIBUTION: The maximum perfused segment at stress is in the septal wall. PERFUSION STUDY: There is decreased perfusion throughout the apex on stress images compared to the rest images the mos t prominent at the anterior wall. GATED STUDY: There is intact wall motion and thickening without hypokinetic or dyskinetic segments. CONCLUSION: Suspected apical ischemia. RISK CATEGORY: Intermediate (1-3% Annual Mortality Rate) Kurt Lim MD on July 26, 2017 at 12:11 Board Certified Radiologist. This report was verified electronically.
--- NOTE | 2017-07-26 12:34 | PD.CARD.PN ---
Subjective Subjective Remarks Feels about the same Chest pain still pleuritic in nature Objective Medications Current Medications Medications (Trade) Dose Ordered Sig/Mary Route Start Time Stop Time Status Last Admin (Ferrous Sulfate) 325 mg BIDPC PO 07/25/17 09:00 07/26/17 08:53 (Lopressor) 25 mg BID PO 07/25/17 09:00 07/26/17 08:51 (Zoloft) 50 mg DAILY PO 07/25/17 09:00 07/26/17 08:50 (NS Flush) 2 ml BID IV FLUSH 07/25/17 09:00 07/26/17 08:50 (NS Flush) 2 ml UNSCH PRN IV FLUSH 07/25/17 04:45 07/25/17 07:25 (Aspirin) 325 mg DAILY PO 07/26/17 09:00 07/26/17 08:50 (Tylenol) 500 mg Q4H PRN PO 07/25/17 04:45 (Protonix) 40 mg DAILY PO 07/25/17 09:00 07/26/17 08:53 (Lipitor) 40 mg HS PO 07/25/17 21:00 07/25/17 20:37 (Xanax) 0.5 mg Q8H PRN PO 07/25/17 05:00 07/25/17 07:36 (D50w (Vial) Inj) 50 ml UNSCH PRN IV PUSH 07/25/17 05:00 (Glucagon Inj) 1 mg UNSCH PRN OTHER 07/25/17 05:00 (NovoLOG SUPPLEMENTAL SCALE) 1 ACHS SLIDING SCALE SQ 07/25/17 08:00 07/25/17 21:00 (Tylenol) 650 mg Q6H PRN PO 07/26/17 07:45 ([place] 5-325 Mg) 1 tab Q4H PRN PO 07/26/17 07:45 ([place] 7.5-325 Mg) 1 tab Q4H PRN PO 07/26/17 07:45 07/26/17 08:51 (Morphine Inj) 2 mg Q3H PRN IV PUSH 07/26/17 07:45 07/26/17 12:15 (Narcan Inj) 0.4 mg UNSCH PRN IV PUSH 07/26/17 07:45 Vital Signs / I&O Vital Signs Date Time Temp Pulse Resp B/P (MAP) Pulse Ox O2 Delivery O2 Flow Rate FiO2 07/26/17 08:41 100.6 95 18 134/63 (86) 97 07/26/17 04:00 99.2 99 18 129/77 (94) 95 07/26/17 03:44 85 07/26/17 00:00 99.7 83 18 107/60 (76) 9 07/25/17 23:45 86 07/25/17 20:41 98 21 07/25/17 20:00 100.1 97 18 123/74 (90) 96 07/25/17 19:44 95 07/25/17 18:07 99.6 90 20 114/80 (91) 99 07/25/17 16:00 82 07/25/17 13:33 20 I/O 07/25/17 07/25/17 07/25/17 07/26/17 07/26/17 07/26/17 07:00 15:00 23:00 07:00 15:00 23:00 Intake Total 360 ml Output Total 0 ml Balance 360 ml Intake Oral 360 ml Output Urine Total 0 ml # Voids 2 # Bowel Movements 0 Physical Exam GENERAL: NAD, AAOx3 SKIN: Warm and dry. HEAD: Atraumatic. Normocephalic. EYES: Pupils equal and round. No scleral icterus. No injection or drainage. ENT: No nasal bleeding or discharge. Mucous membranes pink and moist. NECK: Trachea midline. No JVD. CARDIOVASCULAR: Regular rate and rhythm. RESPIRATORY: No accessory muscle use. Clear to auscultation. Breath sounds equal bilaterally. GASTROINTESTINAL: Abdomen soft, non-tender, nondistended. Hepatic and splenic margins not palpable. MUSCULOSKELETAL: Extremities without clubbing, cyanosis, or edema. No obvious deformities. NEUROLOGICAL: Awake and alert. No obvious cranial nerve deficits. Motor grossly within normal limits. Five out of 5 muscle strength in the arms and legs. Normal speech. PSYCHIATRIC: Appropriate mood and affect; insight and judgment normal. Laboratory Laboratory Tests Test 07/25/17 13:15 07/25/17 17:25 07/26/17 08:49 Troponin I 0.07 NG/ML 0.06 NG/ML Erythrocyte Sedimentation Rate 64 mm/hr Magnesium Level 2.0 MG/DL C-Reactive Protein 13.00 MG/DL Thyroid Stimulating Hormone 3rd Gen 0.682 uIU/ML White Blood Count 13.2 TH/MM3 Red Blood Count 3.86 MIL/MM3 Hemoglobin 11.0 GM/DL Hematocrit 32.4 % Mean Corpuscular Volume 84.0 FL Mean Corpuscular Hemoglobin 28.4 PG Mean Corpuscular Hemoglobin Concent 33.8 % Red Cell Distribution Width 16.1 % Platelet Count 313 TH/MM3 Mean Platelet Volume 7.6 FL Neutrophils (%) (Auto) 77.2 % Lymphocytes (%) (Auto) 13.3 % Monocytes (%) (Auto) 8.1 % Eosinophils (%) (Auto) 1.1 % Basophils (%) (Auto) 0.3 % Neutrophils # (Auto) 10.2 TH/MM3 Lymphocytes # (Auto) 1.8 TH/MM3 Monocytes # (Auto) 1.1 TH/MM3 Eosinophils # (Auto) 0.2 TH/MM3 Basophils # (Auto) 0.0 TH/MM3 CBC Comment DIFF FINAL Differential Comment Blood Urea Nitrogen 20 MG/DL Creatinine 0.82 MG/DL Random Glucose 147 MG/DL Calcium Level 8.6 MG/DL Sodium Level 135 MEQ/L Potassium Level 3.7 MEQ/L Chloride Level 99 MEQ/L Carbon Dioxide Level 24.0 MEQ/L Anion Gap 12 MEQ/L Estimat Glomerular Filtration Rate 94 ML/MIN Triglycerides Level 179 MG/DL Cholesterol Level 134 MG/DL LDL Cholesterol 55 MG/DL HDL Cholesterol 43.3 MG/DL Cholesterol/HDL Ratio 3.09 RATIO Human Chorionic Gonadotropin, Quant LESS THAN 1 MIU/ML Imaging Last 24 hours Impressions Myocardial Perfusion Scan Nuc Med 07/26/17 0600 Signed Impressions: Service Date/Time: Wednesday, July 26, 2017 10:20 - CONCLUSION: Suspected apical ischemia. RISK CATEGORY: Intermediate (1-3%% Annual Mortality Rate ) Kurt Lim MD Assessment and Plan Problem List: (1) Chest pain ICD Codes: R07.9 - Chest pain Status: Acute (2) Diabetes ICD Codes: E11.9 - Type 2 diabetes mellitus without complications (3) Hypertension ICD Codes: I10 - Essential (primary) hypertension Status: Chronic (4) Left-sided weakness ICD Codes: R53.1 - Weakness Status: Acute (5) Pericardial effusion ICD Codes: I31.3 - Pericardial effusion (noninflammatory) Status: Acute (6) S/P CABG (coronary artery bypass graft) ICD Codes: Z95.1 - Presence of aortocoronary bypass graft Assessment and Plan 1) Atypical chest pain 2) Abnormal stress test Plan for [facility] tomorrow 3) Echo pending 4) If no significant CAD, then probable high dose ASA Mendoza Benton DO Jul 26, 2017 12:34
[2017-07-26] MEDS ORDERED: ONDANSETRON HCL 4 MG/2 ML VIAL IV PUSH PRN (16:00)
--- NOTE | 2017-07-26 16:05 | ECHRPT ---
Indication: CVA/TIA CONCLUSIONS Normal left ventricular size. Mild concentric left ventricular hypertrophy. The left ventricular systolic function is normal (EF 55%). The right ventricular size is normal. Trace mitral valve regurgitation. There is trace tricuspid valve regurgitation. The estimated pulmonary arterial pressure is 35 mmHg. BP: / HR: Rhythm: Sinus MEASUREMENTS (Male / Female) Normal Values Technical Quality:Fair 2D ECHO LV Diastolic Diameter PLAX 4.5 cm 4.2 - 5.9 / 3.9 - 5.3 cm LV Systolic Diameter PLAX 2.9 cm IVS Diastolic Thickness 1.0 cm 0.6 - 1.0 / 0.6 - 0.9 cm LVPW Diastolic Thickness 1.0 cm 0.6 - 1.0 / 0.6 - 0.9 cm LV Relative Wall Thickness 0.5 RV Internal Dim ED PLAX 2.2 cm LVOT Diameter 1.9 cm Aortic Root Diameter 2.6 cm LA Systolic Diameter LX 2.8 cm 3.0 - 4.0 / 2.7 - 3.8 cm M-MODE AV Cusp Separation MM 2.1 cm DOPPLER AV Peak Velocity 110.0 cm/s AV Peak Gradient 4.8 mmHg AV Mean Gradient 3.0 mmHg AV Velocity Time Integral 18.1 cm LVOT Peak Velocity 85.0 cm/s LVOT Peak Gradient 2.9 mmHg LVOT Velocity Time Integral 13.9 cm AV Area Cont Eq vti 2.2 cm AV Area Cont Eq pk 2.2 cm Mitral E Point Velocity 77.5 cm/s Mitral A Point Velocity 49.9 cm/s Mitral E to A Ratio 1.6 LV E' Lateral Velocity 5.7 cm/s Mitral E to LV E' Lateral Ratio 13.7 LV E' Septal Velocity 8.1 cm/s Mitral E to LV E' Septal Ratio 9.6 TR Peak Velocity 250.0 cm/s TR Peak Gradient 25.0 mmHg Right Atrial Pressure 10.0 mmHg Pulmonary Artery Systolic Pressu 35.0 mmHg Right Ventricular Systolic Press 35.0 mmHg PV Peak Velocity 39.1 cm/s PV Peak Gradient 0.6 mmHg FINDINGS LEFT VENTRICLE Normal left ventricular size. Mild concentric left ventricular hypertrophy. The left ventricular systolic function is normal (EF 55%). RIGHT VENTRICLE The right ventricular size is normal. LEFT ATRIUM The left atrial size is normal. ATRIAL SEPTUM No atrial level shunt is demonstrated by color flow Doppler interrogation. MITRAL VALVE Trace mitral valve regurgitation. AORTIC VALVE Trileaflet aortic valve. No aortic valve stenosis or regurgitation. TRICUSPID VALVE There is trace tricuspid valve regurgitation. The estimated pulmonary arterial pressure is 35 mmHg. PULMONARY VALVE No pulmonary valve regurgitation or stenosis. VESSELS The inferior vena cava is normal in size. PERICARDIUM Trace effusion Aba Brown MD, FACC (Electronically Signed) Final Date:26 July 2017 16:03
[2017-07-26] MEDS: ONDANSETRON HCL 4 MG/2 ML VIAL IV PUSH PRN (17:01)
--- NOTE | 2017-07-26 19:45 | EKG ---
Date Performed: 07/25/2017 Time Performed: 11:13:44 PTAGE: 41 years EKG: Sinus rhythm . Ant/septal and lateral T wave changes may be due to myocardial ischemia Since previous tracing, no significant change noted Abnormal ECG PREVIOUS TRACING : 07/25/2017 05.09 DOCTOR: Ulysses Tran Interpretating Date/Time 07/26/2017 19:43:37
--- NOTE | 2017-07-26 19:45 | EKG ---
Date Performed: 07/25/2017 Time Performed: 16:37:30 PTAGE: 41 years EKG: Sinus rhythm MODERATE T-WAVE ABNORMALITY, CONSIDER ANTEROLATERAL ISCHEMIA Since previous tracing, no significant change noted ABNORMAL ECG PREVIOUS TRACING : 07/25/2017 11.13 DOCTOR: Ulysses Tran Interpretating Date/Time 07/26/2017 19:43:15
[2017-07-26] MEDS ORDERED: ACETAMINOPHEN 1000 MG/100 ML 65 ML IV ONE (21:15)
[2017-07-26] MEDS: ATORVASTATIN 40 MG TAB PO SCH (22:10)
[2017-07-27] VITALS (9 sets, daily range): BP systolic 110–140; BP diastolic 70–82; PULSE 79–97; RESP 17–18; TEMP 97.5–98.7; O2SAT 93–98
[2017-07-27] MEDS: MORPHINE SULFATE 4 MG/ML INJ IV PUSH PRN ×4 (00:31→23:30)
[2017-07-27] MEDS: SODIUM CHLORIDE 0.9% FLUSH 10 ML FLUSH IV FLUSH SCH ×2 (07:48→21:27)
[2017-07-27] MEDS: PANTOPRAZOLE SOD 40 MG DELAYED RELEASE TAB PO SCH (07:49)
[2017-07-27] MEDS: METOPROLOL TARTRATE 25 MG TAB PO SCH ×2 (07:49→21:28)
[2017-07-27] MEDS: ONDANSETRON HCL 4 MG/2 ML VIAL IV PUSH PRN ×2 (07:49→15:57)
[2017-07-27] MEDS: FERROUS SULFATE 325 MG (65 MG ELEMENTAL IRON) TAB PO SCH ×2 (07:50→17:14)
[2017-07-27] MEDS: ACETAMINOPHEN/HYDROcodone 325 MG/7.5 MG TAB PO PRN (07:50)
[2017-07-27] MEDS: SERTRALINE HCL 50 MG TAB PO SCH (07:50)
[2017-07-27] MEDS: ASPIRIN 325 MG TAB PO SCH ×3 (07:51→21:28)
[2017-07-27] MEDS ORDERED: diphenhydrAMINE HCL 50 MG/ML VIAL IV PUSH ONE (09:00)
[2017-07-27] MEDS ORDERED: FAMOTIDINE 20 MG/2 ML VIAL IV PUSH ONE (09:00)
[2017-07-27] MEDS ORDERED: methylPREDNISolone SOD SUCC 125 MG/2 ML VIAL IV PUSH ONE (09:00)
[2017-07-27] MEDS: INSULIN ASPART SUPPLEMENTAL SCALE SQ SCH ×5 (09:00→21:28)
[2017-07-27 09:41] LABS: AUTOMATED NEUTROPHIL # 7.8 TH/MM3 (1.8-7.7); BASOPHIL % 0.4 % (0.0-2.0); EOSINOPHIL # 0.2 TH/MM3 (0-0.4); HEMATOCRIT 37.1 % (35.0-46.0); HEMOGLOBIN 12.5 GM/DL (11.6-15.3); LYMPH % 17.3 % (9.0-44.0); LYMPHOCYTE # 1.8 TH/MM3 (1.0-4.8); MEAN CELL VOLUME 85.2 FL (80.0-100.0); MEAN CORPUSCULAR HEMOGLOBIN 28.7 PG (27.0-34.0); MEAN CORPUSCULAR HGB CONC 33.6 % (32.0-36.0); MEAN PLATELET VOLUME 7.8 FL (7.0-11.0); MONO % 6.9 % (0.0-8.0); MONOCYTE # 0.7 TH/MM3 (0-0.9); NEUT % 73.4 % (16.0-70.0); PLATELET COUNT 390 TH/MM3 (150-450); RED BLOOD COUNT 4.36 MIL/MM3 (4.00-5.30); WHITE BLOOD COUNT 10.7 TH/MM3 (4.0-11.0)
[2017-07-27 10:00] LABS: BICARBONATE 23.1 MEQ/L (21.0-32.0); CALCIUM 9.5 MG/DL (8.5-10.1); CREATININE 0.74 MG/DL (0.50-1.00)
[2017-07-27] MEDS ORDERED: HEPARIN-NS/PF INJ 1,000 ML ONE (10:13)
[2017-07-27] MEDS ORDERED: VERAPAMIL HCL 5 MG/2 ML VIAL ONE (10:17)
[2017-07-27] MEDS ORDERED: MIDAZOLAM HCL 2 MG/2 ML VIAL ONE (10:17)
[2017-07-27] MEDS ORDERED: HEPARIN SODIUM - IV 10,000 UNITS/10 ML VIAL ONE (10:17)
[2017-07-27] MEDS ORDERED: NITROGLYCERIN INJ 5 ML ONE (10:19)
[2017-07-27] MEDS ORDERED: MISC INFORMATION XX ONE (13:00)
--- NOTE | 2017-07-27 14:33 | HHI.FPPN ---
Subjective Remarks Patient evaluated by resident team following cardiac catheterization. No acute events overnight and vital signs remained stable. Following the procedure, the patient is feeling fairly well. Denies nausea/vomiting, worsening chest pain, shortness of breath. She inquires about her pain medicine and desires something other than [place] for pain. She has been receiving 4 mg IV morphine every 3 hours for breakthrough, but she requests something other than [place] as this has made her sick in the past. Objective Vitals Vital Signs Date Time Temp Pulse Resp B/P (MAP) Pulse Ox O2 Delivery O2 Flow Rate FiO2 07/27/17 13:45 96 Room Air 07/27/17 08:44 97.9 97 18 129/71 (90) 97 07/27/17 08:00 Room Air 2.00 21 07/27/17 07:00 91 07/27/17 04:02 80 07/27/17 04:00 97.7 82 18 110/70 (83) 95 07/27/17 00:00 84 07/27/17 00:00 98.7 84 18 118/73 (88) 98 07/26/17 20:00 100.6 98 20 157/97 (117) 98 07/26/17 20:00 Room Air 07/26/17 20:00 95 07/26/17 16:05 97.8 85 18 126/63 (84) 98 07/26/17 16:00 85 I/O 07/26/17 07/26/17 07/26/17 07/27/17 07/27/17 07/27/17 07:00 15:00 23:00 07:00 15:00 23:00 Intake Total 820 ml Balance 820 ml Intake Oral 720 ml IV Total 100 ml # Voids 2 5 # Bowel Movements 0 Result Diagram: 07/27/17 0753 07/27/17 0753 Objective Remarks Gen: Well-nourished, well-developed patient sitting in chair in no acute distress. HEENT: Nonlocalizing. Lungs: Coarse breath sounds appreciated in the bilateral lower lung [place]. Moving air equal bilaterally. No wheezes appreciated Cardiac: S1-S2 no pericardial rubs appreciated. No irregularities in rhythm, no significant murmurs. Abdomen: Soft, no organomegaly, no tenderness. Extremities: Without edema, feet are warm and dry. Neurologic: Cranial nerves II through XII not localize grossly. No drift to the outstretched arm. A/P Assessment and Plan Clinical assessment: 41-year-old woman with very significant history of vascular disease, status post multiple MIs, stent placement, CABG 3 the latter one month ago in [place], [place]. Now admitted with chest pain which appears to be more somatic related to left shoulder, left neck, back. Aggravated by position, worse with deep inspiration. Note is made of her EKG and troponin levels, the troponin levels have been elevated in this range over time. Question if the patient has developed a post pericardiotomy syndrome, a Jeanette's type picture. Cardiology consult will be pending. Hyperlipidemia Hypertension Diabetes mellitus last hemoglobin A1c in chart noted on 07/25/17 to be 8.6. Patient seen and examined. Case reviewed and discussed with resident team. Agree with plan of care is discussed with me and documented in the resident note. Discharge Planning pending cardiac cath, cardiac clearance, and clinical improvement Problem List: (1) Chest pain ICD Codes: R07.9 - Chest pain Status: Acute Plan: Initial troponin elevated at .09, trend was --> .07, .06 Per cardiac consult; - She does have an EKG which does show S-T-T wave changes laterally with significant change from her previous one in early June. These changes may be nonspecific versus possibly due to ischemia - Mycocardial perfusion scan on 07/26 showed suspected apical ischemia - Cardiac cath results from 07/27 pending - Will follow cardiology recommendations for treatment Nitro topical PRN chest pain [place] and morphine PRN CP Supplemental O2 for sats <92% Cont home Metoprolol (hold for SBP <100, HR <50) Cont Lipitor 40 HS (2) Pericardial effusion ICD Codes: I31.3 - Pericardial effusion (noninflammatory) Status: Acute Plan: R/o pericarditis, + pleuritic chest pain, afebrile overnight - no pericardial friction rub, no JVD - elevated ESR, elevated CRP - CT chest on admission showed moderate pericardial effusion - Echocardiogram showing trace pericardial effusion, preserved EF Pericardial effusion differential as follows: - Post-op hemopericardium - [place] - Jeanette Syndrome Aorta CTA: Moderate pericardial effusion measuring 0.9 cm. Diffuse soft tissue density seen posterior to the sternum. Enlarged lymph nodes in the mediastinum. All these findings can be associated with infection following CABG - Cardiology consultation, awaiting results of cardiac catheter to determine further management and possibly high-dose aspirin therapy (3) Hypertension ICD Codes: I10 - Essential (primary) hypertension Status: Chronic Plan: Blood pressure 108/57 on admission Continue blood pressure meds and hold for hypotension (4) Diabetes ICD Codes: E11.9 - Type 2 diabetes mellitus without complications Plan: Hold home insulin regimen Follow-up bedside glucose levels Cover with low-dose sliding scale Daily BMPs showing random glucose in the 140s Follow daily BMPs (5) fen/ppx Status: Acute Plan: Fluids: No IV fluids at this time Electrolytes: Follow-up BMP in a.m. and titrate accordingly Nutrition: Heart healthy diet GI ppx: Protonix daily for hx of reflux/CP DVT ppx: Hold, SCDs Shlomo Ojeda MD R1 Jul 27, 2017 14:33
[2017-07-27] MEDS: traMADol HCL 50 MG TAB PO PRN ×2 (15:53→21:27)
[2017-07-27] MEDS: ATORVASTATIN 40 MG TAB PO SCH (21:27)
--- NOTE | 2017-07-27 23:41 | PD.CARD.PN ---
Subjective Subjective Remarks Patient was seen earlier post-cath, late entry note No complaints Objective Medications Current Medications Medications (Trade) Dose Ordered Sig/Mary Route Start Time Stop Time Status Last Admin (Ferrous Sulfate) 325 mg BIDPC PO 07/25/17 09:00 07/27/17 17:14 (Lopressor) 25 mg BID PO 07/25/17 09:00 07/27/17 21:28 (Zoloft) 50 mg DAILY PO 07/25/17 09:00 07/27/17 07:50 (NS Flush) 2 ml BID IV FLUSH 07/25/17 09:00 07/27/17 21:27 (NS Flush) 2 ml UNSCH PRN IV FLUSH 07/25/17 04:45 07/25/17 07:25 (Tylenol) 500 mg Q4H PRN PO 07/25/17 04:45 (Protonix) 40 mg DAILY PO 07/25/17 09:00 07/27/17 07:49 (Lipitor) 40 mg HS PO 07/25/17 21:00 07/27/17 21:27 (Xanax) 0.5 mg Q8H PRN PO 07/25/17 05:00 07/25/17 07:36 (D50w (Vial) Inj) 50 ml UNSCH PRN IV PUSH 07/25/17 05:00 (Glucagon Inj) 1 mg UNSCH PRN OTHER 07/25/17 05:00 (NovoLOG SUPPLEMENTAL SCALE) 1 ACHS SLIDING SCALE SQ 07/25/17 08:00 07/27/17 21:28 (Tylenol) 650 mg Q6H PRN PO 07/26/17 07:45 ([place] 5-325 Mg) 1 tab Q4H PRN PO 07/26/17 07:45 (Narcan Inj) 0.4 mg UNSCH PRN IV PUSH 07/26/17 07:45 (Morphine Inj) 4 mg Q3H PRN IV PUSH 07/26/17 13:45 07/27/17 23:30 (Zofran Inj) 4 mg Q8HR PRN IV PUSH 07/26/17 16:00 07/27/17 15:57 (Aspirin) 650 mg Q8HR PO 07/27/17 14:00 07/27/17 21:28 (Norvasc) 5 mg DAILY PO 07/28/17 09:00 (Ultram) 50 mg Q4H PRN PO 07/27/17 15:30 07/27/17 21:27 Vital Signs / I&O Vital Signs Date Time Temp Pulse Resp B/P (MAP) Pulse Ox O2 Delivery O2 Flow Rate FiO2 07/27/17 21:13 93 07/27/17 20:00 Room Air 07/27/17 20:00 98.1 86 17 140/82 (101) 96 07/27/17 16:58 97.5 82 18 125/70 (88) 98 07/27/17 15:49 79 07/27/17 13:45 96 Room Air 07/27/17 08:44 97.9 97 18 129/71 (90) 97 07/27/17 08:00 Room Air 2.00 21 07/27/17 07:00 91 07/27/17 04:02 80 07/27/17 04:00 97.7 82 18 110/70 (83) 95 07/27/17 00:00 84 07/27/17 00:00 98.7 84 18 118/73 (88) 98 Physical Exam GENERAL: NAD, AAOx3 SKIN: Warm and dry. HEAD: Atraumatic. Normocephalic. EYES: Pupils equal and round. No scleral icterus. No injection or drainage. ENT: No nasal bleeding or discharge. Mucous membranes pink and moist. NECK: Trachea midline. No JVD. CARDIOVASCULAR: Regular rate and rhythm. RESPIRATORY: No accessory muscle use. Clear to auscultation. Breath sounds equal bilaterally. GASTROINTESTINAL: Abdomen soft, non-tender, nondistended. Hepatic and splenic margins not palpable. MUSCULOSKELETAL: Extremities without clubbing, cyanosis, or edema. No obvious deformities. NEUROLOGICAL: Awake and alert. No obvious cranial nerve deficits. Motor grossly within normal limits. Five out of 5 muscle strength in the arms and legs. Normal speech. PSYCHIATRIC: Appropriate mood and affect; insight and judgment normal. Laboratory Laboratory Tests Test 07/27/17 07:53 White Blood Count 10.7 TH/MM3 Red Blood Count 4.36 MIL/MM3 Hemoglobin 12.5 GM/DL Hematocrit 37.1 % Mean Corpuscular Volume 85.2 FL Mean Corpuscular Hemoglobin 28.7 PG Mean Corpuscular Hemoglobin Concent 33.6 % Red Cell Distribution Width 16.0 % Platelet Count 390 TH/MM3 Mean Platelet Volume 7.8 FL Neutrophils (%) (Auto) 73.4 % Lymphocytes (%) (Auto) 17.3 % Monocytes (%) (Auto) 6.9 % Eosinophils (%) (Auto) 2.0 % Basophils (%) (Auto) 0.4 % Neutrophils # (Auto) 7.8 TH/MM3 Lymphocytes # (Auto) 1.8 TH/MM3 Monocytes # (Auto) 0.7 TH/MM3 Eosinophils # (Auto) 0.2 TH/MM3 Basophils # (Auto) 0.0 TH/MM3 CBC Comment DIFF FINAL Differential Comment Blood Urea Nitrogen 13 MG/DL Creatinine 0.74 MG/DL Random Glucose 144 MG/DL Calcium Level 9.5 MG/DL Sodium Level 134 MEQ/L Potassium Level 3.7 MEQ/L Chloride Level 101 MEQ/L Carbon Dioxide Level 23.1 MEQ/L Anion Gap 10 MEQ/L Estimat Glomerular Filtration Rate 106 ML/MIN Assessment and Plan Problem List: (1) Chest pain ICD Codes: R07.9 - Chest pain Status: Acute (2) Diabetes ICD Codes: E11.9 - Type 2 diabetes mellitus without complications (3) Hypertension ICD Codes: I10 - Essential (primary) hypertension Status: Chronic (4) Left-sided weakness ICD Codes: R53.1 - Weakness Status: Acute (5) Pericardial effusion ICD Codes: I31.3 - Pericardial effusion (noninflammatory) Status: Acute (6) S/P CABG (coronary artery bypass graft) ICD Codes: Z95.1 - Presence of aortocoronary bypass graft Assessment and Plan 1) Atypical chest pain 2) Abnormal stress test ASH to LAD patent, otherwise small vessel disease, con't medical management 3) EF 55-60% 4) Pain consistent more with pleuritic nature Will increase ASA to 650mg q8 for a week, then 650mg q12 for a week, then 650mg daily for a week, then 325mg daily for a week, then 81mg daily Mendoza Benton DO Jul 27, 2017 23:41
[2017-07-28] VITALS (7 sets, daily range): BP systolic 142–176; BP diastolic 63–97; PULSE 67–85; RESP 15–20; TEMP 97.5–98.3; O2SAT 77–100
[2017-07-28] MEDS: ONDANSETRON HCL 4 MG/2 ML VIAL IV PUSH PRN (01:15)
[2017-07-28] MEDS: traMADol HCL 50 MG TAB PO PRN ×6 (01:20→22:04)
[2017-07-28] MEDS: MORPHINE SULFATE 4 MG/ML INJ IV PUSH PRN ×3 (03:31→12:07)
[2017-07-28] MEDS: ASPIRIN 325 MG TAB PO SCH ×3 (05:42→20:29)
[2017-07-28] MEDS: INSULIN ASPART SUPPLEMENTAL SCALE SQ SCH ×4 (08:00→20:30)
[2017-07-28 08:32] LABS: AUTOMATED NEUTROPHIL # 13.3 TH/MM3 (1.8-7.7); BASOPHIL % 0.1 % (0.0-2.0); EOSINOPHIL % 0.1 % (0.0-4.0); HEMATOCRIT 35.2 % (35.0-46.0); HEMOGLOBIN 11.3 GM/DL (11.6-15.3); LYMPH % 11.7 % (9.0-44.0); LYMPHOCYTE # 1.9 TH/MM3 (1.0-4.8); MEAN CELL VOLUME 86.1 FL (80.0-100.0); MEAN CORPUSCULAR HEMOGLOBIN 27.7 PG (27.0-34.0); MEAN CORPUSCULAR HGB CONC 32.2 % (32.0-36.0); MEAN PLATELET VOLUME 7.8 FL (7.0-11.0); MONO % 6.5 % (0.0-8.0); MONOCYTE # 1.1 TH/MM3 (0-0.9); NEUT % 81.6 % (16.0-70.0); PLATELET COUNT 392 TH/MM3 (150-450); RED BLOOD COUNT 4.09 MIL/MM3 (4.00-5.30); WHITE BLOOD COUNT 16.3 TH/MM3 (4.0-11.0)
[2017-07-28 08:38] LABS: BICARBONATE 22.8 MEQ/L (21.0-32.0); CALCIUM 9.4 MG/DL (8.5-10.1); CREATININE 0.81 MG/DL (0.50-1.00)
[2017-07-28] MEDS ORDERED: amLODIPine BESYLATE 5 MG TAB PO SCH (09:00)
[2017-07-28] MEDS: SODIUM CHLORIDE 0.9% FLUSH 10 ML FLUSH IV FLUSH SCH ×2 (09:00→20:30)
[2017-07-28] MEDS: FERROUS SULFATE 325 MG (65 MG ELEMENTAL IRON) TAB PO SCH ×2 (09:59→17:58)
[2017-07-28] MEDS: METOPROLOL TARTRATE 25 MG TAB PO SCH ×2 (09:59→20:29)
[2017-07-28] MEDS: PANTOPRAZOLE SOD 40 MG DELAYED RELEASE TAB PO SCH (09:59)
[2017-07-28] MEDS: SERTRALINE HCL 50 MG TAB PO SCH (09:59)
--- NOTE | 2017-07-28 10:07 | HHI.FPPN ---
Subjective Remarks Patient seen and examined bedside this morning. Patient continues to complain of 10/10 pain in her left shoulder, substernal area, and left breast/chest area. This pain has continued despite the cardiac cath yesterday. The morphine PRN brings her pain from 10/10 to 7/10 and only briefly. She denies any N/V. She does occasionally feel "sweaty". She has a good appetite and is eating without difficulty. She continues to feel mild weakness in her L arm and L leg but she thinks this has improved since admission. She is able to ambulate to the bathroom by herself without any difficulties. Denies any difficulties breathing. No acute events overnight. (Elvia Betancourt MD R2) Objective Vitals Vital Signs Date Time Temp Pulse Resp B/P (MAP) Pulse Ox O2 Delivery O2 Flow Rate FiO2 07/28/17 04:11 74 07/28/17 04:00 97.7 80 15 161/84 (109) 96 07/28/17 00:00 82 07/28/17 00:00 97.8 85 16 142/76 (98) 97 07/27/17 21:13 93 07/27/17 20:00 Room Air 07/27/17 20:00 98.1 86 17 140/82 (101) 96 07/27/17 20:00 83 07/27/17 16:58 97.5 82 18 125/70 (88) 98 07/27/17 15:49 79 07/27/17 13:45 96 Room Air I/O 07/27/17 07/27/17 07/27/17 07/28/17 07/28/17 07/28/17 07:00 15:00 23:00 07:00 15:00 23:00 Intake Total 480 ml Balance 480 ml Intake Oral 480 ml # Voids 3 (Elvia Betancourt MD R2) Result Diagram: 07/28/17 0720 07/28/17 0720 Objective Remarks Gen: Well-nourished, well-developed patient sitting in chair in no acute distress. HEENT: Nonlocalizing. Lungs: Coarse breath sounds appreciated in the bilateral lower lung anderson. Moving air equal bilaterally. No wheezes appreciated Cardiac: S1-S2 no pericardial rubs appreciated. No irregularities in rhythm, no significant murmurs. Tenderness over palpation of midline scar, tenderness to palpation of L breast. Tenderness to MILD palpation and auscultation of chest area. No JVD. Abdomen: Soft, no organomegaly, no tenderness. Extremities: Without edema, feet are warm and dry. Neurologic: Cranial nerves II through XII not localize grossly. Motor strength 5 out of 5 on right leg compared to 4-5 on left leg, improved from time of admission. Sensory exam within normal limits. (Elvia Betancourt MD R2) A/P Assessment and Plan Clinical assessment: 41-year-old woman with very significant history of vascular disease, status post multiple MIs, stent placement, CABG 3 the latter one month ago in [place], [place]. Now admitted with chest pain which appears to be more somatic related to left shoulder, left neck, back. Aggravated by position, worse with deep inspiration. Note is made of her EKG and troponin levels, the troponin levels have been elevated in this range over time. Question if the patient has developed a post pericardiotomy syndrome, a Jeanette's type picture. Cardiology consult will be pending. Hyperlipidemia Hypertension Diabetes mellitus last hemoglobin A1c in chart noted on 07/25/17 to be 8.6. Patient seen and examined. Case reviewed and discussed with resident team. Agree with plan of care is discussed with me and documented in the resident note. Discharge Planning pending clinical improvement, pain control, follow-up with cardiology (Elvia Betancourt MD R2) Attending Attestation Patient seen and examined, discussed with resident team. I agree with assessment and management as documented and discussed with me. (Greta Jennings MD) Problem List: (1) Chest pain ICD Codes: R07.9 - Chest pain Status: Acute Plan: Initial troponin elevated at .09, trend was --> .07, .06 Per cardiac consult; - She does have an EKG which does show S-T-T wave changes laterally with significant change from her previous one in early June. These changes may be nonspecific versus possibly due to ischemia - Mycocardial perfusion scan on 07/26 showed suspected apical ischemia - Cardiac cath results from 07/27: Abnormal stress test ASH to LAD patent, otherwise small vessel disease, con't medical management - Will follow cardiology recommendations for treatment : Pain consistent more with pleuritic nature Will increase ASA to 650mg q8 for a week, then 650mg q12 for a week, then 650mg daily for a week, then 325mg daily for a week, then 81mg daily Morphine PRN CP Supplemental O2 for sats <92% Cont home Metoprolol (hold for SBP <100, HR <50) Cont Lipitor 40 HS (2) Pericardial effusion ICD Codes: I31.3 - Pericardial effusion (noninflammatory) Status: Acute Plan: R/o pericarditis, + pleuritic chest pain, afebrile overnight - no pericardial friction rub, no JVD - elevated ESR, elevated CRP - CT chest on admission showed moderate pericardial effusion - Echocardiogram showing trace pericardial effusion, preserved EF Pericardial effusion differential as follows: - Post-op hemopericardium - CT - Jeanette Syndrome Aorta CTA: Moderate pericardial effusion measuring 0.9 cm. Diffuse soft tissue density seen posterior to the sternum. Enlarged lymph nodes in the mediastinum. All these findings can be associated with infection following CABG - Cardiology consultation, awaiting results of cardiac catheter to determine further management and possibly high-dose aspirin therapy (3) Hypertension ICD Codes: I10 - Essential (primary) hypertension Status: Chronic Plan: Blood pressure 108/57 on admission Continue blood pressure meds and hold for hypotension (4) Diabetes ICD Codes: E11.9 - Type 2 diabetes mellitus without complications Plan: BS Uncontrolled over last 24hr: 203-398 HbA1c: 8.6 Home regimen: Humalog PRN sliding scale, Glargine HS Will consider adding home Lantus HS SQ 30U Follow-up bedside glucose levels Cover with low-dose sliding scale (5) fen/ppx Status: Acute Plan: Fluids: No IV fluids at this time Electrolytes: Follow-up BMP in a.m. 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
[2017-07-28] MEDS ORDERED: traMADol HCL 50 MG TAB PO PRN (13:15)
[2017-07-28] MEDS: MORPHINE SULFATE 2 MG/ML INJ IV PUSH PRN ×2 (16:19→20:30)
--- NOTE | 2017-07-28 16:56 | PD.CARD.PN ---
Subjective Subjective Remarks Still with pain all over Objective Medications Current Medications Medications (Trade) Dose Ordered Sig/Mary Route Start Time Stop Time Status Last Admin (Ferrous Sulfate) 325 mg BIDPC PO 07/25/17 09:00 07/28/17 09:59 (Lopressor) 25 mg BID PO 07/25/17 09:00 07/28/17 09:59 (Zoloft) 50 mg DAILY PO 07/25/17 09:00 07/28/17 09:59 (NS Flush) 2 ml BID IV FLUSH 07/25/17 09:00 07/28/17 09:00 (NS Flush) 2 ml UNSCH PRN IV FLUSH 07/25/17 04:45 07/25/17 07:25 (Tylenol) 500 mg Q4H PRN PO 07/25/17 04:45 (Protonix) 40 mg DAILY PO 07/25/17 09:00 07/28/17 09:59 (Lipitor) 40 mg HS PO 07/25/17 21:00 07/27/17 21:27 (Xanax) 0.5 mg Q8H PRN PO 07/25/17 05:00 07/25/17 07:36 (D50w (Vial) Inj) 50 ml UNSCH PRN IV PUSH 07/25/17 05:00 (Glucagon Inj) 1 mg UNSCH PRN OTHER 07/25/17 05:00 (NovoLOG SUPPLEMENTAL SCALE) 1 ACHS SLIDING SCALE SQ 07/25/17 08:00 07/28/17 12:00 (Tylenol) 650 mg Q6H PRN PO 07/26/17 07:45 (Narcan Inj) 0.4 mg UNSCH PRN IV PUSH 07/26/17 07:45 (Zofran Inj) 4 mg Q8HR PRN IV PUSH 07/26/17 16:00 07/28/17 01:15 (Aspirin) 650 mg Q8HR PO 07/27/17 14:00 07/28/17 14:19 (Norvasc) 5 mg DAILY PO 07/28/17 09:00 07/28/17 09:59 (Ultram) 50 mg Q4H PRN PO 07/27/17 15:30 07/28/17 14:19 (Levemir Inj) 15 units HS SQ 07/28/17 21:00 (Morphine Inj) 2 mg Q3H PRN IV PUSH 07/28/17 13:45 07/28/17 16:19 (Ultram) 50 mg Q4H PRN PO 07/28/17 13:15 Vital Signs / I&O Vital Signs Date Time Temp Pulse Resp B/P (MAP) Pulse Ox O2 Delivery O2 Flow Rate FiO2 07/28/17 12:00 97.7 77 18 162/88 (112) 98 07/28/17 12:00 77 07/28/17 08:00 73 07/28/17 07:00 Room Air 07/28/17 04:11 74 07/28/17 04:00 97.7 80 15 161/84 (109) 96 07/28/17 00:00 82 07/28/17 00:00 97.8 85 16 142/76 (98) 97 07/27/17 21:13 93 07/27/17 20:00 Room Air 07/27/17 20:00 98.1 86 17 140/82 (101) 96 07/27/17 20:00 83 07/27/17 16:58 97.5 82 18 125/70 (88) 98 I/O 07/27/17 07/27/17 07/27/17 07/28/17 07/28/17 07/28/17 07:00 15:00 23:00 07:00 15:00 23:00 Intake Total 480 ml Balance 480 ml Intake Oral 480 ml # Voids 3 Physical Exam GENERAL: NAD, AAOx3 SKIN: Warm and dry. HEAD: Atraumatic. Normocephalic. EYES: Pupils equal and round. No scleral icterus. No injection or drainage. ENT: No nasal bleeding or discharge. Mucous membranes pink and moist. NECK: Trachea midline. No JVD. CARDIOVASCULAR: Regular rate and rhythm. RESPIRATORY: No accessory muscle use. Clear to auscultation. Breath sounds equal bilaterally. GASTROINTESTINAL: Abdomen soft, non-tender, nondistended. Hepatic and splenic margins not palpable. MUSCULOSKELETAL: Extremities without clubbing, cyanosis, or edema. No obvious deformities. NEUROLOGICAL: Awake and alert. No obvious cranial nerve deficits. Motor grossly within normal limits. Five out of 5 muscle strength in the arms and legs. Normal speech. PSYCHIATRIC: Appropriate mood and affect; insight and judgment normal. Laboratory Laboratory Tests Test 07/28/17 07:20 White Blood Count 16.3 TH/MM3 Red Blood Count 4.09 MIL/MM3 Hemoglobin 11.3 GM/DL Hematocrit 35.2 % Mean Corpuscular Volume 86.1 FL Mean Corpuscular Hemoglobin 27.7 PG Mean Corpuscular Hemoglobin Concent 32.2 % Red Cell Distribution Width 16.0 % Platelet Count 392 TH/MM3 Mean Platelet Volume 7.8 FL Neutrophils (%) (Auto) 81.6 % Lymphocytes (%) (Auto) 11.7 % Monocytes (%) (Auto) 6.5 % Eosinophils (%) (Auto) 0.1 % Basophils (%) (Auto) 0.1 % Neutrophils # (Auto) 13.3 TH/MM3 Lymphocytes # (Auto) 1.9 TH/MM3 Monocytes # (Auto) 1.1 TH/MM3 Eosinophils # (Auto) 0.0 TH/MM3 Basophils # (Auto) 0.0 TH/MM3 CBC Comment DIFF FINAL Differential Comment Blood Urea Nitrogen 16 MG/DL Creatinine 0.81 MG/DL Random Glucose 222 MG/DL Calcium Level 9.4 MG/DL Sodium Level 137 MEQ/L Potassium Level 3.8 MEQ/L Chloride Level 106 MEQ/L Carbon Dioxide Level 22.8 MEQ/L Anion Gap 8 MEQ/L Estimat Glomerular Filtration Rate 95 ML/MIN Assessment and Plan Problem List: (1) Chest pain ICD Codes: R07.9 - Chest pain Status: Acute (2) Diabetes ICD Codes: E11.9 - Type 2 diabetes mellitus without complications (3) Hypertension ICD Codes: I10 - Essential (primary) hypertension Status: Chronic (4) Left-sided weakness ICD Codes: R53.1 - Weakness Status: Acute (5) Pericardial effusion ICD Codes: I31.3 - Pericardial effusion (noninflammatory) Status: Acute (6) S/P CABG (coronary artery bypass graft) ICD Codes: Z95.1 - Presence of aortocoronary bypass graft Assessment and Plan 1) Atypical chest pain 2) Abnormal stress test ASH to LAD patent, otherwise small vessel disease, con't medical management 3) EF 55-60% 4) Pain consistent more with pleuritic nature Will increase ASA to 650mg q8 for a week, then 650mg q12 for a week, then 650mg daily for a week, then 325mg daily for a week, then 81mg daily 5) Increase Norvasc to 10mg daily for BP control as well as anti-anginal 6) Will follow up with me on discharge Mendoza Benton DO Jul 28, 2017 16:56
[2017-07-28] MEDS ORDERED: amLODIPine BESYLATE 5 MG TAB PO ONE (17:00)
[2017-07-28] MEDS: ATORVASTATIN 40 MG TAB PO SCH (20:29)
[2017-07-28] MEDS ORDERED: INSULIN DETEMIR 100 UNITS/ML VIAL SQ SCH (21:00)
--- NOTE | 2017-07-28 23:56 | MA ---
cc: IVELISSE OBRIEN DO DATE: July 27, 2017 PROCEDURE Left heart catheterization, coronary angiogram, bypass angiogram. Moderate sedation, 30 minutes. PREPROCEDURE DIAGNOSIS Abnormal stress test, history of CABG x1. POSTPROCEDURE DIAGNOSIS Coronary artery disease, history of CABG x1 (06/28 graft patent) for continued medical management. MEDICATIONS Versed 1.5 mg. Fentanyl 75 mcg. Verapamil 2.5 mg. Nitro 200 mcg. Heparin 2800 units. CONTRAST 100 cc Fluoroscopy: 8.4 minutes Moderate sedation: 30 minutes ESTIMATED BLOOD LOSS 10 cc PROCEDURAL SUMMARY Piper Nielsen is a pleasant 41 year-old female who originally presented to [facility] emergency room due to chest pain. She underwent stress testing which showed apical anterior ischemia and because of this she was recommended cardiac catheterization. Risks, benefits and alternatives were explained her and she consented as such. She was brought to lab and prepped in the usual sterile fashion. Left radial artery was accessed using modified Seldinger technique and placement of a 5/6 [place] slender sheath. This was easily aspirated and flushed. A JR-4 was advanced into the left subclavian with a nonselective shot of ASH to the LAD. This was then advanced across the aortic valve and into the left ventricle for measurement of left ventricular pressure. This was pulled back across the aortic valve showing no significant gradient of aortic stenosis. JR-4 was used for selective angiography of the right coronary artery system. This was then exchanged out for a JL-4 and eventually a JL-3.5 which was used for selective angiography of the left coronary artery system. JL-3.5 was then exchanged for an IM catheter which was used for selective angiography of the ASH to LAD. This was removed over a J-wire. Radial band was placed over the arteriotomy site for hemostasis. The patient left the lab coordinator cardiovascularly stable. FINDINGS: Left main: Normal size vessel with 20-30% disease distally. It bifurcates into an LAD and circumflex. LAD: Normal-size vessel with 20% stenosis in the proximal portion. Distally there are multiple stents placed and with 100% stenosis. It gives off two major diagonals, both overall small with the first having 50% ostial stenosis and the second having 70% ostial stenosis. Left circumflex: Small vessel overall. Midportion has a 50% lesion after the takeoff of the first obtuse marginal. First obtuse marginal has a 50% ostial lesion. RCA: Small to moderate size vessel with a 70% lesion in the midportion. Distal to this there is a stent which is overall patent. ASH to LAD: Patent with no significant disease. It supplies the distal LAD which does supply some collateralization to the right coronary artery. LVEDP 10. IMPRESSION 1. Atypical chest pain which appears more pleuritic in nature. 2. History of CABG x1 (06/28 graft patent) 3. Coronary artery disease. RECOMMENDATIONS 1. Ms. Nielsen presented with chest pain which appeared more pleuritic in nature. I believe at this time the best option would be to place her on high dose aspirin therapy and taper down for the next 4 weeks. 2. She will continue medical management of her coronary artery disease. 3. She will follow up with me in the office and if still having episodes of chest pain then will consider PCI of her RCA. 4. If stable in the morning possible discharge. Thank you for allowing me to see Piper Nielsen. If there are any questions please do not hesitate to call. Ivelisse Obrien DO VGP/MILAGROS /11:08 PM /11:39 PM
[2017-07-29] VITALS: BP 155/86; PULSE 66; PULSE 67; RESP 20; TEMP 97.5; O2SAT 97
[2017-07-29] MEDS: MORPHINE SULFATE 2 MG/ML INJ IV PUSH PRN ×4 (00:40→12:21)
[2017-07-29 04:00] VITALS: BP 175/89; PULSE 71; PULSE 73; RESP 20; TEMP 97.8; O2SAT 98
[2017-07-29] MEDS: ASPIRIN 325 MG TAB PO SCH ×2 (06:07→11:50)
[2017-07-29 08:00] VITALS: BP 142/87; PULSE 70; PULSE 72; RESP 18; TEMP 97.7; O2SAT 97
[2017-07-29] MEDS: INSULIN ASPART SUPPLEMENTAL SCALE SQ SCH ×2 (08:00→11:50)
[2017-07-29 08:24] LABS: AUTOMATED NEUTROPHIL # 6.4 TH/MM3 (1.8-7.7); BASOPHIL % 0.4 % (0.0-2.0); EOSINOPHIL # 0.2 TH/MM3 (0-0.4); EOSINOPHIL % 1.6 % (0.0-4.0); HEMATOCRIT 34.9 % (35.0-46.0); HEMOGLOBIN 11.5 GM/DL (11.6-15.3); LYMPH % 31.1 % (9.0-44.0); LYMPHOCYTE # 3.3 TH/MM3 (1.0-4.8); MEAN CELL VOLUME 85.4 FL (80.0-100.0); MEAN CORPUSCULAR HEMOGLOBIN 28.1 PG (27.0-34.0); MEAN CORPUSCULAR HGB CONC 32.9 % (32.0-36.0); MEAN PLATELET VOLUME 7.3 FL (7.0-11.0); MONO % 6.8 % (0.0-8.0); MONOCYTE # 0.7 TH/MM3 (0-0.9); NEUT % 60.1 % (16.0-70.0); PLATELET COUNT 437 TH/MM3 (150-450); RED BLOOD COUNT 4.09 MIL/MM3 (4.00-5.30); RED CELL DISTRIBUTION WIDTH 15.9 % (11.6-17.2); WHITE BLOOD COUNT 10.6 TH/MM3 (4.0-11.0)
[2017-07-29] MEDS: FERROUS SULFATE 325 MG (65 MG ELEMENTAL IRON) TAB PO SCH (08:33)
[2017-07-29] MEDS: SODIUM CHLORIDE 0.9% FLUSH 10 ML FLUSH IV FLUSH SCH (08:33)
[2017-07-29] MEDS: METOPROLOL TARTRATE 25 MG TAB PO SCH (08:33)
[2017-07-29] MEDS: PANTOPRAZOLE SOD 40 MG DELAYED RELEASE TAB PO SCH (08:34)
[2017-07-29] MEDS: SERTRALINE HCL 50 MG TAB PO SCH (08:34)
[2017-07-29 09:02] LABS: BICARBONATE 28.2 MEQ/L (21.0-32.0); CALCIUM 9.4 MG/DL (8.5-10.1); CREATININE 0.68 MG/DL (0.50-1.00)
--- NOTE | 2017-07-29 10:46 | HHI.DCPOC ---
Discharge Care Plan Diagnosis: (1) Chest pain (2) Hypertension (3) Pericardial effusion Goals to Promote Your Health * To prevent worsening of your condition and complications * To maintain your health at the optimal level Directions to Meet Your Goals Take your medications as prescribed Follow your dietary instruction Follow activity as directed Keep your appointments as scheduled Take your immunizations and boosters as scheduled If your symptoms worsen call your PCP, if no PCP go to Urgent Care Center or Emergency Room Smoking is Dangerous to Your Health. Avoid second hand smoke Call the 24-hour hour crisis hotline for domestic abuse at Shlomo Ojeda MD R1 Jul 29, 2017 10:46
[2017-07-29] MEDS ORDERED: ASPI-183 PO (10:55)
[2017-07-29] MEDS ORDERED: AMLO10 PO (10:55)
[2017-07-29] MEDS ORDERED: TRAM50 PO (10:55)
[2017-07-29 12:00] VITALS: BP 133/73; PULSE 69; PULSE 70; RESP 18; TEMP 97.5; O2SAT 96
--- NOTE | 2017-07-29 13:57 | HHI.FPPN ---
Subjective Remarks No acute issues overnight. Vitals are stable, patient remains afebrile. She continues to have pleuritic chest pain. She denies any shortness of breath, fatigue, palpitations, fever, chills, nausea or vomiting. She feels ready to go home today. (Shyann Yap MD, R3) Objective Vitals Vital Signs Date Time Temp Pulse Resp B/P (MAP) Pulse Ox O2 Delivery O2 Flow Rate FiO2 07/29/17 12:00 97.5 69 18 133/73 (93) 96 07/29/17 09:30 Room Air 07/29/17 08:00 72 07/29/17 08:00 97.7 70 18 142/87 (105) 97 07/29/17 04:00 97.8 73 20 175/89 (117) 98 07/29/17 04:00 71 07/29/17 04:00 Room Air 07/29/17 00:00 Room Air 07/29/17 00:00 67 07/29/17 00:00 97.5 66 20 155/86 (109) 97 07/28/17 20:00 Room Air 07/28/17 20:00 97.5 74 18 166/97 (120) 100 07/28/17 20:00 76 07/28/17 16:00 97.5 68 20 147/88 (107) 99 07/28/17 16:00 71 I/O 07/28/17 07/28/17 07/28/17 07/29/17 07/29/17 07/29/17 07:00 15:00 23:00 07:00 15:00 23:00 Intake Total 480 ml 480 ml Balance 480 ml 480 ml Intake Oral 480 ml 480 ml # Voids 3 2 # Bowel Movements 0 (Shyann Yap MD, R3) Result Diagram: 07/29/17 0801 07/29/17 0801 Imaging Last Impressions Myocardial Perfusion Scan Nuc Med 07/26/17 0600 Signed Impressions: Service Date/Time: Wednesday, July 26, 2017 10:20 - CONCLUSION: Suspected apical ischemia. RISK CATEGORY: Intermediate (1-3%% Annual Mortality Rate ) Kurt Lim MD Chest X-Ray 07/25/17 0046 Signed Impressions: Service Date/Time: Tuesday, July 25, 2017 01:01 - CONCLUSION: No acute disease. Kurt Lim MD Aorta CTA 07/25/17 0046 Signed Impressions: Service Date/Time: Tuesday, July 25, 2017 02:07 - CONCLUSION: 1. Moderate pericardial effusion measuring up to 0.9 cm. 2. Diffuse soft tissue density seen posterior to the sternum. The patient is status post sternotomy. It is uncertain when the patient underwent surgery. 3. Enlarged lymph nodes in the mediastinum. 4. All these findings can also be associated with infection following coronary bypass surgery in the correct clinical situation. Kurt Lim MD Objective Remarks Gen: Well-nourished, well-developed patient sitting in bed in no acute distress. HEENT: Moist mucous membranes. PERRLA. EOMI. Lungs: CTA bilaterally. Moving air equal bilaterally. No wheezes appreciated Cardiac: S1-S2 no pericardial rubs appreciated. No irregularities in rhythm, no murmurs. Abdomen: Soft, no organomegaly, no tenderness. Extremities: Without edema, feet are warm and dry. Neurologic: Cranial nerves II through XII intact. Psychiatric: Flat affect. Appropriate insight and judgement. (Shyann Yap MD, R3) A/P Assessment and Plan 41 y/o F, pmhx of CAD with multiple recent HI's, CABG, and stent placement, who presented with atypical chest pain and was admitted for further cardiac evaluation. Discharge Planning Anticipate discharge home today. (Shyann Yap MD, R3) Attending Attestation Patient seen, examined, and discussed with resident team. I agree with assessment and management as documented and discussed with me. Discharge home today. (Greta Jennings MD) Problem List: (1) Chest pain ICD Codes: R07.9 - Chest pain Status: Acute Plan: Initial troponin elevated at .09, trended down to .07, .06 Mycocardial perfusion scan on 07/26 showed suspected apical ischemia s/p left heart catheterization, coronary angiogram, bypass angiogram on 07/27/17 - ASH to LAD patent, otherwise small vessel disease, con't medical management - Per cardiology, chest pain appears to be more pleuritic in nature. High- dose aspirin therapy with taper over the next 4 weeks recommended (Will increase ASA to 650mg q8 for a week, then 650mg q12 for a week, then 650mg daily for a week, then 325mg daily for a week, then 81mg daily). - Continue medical management of coronary artery disease. - Follow up with Dr. Benton as an outpatient. If still having episodes of chest pain, will consider PCI of RCA. Morphine PRN CP Supplemental O2 for sats <92% Cont home Metoprolol (hold for SBP <100, HR <50) Cont Lipitor 40 HS (2) Pericardial effusion ICD Codes: I31.3 - Pericardial effusion (noninflammatory) Status: Acute Plan: R/o pericarditis, + pleuritic chest pain, afebrile overnight - no pericardial friction rub, no JVD - elevated ESR, elevated CRP - CT chest on admission showed moderate pericardial effusion - Echocardiogram showing trace pericardial effusion, preserved EF Aorta CTA: Moderate pericardial effusion measuring 0.9 cm. Diffuse soft tissue density seen posterior to the sternum. Enlarged lymph nodes in the mediastinum. All these findings can be associated with infection following CABG - Cardiology consultation- recommendations as above (3) Hypertension ICD Codes: I10 - Essential (primary) hypertension Status: Chronic Plan: Continue home metoprolol 25mg PO BID Continue amlodipine 10mg PO daily (4) Diabetes ICD Codes: E11.9 - Type 2 diabetes mellitus without complications Plan: Blood glucose ranging 136-308 in the past 24 hours HbA1c: 8.6 Home regimen: Humalog PRN sliding scale, Glargine HS Follow-up bedside glucose levels Cover with low-dose sliding scale Continue home Lantus 30units HS on discharge (5) fen/ppx Status: Acute Plan: Fluids: None Electrolytes: wnl Nutrition: Heart healthy diet GI ppx: Protonix daily for hx of reflux/CP DVT ppx: SCDs (Shyann Yap MD, R3) Problem Qualifiers (1) Chest pain: Qualified Codes: R07.89 - Other chest pain (2) Hypertension: Qualified Codes: I10 - Essential (primary) hypertension (3) Diabetes: Qualified Codes: E11.9 - Type 2 diabetes mellitus without complications; Z79.4 - runner out (current) use of insulin Shyann Yap MD, R3 Jul 29, 2017 13:57 Greta Jennings MD Jul 29, 2017 15:00
--- NOTE | 2017-07-29 13:59 | HHI.DS ---
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 She was scared she was going to fall asleep and from another AK, so she called [facility]. She had tried 2 tramadols and this did not alleviate her pain, and morphine x 2 in the ED did not alleviate the pain either. The pain started at 12:30PM on 07/24 and started in the posterior left shoulder area and radiated down the left side of her chest, left arm to the fingers, and down posteriorly to the edge of the shoulder blade. The pain is a sharp pain and has continued to be 10/10 despite medications. When she turns her head to the left the pain increases. This pain feels the same as when she had her AK. She continues to feel numbness in her left arm and left leg, and severe weakness of the left leg. She also has vague LUQ abdominal pain. She was nauseas during the episode but this has been alleviated by zofran. She has also had a mild headache since 8PM last night which is unique for her. She does admit to feeling sweats/chills and she feels like her left arm is cold and numb. er SOB started a few hours after her chest pain and occurs with inspiration. This is also similar to previous heart attacks. Her last heart attack was in 06/04/17 in [place] which led to a triple bypass. She passed out at the [place] airport and [facility] took her to [facility]. Previous to this, she had a heart attack in March 2017 in [facility] and had a stent placed. CBC/BMP: 07/29/17 0801 07/29/17 0801 Significant Findings Laboratory Tests Test 07/27/17 07:53 07/28/17 07:20 07/29/17 08:01 Neutrophils (%) (Auto) 73.4 % (16.0-70.0) 81.6 % (16.0-70.0) Neutrophils # (Auto) 7.8 TH/MM3 (1.8-7.7) 13.3 TH/MM3 (1.8-7.7) Random Glucose 144 MG/DL (74-106) 222 MG/DL (74-106) Sodium Level 134 MEQ/L (136-145) White Blood Count 16.3 TH/MM3 (4.0-11.0) Hemoglobin 11.3 GM/DL (11.6-15.3) 11.5 GM/DL (11.6-15.3) Monocytes # (Auto) 1.1 TH/MM3 (0-0.9) Hematocrit 34.9 % (35.0-46.0) PE at Discharge Gen: Well-nourished, well-developed patient sitting in bed in no acute distress. HEENT: Moist mucous membranes. PERRLA. EOMI. Lungs: CTA bilaterally. Moving air equal bilaterally. No wheezes appreciated Cardiac: S1-S2 no pericardial rubs appreciated. No irregularities in rhythm, no murmurs. Abdomen: Soft, no organomegaly, no tenderness. Extremities: Without edema, feet are warm and dry. Neurologic: Cranial nerves II through XII intact. Psychiatric: Flat affect. Appropriate insight and judgement. Hospital Course Patient was admitted for ACS rule out. Initial troponin elevated at .09, trended down to .07, .06. CT chest on admission showed moderate pericardial effusion, Echocardiogram showing trace pericardial effusion, preserved EF. Aorta CTA: Moderate pericardial effusion measuring 0.9 cm. Diffuse soft tissue density seen posterior to the sternum. Enlarged lymph nodes in the mediastinum. All these findings can be associated with infection following CABG. Cardiology was consulted on admission and Mycocardial perfusion scan on 07/26 showed suspected apical ischemia. Patient underwent left heart catheterization, coronary angiogram, bypass angiogram on 07/27/17- ASH to LAD patent, otherwise small vessel disease. Her pain was suspected to be more pleuritic in nature, Jeanette syndrome was considered. She was started on High-dose aspirin therapy with taper over the next [address] Benton was recommended and if she continued to have episodes of chest pain they would consider PCI of RCA. Patient was hypertensive during the admission, and was started on Norvasc 10 mg by cardiology for blood pressure as well as potential symptomatic relief. On 07/29 it was determined the patient was safe for discharge with close follow-up with cardiology. Patient was agreeable Pt Condition on Discharge: Good Discharge Disposition: Discharge Home Discharge Instructions DIET: Follow Instructions for: Heart Healthy Diet Activities you can perform: Regular-No Restrictions Follow up Referrals: Cardiology - 1 Week with Mendoza Benton DO Cardiology PCP Follow-up - 1 Week PCP Follow-up New Medications: Aspirin (Aspirin) 325 Mg Tab 650 MG PO Q8HR, #91 TAB 0 Refills Take 2 tablets (650mg) every 8 hours for 1 week, then 2 tabs (650mg) every 12 hours for a week, then 2 tabs (650mg) daily for a week, then 1 tab (325mg daily) for a week, then 81mg daily Amlodipine (Norvasc) 10 Mg Tab 10 MG PO DAILY, #30 TAB Tramadol (Ultram) 50 Mg Tab 50 MG PO Q6H PRN for CHEST PAIN, #28 TAB Continued Medications: Alprazolam (Xanax) 0.5 Mg Tab 0.5 MG PO Q4H PRN for ANXIETY, TAB 0 Refills Atorvastatin (Atorvastatin) 20 Mg Tab 20 MG PO HS for Cholesterol Management, #30 TAB 3 Refills Ferrous Sulfate (Ferrous Sulfate) 325 Mg (65 Mg Iron) Tablet 325 MG PO BIDPC for Nutritional Supplement, #60 TAB 0 Refills Insulin Glargine Inj (Lantus Inj) 1,000 Unit/10 Ml Vial 30 UNITS SQ HS for Blood Sugar Management, VIAL 0 Refills Insulin Lispro (Human) Inj (Humalog Inj) 1,000 Unit/10 Ml Vial 0 SQ TIDAC PRN for SLIDING SCALE, #1 VIAL 0 Refills Metoprolol Tartrate (Metoprolol Tartrate) 25 Mg Tab 25 MG PO BID, #60 TAB 0 Refills Nitroglycerin SL (Nitroglycerin SL) 0.4 Mg Subl 0.4 MG SL DIRECTED PRN for CHEST PAIN, #100 TAB.SL 0 Refills ONE TABLET UNDER THE TONGUE NEEDED FOR CHEST PAIN, MAY REPEAT EVERY FIVE MINUTES FOR A TOTAL OF 3 DOSES OR CALL 911 IF NO RELIEF Sertraline (Zoloft) 50 Mg Tab 50 MG PO DAILY, #30 TAB 0 Refills Walker with Front Wheels (Walker with Front Wheels) 1 Mis Mis EA .ROUTE DIRECTED, #1 0 Refills Discontinued Medications: Clindamycin (Clindamycin) 300 Mg Cap 600 MG PO Q8H for Infection for 7 Days, #42 CAP 0 Refills Hydrocodone-Acetaminophen ([place]) 5 Mg-325 Mg Tab 1 TAB PO Q6H PRN for PAIN, #12 TAB 0 Refills Shlomo Ojeda MD R1 Jul 29, 2017 13:59
--- NOTE | 2017-07-29 19:21 | PD.CARD.PN ---
Subjective Subjective Remarks Patient was seen earlier today, late entry note Doing well, no complaints Objective Vital Signs / I&O Vital Signs Date Time Temp Pulse Resp B/P (MAP) Pulse Ox O2 Delivery O2 Flow Rate FiO2 07/29/17 12:00 70 07/29/17 12:00 97.5 69 18 133/73 (93) 96 07/29/17 09:30 Room Air 07/29/17 08:00 72 07/29/17 08:00 97.7 70 18 142/87 (105) 97 07/29/17 04:00 97.8 73 20 175/89 (117) 98 07/29/17 04:00 71 07/29/17 04:00 Room Air 07/29/17 00:00 Room Air 07/29/17 00:00 67 07/29/17 00:00 97.5 66 20 155/86 (109) 97 07/28/17 20:00 Room Air 07/28/17 20:00 97.5 74 18 166/97 (120) 100 07/28/17 20:00 76 I/O 07/28/17 07/28/17 07/28/17 07/29/17 07/29/17 07/29/17 07:00 15:00 23:00 07:00 15:00 23:00 Intake Total 480 ml 480 ml Balance 480 ml 480 ml Intake Oral 480 ml 480 ml # Voids 3 2 # Bowel Movements 0 Physical Exam GENERAL: NAD, AAOx3 SKIN: Warm and dry. HEAD: Atraumatic. Normocephalic. EYES: Pupils equal and round. No scleral icterus. No injection or drainage. ENT: No nasal bleeding or discharge. Mucous membranes pink and moist. NECK: Trachea midline. No JVD. CARDIOVASCULAR: Regular rate and rhythm. RESPIRATORY: No accessory muscle use. Clear to auscultation. Breath sounds equal bilaterally. GASTROINTESTINAL: Abdomen soft, non-tender, nondistended. Hepatic and splenic margins not palpable. MUSCULOSKELETAL: Extremities without clubbing, cyanosis, or edema. No obvious deformities. NEUROLOGICAL: Awake and alert. No obvious cranial nerve deficits. Motor grossly within normal limits. Five out of 5 muscle strength in the arms and legs. Normal speech. PSYCHIATRIC: Appropriate mood and affect; insight and judgment normal. Laboratory Laboratory Tests Test 07/29/17 08:01 White Blood Count 10.6 TH/MM3 Red Blood Count 4.09 MIL/MM3 Hemoglobin 11.5 GM/DL Hematocrit 34.9 % Mean Corpuscular Volume 85.4 FL Mean Corpuscular Hemoglobin 28.1 PG Mean Corpuscular Hemoglobin Concent 32.9 % Red Cell Distribution Width 15.9 % Platelet Count 437 TH/MM3 Mean Platelet Volume 7.3 FL Neutrophils (%) (Auto) 60.1 % Lymphocytes (%) (Auto) 31.1 % Monocytes (%) (Auto) 6.8 % Eosinophils (%) (Auto) 1.6 % Basophils (%) (Auto) 0.4 % Neutrophils # (Auto) 6.4 TH/MM3 Lymphocytes # (Auto) 3.3 TH/MM3 Monocytes # (Auto) 0.7 TH/MM3 Eosinophils # (Auto) 0.2 TH/MM3 Basophils # (Auto) 0.0 TH/MM3 CBC Comment DIFF FINAL Differential Comment Blood Urea Nitrogen 17 MG/DL Creatinine 0.68 MG/DL Random Glucose 88 MG/DL Calcium Level 9.4 MG/DL Sodium Level 139 MEQ/L Potassium Level 3.9 MEQ/L Chloride Level 104 MEQ/L Carbon Dioxide Level 28.2 MEQ/L Anion Gap 7 MEQ/L Estimat Glomerular Filtration Rate 117 ML/MIN Assessment and Plan Problem List: (1) Chest pain ICD Codes: R07.9 - Chest pain Status: Acute (2) Diabetes ICD Codes: E11.9 - Type 2 diabetes mellitus without complications (3) Hypertension ICD Codes: I10 - Essential (primary) hypertension Status: Chronic (4) Left-sided weakness ICD Codes: R53.1 - Weakness Status: Acute (5) Pericardial effusion ICD Codes: I31.3 - Pericardial effusion (noninflammatory) Status: Acute (6) S/P CABG (coronary artery bypass graft) ICD Codes: Z95.1 - Presence of aortocoronary bypass graft Assessment and Plan 1) Atypical chest pain 2) Abnormal stress test ASH to LAD patent, otherwise small vessel disease, con't medical management 3) EF 55-60% 4) Pain consistent more with pleuritic nature Will increase ASA to 650mg q8 for a week, then 650mg q12 for a week, then 650mg daily for a week, then 325mg daily for a week, then 81mg daily 5) Increase Norvasc to 10mg daily for BP control as well as anti-anginal 6) Will follow up with me on discharge 7) No further cardiovascular work up, cardiovascularly stable for discharge Problem Qualifiers (1) Chest pain: Qualified Codes: R07.89 - Other chest pain (2) Diabetes: Qualified Codes: E11.9 - Type 2 diabetes mellitus without complications; Z79.4 - [facility] (current) use of insulin (3) Hypertension: Qualified Codes: I10 - Essential (primary) hypertension Mendoza Benton DO Jul 29, 2017 19:21
[2017-07-30] MEDS ORDERED: BRIL90TA PO (21:32)
[2017-07-30] MEDS ORDERED: ISOS30TA3 PO (21:32)
[2017-07-30] MEDS ORDERED: ZOFR8TAB4 SL (21:32)
== END 2017-07-29 14:50 | disposition home or self-care (01) ==
LOC: NEPC 00:10 → NEDA 03:26 → INTOOBSV 03:26 → N04B 04:30
PROVIDERS: ADMIT Family Medicine; ATTEND Family Medicine
DX: R07.89 Other chest pain (principal); I30.9 Acute pericarditis, unspecified; I25.10 Atherosclerotic heart disease of native coronary artery without angina pectoris; I11.0 Hypertensive heart disease with heart failure; I50.9 Heart failure, unspecified; I25.2 Old myocardial infarction; E78.5 Hyperlipidemia, unspecified; E11.9 Type 2 diabetes mellitus without complications; R06.02 Shortness of breath; R53.1 Weakness; R10.12 Left upper quadrant pain; R51 Headache; E78.00 Pure hypercholesterolemia, unspecified; K21.9 Gastro-esophageal reflux disease without esophagitis; Z79.4 Long term (current) use of insulin; Z95.1 Presence of aortocoronary bypass graft; Z82.49 Family history of ischemic heart disease and other diseases of the circulatory system; Z87.891 Personal history of nicotine dependence; W10.9XXA Fall (on) (from) unspecified stairs and steps, initial encounter; Y92.019 Unspecified place in single-family (private) house as the place of occurrence of the external cause
CPT/HCPCS: 71045; 71275; 74174; 78452; 80048; 80053; 80061; 80307; 82550; 82948; 83036; 83735; 84443; 84484; 84702; 85025; 85610; 85652; 85730; 86140; 93005; 93017; 93306; 93459; 94150; 96372; 96374; 96375; 96376; 97110; 97116; 97162; 97166; 99152; 99153; 99285; A9502; C1769; C1893; G0378; G0481; G8987; G8988; G8989; J0131; J0280; J1200; J1644; J1815; J1885; J2250; J2270; J2405; J2785; J2930; J3010; Q9967

== ENCOUNTER 2017-07-30 21:14 | Observation (INO) | payer MEDICAID, OTHER ==
[~2017-07-30] VITALS: Ht 162.6 cm; Wt 58.3 kg
[~2017-07-30 21:14] MED LIST changes: +AMLO10 PO; +ASPI-183 PO; -ASPI-516 CHEW; -CLIN300C5 PO; -NORC5TAB PO; +TRAM50 PO
[2017-07-30 21:15] VITALS: BP 211/105; PULSE 112; RESP 18; TEMP 98.1; O2SAT 96
[2017-07-30 21:32] VITALS: BP 173/97; PULSE 103; RESP 16; TEMP 98.5; O2SAT 100
[2017-07-30] MEDS ORDERED: ISOS30TA3 PO (21:32)
[2017-07-30] MEDS ORDERED: ZOFR8TAB4 SL (21:32)
[2017-07-30] MEDS ORDERED: BRIL90TA PO ×2 (21:32)
--- NOTE | 2017-07-30 21:39 | PD ---
HPI Chief Complaint: Chest Pain Time Seen by Provider: 21:24 Travel History International Travel<30 days: No Contact w/Intl Traveler<30days: No Traveled to known affect area: No History of Present Illness HPI Patient is a 41-year-old female with a severe history of cardiac artery disease she has had open heart surgery in May of the past few months she has multiple vessel disease she had Done by Dr. Benton within the last month. She is only 41 years old and has been told there is too much disease to do any further stenting. Pt was just in the hopstial had ECHo show mild pericardial effusion and EF was 55% outpatient returning severe chest pain she took 2 aspirin total of 650 of aspirin as well as 2 tramadol without relief of her pain which is left-sided sharp pain in her chest. She has not seen the [facility] as an outpt. returns right to ER for this Pain PFSH Past Medical History Hx Anticoagulant Therapy: Yes (ASA) Arthritis: Yes Autoimmune Disease: No Blood Disorders: No Bipolar Disorder: Yes Anxiety: Yes Depression: Yes Heart Rhythm Problems: No Cancer: No Cardiac Catheterization: Yes Cardiovascular Problems: Yes (CAD) High Cholesterol: Yes Chest Pain: Yes (at present) Congestive Heart Failure: Yes Coronary Artery Disease: Yes Diabetes: Yes Patient Takes Glucophage: No Diminished Hearing: No Endocrine: Yes Gastrointestinal Disorders: Yes Genitourinary: No Hypertension: Yes Immune Disorder: No Implanted Vascular Access Dvce: Yes Musculoskeletal: Yes Neurologic: Yes Psychiatric: Yes Reproductive: No Respiratory: Yes ?: Not : 3 Para: 2 Miscarriage: 1 Tubal Ligation: Yes (1999) Past Surgical History Abdominal Surgery: Yes (Gallbladder removed, appendix removed) Appendectomy: Yes (1980) Body Medical Devices: STENTS Cardiac Surgery: Yes (triple bypass 06/15/17) Cholecystectomy: Yes (2012) Coronary Artery Bypass Graft: Yes (1 VESSEL) Coronary Stent: Yes () Gynecologic Surgery: Yes ( Tubal ligation) Other Surgery: Yes Family History Family Hypercholesterolemia: Yes Social History Alcohol Use: No Tobacco Use: No (quit in May 2017) Substance Use: No Allergies-Medications (Allergen,Severity, Reaction): Coded Allergies: Penicillins (Verified Allergy, Severe, Hives, 07/30/17) shellfish derived (Verified Allergy, Unknown, RASH , 07/30/17) Reported Meds & Prescriptions Reported Meds & Active Scripts Active Ultram (Tramadol HCl) 50 Mg Tab 50 Mg PO Q6H PRN Norvasc (Amlodipine Besylate) 10 Mg Tab 10 Mg PO DAILY Nitroglycerin SL (Nitroglycerin) 0.4 Mg Subl 0.4 Mg SL DIRECTED PRN ONE TABLET UNDER THE TONGUE NEEDED FOR CHEST PAIN, MAY REPEAT EVERY FIVE MINUTES FOR A TOTAL OF 3 DOSES OR CALL 911 IF NO RELIEF Atorvastatin (Atorvastatin Calcium) 20 Mg Tab 20 Mg PO HS Reported Brilinta (Ticagrelor) 90 Mg Tab 90 Mg PO BID Zofran Odt (Ondansetron Odt) 8 Mg Tab 8 Mg SL Q6HR PRN Lantus Inj (Insulin Glargine) 1,000 Unit/10 Ml Vial 30 Units SQ HS Zoloft (Sertraline HCl) 50 Mg Tab 50 Mg PO DAILY Metoprolol Tartrate 25 Mg Tab 25 Mg PO BID Xanax (Alprazolam) 0.5 Mg Tab 0.5 Mg PO Q4H PRN Humalog Inj (Insulin Human Lispro) 1,000 Unit/10 Ml Vial 0 SQ TIDAC PRN Ferrous Sulfate 325 Mg (65 Mg Iron) Tablet 325 Mg PO BIDPC Physical Exam Narrative GENERAL: non toxic no apparent distress and non diaphoretic, AOX3 SKIN: Warm and dry. HEAD: Atraumatic. Normocephalic. EYES: Pupils equal and round. No scleral icterus. No injection or drainage. ENT: No nasal bleeding or discharge. Mucous membranes pink and moist. NECK: Trachea midline. No JVD. CARDIOVASCULAR: Regular rate and rhythm. jhas obvious recent sternotomy midline scar RESPIRATORY: No accessory muscle use. Clear to auscultation. Breath sounds equal bilaterally. GASTROINTESTINAL: Abdomen soft, non-tender, nondistended. Hepatic and splenic margins not palpable. MUSCULOSKELETAL: Extremities without clubbing, cyanosis, or edema. No obvious deformities. NEUROLOGICAL: Awake and alert. No obvious cranial nerve deficits. Motor grossly within normal limits. Five out of 5 muscle strength in the arms and legs. Normal speech. PSYCHIATRIC: Appropriate mood and affect; insight and judgment normal. Data Data Last Documented VS Vital Signs Date Time Temp Pulse Resp B/P (MAP) Pulse Ox O2 Delivery O2 Flow Rate FiO2 07/31/17 00:55 93 16 153/75 (101) 99 Room Air 07/30/17 21:32 98.5 Orders Orders Complete Blood Count With Diff (07/30/17 21:39) Comprehensive Metabolic Panel (07/30/17 21:39) Ckmb (Isoenzyme) Profile (07/30/17 21:39) Troponin I (07/30/17 21:39) C-Reactive Protein (Crp) (07/30/17 21:39) Lipase (07/30/17 21:39) Urinalysis - C+S If Indicated (07/30/17 21:39) Chest, Pa & Lat (07/30/17 21:39) Ketorolac Inj (Toradol Inj) (07/30/17 22:15) Morphine Inj (Morphine Inj) (07/30/17 22:15) Ondansetron Inj (Zofran Inj) (07/31/17 00:15) Morphine Inj (Morphine Inj) (07/31/17 00:15) Labetalol Inj (Trandate Inj) (07/31/17 00:30) Vital Signs (Adult) PRIYA.Q4H (07/31/17 01:46) Activity Oob With Assistance (07/31/17 01:46) Water Softener Servicer / Telemetry PRIYA.Q8H (07/31/17 01:46) Notify Dr: Other (07/31/17 01:46) Resp Oxygen Charles C Titrat 1-4 L (07/31/17 ) Admit Order (Ed Use Only) (07/31/17 01:57) Labs Laboratory Tests Test 07/30/17 22:04 07/31/17 00:55 White Blood Count 11.7 TH/MM3 Red Blood Count 4.35 MIL/MM3 Hemoglobin 12.3 GM/DL Hematocrit 36.8 % Mean Corpuscular Volume 84.6 FL Mean Corpuscular Hemoglobin 28.2 PG Mean Corpuscular Hemoglobin Concent 33.4 % Red Cell Distribution Width 15.8 % Platelet Count 542 TH/MM3 Mean Platelet Volume 7.4 FL Neutrophils (%) (Auto) 65.0 % Lymphocytes (%) (Auto) 26.6 % Monocytes (%) (Auto) 5.6 % Eosinophils (%) (Auto) 2.3 % Basophils (%) (Auto) 0.5 % Neutrophils # (Auto) 7.6 TH/MM3 Lymphocytes # (Auto) 3.1 TH/MM3 Monocytes # (Auto) 0.7 TH/MM3 Eosinophils # (Auto) 0.3 TH/MM3 Basophils # (Auto) 0.1 TH/MM3 CBC Comment DIFF FINAL Differential Comment Blood Urea Nitrogen 24 MG/DL Creatinine 0.86 MG/DL Random Glucose 267 MG/DL Total Protein 8.6 GM/DL Albumin 3.6 GM/DL Calcium Level 9.0 MG/DL Alkaline Phosphatase 157 U/L Aspartate Amino Transf (AST/SGOT) 15 U/L Alanine Aminotransferase (ALT/SGPT) 23 U/L Total Bilirubin 0.1 MG/DL Sodium Level 136 MEQ/L Potassium Level 3.4 MEQ/L Chloride Level 101 MEQ/L Carbon Dioxide Level 27.1 MEQ/L Anion Gap 8 MEQ/L Estimat Glomerular Filtration Rate 89 ML/MIN Total Creatine Kinase 40 U/L Troponin I 0.06 NG/ML C-Reactive Protein 4.85 MG/DL Lipase 282 U/L Urine Color YELLOW Urine Turbidity HAZY Urine pH 6.5 Urine Specific [place] 1.022 Urine Protein TRACE mg/dL Urine Glucose (UA) 1000 mg/dL Urine Ketones NEG mg/dL Urine Occult Blood LARGE Urine Nitrite NEG Urine Bilirubin NEG Urine Urobilinogen LESS THAN 2.0 MG/DL Urine Leukocyte Esterase SMALL Urine RBC /hpf Urine WBC 1 /hpf Urine Squamous Epithelial Cells 9 /hpf Urine Mucus FEW /lpf Microscopic Urinalysis Comment CULT NOT INDICATED MDM Medical Decision Making Medical Screen Exam Complete: Yes Emergency Medical Condition: Yes Differential Diagnosis recurrent pericarditis or effusion or sternotomy scar pain or ACS graft failure , dresslers syndrome Narrative Course Toradol and morphine and trop = 0.06 ( was 0.08., 0.09 in last few days in our labs will treat pain and monitor cardiac activity sand and re admit to tele Diagnosis Primary Impression: Chest pain Scripts Walker with Front Wheels (Walker with Front Wheels) 1 Mis Mis EA .XX DIRECTED, #1 0 Refills Prov: Shlomo Ojeda MD R1 08/03/17 Aspirin (Tgt Aspirin) 81 Mg Chw 81 MG CHEW DAILY, #30 EA Prov: Elvia Betancourt MD R2 08/03/17 Colchicine (Colcrys) 0.6 Mg Tab 0.6 MG PO BID, #60 TAB Prov: Elvia Betancourt MD R2 18 Pantoprazole (Pantoprazole) 40 Mg Tab 40 MG PO DAILY, #30 TAB Prov: Elvia Betancourt MD R2 08/03/17 Magnesium Hydroxide (Qc Milk of Magnesia) 400 Mg/5 Ml Cindy 30 ML PO Q12H Y for Mild constipation, #60 Prov: Elvia Betancourt MD R2 08/03/17 Lisinopril (Lisinopril) 5 Mg Tab 5 MG PO DAILY, #30 TAB Prov: Elvia Betancourt MD R2 18 Isosorbide Mononitrate ER (Isosorbide Mononitrate ER) 60 Mg Tab 60 MG PO DAILY@0700, #30 TAB Prov: Elvia Betancourt MD R2 08/03/17 Brett Madrigal MD Jul 30, 2017 21:39
--- NOTE | 2017-07-30 22:10 | RADRPT ---
EXAM DATE/TIME: 07/30/2017 21:54 [facility] COMPARISON: CHEST PA & LAT, July 19, 2017, 22:09. INDICATIONS : Chest pain. MEDICAL HISTORY : Diabetes mellitus type I. Hypertension SURGICAL HISTORY : CABG. ENCOUNTER: Initial ACUITY: 1 day PAIN SCORE: 10/10 LOCATION: chest FINDINGS: Median sternotomy wires are again noted. The heart is stable. The pulmonary vascular pattern is matilda l. The lungs are clear. CONCLUSION: No acute cardiopulmonary disease. Mk Golden MD on July 30, 2017 at 22:06 Board Certified Radiologist. This report was verified electronically.
[2017-07-30] MEDS ORDERED: KETOROLAC TROMETHAMINE 30 MG/ML (IVP) VIAL IV PUSH ONE (22:15)
[2017-07-30] MEDS ORDERED: MORPHINE SULFATE 2 MG/ML INJ IV PUSH ONE (22:15)
[2017-07-30 22:32] LABS: AUTOMATED NEUTROPHIL # 7.6 TH/MM3 (1.8-7.7); BASOPHIL # 0.1 TH/MM3 (0-0.2); BASOPHIL % 0.5 % (0.0-2.0); EOSINOPHIL # 0.3 TH/MM3 (0-0.4); EOSINOPHIL % 2.3 % (0.0-4.0); HEMATOCRIT 36.8 % (35.0-46.0); HEMOGLOBIN 12.3 GM/DL (11.6-15.3); LYMPH % 26.6 % (9.0-44.0); LYMPHOCYTE # 3.1 TH/MM3 (1.0-4.8); MEAN CELL VOLUME 84.6 FL (80.0-100.0); MEAN CORPUSCULAR HEMOGLOBIN 28.2 PG (27.0-34.0); MEAN CORPUSCULAR HGB CONC 33.4 % (32.0-36.0); MEAN PLATELET VOLUME 7.4 FL (7.0-11.0); MONO % 5.6 % (0.0-8.0); MONOCYTE # 0.7 TH/MM3 (0-0.9); PLATELET COUNT 542 TH/MM3 (150-450); RED BLOOD COUNT 4.35 MIL/MM3 (4.00-5.30); RED CELL DISTRIBUTION WIDTH 15.8 % (11.6-17.2); WHITE BLOOD COUNT 11.7 TH/MM3 (4.0-11.0)
[2017-07-30 23:10] LABS: ALBUMIN 3.6 GM/DL (3.4-5.0); ALKALINE PHOSPHATASE 157 U/L (45-117); ALT (GPT) 23 U/L (10-53); AST (GOT) 15 U/L (15-37); BICARBONATE 27.1 MEQ/L (21.0-32.0); BLOOD UREA NITROGEN 24 MG/DL (7-18); C-REACTIVE PROTEIN 4.85 MG/DL (0.00-0.30); CHLORIDE 101 MEQ/L (98-107); CREATININE 0.86 MG/DL (0.50-1.00); GLOMERULAR FILTRATION RATE 89 ML/MIN (>89); GLUCOSE,RANDOM 267 MG/DL (74-106); SODIUM (NA) 136 MEQ/L (136-145); TOTAL BILIRUBIN ADULT 0.1 MG/DL (0.2-1.0); TOTAL PROTEIN 8.6 GM/DL (6.4-8.2); TROPONIN I 0.06 NG/ML (0.02-0.05)
[2017-07-31] VITALS (17 sets, daily range): BP systolic 112–195; BP diastolic 63–108; PULSE 65–100; RESP 16–19; TEMP 97.6–98.4; O2SAT 92–100
[2017-07-31] MEDS ORDERED: ONDANSETRON HCL 4 MG/2 ML VIAL IV PUSH ONE (00:15)
[2017-07-31] MEDS ORDERED: MORPHINE SULFATE 4 MG/ML INJ IV PUSH ONE (00:15)
[2017-07-31] MEDS ORDERED: LABETALOL HCL 100 MG/20 ML VIAL IV PUSH ONE (00:30)
[2017-07-31 01:20] LABS: BILIRUBIN, URINE NEG (NEG); BLOOD, URINE LARGE (NEG); GLUCOSE,URINE 1000 mg/dL (NEG); KETONE, URINE NEG (NEG); MUCUS URINE FEW /lpf (OCC); NITRITE,URINE NEG (NEG); PH, URINE 6.5 (5.0-8.5); SQUAMOUS EPITHELIAL CELL URINE 9 /hpf (0-5); URINE COLOR YELLOW (YELLW/STRAW); URINE LEUKOCYTE ESTERASE SMALL (NEG)
--- NOTE | 2017-07-31 01:59 | HHI.HP ---
[facility] Service Family Medicine Primary Care Physician Zunilda Trujillo MD Admission Diagnosis Diagnoses: International Travel<30 Days: No Contact w/Intl Traveler<30days: No Known Affected Area: No History of Present Illness Ms. Nielsen is a 41 y/o F with history of CAD s/p CABG presents to the ED with new onset chest pain. Patient was discharged from [facility] on 07/29/17 after being hospitalized for an episode of chest pain. Left heart catheterization was completed on 07/27/17 that required no stenting. She was then discharged for medical management of her coronary artery disease. This morning she woke up starting to have intermittent chest pain. She took her daily morning medications which improved her condition, however her awakening from a nap she started to feel left-sided chest pain. Throughout her day her chest pain began to build up to 10/10 on her pain scale. She describes the pain as a substernal, heavy pressure like someone is sitting on her chest. She is then presented to the ED for further management. She received morphine which decreased her pain to an 8/10, which is what she describes her pain is at currently. She states that she has been compliant with her medications since discharge, but has not taken her nightly medication due to presenting to the ED. Otherwise she has no complaints and denies any fevers, chills, shortness of breath, NVD, dumping, or calf tenderness. (Jaren Cabrera MD R2) Review of Systems Constitutional: DENIES: Fever, Chills Ears, nose, mouth, throat: COMPLAINS OF: Running Nose, DENIES: Throat pain Respiratory: COMPLAINS OF: Shortness of breath, DENIES: Cough Cardiovascular: COMPLAINS OF: Chest pain, Palpitations, DENIES: Syncope Gastrointestinal: COMPLAINS OF: Nausea, DENIES: Abdominal pain, Diarrhea, Vomiting Genitourinary: DENIES: Dysuria Musculoskeletal: COMPLAINS OF: Muscle aches, DENIES: Joint pain Integumentary: DENIES: Rash Hematologic/lymphatic: DENIES: Lymphadenopathy Immunologic/allergic: DENIES: Urticaria Neurologic: DENIES: Headache Psychiatric: DENIES: Mood changes (Jaren Cabrera MD R2) Past Family Social History Past Medical History CAD: 7 heart attacks (1st in 2015, last in May 2017), 6 stents, 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 Trujillo in [place] (last saw 3 weeks ago); setting up follow up with Dr. Benton Bipolar disorder DM HTN Past Surgical History Gallbladder removed 2012 BTL 1999 Appendectomy 1981 CABG 2017 (Jaren Cabrera MD R2) Allergies: Coded Allergies: Penicillins (Verified Allergy, Severe, Hives, 07/30/17) shellfish derived (Verified Allergy, Unknown, RASH , 07/30/17) Family History Mother: CAD Father: Unknown Grandmother: pancreatic Ca, CAD Aunt: CAD, stroke Social History Lives in [facility] with a cousin in an apartment. Unemployed. Currently on food stamps and child support. Tobacco - Smoked 1ppd/day x 25 years (stopped 4 months ago) Alcohol - No reported history Illicit - No reported history (Jaren Cabrera MD R2) Physical Exam Vital Signs Vital Signs Date Time Temp Pulse Resp B/P (MAP) Pulse Ox O2 Delivery O2 Flow Rate FiO2 07/31/17 00:55 93 16 153/75 (101) 99 Room Air 07/31/17 00:44 92 16 174/86 (115) 99 Room Air 07/31/17 00:00 100 16 195/108 (137) 98 Room Air 07/30/17 21:32 98.5 103 16 173/97 (122) 100 Room Air 07/30/17 21:23 108 18 100 Room Air 07/30/17 21:15 98.1 112 18 211/105 (140) 96 Room Air Physical Exam GENERAL: Well-nourished, well-developed female lying in bed in no acute distress. SKIN: Warm and dry. No rash. Midsternal, well-healed sternal surgical incision. HEENT: Atraumatic, normocephalic with extraocular motions intact. No rhinorrhea. MMM. No visible lymphadenopathy or jugulovenous distension appreciated. CARDIOVASCULAR: Regular rate and rhythm without obvious murmurs, gallops, or rubs. 2+ pulses in all four extremities. No pericardial rub appreciated. RESPIRATORY: Clear to auscultation bilaterally with no crackles, wheezes, or rhonchi. No increased work of breathing. GASTROINTESTINAL: Abdomen soft, non-tender, nondistended with positive bowel sounds. No masses appreciated. MUSCULOSKELETAL: No cyanosis or edema. No calf tenderness. Ambulating well per report. NEURO/PSYCH: Afocal. Awake, alert, and oriented x3. Normal speech and judgement. Flat affect. Laboratory Laboratory Tests Test 07/30/17 22:04 07/31/17 00:55 White Blood Count 11.7 Red Blood Count 4.35 Hemoglobin 12.3 Hematocrit 36.8 Mean Corpuscular Volume 84.6 Mean Corpuscular Hemoglobin 28.2 Mean Corpuscular Hemoglobin Concent 33.4 Red Cell Distribution Width 15.8 Platelet Count 542 Mean Platelet Volume 7.4 Neutrophils (%) (Auto) 65.0 Lymphocytes (%) (Auto) 26.6 Monocytes (%) (Auto) 5.6 Eosinophils (%) (Auto) 2.3 Basophils (%) (Auto) 0.5 Neutrophils # (Auto) 7.6 Lymphocytes # (Auto) 3.1 Monocytes # (Auto) 0.7 Eosinophils # (Auto) 0.3 Basophils # (Auto) 0.1 CBC Comment DIFF FINAL Differential Comment Blood Urea Nitrogen 24 Creatinine 0.86 Random Glucose 267 Total Protein 8.6 Albumin 3.6 Calcium Level 9.0 Alkaline Phosphatase 157 Aspartate Amino Transf (AST/SGOT) 15 Alanine Aminotransferase (ALT/SGPT) 23 Total Bilirubin 0.1 Sodium Level 136 Potassium Level 3.4 Chloride Level 101 Carbon Dioxide Level 27.1 Anion Gap 8 Estimat Glomerular Filtration Rate 89 Total Creatine Kinase 40 Troponin I 0.06 C-Reactive Protein 4.85 Lipase 282 Urine Color YELLOW Urine Turbidity HAZY Urine pH 6.5 Urine Specific [place] 1.022 Urine Protein TRACE Urine Glucose (UA) 1000 Urine Ketones NEG Urine Occult Blood LARGE Urine Nitrite NEG Urine Bilirubin NEG Urine Urobilinogen LESS THAN 2.0 Urine Leukocyte Esterase SMALL Urine RBC Urine WBC 1 Urine Squamous Epithelial Cells 9 Urine Mucus FEW Microscopic Urinalysis Comment CULT NOT INDICATED (Jaren Cabrera MD R2) Result Diagram: 07/30/17220307/30/172203 Imaging Last 72 hours Impressions Chest X-Ray 07/30/172138 Signed Impressions: Service Date/Time: Sunday, July 30, 2017 21:54 - CONCLUSION: No acute cardiopulmonary disease. Mk Golden MD (Jaren Cabrera MD R2) Caprini VTE Risk Assessment Caprini VTE Risk Assessment: Mod/High Risk (score >= 2) Caprini Risk Assessment Model Point Value = 1 Point Value = 2 Point Value = 3 Point Value = 5 Age 41-60 Minor surgery BMI > 25 kg/m2 Swollen legs Varicose veins or History of unexplained or recurrent spontaneous Oral contraceptives or hormone replacement Sepsis (< 1 month) Serious lung disease, including pneumonia (< 1 month) Abnormal pulmonary function Acute myocardial infarction Congestive heart failure (< 1 month) History of inflammatory bowel disease Medical patient at bed rest Age 61-74 Arthroscopic surgery Major open surgery (> 45 min) Laparoscopic surgery (> 45 min) Malignancy Confined to bed (> 72 hours) Immobilizing plaster cast Central venous access Age >= 75 History of VTE Family history of VTE Factor V Leiden Prothrombin [id number] Lupus anticoagulant Anticardiolipin antibodies Elevated serum homocysteine Heparin-induced thrombocytopenia Other congenital or acquired thrombophilia Stroke (< 1 month) Elective arthroplasty Hip, pelvis, or leg fracture Acute spinal cord injury (< 1 month) Prophylaxis Regimen Total Risk Factor Score Risk Level Prophylaxis Regimen 0-1 Low Early ambulation 2 Moderate Order ONE of the following: *Sequential Compression Device (SCD) *Heparin 5000 units SQ BID 3-4 Higher Order ONE of the following medications: *Heparin 5000 units SQ TID *Enoxaparin/Lovenox 40 mg SQ daily (WT < 150 kg, CrCl > 30 mL/min) *Enoxaparin/Lovenox 30 mg SQ daily (WT < 150 kg, CrCl > 10-29 mL/min) *Enoxaparin/Lovenox 30 mg SQ BID (WT < 150 kg, CrCl > 30 mL/min) AND/OR *Sequential Compression Device (SCD) 5 or more Highest Order ONE of the following medications: *Heparin 5000 units SQ TID (Preferred with Epidurals) *Enoxaparin/Lovenox 40 mg SQ daily (WT < 150 kg, CrCl > 30 mL/min) *Enoxaparin/Lovenox 30 mg SQ daily (WT < 150 kg, CrCl > 10-29 mL/min) *Enoxaparin/Lovenox 30 mg SQ BID (WT < 150 kg, CrCl > 30 mL/min) AND *Sequential Compression Device (SCD) (Jaren Cabrera MD R2) Assessment and Plan Assessment and Plan Ms. Nielsen is a 41 y/o F presenting to the ED for acute chest pain. Code Status DNR Discussed Condition With Dr. Kaitlin ED MD (Jaren Cabrera MD R2) Attending Attestation Patient seen, examined, and discussed with Dr. Ojeda. Discussed with overnight team. I agree with assessment and management as documented and discussed with me. Pt returned to the hospital for worsening chest pain. She reports at home that pain was 3/10 the day of discharge (07/29/17), but continued to worsen throughout the day yesterday (07/30/17). Will continue aspirin. Add colchicine to help with inflammation. Of note, patient had been taking colchicine 0.6mg daily but had stopped a few weeks ago. Will restart daily, but consider increase to BID if pain persists. CRP improved from 14 at last admission to 4.85 on this admission, indicating improvement in inflammation. Increase imdur to 60mg daily to help in case of coronary etiology to chest pain. Add PPI as well. Await recs from cardiology. Pt currently NPO until further recs from cardiology re: procedure are made. (Greta Jennings MD) Problem List: (1) Chest pain ICD Codes: R07.9 - Chest pain Status: Acute Plan: -DDx includes ACS, GERD, PE, pneumonia, panic attack, myocarditis, costochondritis, pleuritic. -Pt. states CP has improved with morphine. -Previous ECHO on 07/26/17 showed normal left ventricular size with ejection fraction of 55%. Mild left ventricular hypertrophy. Trace mitral regurgitation, trace tricuspid valve regurgitation. Pulmonary arterial pressure of 35 mmHg. -Previous myocardial perfusion scan on 07/26 showed suspected apical ischemia -Recent left heart catheterization on 07/27/17 showed patent ASH to LAD, otherwise small vessel disease with recommendations for continuing management -EKG showed sinus rhythm with normal intervals. No ST depressions/elevations ( artifact in lead V2). Per medical team rate. -CXR showed no acute disease. -Initial Trop 0.06 (patient's baseline). Trend Radha and EKGs x 2. If 2nd trop. is sig. increased, start Heparin drip. -Supplemental O2. Daily aspirin. Protonix. -Morphine 2mg Q2 hrs PRN chest pain only. -Metoprolol 25 PO BID evelia (hold for low BP and HR). -NTG PRN as no evidence of pump failure/hypoperfusion at this time. -Tele. -Consult cardiology. NPO for now in case of intervention as consideration of PCI of RCA was mentioned on previous admission. -AM BMP + Mg to detect/correct electrolyte abnormalities that could lower arrhythmia threshold. (2) Pericardial effusion ICD Codes: I31.3 - Pericardial effusion (noninflammatory) Status: Acute Plan: -Patient with pericardial effusion per chart review -Aorta CTA: Moderate pericardial effusion measuring 0.9 cm. Diffuse soft tissue density seen posterior to the sternum. Enlarged lymph nodes in the mediastinum. All these findings can be associated with infection following CABG. -Pain control with morphine and tramadol consistent with previous admission (3) Hypertension ICD Codes: I10 - Essential (primary) hypertension Status: Chronic Plan: -Continue with home metoprolol and amlodipine (4) Diabetes mellitus ICD Codes: E11.9 - Type 2 diabetes mellitus without complications Status: Acute Plan: -Hold home Humalog N glargine -Sliding-scale insulin per protocol (5) Nutrition, metabolism, and development symptoms ICD Codes: R63.8 - Other symptoms and signs concerning food and fluid intake Status: Acute Plan: -Fluids: Patient appears hydrated and tolerating diet by mouth -Electrolytes: Within normal limits, continue to monitor -Diet: Diabetic diet, nothing by mouth at midnight for possible procedure in a.m. (6) No contraindication to deep vein thrombosis (DVT) prophylaxis ICD Codes: Z78.9 - Other specified health status Plan: -Heparin 5000 units every 8 hours -SCDs (Jaren Cabrera MD R2) Physician Certification 2 Midnight Certification Type: Admission for Inpatient Services Order for Inpatient Services The services are ordered in accordance with Medicare regulations or non- Medicare payer requirements, as applicable. In the case of services not specified as inpatient-only, they are appropriately provided as inpatient services in accordance with the 2-midnight benchmark. Estimated LOS (days): 3 3 days is the estimated time the patient will need to remain in the hospital, assuming treatment plan goals are met and no additional complications. Post-Hospital Plan: Home (Jaren Cabrera MD R2) Jaren Cabrera MD R2 Jul 31, 2017 01:59 Greta Jennings MD Jul 31, 2017 09:00
[2017-07-31] MEDS ORDERED: IOHEXOL 350 MG/ML 100 ML BTL (for Cath Lab) OTHER ONE (02:01)
[2017-07-31] MEDS ORDERED: RESP: ALBUTEROL 2.5 MG/3 ML NEB (PRN) NEB (04:15)
[2017-07-31] MEDS ORDERED: ACETAMINOPHEN 325 MG TAB PO PRN (04:15)
[2017-07-31] MEDS ORDERED: BISACODYL 10 MG SUPP RECTAL PRN (04:15)
[2017-07-31] MEDS ORDERED: SENNOSIDES 8.6 MG TAB PO PRN (04:15)
[2017-07-31] MEDS ORDERED: CALCIUM CARBONATE 500 MG CHEWABLE TAB CHEW PRN (04:15)
[2017-07-31] MEDS ORDERED: GLUCAGON 1 MG/ML VIAL OTHER PRN (04:15)
[2017-07-31] MEDS ORDERED: MAGNESIUM HYDROXIDE SUSP 30 ML CUP PO PRN (04:15)
[2017-07-31] MEDS ORDERED: ONDANSETRON ODT 4 MG TAB SL PRN (04:15)
[2017-07-31] MEDS ORDERED: DEXTROSE 50% IN WATER 50 ML VIAL(D50) IV PUSH PRN (04:15)
[2017-07-31] MEDS ORDERED: NALOXONE HCL 0.4 MG/ML AMP IV PUSH PRN ×2 (04:15)
[2017-07-31] MEDS ORDERED: NITROGLYCERIN 0.4 MG SL 25 TABS/BTL SL PRN (04:15)
[2017-07-31] MEDS ORDERED: LACTULOSE SYRUP 20 GM/30 ML CUP PO PRN (04:15)
[2017-07-31] MEDS ORDERED: traMADol HCL 50 MG TAB PO PRN ×2 (04:15→08:30)
[2017-07-31] MEDS: HEPARIN SODIUM - SQ 10,000 UNITS/ML VIAL SQ SCH ×3 (06:33→20:25)
[2017-07-31] MEDS: ASPIRIN 325 MG TAB PO SCH ×3 (06:33→20:25)
[2017-07-31 06:43] LABS: TROPONIN I 0.07 NG/ML (0.02-0.05)
[2017-07-31] MEDS ORDERED: ISOSORBIDE MONONITRATE 30 MG TAB PO SCH (07:00)
[2017-07-31] MEDS ORDERED: POTASSIUM CHLORIDE 10 MEQ CONTROLLED RELEASE TAB PO ONE (07:30)
[2017-07-31] MEDS: MORPHINE SULFATE 2 MG/ML INJ IV PUSH PRN ×2 (07:38→20:55)
[2017-07-31] MEDS: INSULIN ASPART SUPPLEMENTAL SCALE SQ SCH ×4 (08:00→21:00)
[2017-07-31] MEDS ORDERED: ISOSORBIDE MONONITRATE 30 MG TAB PO ONE (08:30)
[2017-07-31] MEDS: SERTRALINE HCL 50 MG TAB PO SCH (09:00)
[2017-07-31] MEDS: FERROUS SULFATE 325 MG (65 MG ELEMENTAL IRON) TAB PO SCH ×2 (09:00→18:04)
[2017-07-31] MEDS: PANTOPRAZOLE SOD 40 MG DELAYED RELEASE TAB PO SCH (09:00)
[2017-07-31] MEDS: METOPROLOL TARTRATE 25 MG TAB PO SCH ×2 (09:00→20:24)
[2017-07-31] MEDS: DOCUSATE SODIUM 50 MG/SENNA 8.6 MG TAB PO SCH ×2 (09:00→20:25)
[2017-07-31] MEDS: ACETAMINOPHEN 1000 MG/100 ML 100 ML IV SCH ×3 (09:01→20:27)
[2017-07-31] MEDS: COLCHICINE 0.6 MG TAB PO SCH (09:54)
[2017-07-31] MEDS: TICAGRELOR 90 MG TAB PO SCH ×2 (09:54→20:25)
[2017-07-31] MEDS: traMADol HCL 50 MG TAB PO PRN (12:15)
[2017-07-31 12:52] LABS: TROPONIN I 0.07 NG/ML (0.02-0.05)
--- NOTE | 2017-07-31 13:03 | MB ---
cc: RADHA DILLARD MD DATE OF CONSULTATION: 07/31/2017 REASON FOR CONSULTATION: Elevated troponin and atypical chest pain. HISTORY OF PRESENT ILLNESS: The patient is a very pleasant 41-year-old gentleman who recently saw my partner Dr. Benton for a similar presentation at which time she had a cardiac catheterization showing right coronary disease but did not correlate with the nuclear stress test a anterior ischemia and thus was elected to be treated medically particularly given the atypical nature of her symptoms. Unfortunately the patient presents with essentially the same presentation of mildly elevated troponins and very atypical chest pain. She states that she continues to have 7/10 discomfort though she is resting / sleeping comfortably in bed. PAST MEDICAL HISTORY: Past medical history of coronary artery disease status post coronary artery bypass graft times one. Atypical chest pain. Bipolar <<1:06>> Diabetes. CURRENT MEDICATIONS 1. Imdur 60 mg daily. 2. Lipitor 20 mg q.h.s. 3. Ultram. 4. Norvasc 10 mg daily. 5. Lopressor 25 mg b.i.d. 6. Brilinta 90 mg b.i.d. 7. Colchicine 0.6 mg daily. ALLERGIES PENICILLIN SHELLFISH PHYSICAL EXAMINATION VITAL SIGNS: Afebrile, pulse 92, respiratory rate 18, BP 135/78 satting 92 on two liters. IN GENERAL: Pleasant young woman in no distress. NECK: No jugular venous distention. LUNGS: Clear auscultation bilaterally. CARDIOVASCULAR SYSTEM: Regular rate and rhythm, no murmur is appreciated. ABDOMEN: Benign. EXTREMITIES: No edema. LABORATORY DATA: June 22, potassium 3.4, chloride 101, bicarb 27.1, BUN 24, creatinine 0.86, glucose 267, troponin 0.06, 0.07. white count 11.7, hematocrit 36.8, platelets 542. EKG shows sinus rhythm with nonspecific anterior T-wave changes. IMPRESSION Atypical chest pain. The patient returns with very atypical / pleuritic chest pain and is even somewhat reproducible to touch however given known coronary raising continued symptoms of active peers and I both believe it is reasonable to intervene on her right coronary artery. Unfortunately is quite unlikely that this will affect her symptoms but the patient wishes to proceed with the procedure Dr. Pineda with a final incision on Wednesday. Thank you opportunity to participate in this patient's care. MD Anna Morales /11:02 AM /12:36 PM
--- NOTE | 2017-07-31 13:24 | EKG ---
Date Performed: 07/31/2017 Time Performed: 10:28:51 PTAGE: 41 years EKG: Sinus rhythm MODERATE T-WAVE ABNORMALITY, CONSIDER ANTEROLATERAL ISCHEMIA When compared to previous tracing, hear t rate has decreased. Previous rythm appeare to be sinus tachycardia. ABNORMAL ECG PREVIOUS TRACING : 07/31/2017 04.42 DOCTOR: Braydon Ragsdale Interpretating Date/Time 07/31/2017 13:23:56
--- NOTE | 2017-07-31 14:32 | EKG ---
Date Performed: 07/31/2017 Time Performed: 04:42:29 PTAGE: 41 years EKG: Sinus rhythm MODERATE T-WAVE ABNORMALITY, CONSIDER ANTERIOR ISCHEMIA ABNORMAL ECG PREVIOUS TRACING : 07/30/2017 21.22 Since previous tracing, no significant change noted DOCTOR: Braydon Ragsdale Interpretating Date/Time 07/31/2017 14:31:28
[2017-07-31] MEDS: ATORVASTATIN 20 MG TAB PO SCH (20:25)
[2017-08-01] VITALS (9 sets, daily range): BP systolic 116–161; BP diastolic 61–87; PULSE 70–80; RESP 16–17; TEMP 97.5–98.4; O2SAT 97–100
[2017-08-01] MEDS: MORPHINE SULFATE 2 MG/ML INJ IV PUSH PRN ×6 (00:38→23:12)
[2017-08-01] MEDS: ACETAMINOPHEN 1000 MG/100 ML 100 ML IV SCH ×4 (02:37→23:13)
[2017-08-01] MEDS: HEPARIN SODIUM - SQ 10,000 UNITS/ML VIAL SQ SCH ×3 (05:00→23:13)
[2017-08-01 05:17] LABS: AUTOMATED NEUTROPHIL # 4.2 TH/MM3 (1.8-7.7); BASOPHIL % 0.6 % (0.0-2.0); EOSINOPHIL # 0.4 TH/MM3 (0-0.4); EOSINOPHIL % 4.4 % (0.0-4.0); HEMATOCRIT 33.7 % (35.0-46.0); HEMOGLOBIN 11.2 GM/DL (11.6-15.3); LYMPH % 37.7 % (9.0-44.0); LYMPHOCYTE # 3.1 TH/MM3 (1.0-4.8); MEAN CORPUSCULAR HGB CONC 33.3 % (32.0-36.0); MEAN PLATELET VOLUME 7.1 FL (7.0-11.0); MONO % 6.3 % (0.0-8.0); MONOCYTE # 0.5 TH/MM3 (0-0.9); PLATELET COUNT 415 TH/MM3 (150-450); RED BLOOD COUNT 4.01 MIL/MM3 (4.00-5.30); RED CELL DISTRIBUTION WIDTH 15.4 % (11.6-17.2); WHITE BLOOD COUNT 8.3 TH/MM3 (4.0-11.0)
[2017-08-01] MEDS: ASPIRIN 325 MG TAB PO SCH ×3 (05:25→23:15)
[2017-08-01] MEDS: ISOSORBIDE MONONITRATE 60 MG TAB PO SCH (05:27)
[2017-08-01 05:30] LABS: BICARBONATE 27.4 MEQ/L (21.0-32.0); CALCIUM 9.2 MG/DL (8.5-10.1); CREATININE 0.56 MG/DL (0.50-1.00)
[2017-08-01] MEDS: INSULIN ASPART SUPPLEMENTAL SCALE SQ SCH ×4 (08:00→23:59)
[2017-08-01] MEDS: DOCUSATE SODIUM 50 MG/SENNA 8.6 MG TAB PO SCH ×2 (09:00→23:16)
[2017-08-01] MEDS: METOPROLOL TARTRATE 25 MG TAB PO SCH ×2 (09:04→23:15)
[2017-08-01] MEDS: COLCHICINE 0.6 MG TAB PO SCH ×2 (09:04→21:00)
[2017-08-01] MEDS: TICAGRELOR 90 MG TAB PO SCH ×2 (09:04→23:15)
[2017-08-01] MEDS: FERROUS SULFATE 325 MG (65 MG ELEMENTAL IRON) TAB PO SCH ×2 (09:04→17:22)
[2017-08-01] MEDS: SERTRALINE HCL 50 MG TAB PO SCH (09:05)
[2017-08-01] MEDS: PANTOPRAZOLE SOD 40 MG DELAYED RELEASE TAB PO SCH (09:05)
[2017-08-01] MEDS: traMADol HCL 50 MG TAB PO PRN (09:34)
--- NOTE | 2017-08-01 10:25 | HHI.FPPN ---
Subjective Remarks Acute events overnight. Vital signs remain stable overnight. Patient states that pain is much improved today, 3 out of 10 on a pain scale. Cardiology saw patient and they're planning for a stent on 08/02. Otherwise no chest pain, shortness of breath, abdominal pain. (Shlomo Ojeda MD R1) Objective Vitals Vital Signs Date Time Temp Pulse Resp B/P (MAP) Pulse Ox O2 Delivery O2 Flow Rate FiO2 08/01/17 07:46 97.5 80 16 123/74 (90) 97 08/01/17 07:24 77 08/01/17 03:48 18 08/01/17 03:25 98.2 70 17 161/87 (111) 98 08/01/17 03:07 18 07/31/17 23:38 98.2 65 17 158/79 (105) 100 07/31/17 23:00 67 07/31/17 20:30 99 07/31/17 20:09 98.3 75 17 144/76 (98) 99 07/31/17 15:46 79 07/31/17 15:38 98.1 77 16 112/63 (79) 96 07/31/17 12:36 76 07/31/17 11:16 97.6 76 16 130/81 (97) 96 I/O 07/31/17 07/31/17 07/31/17 08/01/17 08/01/17 08/01/17 07:00 15:00 23:00 07:00 15:00 23:00 Intake Total 100 ml 460 ml 100 ml Balance 100 ml 460 ml 100 ml Intake Oral 360 ml IV Total 100 ml 100 ml 100 ml # Voids 2 (Shlomo Ojeda MD R1) Result Diagram: 08/01/17 0415 08/01/17414 Objective Remarks GENERAL: Well-nourished, well-developed patient. No acute distress. SKIN: Warm and dry. No rash. EYES: No scleral icterus. No injection or drainage. PERRLA. EOMI. HENT: Normocephalic. Atraumatic. MMM. NECK: No visible JVD or lymphadenopathy. CARDIOVASCULAR: Warm and well perfused. Regular rate and rhythm with no murmurs appreciated RESPIRATORY: Normal respiratory effort. Clear to consultation bilaterally GASTROINTESTINAL: Abdomen soft, nontender, nondistended. MUSCULOSKELETAL: Strength grossly WNL. BACK: Without obvious deformity. NEURO/PSYCH: Afocal. Awake, alert, and oriented x3. (Shlomo Ojeda MD R1) A/P Assessment and Plan Ms. Nielsen is a 41 y/o F presenting to the ED for acute chest pain. ACS workup negative. 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 Cardiology consultation and planning for stent on 08/02. Discussed with Dr. Jennings Discharge Planning Patient to have heart catheter and RCA stent on 08/02. Discharge in the following days pending clinical improvement (Shlomo Ojeda MD R1) Attending Attestation Patient seen and examined, discussed with resident team. I agree with assessment and management as documented and discussed with me. chest pain improving. To Cath for RCA stent tomorrow. Increase colchicine to BID for antiinflammatory effect. (Greta Jennings MD) Problem List: (1) Chest pain ICD Codes: R07.9 - Chest pain Status: Acute Plan: ACS workup negative, patient recently discharged and being treated for [place]-like syndrome with high dose aspirin During most recent hospitalization - myocardial perfusion scan on 07/26 showed suspected apical ischemia Left heart catheterization on 07/27/17 showed patent ASH to LAD, otherwise small vessel disease with recommendations for continuing management Was elected to be treated medically due to the atypical nature of her symptoms Patient presenting with continued chest pain EKG showed sinus rhythm with normal intervals. No ST depressions/elevations ( artifact in lead V2) CXR showed no acute disease Initial Trop 0.06 (patient's baseline) - remains stable at 0.07 Patient placed on telemetry Cardiology consulted - planning for stent to RCA on 08/02 Chest pain improved overnight Pain scale 1-5: Ultram 50 mg by mouth Pain scale 6-10: Ultram 100 mg by mouth Breakthrough pain: Morphine 2 mg IV Scheduled acetaminophen thousand milligrams per 100 mL IV every 6 hours Starting colchicine 0.6 mg by mouth daily Increased Imdur to 60 mg by mouth daily Added Protonix 40 mg daily as GERD can mimic chest pain High dose aspirin continued from prior discharge (650 mg 3 times a day) Holding Brilinta with procedure to take place on 08/02 (2) Pericardial effusion ICD Codes: I31.3 - Pericardial effusion (noninflammatory) Status: Acute Plan: -Patient with pericardial effusion per chart review -Aorta CTA: Moderate pericardial effusion measuring 0.9 cm. Diffuse soft tissue density seen posterior to the sternum. Enlarged lymph nodes in the mediastinum. All these findings can be associated with infection following CABG. 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, high dose aspirin as described above -Pain control as outlined above (3) Hypertension ICD Codes: I10 - Essential (primary) hypertension Status: Chronic Plan: -Continue with home metoprolol and amlodipine (4) Diabetes mellitus ICD Codes: E11.9 - Type 2 diabetes mellitus without complications Status: Acute Plan: -Hold home Humalog N glargine -Sliding-scale insulin per protocol (5) Nutrition, metabolism, and development symptoms ICD Codes: R63.8 - Other symptoms and signs concerning food and fluid intake Status: Acute Plan: -Fluids: Patient appears hydrated and tolerating diet by mouth -Electrolytes: Within normal limits, continue to monitor -Diet: Diabetic diet, nothing by mouth at midnight for procedure in a.m. (6) No contraindication to deep vein thrombosis (DVT) prophylaxis ICD Codes: Z78.9 - Other specified health status Plan: -Heparin 5000 units every 8 hours - will hold on the morning of 08/02 -SCDs (Shlomo Ojeda MD R1) Problem Qualifiers (1) Hypertension: Qualified Codes: I10 - Essential (primary) hypertension (2) Diabetes mellitus: Shlomo Ojeda MD R1 Aug 01, 2017 10:24 Greta Jennings MD Aug 02, 2017 16:34
--- NOTE | 2017-08-01 11:42 | PD.CARD.PN ---
Subjective Subjective Remarks Pt's chest pain has improved, but still present. Objective Medications Current Medications Medications (Trade) Dose Ordered Sig/Mary Route Start Time Stop Time Status Last Admin (Xanax) 0.5 mg Q4H PRN PO 07/31/17 04:15 (Norvasc) 10 mg DAILY PO 07/31/17 09:00 08/01/17 09:04 (Aspirin) 650 mg Q8HR PO 07/31/17 06:00 07/31/17 20:25 (Lipitor) 20 mg HS PO 07/31/17 21:00 07/31/17 20:25 (Ferrous Sulfate) 325 mg BIDPC PO 07/31/17 09:00 08/01/17 09:04 (Lopressor) 25 mg BID PO 07/31/17 09:00 08/01/17 09:04 (Zofran Odt) 8 mg Q6HR PRN SL 07/31/17 04:15 (Zoloft) 50 mg DAILY PO 07/31/17 09:00 08/01/17 09:05 (Brilinta) 90 mg BID PO 07/31/17 09:00 08/01/17 09:04 (Morphine Inj) 2 mg Q3H PRN IV PUSH 07/31/17 04:15 08/01/17 11:30 (D50w (Vial) Inj) 50 ml UNSCH PRN IV PUSH 07/31/17 04:15 (Glucagon Inj) 1 mg UNSCH PRN OTHER 07/31/17 04:15 (NovoLOG SUPPLEMENTAL SCALE) 1 ACHS SLIDING SCALE SQ 07/31/17 08:00 07/31/17 13:25 (Nitrostat Sl) 0.4 mg Q5M PRN SL 07/31/17 04:15 (Heparin Inj) 5,000 units Q8H SQ 07/31/17 05:00 07/31/17 20:25 (Narcan Inj) 0.4 mg UNSCH PRN IV PUSH 07/31/17 04:15 (Gracy-Colace) 1 tab BID PO 07/31/17 09:00 07/31/17 20:25 (Milk Of Magnesia Liq) 30 ml Q12H PRN PO 07/31/17 04:15 (Senokot) 17.2 mg Q12H PRN PO 2/3/18 04:15 (Dulcolax Supp) 10 mg DAILY PRN RECTAL 07/31/17 04:15 (Lactulose Liq) 30 ml DAILY PRN PO 07/31/17 04:15 (Albuterol Neb) 2.5 mg Q6HR NEB PRN NEB 07/31/17 04:15 (Tums Chew) 500 mg Q2H PRN CHEW 07/31/17 04:15 (Imdur) 60 mg DAILY@0700 PO 08/01/17 07:00 08/01/17 05:27 (Colchicine) 0.6 mg DAILY PO 07/31/17 09:00 08/01/17 09:04 (Protonix) 40 mg DAILY PO 07/31/17 09:00 08/01/17 09:05 (Ultram) 100 mg Q4H PRN PO 07/31/17 12:15 08/01/17 09:34 Acetaminophen 100 ml @ 400 mls/hr Q6H IV 07/31/17 08:30 08/01/17 08:58 (Ultram) 50 mg Q4H PRN PO 07/31/17 08:30 Vital Signs / I&O Vital Signs Date Time Temp Pulse Resp B/P (MAP) Pulse Ox O2 Delivery O2 Flow Rate FiO2 08/01/17 07:46 97.5 80 16 123/74 (90) 97 08/01/17 07:24 77 08/01/17 03:48 18 08/01/17 03:25 98.2 70 17 161/87 (111) 98 08/01/17 03:07 18 07/31/17 23:38 98.2 65 17 158/79 (105) 100 07/31/17 23:00 67 07/31/17 20:30 99 07/31/17 20:09 98.3 75 17 144/76 (98) 99 07/31/17 15:46 79 07/31/17 15:38 98.1 77 16 112/63 (79) 96 07/31/17 12:36 76 I/O 07/31/17 07/31/17 07/31/17 08/01/17 08/01/17 08/01/17 07:00 15:00 23:00 07:00 15:00 23:00 Intake Total 100 ml 460 ml 100 ml Balance 100 ml 460 ml 100 ml Intake Oral 360 ml IV Total 100 ml 100 ml 100 ml # Voids 2 Physical Exam GENERAL: This is a well-nourished, well-developed patient, in no apparent distress. CARDIOVASCULAR: Regular rate and rhythm without murmurs, gallops, or rubs. RESPIRATORY: Clear to auscultation. Breath sounds equal bilaterally. No wheezes , rales, or rhonchi. GASTROINTESTINAL: Abdomen soft, non-tender, nondistended. Normal active bowel sounds MUSCULOSKELETAL: Extremities without clubbing, cyanosis, or edema. NEURO: Alert & Oriented x4 to person, place, time, situation. Moves all ext x4 Laboratory Laboratory Tests Test 08/01/17 04:15 White Blood Count 8.3 TH/MM3 Red Blood Count 4.01 MIL/MM3 Hemoglobin 11.2 GM/DL Hematocrit 33.7 % Mean Corpuscular Volume 84.0 FL Mean Corpuscular Hemoglobin 28.0 PG Mean Corpuscular Hemoglobin Concent 33.3 % Red Cell Distribution Width 15.4 % Platelet Count 415 TH/MM3 Mean Platelet Volume 7.1 FL Neutrophils (%) (Auto) 51.0 % Lymphocytes (%) (Auto) 37.7 % Monocytes (%) (Auto) 6.3 % Eosinophils (%) (Auto) 4.4 % Basophils (%) (Auto) 0.6 % Neutrophils # (Auto) 4.2 TH/MM3 Lymphocytes # (Auto) 3.1 TH/MM3 Monocytes # (Auto) 0.5 TH/MM3 Eosinophils # (Auto) 0.4 TH/MM3 Basophils # (Auto) 0.0 TH/MM3 CBC Comment DIFF FINAL Differential Comment Blood Urea Nitrogen 11 MG/DL Creatinine 0.56 MG/DL Random Glucose 139 MG/DL Calcium Level 9.2 MG/DL Sodium Level 139 MEQ/L Potassium Level 3.8 MEQ/L Chloride Level 104 MEQ/L Carbon Dioxide Level 27.4 MEQ/L Anion Gap 8 MEQ/L Estimat Glomerular Filtration Rate 146 ML/MIN Imaging Last Impressions Chest X-Ray 07/30/172138 Signed Impressions: Service Date/Time: Sunday, July 30, 2017 21:54 - CONCLUSION: No acute cardiopulmonary disease. Mk Golden MD Assessment and Plan Problem List: (1) Chest pain ICD Codes: R07.9 - Chest pain Status: Acute Plan: Pt going for cath tomorrow by Dr. Benton; continue current medical mgt. Faheem Su MD Aug 01, 2017 11:42
--- NOTE | 2017-08-01 14:18 | EKG ---
Date Performed: 07/30/2017 Time Performed: 21:22:05 PTAGE: 41 years EKG: SINUS TACHYCARDIA NONSPECIFIC T-WAVE ABNORMALITY ABNORMAL RHYTHM ECG PREVIOUS TRACING : 07/25/2017 16.37 Compared to previous tracing,T wave changes are improved. DOCTOR: Braydon Ragsdale Interpretating Date/Time 08/01/2017 14:16:27
[2017-08-01] MEDS: ALPRAZolam 0.5 MG TAB PO PRN (23:14)
[2017-08-01] MEDS: ATORVASTATIN 20 MG TAB PO SCH (23:15)
[2017-08-02] VITALS (16 sets, daily range): BP systolic 119–162; BP diastolic 75–89; PULSE 81–110; RESP 16–18; TEMP 98.3–98.9; O2SAT 99–100
[2017-08-02] MEDS: ACETAMINOPHEN 1000 MG/100 ML 100 ML IV SCH ×3 (02:49→21:11)
[2017-08-02] MEDS: MORPHINE SULFATE 2 MG/ML INJ IV PUSH PRN ×5 (02:49→21:11)
[2017-08-02 04:35] LABS: BASOPHIL # 0.1 TH/MM3 (0-0.2); BASOPHIL % 0.6 % (0.0-2.0); EOSINOPHIL # 0.4 TH/MM3 (0-0.4); EOSINOPHIL % 3.7 % (0.0-4.0); HEMATOCRIT 33.5 % (35.0-46.0); HEMOGLOBIN 11.3 GM/DL (11.6-15.3); LYMPHOCYTE # 3.5 TH/MM3 (1.0-4.8); MEAN CELL VOLUME 83.8 FL (80.0-100.0); MEAN CORPUSCULAR HEMOGLOBIN 28.3 PG (27.0-34.0); MEAN CORPUSCULAR HGB CONC 33.7 % (32.0-36.0); MEAN PLATELET VOLUME 6.9 FL (7.0-11.0); MONO % 5.8 % (0.0-8.0); MONOCYTE # 0.7 TH/MM3 (0-0.9); NEUT % 59.9 % (16.0-70.0); PLATELET COUNT 471 TH/MM3 (150-450); RED CELL DISTRIBUTION WIDTH 15.4 % (11.6-17.2); WHITE BLOOD COUNT 11.6 TH/MM3 (4.0-11.0)
[2017-08-02 04:46] LABS: PROTHROMBIN TIME - PATIENT 9.9 SEC (9.8-11.6)
[2017-08-02 04:55] LABS: BICARBONATE 24.6 MEQ/L (21.0-32.0); CALCIUM 9.3 MG/DL (8.5-10.1); CREATININE 0.75 MG/DL (0.50-1.00)
[2017-08-02] MEDS: HEPARIN SODIUM - SQ 10,000 UNITS/ML VIAL SQ SCH (05:55)
[2017-08-02] MEDS: ASPIRIN 325 MG TAB PO SCH (05:55)
[2017-08-02] MEDS: ISOSORBIDE MONONITRATE 60 MG TAB PO SCH (05:55)
[2017-08-02] MEDS ORDERED: FAMOTIDINE 20 MG/2 ML VIAL IV PUSH ONE (06:00)
[2017-08-02] MEDS ORDERED: methylPREDNISolone SOD SUCC 125 MG/2 ML VIAL IV PUSH ONE (06:00)
[2017-08-02] MEDS ORDERED: diphenhydrAMINE HCL 50 MG/ML VIAL IV PUSH ONE (06:00)
[2017-08-02] MEDS ORDERED: VERAPAMIL HCL 5 MG/2 ML VIAL ONE (07:14)
[2017-08-02] MEDS ORDERED: MIDAZOLAM HCL 2 MG/2 ML VIAL ONE (07:14)
[2017-08-02] MEDS ORDERED: HEPARIN-NS/PF FLUSH BAG 1,000 ML IV FLUSH ONE (07:14)
[2017-08-02] MEDS ORDERED: HEPARIN SODIUM - IV 10,000 UNITS/10 ML VIAL ONE (07:15)
[2017-08-02] MEDS ORDERED: NITROGLYCERIN INJ 5 ML ONE (07:15)
[2017-08-02] MEDS ORDERED: ASPIRIN 81 MG CHEW TAB ONE (07:59)
[2017-08-02] MEDS ORDERED: TICAGRELOR 90 MG TAB PO ONE (07:59)
[2017-08-02] MEDS: INSULIN ASPART SUPPLEMENTAL SCALE SQ SCH ×5 (08:00→22:26)
[2017-08-02] MEDS ORDERED: MORPHINE SULFATE 8 MG/ML INJ ONE (08:12)
[2017-08-02] MEDS ORDERED: MISC INFORMATION XX ONE (08:30)
--- NOTE | 2017-08-02 08:33 | CATHPROC ---
[facility] HIS Report Study Information Study Number Admission Scheduled Start Study Start [id number] Jul 31 2017 2:00AM 08/02/2017 08/02/2017 [place] Service Cardiac Catheterization Admit Source Facility Department Emergency department [facility] - Surgical Clinical Reviewer Physician and Clinical Staff Initial Mendoza Allen Press Tender Star Signal Sagie Alvarenga,FREDO Recorder Stacey Granados,LIVIA TECH2 Scrub Bhavya Daniel,RT(R) (BS) Procedures Performed Procedure Location (Site) Vessel Name Coronary Angiograms RCA Right Coronary Drug Eluting Inflatio RCA Mid Right Coronary L Heart Cath PTCA RCA Mid Right Coronary Wire insertion Radial (right) Radial Art. Equipment Time Elevator Erector Helper Description Size Mfg Part Number Used/Scraped WIRE, BALANCE MIDDLEWEIGHT [id number] 07:42 [employer] 190CM Used 190CM *[id number] TRANSDUCER, TRUWAVE [id number] 07:37 ARIAS Embedded Chat * Used W/STOCKCOCK *[id number] *[id number] 07:37 Showcase [employer] PACK, CCL CUSTOM * Used *[id number] 07:37 Showcase Gig SUPPORT, ARTERIAL ADULT [id number] *[id number] Used [id number] 07:46 MEDTRONIC BALLOON, 2.0 X 10MM EUPHORA 10MM Used *[id number] BALLOON, 2.25 X 8MM NC [id number] 08:27 MEDTRONIC 8MM Used EUPHORA *[id number] 07:51 MEDTRONIC STENT, 2.25 12MM MARIETTA 2.25 12MM Used *[id number] 07:49 Reach.[employer] MEDICAL 30 TOMAS INDEFLATOR Used *[id number] BAND, RADIAL COMPRESSION TR [id number] 08:00 [employer] MEDICAL 24CM Used SHORT 24 *[id number] 07:37 [employer] MEDICAL WIRE, EXCHANGE 260CM 3MMJ 260CM Used *[id number] 07:37 NAMIC MANIFOLD, 4 PORT * Used *[id number] 07:37 NYCOMED OMNIPAQUE, 350 MG, 150ML 150ML [id number] Used [id number] 07:37 MAYS MEDICAL BLANKET,WARM AIR CCL * Used *[id number] SHEATH, FR6 TRANSRADIAL [id number] 07:37 TERSimpleTherapy FR 6 Used SLENDER 10CM *[id number] Equipment Model, Serial, Lot Number and Expiration Data Description Model Number Serial Number Lot Number Expiration Date BALLOON, 2.0 X 10MM EUPHORA [id number] 01-19-2019 STENT, 2.25 12MM MARIETTA [id number] 04-30-2019 History: Current Medications Medication Dosage/Unit Route Frequency Last Date/Time Taken LIPITOR LOPRESSOR Zoloft Insulin History: Allergies Allergy Reaction Penicillins Hives shellfish derived RASH History: Risk Factors Family History of Hypertension Dyslipidemia Previous LA Previous Heart Failure Premature CAD Yes Yes Yes Yes No Prior Valve Prior PCI Prior PCIDate Prior CABG Prior CABGDate Surgery No Yes 03/28/2017 Yes 06/04/2017 Cerebrovascular Peripheral Artery Chronic Lung On Dialysis Diabetes Diabetes Therapy Disease Disease Disease No No No No Yes Insulin History: Symptoms/Diagnosis Selection Items Chest pain SOB History: Stress Tests Stress or Imaging Studies Performed Yes Standard Exercise Stress Test No Stress Echo No Stress Test SPECT Stress Test SPECT Result Yes Positive Stress Test CMR No Cardiac CTA Coronary Calcium Score No No History: Other Current Smoker Method Packs a Day Years Used Pack Years Yes Cigarettes 07 22 24 Labs Hgb (g/dl) Hct (%) WBC (l/cumm) Platelets (thousands) 11.60-17.00 35.00-51.00 4.00-11.00 150.00-450.00 11.3 33.5 11.6 471 Glucose (mg/dl) BUN (mg/dl) Creatinine (mg/dl) BUN:Creatinine (1:x) 74.00-106.00 7.00-18.00 0.50-1.30 10.00-20.00 226 17 0.7 24.3 Na (meq/l) K (meq/l) 136.00-145.00 3.50-5.10 137 3.3 INR (PTT:PT) 0.90-1.10 1 Troponin I (ng/ml) CPK (u/l) CPK-MB (ng/ML) 0.02-0.05 26.00-308.00 0.50-3.60 0.07 24 Not Drawn Medication Medication Total Dose (Bolus/Oral) Medication Total Dosage/Unit 1% XYLOCAINE 10 mL ASPIRIN 81 mg BRILINTA 90 mg FENTANYL 50 mcg HEPARIN 3500 units MORPHINE 2 mg RADIAL COCKTAIL 5 mL (Bolus) VERSED 1 mg Medications (Bolus/Oral) Medication Time Given Dosage/Unit Administered By Reason VERSED 08/02/2017 7:35:17 AM 0.5 mg Lyle, Saige 0.5 mg VERSED given in lab by Saige Alvarenga RN in Right Antecubital via Peripheral IV. Ordered by Mendoza Benton 1% XYLOCAINE 08/02/2017 7:35:26 AM 10 mL Mendoza Benton 10 mL 1% XYLOCAINE given in lab by Mendoza Benton in Right Radial via Subcutaneous. FENTANYL 08/02/2017 7:36:00 AM 25 mcg Saige Alvarenga 25 mcg FENTANYL given in lab by Saige Alvarenga, FREDO in Right Antecubital via Peripheral IV. Ordered Mendoza Mckeon VERSED 08/02/2017 7:37:19 AM 0.5 mg Lyle, Saige 0.5 mg VERSED given in lab by Saige Alvarenga RN in Right Antecubital via Peripheral IV. Ordered by Mendoza Benton RADIAL COCKTAIL 08/02/2017 7:37:38 AM 5 mL (Bolus) Mendoza Benton 5 mL (Bolus) RADIAL COCKTAIL given in lab by Mendoza Benton in Right Radial via Radial. Using [S olution Name]. Reason: Ntg 200mcg Verapamil 2.5mg Heparin 2400U. FENTANYL 08/02/2017 7:38:03 AM 25 mcg Saige Alvarenga 25 mcg FENTANYL given in lab by Saige Alvarenga, FREDO in Right Antecubital via Peripheral IV. Ordered Mendoza Mckeon HEPARIN 08/02/2017 7:41:43 AM 3500 units Saige Alvarenga 3500 units HEPARIN given in lab by Saige Alvarenga, FREDO in Right Antecubital via Peripheral IV. Ordere d by Mendoza Benton MORPHINE 08/02/2017 8:13:22 AM 2 mg Saige Alvarenga 2 mg MORPHINE given in lab by Saige Alvarenga, FREDO in Right Antecubital via Peripheral IV. Ordered by Mendoza Benton BRILINTA 08/02/2017 8:15:57 AM 90 mg Saige Alvarenga 90 mg BRILINTA given in lab by Saige Alvarenga, FREDO via Oral. Ordered by Mendoza Benton ASPIRIN 08/02/2017 8:16:26 AM 81 mg Saige Alvarenga 81 mg ASPIRIN given in lab by Saige Alvarenga RN via Oral. Ordered by Mendoza Benton Medication (Drip) Medication Time Given Dosage/Unit Concentration/Unit Diluent (ml) Solution IV Solutions 08/02/2017 7:10:43 AM 50 mL (IV) 500 NaCl .9 IV Solutions given in lab by Saige Alvarenga RN in Right Antecubital via Peripheral IV. Pump/Drip Fl ow using NaCl .9. Initial Case Assessment Cardiovascular HR Rhythm NIBP Chest Pain 80 sr 169/100 4 Circulatory - Right Pulses Dorsalis Pedis Posterior Tibial Radial 2 2 2 Scale (0,1,2,3,4,d) Circulatory - Left Pulses Dorsalis Pedis Posterior Tibial Radial 2 2 Scale (0,1,2,3,4,d) Neurological State Oriented to time-place- Alert Moves all extremities person Respiration - General Respiration Rate SpO2 (%) (B/min) 10 99 Final Case Assessment Cardiovascular HR Rhythm NIBP 83 sr 146/83 Circulatory - Right Pulses Dorsalis Pedis Femoral Radial 2 2 2 Scale (0,1,2,3,4,d) Circulatory - Left Pulses Dorsalis Pedis Femoral Radial 2 Scale (0,1,2,3,4,d) Neurological State Oriented to time-place- Alert Moves all extremities person Respiration - General Respiration Rate SpO2 (%) (B/min) 11 97 Chronological Log Time Study Chronological Log 7:09:12 Patient arrived directly from ER. Patient premedicated with Pepcid, Benadryl, Solumedrol in ED @ 05:54 this am. 7:09:13 Patient Name, D.O.B, / Armband Verified By R.N. 7:09:14 Consent signed by the physician and the patient and verified by the Surgical Clinical Reviewer staff. 7:09:15 Pre-op and post- op instructions given; patient acknowledges understanding of instructions. 7:09:16 Verbal Stimulation=2 Physical Stimulation=2 Airway=2 Respiration=2 TOTAL=8. (0=absent, 1=garay ited, 2=present) 7:09:17 Presedation assessment performed by Surgical Clinical Reviewer RN. 7:09:20 Allens test performed on the right radial and ulnar artery. 7:09:23 Patient has been NPO for More than 6Hrs. 7:09:24 Skin Breakdown-none 7:09:27 Lala Prominences Protected 7:10:32 A # 20 IV was noted in the Antecubital (right). Grade = patent 7:10:43 IV Solutions given in lab by Saige Alvarenga RN in Right Antecubital via Peripheral IV. Pum p/Drip Flow using NaCl .9. Vitals capture started with the following parameters, Patient=Adult, Interval=5 min, Initial Pre vdpmk=434 mmHg, 7:13:19 Deflation Rate=5 mmHg, Cuff placed on Left Arm 7:13:31 Vitals capture stopped. Vitals capture started with the following parameters, Patient=Adult, Interval=5 min, Initial Pre mypwa=003 mmHg, 7:15:39 Deflation Rate=5 mmHg, Cuff placed on Left Arm 7:16:42 HR=80 bpm, TFLV=888/100 mmhg, SpO2=99.0 %, Resp=10 B/min, Pain=4, Erica=10, Duggan=2 Assessment: Initial Case, HR=80 BPM, Rhythm=sr, SZBK=530/100 mmhg, Chest Pain=4 Right Pulses: William Ped=2, Post Tib=2, Radial=2 7:16:57 Left Pulses: William Ped=2, Post Tib=2 Neurological: State=Alert, Ox3, RENEE Respiration: Resp=10 B/min, SpO2=99 % 7:18:28 Reference ECG taken 7:21:22 HR=79 bpm, NBZF=952/99 mmhg, SpO2=99.0 %, Resp=17 B/min, Erica=10 7:21:49 History and physical on the chart or being dictated. 7:23:45 Allens test performed on the right radial and ulnar artery. 7:25:44 MD arrived. 7:26:21 HR=80 bpm, LQCN=124/96 mmhg, SpO2=99.0 %, Resp=10 B/min, Pain=4, Erica=10 7:26:36 Pressure channel [address] Benton discussed DNR status with Patient, Patient agrees to Change DNR status to full Code for 24Hrs to proceed 7:28:54 with PCI. 7:31:20 HR=81 bpm, DQJZ=032/94 mmhg, SpO2=99.0 %, Resp=9 B/min Time Out. Correct patient, correct procedure, correct physician, power injector loaded, or not l oaded with contrast with 7:34:40 surgical team present. Time Out Concurred by MD and individual staff in procedure. 7:35:12 Case Start 0.5 mg VERSED given in lab by Saige Alvarenga, FREDO in Right Antecubital via Peripheral IV. Ordere d by Chetan, 7:35:17 Mendoza Dinh. 7:35:26 10 mL 1% XYLOCAINE given in lab by Mendoza Benton in Right Radial via Subcutaneous. 25 mcg FENTANYL given in lab by Saige Alvarenga, FREDO in Right Antecubital via Peripheral IV. Orde red by Chetan, 7:36:00 Mendoza Dinh. 7:36:19 HR=80 bpm, LSVK=374/94 mmhg, SpO2=99.0 %, Resp=8 B/min 7:36:42 Access site was Radial Artery. Right A SHEATH, FR6 TRANSRADIAL SLENDER 10CM FR 6 was advanced into the Radial (right) using the Santi montalvo 7:37:01 technique. 0.5 mg VERSED given in lab by Saige Alvarenga, FREDO in Right Antecubital via Peripheral IV. Ordere d by Chetan, 7:37:19 Mendoza Dinh. 5 mL (Bolus) RADIAL COCKTAIL given in lab by Mendoza Benton in Right Radial via Radial. Usi ng [Solution Name]. 7:37:38 Reason: Ntg 200mcg Verapamil 2.5mg Heparin 2400U. 25 mcg FENTANYL given in lab by Saige Alvarenga, FREDO in Right Antecubital via Peripheral IV. Orde red by Chetan, 7:38:03 Mendoza Dinh. A JR 4.0 GUIDE CATHETER FR 6 was advanced over a wire. OMNIPAQUE, 350 MG, 150ML 150ML was used f or 7:39:19 injections. Recorded Pressure: LV, HR=87, Condition=Condition 1 7:39:53 (Left Ventricle) LV 137/1/6 Recorded Pressure: LV, Ao, HR=83, Condition=Condition 1 7:41:02 (Left Ventricle) LV 148/2/6, (Aorta) Ao 147/82/110 7:41:20 HR=82 bpm, EAFU=949/88 mmhg, SpO2=95.0 %, Resp=15 B/min 3500 units HEPARIN given in lab by Saige Alvarenga, RN in Right Antecubital via Peripheral IV. O rdered by Chetan, 7:41:43 Mendoza Long 7:42:55 The RCA was injected and visualized at various angles. OMNIPAQUE, 350 MG, 150ML 150ML used. 7:43:35 A WIRE, BALANCE MIDDLEWEIGHT 190CM 190CM was inserted via Radial (right). 7:46:17 HR=81 bpm, MHSK=231/91 mmhg, SpO2=94.0 %, Resp=15 B/min 7:47:43 Activated Clotting Time Drawn A BALLOON, 2.0 X 10MM EUPHORA 10MM was inserted over WIRE, BALANCE MIDDLEWEIGHT 190CM 190CM via the 7:47:50 RCA Mid. A BALLOON, 2.0 X 10MM EUPHORA 10MM over a WIRE, BALANCE MIDDLEWEIGHT 190CM 190CM in the RCA Mid was 7:49:13 inflated using a 30 TOMAS INDEFLATOR at 12 tomas for 20 sec. 7:50:37 Balloon Removed. 7:51:19 HR=82 bpm, TZHZ=265/93 mmhg, SpO2=96.0 %, Resp=7 B/min A STENT, 2.25 12MM MARIETTA 2.25 12MM was advanced through a JR 4.0 GUIDE CATHETER FR 6 over a WIRE, BALANCE 7:52:28 MIDDLEWEIGHT 190CM 190CM. A STENT, 2.25 12MM MARIETTA 2.25 12MM was deployed using a 30 TOMAS INDEFLATOR at 12 atmospheres for 2 5 seconds 7:53:40 in the RCA Mid. 7:54:13 ACT (Normal Range 90-180) = 327 7:54:35 Delivery device removed 7:56:22 HR=82 bpm, YAWS=594/87 mmhg, SpO2=95.0 %, Resp=13 B/min A BALLOON, 2.25 X 8MM NC EUPHORA 8MM was inserted over WIRE, BALANCE MIDDLEWEIGHT 190CM 190CM vi a the 7:56:27 Radial (right). A BALLOON, 2.25 X 8MM NC EUPHORA 8MM over a WIRE, BALANCE MIDDLEWEIGHT 190CM 190CM in the RCA Mi d 7:57:04 was inflated using a 30 TOMAS INDEFLATOR at 16 tomas for 15 sec. A BALLOON, 2.25 X 8MM NC EUPHORA 8MM over a WIRE, BALANCE MIDDLEWEIGHT 190CM 190CM in the RCA Mi d 7:57:26 was inflated using a 30 TOMAS INDEFLATOR at 18 tomas for 15 sec. A BALLOON, 2.25 X 8MM NC EUPHORA 8MM over a WIRE, BALANCE MIDDLEWEIGHT 190CM 190CM in the RCA Mi d 7:58:18 was inflated using a 30 TOMAS INDEFLATOR at 18 tomas for 15 sec. 7:58:43 Balloon Removed. 8:01:21 HR=82 bpm, GLPS=367/91 mmhg, SpO2=97.0 %, Resp=14 B/min A BALLOON, 2.25 X 8MM NC EUPHORA 8MM was inserted over WIRE, BALANCE MIDDLEWEIGHT 190CM 190CM vi a the 8:01:35 Radial (right). 8:02:23 Balloon inflation aborted. A BALLOON, 2.25 X 8MM NC EUPHORA 8MM over a WIRE, BALANCE MIDDLEWEIGHT 190CM 190CM in the RCA Mi d 8:03:23 was inflated using a 30 TOMAS INDEFLATOR at 20 tomas for 15 sec. 8:04:32 Balloon Removed. 8:05:41 BMW Wire removed 8:05:57 A WIRE, EXCHANGE 260CM 3MMJ 260CM was inserted via Radial (right). 8:06:22 HR=81 bpm, XWDP=153/94 mmhg, SpO2=98.0 %, Resp=18 B/min 8:07:44 Catheter was removed 8:07:47 Wire removed 8:08:51 BAND, RADIAL COMPRESSION TR SHORT 24 24CM placement in the Radial (right) 8:10:18 Case End 8:11:19 HR=84 bpm, QRCU=923/91 mmhg, SpO2=99.0 %, Resp=22 B/min 8:11:53 No case complications noted. 8:11:54 Cine recording checked. 8:11:55 Bedside Report will be given. 8:11:57 Implantable Device card placed in patient's chart. 8:11:59 Contrast Scanned 8:12:01 A Left Heart Cath was performed. 2 mg MORPHINE given in lab by Saige Alvarenga, RN in Right Antecubital via Peripheral IV. Orde red by Chetan 8:13:22 Mendoza Long 8:15:57 90 mg BRILINTA given in lab by Saige Alvarenga, RN via Oral. Ordered by Mendoza Benton 8:16:24 HR=83 bpm, BVVX=916/83 mmhg, SpO2=97.0 %, Resp=11 B/min 8:16:26 81 mg ASPIRIN given in lab by Saige Alvarenga, RN via Oral. Ordered by Mendoza Benton 8:18:54 Patient moved to bed Assessment: Final Case, HR=83 BPM, Rhythm=sr, VSSH=099/83 mmhg Right Pulses: William Ped=2, Femoral=2, Radial=2 8:19:49 Left Pulses: William Ped=2 Neurological: State=Alert, Ox3, RENEE Respiration: Resp=11 B/min, SpO2=97 % 8:20:50 Vitals capture stopped. 8:21:07 Patient transported to DOCU End Study - Contrast Media Used In Study Contrast Total Opened (mL) Total Used (mL) Total Wasted (mL) Omnipaque 100 100 0 End Study - Maximum Contrast Load Max Contrast Load (mL) 414.3 End Study - Radiation Exposure Fluoro Time (minutes) 6.2 End Study - Sheaths Sheaths Pulled By Sheath Hold Time (min) Mendoza Benton End Study - Patient Disposition Complications Transferred To Interventional Outcome No Telemetry Bed successful
[2017-08-02] MEDS: DOCUSATE SODIUM 50 MG/SENNA 8.6 MG TAB PO SCH ×2 (09:00→21:10)
[2017-08-02] MEDS: SERTRALINE HCL 50 MG TAB PO SCH (09:00)
[2017-08-02] MEDS: PANTOPRAZOLE SOD 40 MG DELAYED RELEASE TAB PO SCH (09:00)
[2017-08-02] MEDS: METOPROLOL TARTRATE 25 MG TAB PO SCH ×2 (09:00→21:08)
[2017-08-02] MEDS: FERROUS SULFATE 325 MG (65 MG ELEMENTAL IRON) TAB PO SCH ×2 (09:00→18:00)
[2017-08-02] MEDS: LISINOPRIL 5 MG TAB PO SCH (09:00)
--- NOTE | 2017-08-02 09:01 | MA ---
cc: MENDOZA OBRIEN DO DATE August 02, 2017 PROCEDURE Left heart catheterization, coronary angiogram, Misael drug-eluting stent (2.25 x 12) to the RCA. Moderate sedation, 35 minutes. PREPROCEDURE DIAGNOSIS Chest pain, elevated troponin/NSTEMI. POSTPROCEDURE DIAGNOSIS Coronary artery disease status post Misael drug-eluting stent (2.25 x 12) to the RCA. MEDICATIONS 1. Versed 1 mg. 2. Fentanyl 50 mcg. 3. Heparin 5900 units. 4. Verapamil 2.5 mg. 5. Nitro 200 mcg. 6. Morphine 2 mg. 7. Brilinta 90 mg. 8. Aspirin 81 mg. CONTRAST USED 100 cc FLUOROSCOPY 6.2 minutes MODERATE SEDATION 35 minutes ESTIMATED BLOOD LOSS 10 cc PROCEDURAL SUMMARY Piper Nielsen is a pleasant 41-year-old female who presented to [facility] Emergency Room due to chest pain. She was previously cathed showing significant disease in the RCA but it was not correlating with her stress test which showed anterior ischemia. We attempted to treat this medically but she was discharged and came back in with chest pain with an elevated troponin. Because of this she was recommended intervention of her RCA. The risks, benefits and alternatives were explained her and she consented as such. Of note, the patient was DNR before the procedure and I discussed this with her and she is willing to change to full code status for 24 hours due to the necessity with the procedure. PROCEDURE The patient was brought to the lab and prepped in the usual sterile fashion. Right radial artery was accessed using a modified Seldinger technique and placement of a 5/6-Eritrean sheath. This was easily aspirated and flushed. A JR-4 guide was taken over a J-wire to the ascending aorta and across the aortic valve for measurement of left ventricular pressures. This was pulled back across the aortic valve showing no significant gradient of aortic stenosis. A JR-4 guide was then engaged in the right coronary. Heparin was given as an anticoagulant. A BMW wire was advanced into the distal vessel. A Compliant balloon (2 x 10) was then used to predilate the lesion. An [place] drug-eluting stent (2.25 x 12) was then used placed across the lesion and inflated. A Non-Compliant balloon (2.25 x 8) was then used to post-dilate the stent. The wire was removed. Final shots show well-opposed stent with no perforations or dissections. The guide was removed over a J-wire. The patient was given her morning dose of aspirin and Brilinta. She left the chemical lab technician cardiovascularly stable. FINDINGS RCA: An 80% lesion in the [id number] portion. The stent distal this is patent with no significant disease. IMPRESSION Unstable angina/NSTEMI, status post Misael drug-eluting stent (2.25 x 12) to the RCA. RECOMMENDATIONS 1. Ms. Nielsen presented with chest pain and a mildly elevated troponin and because of this she underwent PCI of her RCA with a drug-eluting stent. She will continue on aspirin 81 mg as well as Brilinta 90 mg b.i.d. 2. She will continue on her beta-manjula and statin therapy. I have added JOSE D inhibitor therapy to her regimen. 3. We will plan on watching her overnight and if stable in the morning possible discharge. 4. I did discuss with her the possibility that this may not fix her chest pain as her chest pain appears more musculoskeletal, although she has been here twice with chest pain as well as an elevated troponin. Thank you for allowing me to see Piper Nielsen. If there are any questions, please do not hesitate to call. Mendoza Obrien DO VGP/SSB /8:29 AM /8:49 AM
[2017-08-02] MEDS: traMADol HCL 50 MG TAB PO PRN (13:07)
--- NOTE | 2017-08-02 14:55 | HHI.FPPN ---
Subjective Remarks No acute issues overnight. Vitals are stable, patient remains afebrile. She notes that her chest pain is better controlled today. She notes that the tramadol does not help with her pain, but the acetaminophen and morphine do. She is concerned because her blood glucose level was above 500 after her procedure. She acknowledges that this was likely from the Solu-Medrol she received this morning. Her main concern this morning is that her left breast "doesn't feel right." She had a mammogram about 6 months ago with a follow-up ultrasound due to abnormalities on her mammogram. She was supposed to follow-up , but states that she was unable to due to everything that has been happening with her heart. She notes that her left breast feels hard and different than her right breast. She also notes that she never regained sensation in her left breast after her surgery, but she did regain sensation in her right breast. (Shyann Yap MD, R3) Objective Vitals Vital Signs Date Time Temp Pulse Resp B/P (MAP) Pulse Ox O2 Delivery O2 Flow Rate FiO2 08/02/17 12:01 98.6 82 18 141/84 (103) 99 08/02/17 08:33 99 Room Air 08/02/17 06:17 18 08/02/17 04:52 18 08/02/17 04:18 18 08/02/17 04:06 98.7 81 16 162/89 (113) 100 08/02/17 01:07 98.9 82 16 141/76 (97) 100 08/01/17 21:16 98.4 80 16 139/82 (101) 99 08/01/17 20:44 97 08/01/17 16:11 98.2 73 16 129/68 (88) 99 08/01/17 15:40 72 I/O 08/01/17 08/01/17 08/01/17 08/02/17 08/02/17 08/02/17 07:00 15:00 23:00 07:00 15:00 23:00 Intake Total 100 ml 100 ml Balance 100 ml 100 ml Intake Oral 100 ml IV Total 100 ml (Shyann Yap MD, R3) Result Diagram: 08/02/176 08/02/17405 Imaging Last Impressions Chest X-Ray 07/30/172138 Signed Impressions: Service Date/Time: Sunday, July 30, 2017 21:54 - CONCLUSION: No acute cardiopulmonary disease. Mk Golden MD Objective Remarks GENERAL: Well-nourished, well-developed patient sitting comfortably in bed. No acute distress. SKIN: Warm and dry. No rash. EYES: No scleral icterus. No injection or drainage. PERRLA. EOMI. HENT: Normocephalic. Atraumatic. MMM. NECK: No visible JVD or lymphadenopathy. CARDIOVASCULAR: Warm and well perfused. Regular rate and rhythm with no murmurs appreciated RESPIRATORY: Normal respiratory effort. Clear to consultation bilaterally. No wheezes or rales BREAST: Firmness of left breast compared to right breast. Surgical scar located on central superior aspect of left breast. Palpable mass in lower central portion of left breast, mobile, firm. GASTROINTESTINAL: Abdomen soft, nontender, nondistended. MUSCULOSKELETAL: Strength grossly WNL. BACK: Without obvious deformity. NEURO/PSYCH: Afocal. Awake, alert, and oriented x3. (Shyann Yap MD, R3) A/P Assessment and Plan Ms. Nielsen is a 41 y/o F who presented with acute chest pain. ACS workup negative. 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 She underwent PCI of her RCA with a drug-eluting stent on 08/02. Discussed with Dr. Jennings Discharge Planning Anticipate discharge home tomorrow. (Shyann Yap MD, R3) Attending Attestation Patient seen and examined, discussed with resident team. I agree with assessment and management as documented and discussed with me. Pt seen in DOCU s/p cardiac cath and RCA stent placement. Anticipate discharge tomorrow, pending clearance by cardiology. (Greta Jennings MD) Problem List: (1) Chest pain ICD Codes: R07.9 - Chest pain Status: Acute Plan: ACS workup negative, patient recently discharged and being treated for Lakin-like syndrome with high dose aspirin During most recent hospitalization - myocardial perfusion scan on 07/26 showed suspected apical ischemia Left heart catheterization on 07/27/17 showed patent ASH to LAD, otherwise small vessel disease with recommendations for continuing management Was elected to be treated medically due to the atypical nature of her symptoms Patient presenting with continued chest pain and mildly elevated troponin EKG showed sinus rhythm with normal intervals. No ST depressions/elevations ( artifact in lead V2) CXR showed no acute disease Initial Trop 0.06 (patient's baseline) - remains stable at 0.07 Telemetry Cardiology consulted - PCI of RCA with a drug-eluting stent on 08/02 Chest pain improving. Discontinue tramadol as patient states that this does not work for her. Breakthrough pain: Morphine 2 mg IV Scheduled acetaminophen thousand milligrams per 100 mL IV every 6 hours Colchicine 0.6 mg by mouth daily Imdur to 60 mg by mouth daily Protonix 40 mg daily as GERD can mimic chest pain High dose aspirin continued from prior discharge (650 mg 3 times a day) (2) Breast mass ICD Codes: N63.0 - Unspecified lump in unspecified breast Status: Chronic Plan: Her patient history, she is known to have a benign breast mass that is being followed with mammogram and ultrasound. She is due for repeat mammogram and ultrasound. She is advised to follow up as an outpatient for further imaging. (3) Pericardial effusion ICD Codes: I31.3 - Pericardial effusion (noninflammatory) Status: Acute Plan: -Patient with pericardial effusion per chart review -Aorta CTA: Moderate pericardial effusion measuring 0.9 cm. Diffuse soft tissue density seen posterior to the sternum. Enlarged lymph nodes in the mediastinum. All these findings can be associated with infection following CABG. 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, high dose aspirin as described above -Pain control as outlined above (4) Hypertension ICD Codes: I10 - Essential (primary) hypertension Status: Chronic Plan: -Continue with home metoprolol and amlodipine (5) Diabetes mellitus ICD Codes: E11.9 - Type 2 diabetes mellitus without complications Status: Acute Plan: -Hold home Humalog N glargine -Sliding-scale insulin per protocol (6) Nutrition, metabolism, and development symptoms ICD Codes: R63.8 - Other symptoms and signs concerning food and fluid intake Status: Acute Plan: -Fluids: Patient appears hydrated and tolerating diet by mouth -Electrolytes: Within normal limits, continue to monitor -Diet: Diabetic diet (7) No contraindication to deep vein thrombosis (DVT) prophylaxis ICD Codes: Z78.9 - Other specified health status Plan: -Heparin 5000 units every 8 hours - held for cardiac cath -SCDs (Shyann Yap MD, R3) Problem Qualifiers (1) Hypertension: Qualified Codes: I10 - Essential (primary) hypertension (2) Diabetes mellitus: Shyann Yap MD, R3 Aug 02, 2017 14:55 Greta Jennings MD Aug 02, 2017 16:41
[2017-08-02] MEDS: TICAGRELOR 90 MG TAB PO SCH (21:09)
[2017-08-02] MEDS: ATORVASTATIN 20 MG TAB PO SCH (21:09)
[2017-08-02] MEDS: COLCHICINE 0.6 MG TAB PO SCH (21:10)
[2017-08-02] MEDS: ALPRAZolam 0.5 MG TAB PO PRN (22:15)
[2017-08-03] VITALS (15 sets, daily range): BP systolic 127–155; BP diastolic 77–101; PULSE 71–97; RESP 17–20; TEMP 97.9–98.4; O2SAT 97–100
[2017-08-03] MEDS: MORPHINE SULFATE 2 MG/ML INJ IV PUSH PRN ×2 (00:49→08:36)
[2017-08-03] MEDS: ACETAMINOPHEN 1000 MG/100 ML 100 ML IV SCH ×2 (02:29→08:38)
[2017-08-03] MEDS: ISOSORBIDE MONONITRATE 60 MG TAB PO SCH (05:48)
[2017-08-03 06:35] LABS: AUTOMATED NEUTROPHIL # 9.7 TH/MM3 (1.8-7.7); BASOPHIL % 0.3 % (0.0-2.0); EOSINOPHIL # 0.1 TH/MM3 (0-0.4); EOSINOPHIL % 0.6 % (0.0-4.0); HEMATOCRIT 32.4 % (35.0-46.0); HEMOGLOBIN 11.1 GM/DL (11.6-15.3); LYMPH % 19.2 % (9.0-44.0); LYMPHOCYTE # 2.5 TH/MM3 (1.0-4.8); MEAN CELL VOLUME 82.9 FL (80.0-100.0); MEAN CORPUSCULAR HEMOGLOBIN 28.5 PG (27.0-34.0); MEAN CORPUSCULAR HGB CONC 34.4 % (32.0-36.0); MEAN PLATELET VOLUME 6.9 FL (7.0-11.0); MONO % 5.8 % (0.0-8.0); MONOCYTE # 0.8 TH/MM3 (0-0.9); NEUT % 74.1 % (16.0-70.0); PLATELET COUNT 466 TH/MM3 (150-450); RED CELL DISTRIBUTION WIDTH 15.6 % (11.6-17.2); WHITE BLOOD COUNT 13.1 TH/MM3 (4.0-11.0)
[2017-08-03 07:02] LABS: BICARBONATE 24.2 MEQ/L (21.0-32.0); CALCIUM 8.9 MG/DL (8.5-10.1); CREATININE 0.66 MG/DL (0.50-1.00)
[2017-08-03] MEDS: INSULIN ASPART SUPPLEMENTAL SCALE SQ SCH ×2 (08:35→12:30)
[2017-08-03] MEDS: METOPROLOL TARTRATE 25 MG TAB PO SCH (08:38)
[2017-08-03] MEDS: LISINOPRIL 5 MG TAB PO SCH (08:38)
[2017-08-03] MEDS: COLCHICINE 0.6 MG TAB PO SCH (08:39)
[2017-08-03] MEDS: FERROUS SULFATE 325 MG (65 MG ELEMENTAL IRON) TAB PO SCH (08:39)
[2017-08-03] MEDS: TICAGRELOR 90 MG TAB PO SCH (08:39)
[2017-08-03] MEDS: PANTOPRAZOLE SOD 40 MG DELAYED RELEASE TAB PO SCH (08:40)
[2017-08-03] MEDS: DOCUSATE SODIUM 50 MG/SENNA 8.6 MG TAB PO SCH (08:40)
[2017-08-03] MEDS: SERTRALINE HCL 50 MG TAB PO SCH (08:40)
--- NOTE | 2017-08-03 08:51 | PD.CARD.PN ---
Subjective Subjective Remarks Doing well Feels better, does still have some soreness reproducible on palpation of the anterior chest wall Objective Medications Current Medications Medications (Trade) Dose Ordered Sig/Mary Route Start Time Stop Time Status Last Admin (Xanax) 0.5 mg Q4H PRN PO 07/31/17 04:15 08/02/17 22:15 (Norvasc) 10 mg DAILY PO 07/31/17 09:00 08/02/17 09:00 (Lipitor) 20 mg HS PO 07/31/17 21:00 08/02/17 21:09 (Ferrous Sulfate) 325 mg BIDPC PO 07/31/17 09:00 08/02/17 18:00 (Lopressor) 25 mg BID PO 07/31/17 09:00 08/02/17 21:08 (Zofran Odt) 8 mg Q6HR PRN SL 07/31/17 04:15 (Zoloft) 50 mg DAILY PO 07/31/17 09:00 08/02/17 09:00 (Brilinta) 90 mg BID PO 07/31/17 09:00 08/02/17 21:09 (Morphine Inj) 2 mg Q3H PRN IV PUSH 07/31/17 04:15 08/03/17 00:49 (D50w (Vial) Inj) 50 ml UNSCH PRN IV PUSH 07/31/17 04:15 (Glucagon Inj) 1 mg UNSCH PRN OTHER 07/31/17 04:15 (NovoLOG SUPPLEMENTAL SCALE) 1 ACHS SLIDING SCALE SQ 07/31/17 08:00 08/02/17 22:26 (Nitrostat Sl) 0.4 mg Q5M PRN SL 07/31/17 04:15 (Narcan Inj) 0.4 mg UNSCH PRN IV PUSH 07/31/17 04:15 (Gracy-Colace) 1 tab BID PO 07/31/17 09:00 08/02/17 21:10 (Milk Of Magnesia Liq) 30 ml Q12H PRN PO 07/31/17 04:15 (Senokot) 17.2 mg Q12H PRN PO 07/31/17 04:15 (Dulcolax Supp) 10 mg DAILY PRN RECTAL 07/31/17 04:15 (Lactulose Liq) 30 ml DAILY PRN PO 07/31/17 04:15 (Albuterol Neb) 2.5 mg Q6HR NEB PRN NEB 07/31/17 04:15 (Tums Chew) 500 mg Q2H PRN CHEW 07/31/17 04:15 (Imdur) 60 mg DAILY@0700 PO 08/01/17 07:00 08/03/17 05:48 (Protonix) 40 mg DAILY PO 07/31/17 09:00 08/02/17 09:00 Acetaminophen 100 ml @ 400 mls/hr Q6H IV 07/31/17 08:30 08/03/17 02:29 (Colchicine) 0.6 mg BID PO 08/01/17 21:00 08/02/17 21:10 (Prinivil) 5 mg DAILY PO 08/02/17 09:00 08/02/17 09:00 (Aspirin Chew) 81 mg DAILY CHEW 08/03/17 09:00 Vital Signs / I&O Vital Signs Date Time Temp Pulse Resp B/P (MAP) Pulse Ox O2 Delivery O2 Flow Rate FiO2 08/03/17 07:17 98.1 97 17 155/101 (119) 98 08/03/17 06:00 72 08/03/17 05:00 71 08/03/17 04:00 79 08/03/17 03:00 80 08/03/17 03:00 98.2 79 20 140/81 (100) 100 08/03/17 02:00 78 08/03/17 01:00 82 08/03/17 00:00 98.4 84 18 150/80 (103) 100 08/03/17 00:00 88 08/02/17 23:00 92 08/02/17 22:00 96 08/02/17 21:00 110 08/02/17 20:00 98.3 88 18 146/79 (101) 99 08/02/17 20:00 108 08/02/17 19:00 92 08/02/17 18:01 95 08/02/17 17:00 86 08/02/17 16:01 98.6 90 18 119/75 (90) 100 08/02/17 16:00 92 08/02/17 15:00 84 08/02/17 14:00 84 08/02/17 13:00 88 08/02/17 12:01 98.6 82 18 141/84 (103) 99 08/02/17 12:00 91 I/O 08/02/17 08/02/17 08/02/17 08/03/17 08/03/17 08/03/17 07:00 15:00 23:00 07:00 15:00 23:00 Intake Total 100 ml 580 ml 460 ml Output Total 1600 ml Balance 100 ml 580 ml -1140 ml Intake Oral 100 ml 480 ml 360 ml IV Total 100 ml 100 ml Output Urine Total 1600 ml # Voids 1 # Bowel Movements 0 0 Physical Exam GENERAL: NAD, AAOx3 SKIN: Warm and dry. HEAD: Atraumatic. Normocephalic. EYES: Pupils equal and round. No scleral icterus. No injection or drainage. ENT: No nasal bleeding or discharge. Mucous membranes pink and moist. NECK: Trachea midline. No JVD. CARDIOVASCULAR: Regular rate and rhythm. RESPIRATORY: No accessory muscle use. Clear to auscultation. Breath sounds equal bilaterally. GASTROINTESTINAL: Abdomen soft, non-tender, nondistended. Hepatic and splenic margins not palpable. MUSCULOSKELETAL: Extremities without clubbing, cyanosis, or edema. No obvious deformities. Right radial no hematoma, neurovascularly intact distally NEUROLOGICAL: Awake and alert. No obvious cranial nerve deficits. Motor grossly within normal limits. Five out of 5 muscle strength in the arms and legs. Normal speech. PSYCHIATRIC: Appropriate mood and affect; insight and judgment normal. Laboratory Laboratory Tests Test 08/03/17 05:11 White Blood Count 13.1 TH/MM3 Red Blood Count 3.90 MIL/MM3 Hemoglobin 11.1 GM/DL Hematocrit 32.4 % Mean Corpuscular Volume 82.9 FL Mean Corpuscular Hemoglobin 28.5 PG Mean Corpuscular Hemoglobin Concent 34.4 % Red Cell Distribution Width 15.6 % Platelet Count 466 TH/MM3 Mean Platelet Volume 6.9 FL Neutrophils (%) (Auto) 74.1 % Lymphocytes (%) (Auto) 19.2 % Monocytes (%) (Auto) 5.8 % Eosinophils (%) (Auto) 0.6 % Basophils (%) (Auto) 0.3 % Neutrophils # (Auto) 9.7 TH/MM3 Lymphocytes # (Auto) 2.5 TH/MM3 Monocytes # (Auto) 0.8 TH/MM3 Eosinophils # (Auto) 0.1 TH/MM3 Basophils # (Auto) 0.0 TH/MM3 CBC Comment DIFF FINAL Differential Comment Blood Urea Nitrogen 14 MG/DL Creatinine 0.66 MG/DL Random Glucose 229 MG/DL Calcium Level 8.9 MG/DL Sodium Level 136 MEQ/L Potassium Level 3.4 MEQ/L Chloride Level 103 MEQ/L Carbon Dioxide Level 24.2 MEQ/L Anion Gap 9 MEQ/L Estimat Glomerular Filtration Rate 121 ML/MIN Assessment and Plan Problem List: (1) Chest pain ICD Codes: R07.9 - Chest pain Status: Acute (2) Elevated troponin ICD Codes: R74.8 - Abnormal levels of other serum enzymes (3) S/P CABG (coronary artery bypass graft) ICD Codes: Z95.1 - Presence of aortocoronary bypass graft (4) Diabetes mellitus ICD Codes: E11.9 - Type 2 diabetes mellitus without complications Status: Acute (5) Hypertension ICD Codes: I10 - Essential (primary) hypertension Status: Chronic Assessment and Plan 1) PCI JOYCE to RCA Doing well Con't ASA/Brilinta 2) Hx of CABGx1 3) Cardiovascularly stable for discharge, will follow up with me in the office in 2-4 weeks Con't JOSE D-I/Imdur/Statin/BB Problem Qualifiers (1) Diabetes mellitus: (2) Hypertension: Qualified Codes: I10 - Essential (primary) hypertension Mendoza Benton DO Aug 03, 2017 08:51
--- NOTE | 2017-08-03 08:54 | MB ---
cc: IVELISSE OBRIEN DO DATE OF CONSULTATION 08/02/2017 REASON FOR CONSULTATION Consideration of cardiac catheterization. HISTORY OF PRESENT ILLNESS Piper Nielsen is a pleasant 41-year-old female who presented to [facility] emergency room on July 30, 2017 due to chest pain. The patient was recently here and underwent stress testing which showed possible anterior ischemia. She underwent cardiac catheterization and during this she was found to have a significant lesion in the RCA and we attempted to treat this medically. Her chest pain is kind of nondescript and not exactly classic for coronary symptoms. The patient went home, started having chest pain again and so presented again. With both episodes, she has had a mild elevation of her troponin. In seeing her, she states that the chest pain has been on and off. It is relieved with morphine. It appears on the left side of her chest and down her left shoulder as well as into her left leg. PAST MEDICAL HISTORY 1. Coronary artery disease with a history of multiple myocardial infarctions. 2. Bipolar disease disorder 3. Diabetes mellitus 4. Hypertension PAST SURGICAL HISTORY. 1. Cardiac catheterization (July 27, 2017) left main 20% disease. LAD 20% proximal. Multiple stents in the midportion with 100% stenosis. Gives off two major diagonals, both overall small with the first having 50% ostial stenosis and the second having 70% ostial stenosis. The left circumflex is a small vessel overall with a mid lesion of 50%. First obtuse marginal has a 50% ostial lesion. RCA is small to moderate in size with a 70% lesion in the midportion. ASH to LAD is patent and supplies the distal LAD. 2. History of six stents per the patient. 3. Single-vessel bypass with ASH to LAD in [facility] in [place] (May of 2017). 4. Gallbladder removed (2012) 5. BTL (2010) 6. Appendectomy (1980). ALLERGIES 1. PENICILLIN 2. SHELLFISH MEDICATIONS 1. Iron 325 mg b.i.d. 2. Brilinta 90 mg b.i.d. 3. Lipitor 20 mg every night 4. Imdur 30 mg daily 5. Nitro sublingual as needed 6. Metoprolol tartrate 25 mg b.i.d. 7. Norvasc 10 mg daily 8. Aspirin 650 mg every 8 hours 9. Ultram 50 mg every 6 hours as needed for chest pain. 10. Zoloft 50 mg daily 11. Xanax 0.5 mg every 4 hours as needed for anxiety 12. Zofran 8 mg sublingual every 6 hours as needed for nausea or vomiting. 13. Lantus 30 units subcu every night 14. Humalog sliding scale FAMILY HISTORY The people in her family on her mother's side had coronary artery disease at a young age. SOCIAL HISTORY The patient smokes one-pack a day for 25 years stopping four months ago. Denies alcohol or drug abuse. REVIEW OF SYSTEMS 14-systems were reviewed including osteopathic pertinent positives and negatives as above, otherwise negative. PHYSICAL EXAMINATION VITAL SIGNS: Temperature 98.7, heart rate 81, blood pressure 141/76, respirations 16, pulse ox 100% on room air. GENERAL: The patient appears well in no acute distress, alert awake and oriented x3. HEAD, EYES, EARS, NOSE, AND THROAT: Extraocular muscles intact. Mucous membranes moist. NECK: Supple. No JVD at 45 degrees. No carotid bruits heard bilaterally. Carotid upstroke is brisk in nature. HEART: Regular rate and rhythm, positive first and second heart sounds with no murmurs, gallops or rubs. LUNGS: Clear to auscultation bilaterally. No wheezes, rales or rhonchi. ABDOMEN: Soft, nontender, nondistended. No organomegaly noted. EXTREMITIES: Show no clubbing, cyanosis or edema. Femoral and distal pulses intact bilaterally. NEUROLOGIC: No focal deficits. SKIN: Warm, dry and intact. OSTEOPATHIC: No kyphoscoliosis, lordosis or paraspinal tender points. LABORATORY FINDINGS Hemoglobin 11.3, hematocrit 33.5, platelets 471. Potassium 3.38, BUN 17, creatinine 0.75, troponin 0.07. Electrocardiogram (July 31, 2017 at 10:28) sinus rhythm, ST-T wave changes anterolaterally possibly due to ischemia. No change from previous EKG's. IMPRESSIONS 1. Elevated troponin. 2. Coronary artery disease with a history of CABG as above. 3. Atypical chest pain, possible ischemic in nature. 4. Family history of premature coronary artery disease. 5. Diabetes mellitus 6. Hypertension RECOMMENDATIONS 1. Miss Nielsen presents back with chest pain and mildly elevated troponin. Once again, her chest pain is very atypical for coronary insufficiency, but with known disease, I believe at this time that it should be fixed as this may be the cause of her chest pain. 2. Risks, benefits and alternatives were explained to her and she consents as such. Given the nature of the procedure, she will be changed to a full code during the procedure and 24 hours afterwards. 3. She will be continued on her aspirin and Brilinta therapy. 4. Further recommendations will be made based on the hospital course. Thank you for allowing me to see Piper Nielsen. If there are any questions, please do not hesitate to call. Ivelisse Obrien DO VGP/DJL /10:00 PM /8:35 AM
[2017-08-03] MEDS ORDERED: ASPIRIN 81 MG CHEW TAB CHEW SCH (09:00)
--- NOTE | 2017-08-03 10:55 | HHI.FPPN ---
Subjective Remarks Patient seen and examined bedside this morning. Patient states her chest pain has severely decreased; from 04/06 to 08/07. She states now she only has a vague feeling over her left chest area and not really a pain. She does not feel any radiation down her arms. She denies any palpitations. She denies any nausea/ vomiting. Denies any sweats. Denies any difficulties breathing. Patient is inquiring about when she can go home. (Elvia Betancourt MD R2) Objective Vitals Vital Signs Date Time Temp Pulse Resp B/P (MAP) Pulse Ox O2 Delivery O2 Flow Rate FiO2 08/03/17 07:17 98.1 97 17 155/101 (119) 98 08/03/17 06:00 72 08/03/17 05:00 71 08/03/17 04:00 79 08/03/17 03:00 80 08/03/17 03:00 98.2 79 20 140/81 (100) 100 08/03/17 02:00 78 08/03/17 01:00 82 08/03/17 00:00 98.4 84 18 150/80 (103) 100 08/03/17 00:00 88 08/02/17 23:00 92 08/02/17 22:00 96 08/02/17 21:00 110 08/02/17 20:00 98.3 88 18 146/79 (101) 99 08/02/17 20:00 108 08/02/17 19:00 92 08/02/17 18:01 95 08/02/17 17:00 86 08/02/17 16:01 98.6 90 18 119/75 (90) 100 08/02/17 16:00 92 08/02/17 15:00 84 08/02/17 14:00 84 08/02/17 13:00 88 08/02/17 12:01 98.6 82 18 141/84 (103) 99 08/02/17 12:00 91 I/O 08/02/17 08/02/17 08/02/17 08/03/17 08/03/17 08/03/17 07:00 15:00 23:00 07:00 15:00 23:00 Intake Total 100 ml 580 ml 460 ml Output Total 1600 ml Balance 100 ml 580 ml -1140 ml Intake Oral 100 ml 480 ml 360 ml IV Total 100 ml 100 ml Output Urine Total 1600 ml # Voids 1 # Bowel Movements 0 0 (Elvia Betancourt MD R2) Result Diagram: 08/03/17 0511 08/03/17 0511 Objective Remarks GENERAL: Well-nourished, well-developed patient sitting comfortably in bed. No acute distress. SKIN: Warm and dry. No rash. EYES: No scleral icterus. No injection or drainage. PERRLA. EOMI. HENT: Normocephalic. Atraumatic. MMM. NECK: No visible JVD or lymphadenopathy. CARDIOVASCULAR: Warm and well perfused. Regular rate and rhythm with no murmurs appreciated RESPIRATORY: Normal respiratory effort. Clear to consultation bilaterally. No wheezes or rales BREAST: Firmness of left breast compared to right breast. Surgical scar located on central superior aspect of left breast. Palpable mass in lower central portion of left breast, mobile, firm. GASTROINTESTINAL: Abdomen soft, nontender, nondistended. MUSCULOSKELETAL: Strength grossly WNL. BACK: Without obvious deformity. NEURO/PSYCH: Afocal. Awake, alert, and oriented x3. (Elvia Betancourt MD R2) A/P Assessment and Plan Ms. Nielsen is a 41 y/o F who presented with acute chest pain. ACS workup negative. 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 She underwent PCI of her RCA with a drug-eluting stent on 08/02. Discussed with Dr. Jennings Discharge Planning Anticipate discharge home today (Elvia Betancourt MD R2) Attending Attestation Patient seen and examined, discussed with resident team. I agree with assessment and management as documented and discussed with me. Chest pain improving. Pt resting comfortably. Discharge home today. (Greta Jennings MD) Problem List: (1) Chest pain ICD Codes: R07.9 - Chest pain Status: Acute Plan: ACS workup negative, patient recently discharged and being treated for Charlotte-like syndrome with high dose aspirin During most recent hospitalization - myocardial perfusion scan on 07/26 showed suspected apical ischemia Left heart catheterization on 07/27/17 showed patent ASH to LAD, otherwise small vessel disease with recommendations for continuing management Was elected to be treated medically due to the atypical nature of her symptoms Patient presenting with continued chest pain and mildly elevated troponin EKG showed sinus rhythm with normal intervals. No ST depressions/elevations ( artifact in lead V2) CXR showed no acute disease Initial Trop 0.06 (patient's baseline) - remains stable at 0.07 Telemetry Cardiology consulted - PCI of RCA with a drug-eluting stent on 08/02 - Discharge on aspirin/Brillanta - Discharge on JOSE D-i/Imdur/Statin/BB - f/u with cardio in 2-4weeks Chest pain improving. Discontinue tramadol as patient states that this does not work for her. Breakthrough pain: Morphine 2 mg IV Scheduled acetaminophen thousand milligrams per 100 mL IV every 6 hours Colchicine 0.6 mg by mouth daily Imdur to 60 mg by mouth daily Protonix 40 mg daily as GERD can mimic chest pain High dose aspirin continued from prior discharge (650 mg 3 times a day) (2) Pericardial effusion ICD Codes: I31.3 - Pericardial effusion (noninflammatory) Status: Acute Plan: -Patient with pericardial effusion per chart review -Aorta CTA: Moderate pericardial effusion measuring 0.9 cm. Diffuse soft tissue density seen posterior to the sternum. Enlarged lymph nodes in the mediastinum. All these findings can be associated with infection following CABG. 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, and previously prescribed high-dose aspirin -Resume baby aspirin 81mg per cardiology rec -Pain control as outlined above (3) Hypertension ICD Codes: I10 - Essential (primary) hypertension Status: Chronic Plan: -Continue with home metoprolol and amlodipine -Continue lisinopril 5 mg daily - Continue Imdur 60mg daily (4) Diabetes mellitus ICD Codes: E11.9 - Type 2 diabetes mellitus without complications Status: Acute Plan: -Hold home Humalog N glargine -Sliding-scale insulin per protocol (5) Breast mass ICD Codes: N63.0 - Unspecified lump in unspecified breast Status: Chronic Plan: Her patient history, she is known to have a benign breast mass that is being followed with mammogram and ultrasound. She is due for repeat mammogram and ultrasound. She is advised to follow up as an outpatient for further imaging. (6) Nutrition, metabolism, and development symptoms ICD Codes: R63.8 - Other symptoms and signs concerning food and fluid intake Status: Acute Plan: -Fluids: Patient appears hydrated and tolerating diet by mouth -Electrolytes: Within normal limits, continue to monitor -Diet: Diabetic diet GI ppx: PPI daily (7) No contraindication to deep vein thrombosis (DVT) prophylaxis ICD Codes: Z78.9 - Other specified health status Plan: -Heparin 5000 units every 8 hours - held for cardiac cath -SCDs (Elvia Betancorut MD R2) Problem Qualifiers (1) Hypertension: Qualified Codes: I10 - Essential (primary) hypertension (2) Diabetes mellitus: Elvia Betancourt MD R2 Aug 03, 2017 10:55 Greta Jennings MD Aug 04, 2017 16:55
[2017-08-03] MEDS ORDERED: ISOS60TA PO (11:35)
[2017-08-03] MEDS ORDERED: COLC0.6T PO (11:35)
[2017-08-03] MEDS ORDERED: MAGN30S PO (11:35)
[2017-08-03] MEDS ORDERED: PANT40TA3 PO (11:35)
[2017-08-03] MEDS ORDERED: PERI PO (11:35)
[2017-08-03] MEDS ORDERED: LISI-519 PO (11:35)
[2017-08-03] MEDS ORDERED: ASPI81 CHEW (12:16)
--- NOTE | 2017-08-03 12:17 | HHI.DCPOC ---
Discharge Care Plan Diagnosis: (1) Hypertension (2) Elevated troponin (3) Chest pain Goals to Promote Your Health * To prevent worsening of your condition and complications * To maintain your health at the optimal level Directions to Meet Your Goals Take your medications as prescribed Follow your dietary instruction Follow activity as directed Keep your appointments as scheduled Take your immunizations and boosters as scheduled If your symptoms worsen call your PCP, if no PCP go to Urgent Care Center or Emergency Room Smoking is Dangerous to Your Health. Avoid second hand smoke Call the 24-hour hour crisis hotline for domestic abuse at Elvia Betancourt MD R2 Aug 03, 2017 12:17
--- NOTE | 2017-08-03 12:17 | HHI.DS ---
Discharge Summary Admission Date Jul 31, 2017 at 2:00AM Discharge Date: Aug 03, 2017 Admitting Diagnosis (1) Chest pain Plan: ACS workup negative, patient recently discharged and being treated for [place]-like syndrome with high dose aspirin During most recent hospitalization - myocardial perfusion scan on 07/26 showed suspected apical ischemia Left heart catheterization on 07/27/17 showed patent ASH to LAD, otherwise small vessel disease with recommendations for continuing management Was elected to be treated medically due to the atypical nature of her symptoms Patient presenting with continued chest pain and mildly elevated troponin EKG showed sinus rhythm with normal intervals. No ST depressions/elevations ( artifact in lead V2) CXR showed no acute disease Initial Trop 0.06 (patient's baseline) - remains stable at 0.07 Telemetry Cardiology consulted - PCI of RCA with a drug-eluting stent on 08/02 - Discharge on aspirin/Brillanta - Discharge on JOSE D-i/Imdur/Statin/BB - f/u with cardio in 2-4weeks Chest pain improving. Discontinue tramadol as patient states that this does not work for her. Breakthrough pain: Morphine 2 mg IV Scheduled acetaminophen thousand milligrams per 100 mL IV every 6 hours Colchicine 0.6 mg by mouth daily Imdur to 60 mg by mouth daily Protonix 40 mg daily as GERD can mimic chest pain High dose aspirin continued from prior discharge (650 mg 3 times a day) ICD Codes: R07.9 - Chest pain Status: Acute (2) Pericardial effusion Plan: -Patient with pericardial effusion per chart review -Aorta CTA: Moderate pericardial effusion measuring 0.9 cm. Diffuse soft tissue density seen posterior to the sternum. Enlarged lymph nodes in the mediastinum. All these findings can be associated with infection following CABG. 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, and previously prescribed high-dose aspirin -Resume baby aspirin 81mg per cardiology rec -Pain control as outlined above ICD Codes: I31.3 - Pericardial effusion (noninflammatory) Status: Acute (3) Hypertension Plan: -Continue with home metoprolol and amlodipine -Continue lisinopril 5 mg daily - Continue Imdur 60mg daily ICD Codes: I10 - Essential (primary) hypertension Status: Chronic (4) Diabetes mellitus Plan: -Hold home Humalog N glargine -Sliding-scale insulin per protocol ICD Codes: E11.9 - Type 2 diabetes mellitus without complications Status: Acute (5) Breast mass Plan: Her patient history, she is known to have a benign breast mass that is being followed with mammogram and ultrasound. She is due for repeat mammogram and ultrasound. She is advised to follow up as an outpatient for further imaging. ICD Codes: N63.0 - Unspecified lump in unspecified breast Status: Chronic (6) Nutrition, metabolism, and development symptoms Plan: -Fluids: Patient appears hydrated and tolerating diet by mouth -Electrolytes: Within normal limits, continue to monitor -Diet: Diabetic diet GI ppx: PPI daily ICD Codes: R63.8 - Other symptoms and signs concerning food and fluid intake Status: Acute (7) No contraindication to deep vein thrombosis (DVT) prophylaxis Plan: -Heparin 5000 units every 8 hours - held for cardiac cath -SCDs ICD Codes: Z78.9 - Other specified health status Brief History Ms. Nielsen is a 41 y/o F with history of CAD s/p CABG presents to the ED with new onset chest pain. Patient was discharged from [facility] on 07/29/17 after being hospitalized for an episode of chest pain. Left heart catheterization was completed on 07/27/17 that required no stenting. She was then discharged for medical management of her coronary artery disease. This morning she woke up starting to have intermittent chest pain. She took her daily morning medications which improved her condition, however her awakening from a nap she started to feel left-sided chest pain. Throughout her day her chest pain began to build up to 10/10 on her pain scale. She describes the pain as a substernal, heavy pressure like someone is sitting on her chest. She is then presented to the ED for further management. She received morphine which decreased her pain to an 8/10, which is what she describes her pain is at currently. She states that she has been compliant with her medications since discharge, but has not taken her nightly medication due to presenting to the ED. Otherwise she has no complaints and denies any fevers, chills, shortness of breath, NVD, dumping, or calf tenderness. CBC/BMP: 08/03/17 0511 08/03/17 0511 Significant Findings Laboratory Tests Test 08/01/17 04:15 08/02/17 04:06 08/03/17 05:11 Hemoglobin 11.2 GM/DL (11.6-15.3) 11.3 GM/DL (11.6-15.3) 11.1 GM/DL (11.6-15.3) Hematocrit 33.7 % (35.0-46.0) 33.5 % (35.0-46.0) 32.4 % (35.0-46.0) Eosinophils (%) (Auto) 4.4 % (0.0-4.0) Random Glucose 139 MG/DL (74-106) 226 MG/DL (74-106) 229 MG/DL (74-106) White Blood Count 11.6 TH/MM3 (4.0-11.0) 13.1 TH/MM3 (4.0-11.0) Platelet Count 471 TH/MM3 (150-450) 466 TH/MM3 (150-450) Mean Platelet Volume 6.9 FL (7.0-11.0) 6.9 FL (7.0-11.0) Potassium Level 3.3 MEQ/L (3.5-5.1) 3.4 MEQ/L (3.5-5.1) Red Blood Count 3.90 MIL/MM3 (4.00-5.30) Neutrophils (%) (Auto) 74.1 % (16.0-70.0) Neutrophils # (Auto) 9.7 TH/MM3 (1.8-7.7) PE at Discharge GENERAL: Well-nourished, well-developed patient sitting comfortably in bed. No acute distress. SKIN: Warm and dry. No rash. EYES: No scleral icterus. No injection or drainage. PERRLA. EOMI. HENT: Normocephalic. Atraumatic. MMM. NECK: No visible JVD or lymphadenopathy. CARDIOVASCULAR: Warm and well perfused. Regular rate and rhythm with no murmurs appreciated RESPIRATORY: Normal respiratory effort. Clear to consultation bilaterally. No wheezes or rales BREAST: Firmness of left breast compared to right breast. Surgical scar located on central superior aspect of left breast. Palpable mass in lower central portion of left breast, mobile, firm. GASTROINTESTINAL: Abdomen soft, nontender, nondistended. MUSCULOSKELETAL: Strength grossly WNL. BACK: Without obvious deformity. NEURO/PSYCH: Afocal. Awake, alert, and oriented x3. Hospital Course Ms. Nielsen is a 41 y/o F with history of CAD s/p CABG presents to the ED with new onset chest pain. 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 Left heart catheterization was completed on 07/27/17 that required no stenting. 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 Cardiology was consulted and recommended PCI of RCA, which was preformed on 08/02 and drug-eluting stent was placed. 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 Decision was made to d/c the high- dose aspirin regimen and continue Asp/Brilanta, with JOSE D-i/Imdur/statin/BB and f /u with cardiology in 2 weeks. Pt Condition on Discharge: Stable Discharge Disposition: Discharge Home Discharge Instructions New Medications: Walker with Front Wheels (Walker with Front Wheels) 1 Mis Mis EA .XX DIRECTED, #1 0 Refills Aspirin (Tgt Aspirin) 81 Mg Chw 81 MG CHEW DAILY, #30 EA Colchicine (Colcrys) 0.6 Mg Tab 0.6 MG PO BID, #60 TAB Isosorbide Mononitrate ER (Isosorbide Mononitrate ER) 60 Mg Tab 60 MG PO DAILY@0700, #30 TAB Lisinopril (Lisinopril) 5 Mg Tab 5 MG PO DAILY, #30 TAB Magnesium Hydroxide (Qc Milk of Magnesia) 400 Mg/5 Ml Cindy 30 ML PO Q12H PRN for Mild constipation, #60 Pantoprazole (Pantoprazole) 40 Mg Tab 40 MG PO DAILY, #30 TAB Continued Medications: Alprazolam (Xanax) 0.5 Mg Tab 0.5 MG PO Q4H PRN for ANXIETY, TAB 0 Refills Amlodipine (Norvasc) 10 Mg Tab 10 MG PO DAILY, #30 TAB Atorvastatin (Atorvastatin) 20 Mg Tab 20 MG PO HS for Cholesterol Management, #30 TAB 3 Refills Ferrous Sulfate (Ferrous Sulfate) 325 Mg (65 Mg Iron) Tablet 325 MG PO BIDPC for Nutritional Supplement, #60 TAB 0 Refills Insulin Glargine Inj (Lantus Inj) 1,000 Unit/10 Ml Vial 30 UNITS SQ HS for Blood Sugar Management, VIAL 0 Refills Insulin Lispro (Human) Inj (Humalog Inj) 1,000 Unit/10 Ml Vial 0 SQ TIDAC PRN for SLIDING SCALE, #1 VIAL 0 Refills Metoprolol Tartrate (Metoprolol Tartrate) 25 Mg Tab 25 MG PO BID, #60 TAB 0 Refills Nitroglycerin SL (Nitroglycerin SL) 0.4 Mg Subl 0.4 MG SL DIRECTED PRN for CHEST PAIN, #100 TAB.SL 0 Refills ONE TABLET UNDER THE TONGUE NEEDED FOR CHEST PAIN, MAY REPEAT EVERY FIVE MINUTES FOR A TOTAL OF 3 DOSES OR CALL 911 IF NO RELIEF Ondansetron Odt (Zofran Odt) 8 Mg Tab 8 MG SL Q6HR PRN for NAUSEA OR VOMITING, TAB 0 Refills Sertraline (Zoloft) 50 Mg Tab 50 MG PO DAILY, #30 TAB 0 Refills Ticagrelor (Brilinta) 90 Mg Tab 90 MG PO BID for Blood Clot Prevention, #60 TAB 0 Refills Tramadol (Ultram) 50 Mg Tab 50 MG PO Q6H PRN for CHEST PAIN, #28 TAB Discontinued Medications: Aspirin (Aspirin) 325 Mg Tab 650 MG PO Q8HR, #91 TAB 0 Refills Take 2 tablets (650mg) every 8 hours for 1 week, then 2 tabs (650mg) every 12 hours for a week, then 2 tabs (650mg) daily for a week, then 1 tab (325mg daily) for a week, then 81mg daily Isosorbide Mononitrate ER (Isosorbide Mononitrate ER) 30 Mg Valeria 30 MG PO DAILY for Prevent Chest Pain, #30 TAB 0 Refills Walker with Front Wheels (Walker with Front Wheels) 1 Mis Mis EA .ROUTE DIRECTED, #1 0 Refills Elvia Betancourt MD R2 Aug 03, 2017 12:17
[2017-08-03] MEDS ORDERED: WALKER WHEELS/F1 MIS (14:08)
== END 2017-08-03 17:01 | disposition home or self-care (01) ==
LOC: NEPC 21:14 → NEDA 07-31 01:59 → INTOOBSV 07-31 02:00 → UNDOADMOB 07-31 02:00 → NEDA 07-31 03:14 → NEPGCP 07-31 03:14 → HCIS 08-02 08:04 → INTOOBSV 08-03 10:55 → OBSVTOIN 08-03 10:55 → UNDODISOB 08-03 17:01
PROVIDERS: ADMIT Family Medicine; ATTEND Family Medicine
DX: I25.110 Atherosclerotic heart disease of native coronary artery with unstable angina pectoris (principal); I31.3 Pericardial effusion (noninflammatory); I11.0 Hypertensive heart disease with heart failure; I50.9 Heart failure, unspecified; E11.9 Type 2 diabetes mellitus without complications; F31.9 Bipolar disorder, unspecified; I25.2 Old myocardial infarction; E78.00 Pure hypercholesterolemia, unspecified; F41.9 Anxiety disorder, unspecified; I08.1 Rheumatic disorders of both mitral and tricuspid valves; R59.9 Enlarged lymph nodes, unspecified; K21.9 Gastro-esophageal reflux disease without esophagitis; N63.0 Unspecified lump in unspecified breast; K59.00 Constipation, unspecified; R74.8 Abnormal levels of other serum enzymes; Z95.1 Presence of aortocoronary bypass graft; Z79.82 Long term (current) use of aspirin; Z79.4 Long term (current) use of insulin; Z87.891 Personal history of nicotine dependence; Z95.5 Presence of coronary angioplasty implant and graft; Z82.49 Family history of ischemic heart disease and other diseases of the circulatory system
CPT/HCPCS: 71046; 80048; 80053; 81001; 82550; 82948; 83690; 83735; 84484; 85002; 85025; 85610; 85730; 86140; 92928; 93005; 93454; 94150; 96365; 96372; 96375; 96376; 97161; 99152; 99153; 99285; C1725; C1769; C1874; C1887; C1893; G0378; G8987; G8988; J0131; J1200; J1644; J1815; J1885; J2250; J2270; J2405; J2930; J3010; Q9967

== ENCOUNTER 2017-08-09 01:15 | Inpatient (IN) | payer MEDICAID ==
[~2017-08-09] VITALS: Ht 162.6 cm; Wt 59.0 kg
[2017-08-09] VITALS (13 sets, daily range): BP systolic 106–146; BP diastolic 61–79; PULSE 64–86; RESP 16–18; TEMP 97.6–98.2; O2SAT 97–100
[~2017-08-09 01:15] MED LIST changes: +ASPI81 CHEW; +BRIL90TA PO; +COLC0.6T PO; +ISOS30TA3 PO; +ISOS60TA PO; +LISI-519 PO; +MAGN30S PO; +PANT40TA3 PO; +PERI PO; +ZOFR8TAB4 SL
[2017-08-09] MEDS ORDERED: SODIUM CHLORIDE 0.9% FLUSH 10 ML FLUSH IVF PRN (02:00)
--- NOTE | 2017-08-09 02:13 | RADRPT ---
EXAM DATE/TIME: 08/09/2017 02:10 [place] COMPARISON: CHEST SINGLE AP, July 25, 2017, 1:01. INDICATIONS : Short of breath. MEDICAL HISTORY : Diabetes mellitus type I. Hypertension SURGICAL HISTORY : CABG. ENCOUNTER: Initial ACUITY: 1 day PAIN SCORE: 5/10 LOCATION: Bilateral chest FINDINGS: A single view of the chest demonstrates the lungs to be symmetrically aerated without evidence of mas s, infiltrate or effusion. The cardiomediastinal contours are unremarkable. Osseous structures are intact. Median sternotomy wires are noted. CONCLUSION: No acute disease. Guero Drake MD on August 09, 2017 at 2:11 Board Certified Radiologist. This report was verified electronically.
[2017-08-09 02:16] LABS: AUTOMATED NEUTROPHIL # 8.4 TH/MM3 (1.8-7.7); BASOPHIL # 0.1 TH/MM3 (0-0.2); BASOPHIL % 0.8 % (0.0-2.0); EOSINOPHIL # 0.2 TH/MM3 (0-0.4); EOSINOPHIL % 1.8 % (0.0-4.0); HEMATOCRIT 32.5 % (35.0-46.0); HEMOGLOBIN 11.3 GM/DL (11.6-15.3); LYMPH % 26.5 % (9.0-44.0); LYMPHOCYTE # 3.3 TH/MM3 (1.0-4.8); MEAN CELL VOLUME 83.3 FL (80.0-100.0); MEAN CORPUSCULAR HEMOGLOBIN 28.9 PG (27.0-34.0); MEAN CORPUSCULAR HGB CONC 34.7 % (32.0-36.0); MEAN PLATELET VOLUME 6.8 FL (7.0-11.0); MONO % 3.5 % (0.0-8.0); MONOCYTE # 0.4 TH/MM3 (0-0.9); NEUT % 67.4 % (16.0-70.0); PLATELET COUNT 472 TH/MM3 (150-450); RED BLOOD COUNT 3.91 MIL/MM3 (4.00-5.30); RED CELL DISTRIBUTION WIDTH 16.1 % (11.6-17.2); WHITE BLOOD COUNT 12.5 TH/MM3 (4.0-11.0)
[2017-08-09 02:22] LABS: PROTHROMBIN TIME - PATIENT 9.7 SEC (9.8-11.6)
[2017-08-09 02:37] LABS: BICARBONATE 25.5 MEQ/L (21.0-32.0); CALCIUM 8.8 MG/DL (8.5-10.1); CREATININE 0.85 MG/DL (0.50-1.00); MAGNESIUM 1.9 MG/DL (1.5-2.5); TROPONIN I 0.09 NG/ML (0.02-0.05)
[2017-08-09] MEDS ORDERED: HEPARIN SODIUM - IV 10,000 UNITS/10 ML VIAL IV ONE (02:45)
[2017-08-09] MEDS ORDERED: HEPARIN-D5W 25,000 U/250 ML 250 ML IV PRN (02:45)
[2017-08-09] MEDS ORDERED: MORPHINE SULFATE 2 MG/ML INJ IV PUSH ONE (02:45)
[2017-08-09] MEDS ORDERED: INSULIN HUMAN REGULAR 1,000 UNITS/10 ML VIAL SQ ONE (02:45)
[2017-08-09] MEDS ORDERED: ONDANSETRON HCL 4 MG/2 ML VIAL IV PUSH ONE (02:45)
--- NOTE | 2017-08-09 03:02 | PD ---
HPI Chief Complaint: Chest Pain Time Seen by Provider: 01:56 Travel History International Travel<30 days: No Contact w/Intl Traveler<30days: No Traveled to known affect area: No History of Present Illness HPI 41-year-old female came to the emergency room with history of left-sided chest pain. Patient says this started yesterday. It slowly kept progressing. It radiated to her left shoulder. Patient had a stent put in one week ago in this hospital which she was discharged home and was supposed to take Brilinta tablets but she never did. She patient does not have a primary care physician who could write her prescription and as per her she did not get any prescriptions from the hospital. Patient continues to be in pain currently. No history of shortness of breath. No aggravating or relieving factors identified. Patient has had multiple stents in the past. She has significant coronary artery disease history. [facility] Past Medical History Narrative Medical List of her past medical, surgical, social and family history is reviewed from the nursing note. Hx Anticoagulant Therapy: Yes (ASA) Arthritis: Yes Autoimmune Disease: No Blood Disorders: No Bipolar Disorder: Yes Anxiety: Yes Depression: Yes Heart Rhythm Problems: No Cancer: No Cardiac Catheterization: Yes Cardiovascular Problems: Yes High Cholesterol: Yes Chest Pain: Yes (at present) Congestive Heart Failure: Yes Coronary Artery Disease: Yes Diabetes: Yes Patient Takes Glucophage: No Diminished Hearing: No Endocrine: Yes Gastrointestinal Disorders: Yes Genitourinary: No Hypertension: Yes Immune Disorder: No Implanted Vascular Access Dvce: Yes Musculoskeletal: Yes Neurologic: Yes Psychiatric: Yes Reproductive: No Respiratory: No Myocardial Infarction: Yes ?: Not : 3 Para: 2 Miscarriage: 1 Tubal Ligation: Yes (1999) Past Surgical History Abdominal Surgery: Yes Appendectomy: Yes (1980) Body Medical Devices: STENTS Cardiac Surgery: Yes (triple bypass 06/15/17) Cholecystectomy: Yes (2012) Coronary Artery Bypass Graft: Yes (1 VESSEL) Coronary Stent: Yes () Gynecologic Surgery: Yes Other Surgery: Yes Family History Family Hypercholesterolemia: Yes Social History Alcohol Use: No Tobacco Use: No (quit in May 2017) Substance Use: No Allergies-Medications (Allergen,Severity, Reaction): Coded Allergies: Penicillins (Verified Allergy, Severe, Hives, 08/09/17) lisinopril (Verified Allergy, Mild, Rash, 08/09/17) shellfish derived (Verified Allergy, Unknown, RASH , 08/09/17) Comments List of her allergies reviewed from the nursing note. Reported Meds & Prescriptions Reported Meds & Active Scripts Active Walker with Front Wheels (Device) 1 Mis Mis Ea .XX DIRECTED Tgt Aspirin (Aspirin) 81 Mg Chw 81 Mg CHEW DAILY Isosorbide Mononitrate ER (Isosorbide Mononitrate) 60 Mg Tab 60 Mg PO DAILY@0700 Ultram (Tramadol HCl) 50 Mg Tab 50 Mg PO Q6H PRN Norvasc (Amlodipine Besylate) 10 Mg Tab 10 Mg PO DAILY Nitroglycerin SL (Nitroglycerin) 0.4 Mg Subl 0.4 Mg SL DIRECTED PRN ONE TABLET UNDER THE TONGUE NEEDED FOR CHEST PAIN, MAY REPEAT EVERY FIVE MINUTES FOR A TOTAL OF 3 DOSES OR CALL 911 IF NO RELIEF Atorvastatin (Atorvastatin Calcium) 20 Mg Tab 20 Mg PO HS Reported Zofran Odt (Ondansetron Odt) 8 Mg Tab 8 Mg SL Q6HR PRN Lantus Inj (Insulin Glargine) 1,000 Unit/10 Ml Vial 30 Units SQ HS Zoloft (Sertraline HCl) 50 Mg Tab 50 Mg PO DAILY Metoprolol Tartrate 25 Mg Tab 25 Mg PO BID Humalog Inj (Insulin Human Lispro) 1,000 Unit/10 Ml Vial 0 SQ TIDAC PRN Ferrous Sulfate 325 Mg (65 Mg Iron) Tablet 325 Mg PO BIDPC Narrative Medication List of her home medications reviewed from the nursing note. Review of Systems Except as stated in HPI: all other systems reviewed are Neg Cardiovascular: Positive: Chest Pain or Discomfort Physical Exam Narrative GENERAL: Awake, alert, moderate distress SKIN: Focused skin assessment warm/dry. HEAD: Atraumatic. Normocephalic. EYES: Pupils equal and round. No scleral icterus. No injection or drainage. ENT: No nasal bleeding or discharge. Mucous membranes pink and moist. NECK: Trachea midline. No JVD. CARDIOVASCULAR: Regular rate and rhythm. No murmur appreciated. RESPIRATORY: No accessory muscle use. Clear to auscultation. Breath sounds equal bilaterally. GASTROINTESTINAL: Abdomen soft, non-tender, nondistended. Hepatic and splenic margins not palpable. MUSCULOSKELETAL: No obvious deformities. No clubbing. No cyanosis. No edema. NEUROLOGICAL: Awake and alert. No obvious cranial nerve deficits. Motor grossly within normal limits. Normal speech. PSYCHIATRIC: Appropriate mood and affect; insight and judgment normal. Data Data Last Documented VS Vital Signs Date Time Temp Pulse Resp B/P (MAP) Pulse Ox O2 Delivery O2 Flow Rate FiO2 08/09/17 01:36 83 16 140/76 (97) 97 Room Air 08/09/17 01:19 98.2 Orders Orders Electrocardiogram (08/09/17 01:56) Basic Metabolic Panel (Bmp) (08/09/17 01:56) Ckmb (Isoenzyme) Profile (08/09/17 01:56) Complete Blood Count With Diff (08/09/17 01:56) Magnesium (Mg) (08/09/17 01:56) Prothrombin Time / Inr (Pt) (08/09/17 01:56) Troponin I (08/09/17 01:56) Chest, Single Ap (08/09/17 01:56) Ecg Monitoring (08/09/17 01:56) Bilateral Bp Monitoring (08/09/17 01:56) Iv Access Insert/Monitor (08/09/17 01:56) Oximetry (08/09/17 01:56) Oxygen Administration (08/09/17 01:56) Sodium Chloride 0.9% Flush (Ns Flush) (08/09/17 02:00) Heparin Inj (Heparin Inj) (08/09/17 02:45) Heparin Inj (Heparin Inj) (08/09/17 08:45) Heparin Inj (Heparin Inj) (08/09/17 08:45) Heparin-D5w 25,000 U/250 Ml (Heparin-D5w (08/09/17 02:45) Act Partial Throm Time (Ptt) (08/09/17 02:44) Act Partial Throm Time (Ptt) (08/09/17 09:44) Morphine Inj (Morphine Inj) (08/09/17 02:45) Ondansetron Inj (Zofran Inj) (08/09/17 02:45) Insulin Human Regular Inj (Novolin R Inj (08/09/17 02:45) Admit Order (Ed Use Only) (08/09/17 03:03) Labs Laboratory Tests Test 08/09/17 01:50 White Blood Count 12.5 TH/MM3 Red Blood Count 3.91 MIL/MM3 Hemoglobin 11.3 GM/DL Hematocrit 32.5 % Mean Corpuscular Volume 83.3 FL Mean Corpuscular Hemoglobin 28.9 PG Mean Corpuscular Hemoglobin Concent 34.7 % Red Cell Distribution Width 16.1 % Platelet Count 472 TH/MM3 Mean Platelet Volume 6.8 FL Neutrophils (%) (Auto) 67.4 % Lymphocytes (%) (Auto) 26.5 % Monocytes (%) (Auto) 3.5 % Eosinophils (%) (Auto) 1.8 % Basophils (%) (Auto) 0.8 % Neutrophils # (Auto) 8.4 TH/MM3 Lymphocytes # (Auto) 3.3 TH/MM3 Monocytes # (Auto) 0.4 TH/MM3 Eosinophils # (Auto) 0.2 TH/MM3 Basophils # (Auto) 0.1 TH/MM3 CBC Comment DIFF FINAL Differential Comment Prothrombin Time 9.7 SEC Prothromb Time International Ratio 1.0 RATIO Activated Partial Thromboplast Time 25.4 SEC Blood Urea Nitrogen 13 MG/DL Creatinine 0.85 MG/DL Random Glucose 310 MG/DL Calcium Level 8.8 MG/DL Magnesium Level 1.9 MG/DL Sodium Level 136 MEQ/L Potassium Level 4.1 MEQ/L Chloride Level 101 MEQ/L Carbon Dioxide Level 25.5 MEQ/L Anion Gap 10 MEQ/L Estimat Glomerular Filtration Rate 90 ML/MIN Total Creatine Kinase 55 U/L Troponin I 0.09 NG/ML MDM Medical Decision Making Medical Screen Exam Complete: Yes Emergency Medical Condition: Yes Medical Record Reviewed: Yes Interpretation(s) Twelve-lead EKG was reviewed by me. Normal sinus rhythm, left axis deviation, diffuse T wave inversions. Heart rate of 82 bpm. Differential Diagnosis ACS, reocclusion of the stent, chronic chest Narrative Course 3:01 AM blood test results of back and troponin is mildly elevated. However the fact that she is not on any blood thinners concerns me for occlusion of the stent. I would like to admit this patient so that she could have serial enzymes and be seen by cardiology. I discussed this with the patient and she understands. Meanwhile her blood sugar was high as well. I've given her 10 units of subcutaneous insulin. Critical Care Narrative Aggregate critical care time was 30 minutes. Time to perform other separately billable procedures was not included in the critical care time. My time did not include minutes spent treating any other patients simultaneously or on activities that did not directly contribute to the patient's treatment. The services I provided to this patient were to treat and/or prevent clinically significant deterioration that could result in: Chest pain, heparin bolus and drip I provided critical care services requiring my management, as noted below: Chart data review, documentation time, medication orders and management, vital sign assessments/reviewing monitor data, ordering and reviewing lab tests, ordering and interpreting/reviewing x-rays and diagnostic studies, care of the patient and discussion of the patient with the admitting physicians. Procedures EKG Prior to Arrival: No Diagnosis Primary Impression: Chest pain Qualified Codes: R07.9 - Chest pain, unspecified Additional Impressions: Hyperglycemia Noncompliance with medication regimen Admitting Information Admitting Physician Requests: Observation Scripts Clopidogrel (Plavix) 75 Mg Tab 75 MG PO DAILY for cad for 30 Days, #30 TAB 0 Refills Prov: Rafa Narayanan MD 08/10/17 Andrzej Demarco MD Aug 09, 2017 03:02
[2017-08-09] MEDS ORDERED: MORPHINE SULFATE 2 MG/ML INJ IV PUSH PRN (03:15)
[2017-08-09] MEDS ORDERED: MAGNESIUM HYDROXIDE SUSP 30 ML CUP PO PRN (03:15)
[2017-08-09] MEDS ORDERED: SODIUM CHLORIDE 0.9% FLUSH 10 ML FLUSH IV FLUSH PRN (03:15)
[2017-08-09] MEDS ORDERED: ACETAMINOPHEN 325 MG TAB PO PRN (03:15)
[2017-08-09] MEDS ORDERED: ACETAMINOPHEN/HYDROcodone 325 MG/5 MG TAB PO PRN (03:15)
[2017-08-09] MEDS ORDERED: LACTULOSE SYRUP 20 GM/30 ML CUP PO PRN (03:15)
[2017-08-09] MEDS ORDERED: BISACODYL 10 MG SUPP RECTAL PRN (03:15)
[2017-08-09] MEDS ORDERED: SENNOSIDES 8.6 MG TAB PO PRN (03:15)
--- NOTE | 2017-08-09 04:50 | HHI.HP ---
[facility] No Primary Care Physician Admission Diagnosis chest pain, hyperglycemia, medication noncompliance Diagnoses: (1) Chest pain Diagnosis: Principal (2) HTN (hypertension) Diagnosis: Principal (3) DM (diabetes mellitus) Diagnosis: Principal Travel History International Travel<30 Days: No Contact w/Intl Traveler <30 Da: No Traveled to Known Affected Are: No History of Present Illness This is a 41-year-old female with a PMH of CAD, s/p CABG, Cardiac Stents x7, HTN , Jeanette Syndrome and DM who presented to the ER w/ complaints of chest pain. Recent admit 07/31-08/03/17 for similar complaints, prior Cath 07/27/17 w/ patent ASH to LAD and small vessel disease, admitted for persistent chest pain, s/p Cath 08/02/[address] Benton w/ JOYCE to RCA. Echo 07/26/17 w/ trace pericardial fluid. D/c'd home w/ ASA and Brilinta on 08/03/17, however pt states that due to insurance, she was unable to fill prescription for Brilinta, but has been taking other medications including ASA as prescribed. Today w/ left-sided chest pain. Notes pain begins under left breast and radiates to left shoulder. Severe, constant, 10/10, w/ associated SOB. NTG w/ minimal relief. On arrival, BP 146/79, HR 86, O2 sat 100% on RA, Afebrile. CBC essentially baseline. Troponin 0.09, previously 0.07 on 07/31/17. Chemistry otherwise unremarkable. CXR with no acute findings. Started on Heparin gtt in ER. Review of Systems Except as stated in HPI: all other systems reviewed are Neg ROS: 14 point review of systems otherwise negative. Past Family Social History Past Medical History PMH: CAD, s/p CABG, Cardiac Stents x7, HTN, Jeanette Syndrome and DM Past Surgical History PAST SURGICAL HISTORY: Appendectomy, CABG, Cholecystectomy, Cardiac Stent Allergies: Coded Allergies: Penicillins (Verified Allergy, Severe, Hives, 08/09/17) lisinopril (Verified Allergy, Mild, Rash, 08/09/17) shellfish derived (Verified Allergy, Unknown, RASH , 08/09/17) Family History PAST FAMILY HISTORY: Reviewed, significant for CAD, mother at age 42 Social History PAST SOCIAL HISTORY: Negative for alcohol, tobacco or drugs. Physical Exam Vital Signs Vital Signs Date Time Temp Pulse Resp B/P (MAP) Pulse Ox O2 Delivery O2 Flow Rate FiO2 08/09/17 01:36 83 16 140/76 (97) 97 Room Air 08/09/17 01:19 98.2 86 16 146/79 (101) 100 Room Air Physical Exam PE: GENERAL: Very pleasant young female in no acute distress. HEENT: PERRLA, EOMI. No scleral icterus or conjunctival pallor. No lid lag or facial droop. CARDIOVASCULAR: Regular rate and rhythm. No obvious murmurs to auscultation. No chest tenderness to palpation. Sternotomy scar RESPIRATORY: No obvious rhonchi or wheezing. Clear to auscultation. Breath sounds equal bilaterally. GASTROINTESTINAL: Abdomen soft, non-tender, nondistended. BS normal. MUSCULOSKELETAL: Extremities without clubbing, cyanosis, or edema. No obvious deformities. NEUROLOGICAL: Awake, alert and oriented x4. No focal neurologic deficits. Moving both upper and lower extremities spontaneously. Laboratory Laboratory Tests Test 08/09/17 01:50 White Blood Count 12.5 Red Blood Count 3.91 Hemoglobin 11.3 Hematocrit 32.5 Mean Corpuscular Volume 83.3 Mean Corpuscular Hemoglobin 28.9 Mean Corpuscular Hemoglobin Concent 34.7 Red Cell Distribution Width 16.1 Platelet Count 472 Mean Platelet Volume 6.8 Neutrophils (%) (Auto) 67.4 Lymphocytes (%) (Auto) 26.5 Monocytes (%) (Auto) 3.5 Eosinophils (%) (Auto) 1.8 Basophils (%) (Auto) 0.8 Neutrophils # (Auto) 8.4 Lymphocytes # (Auto) 3.3 Monocytes # (Auto) 0.4 Eosinophils # (Auto) 0.2 Basophils # (Auto) 0.1 CBC Comment DIFF FINAL Differential Comment Prothrombin Time 9.7 Prothromb Time International Ratio 1.0 Activated Partial Thromboplast Time 25.4 Blood Urea Nitrogen 13 Creatinine 0.85 Random Glucose 310 Calcium Level 8.8 Magnesium Level 1.9 Sodium Level 136 Potassium Level 4.1 Chloride Level 101 Carbon Dioxide Level 25.5 Anion Gap 10 Estimat Glomerular Filtration Rate 90 Total Creatine Kinase 55 Troponin I 0.09 Result Diagram: 08/09/1714908/09/17149 Caprini VTE Risk Assessment Caprini VTE Risk Assessment: Mod/High Risk (score >= 2) Caprini Risk Assessment Model Point Value = 1 Point Value = 2 Point Value = 3 Point Value = 5 Age 41-60 Minor surgery BMI > 25 kg/m2 Swollen legs Varicose veins or History of unexplained or recurrent spontaneous Oral contraceptives or hormone replacement Sepsis (< 1 month) Serious lung disease, including pneumonia (< 1 month) Abnormal pulmonary function Acute myocardial infarction Congestive heart failure (< 1 month) History of inflammatory bowel disease Medical patient at bed rest Age 61-74 Arthroscopic surgery Major open surgery (> 45 min) Laparoscopic surgery (> 45 min) Malignancy Confined to bed (> 72 hours) Immobilizing plaster cast Central venous access Age >= 75 History of VTE Family history of VTE Factor V Leiden Prothrombin [id number] Lupus anticoagulant Anticardiolipin antibodies Elevated serum homocysteine Heparin-induced thrombocytopenia Other congenital or acquired thrombophilia Stroke (< 1 month) Elective arthroplasty Hip, pelvis, or leg fracture Acute spinal cord injury (< 1 month) Prophylaxis Regimen Total Risk Factor Score Risk Level Prophylaxis Regimen 0-1 Low Early ambulation 2 Moderate Order ONE of the following: *Sequential Compression Device (SCD) *Heparin 5000 units SQ BID 3-4 Higher Order ONE of the following medications: *Heparin 5000 units SQ TID *Enoxaparin/Lovenox 40 mg SQ daily (WT < 150 kg, CrCl > 30 mL/min) *Enoxaparin/Lovenox 30 mg SQ daily (WT < 150 kg, CrCl > 10-29 mL/min) *Enoxaparin/Lovenox 30 mg SQ BID (WT < 150 kg, CrCl > 30 mL/min) AND/OR *Sequential Compression Device (SCD) 5 or more Highest Order ONE of the following medications: *Heparin 5000 units SQ TID (Preferred with Epidurals) *Enoxaparin/Lovenox 40 mg SQ daily (WT < 150 kg, CrCl > 30 mL/min) *Enoxaparin/Lovenox 30 mg SQ daily (WT < 150 kg, CrCl > 10-29 mL/min) *Enoxaparin/Lovenox 30 mg SQ BID (WT < 150 kg, CrCl > 30 mL/min) AND *Sequential Compression Device (SCD) Assessment and Plan Problem List: (1) Chest pain ICD Code: R07.9 - Chest pain Status: Acute (2) HTN (hypertension) ICD Code: I10 - Essential (primary) hypertension (3) DM (diabetes mellitus) ICD Code: E11.9 - Type 2 diabetes mellitus without complications Assessment and Plan A/P: 1. Chest Pain: s/p Cardiac Cath w/ PCI to RCA and JOYCE by Dr. Benton on , d/c'd on ASA and Brilinta, however pt unable to refill Rx for Brilinta, off since discharge, concern for re-stenosis. Started on Heparin gtt in ER, resume Brilinta, admit to [facility], place on telemetry, check serial cardiac enzymes. Reports no relief w/ NTG. Morphine prn. Consult Dr. Benton for further evaluation/recommendations. h/o Jeanette Syndrome, last echo w/ trace pericardial effusion, resume home ASA. 2. HTN: Uncontrolled. BP 160's while in ER, likely compounded by chest pain. Resume home medications, monitor BP. 3. DM: Sliding scale w/ Accu-Cheks. Resume home Insulin. 4. DVT Prophylaxis: Heparin gtt 5. Social work for d/c planning as needed. 6. Case discussed w/ ER physician at length, labs/records/imaging reviewed by me. Physician Certification 2 Midnight Certification Type: Admission for Inpatient Services Order for Inpatient Services The services are ordered in accordance with Medicare regulations or non- Medicare payer requirements, as applicable. In the case of services not specified as inpatient-only, they are appropriately provided as inpatient services in accordance with the 2-midnight benchmark. Estimated LOS (days): 2 days is the estimated time the patient will need to remain in the hospital, assuming treatment plan goals are met and no additional complications. Post-Hospital Plan: Not yet determined Problem Qualifiers (1) Chest pain: Qualified Codes: R07.9 - Chest pain, unspecified Jada Kraft MD Aug 09, 2017 04:50
[2017-08-09] MEDS: MORPHINE SULFATE 2 MG/ML INJ IV PUSH PRN ×6 (05:53→22:07)
[2017-08-09] MEDS: ISOSORBIDE MONONITRATE 60 MG TAB PO SCH (08:18)
[2017-08-09] MEDS ORDERED: HEPARIN SODIUM - IV 10,000 UNITS/10 ML VIAL IV PRN ×2 (08:45)
[2017-08-09] MEDS ORDERED: TICAGRELOR 90 MG TAB PO SCH (09:00)
[2017-08-09] MEDS: METOPROLOL TARTRATE 25 MG TAB PO SCH ×2 (09:14→20:07)
[2017-08-09] MEDS: ASPIRIN 81 MG CHEW TAB CHEW SCH (09:14)
[2017-08-09] MEDS: SODIUM CHLORIDE 0.9% FLUSH 10 ML FLUSH IV FLUSH SCH ×2 (09:14→20:12)
[2017-08-09] MEDS: FERROUS SULFATE 325 MG (65 MG ELEMENTAL IRON) TAB PO SCH ×2 (09:14→16:07)
[2017-08-09] MEDS: DOCUSATE SODIUM 50 MG/SENNA 8.6 MG TAB PO SCH ×2 (09:31→20:07)
[2017-08-09] MEDS: SERTRALINE HCL 50 MG TAB PO SCH (09:31)
--- NOTE | 2017-08-09 11:02 | EKG ---
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
[2017-08-09] MEDS: ONDANSETRON HCL 4 MG/2 ML VIAL IVP PRN ×2 (11:06→20:07)
[2017-08-09] MEDS ORDERED: CLOPIDOGREL 300 MG TAB PO ONE (15:45)
[2017-08-09] MEDS ORDERED: INSULIN DETEMIR 100 UNITS/ML VIAL SQ SCH (21:00)
[2017-08-09] MEDS ORDERED: ATORVASTATIN 20 MG TAB PO SCH (21:00)
[2017-08-10] VITALS (17 sets, daily range): BP systolic 116–148; BP diastolic 62–80; PULSE 64–76; RESP 16–18; TEMP 97.6–98.2; O2SAT 95–100
[2017-08-10] MEDS: MORPHINE SULFATE 2 MG/ML INJ IV PUSH PRN ×4 (01:22→12:03)
[2017-08-10] MEDS: ISOSORBIDE MONONITRATE 60 MG TAB PO SCH (06:19)
[2017-08-10 06:47] LABS: AUTOMATED NEUTROPHIL # 5.4 TH/MM3 (1.8-7.7); BASOPHIL # 0.1 TH/MM3 (0-0.2); BASOPHIL % 0.7 % (0.0-2.0); EOSINOPHIL # 0.2 TH/MM3 (0-0.4); EOSINOPHIL % 2.9 % (0.0-4.0); HEMATOCRIT 34.4 % (35.0-46.0); HEMOGLOBIN 11.8 GM/DL (11.6-15.3); LYMPH % 24.3 % (9.0-44.0); MEAN CELL VOLUME 84.1 FL (80.0-100.0); MEAN CORPUSCULAR HEMOGLOBIN 28.9 PG (27.0-34.0); MEAN CORPUSCULAR HGB CONC 34.4 % (32.0-36.0); MEAN PLATELET VOLUME 6.9 FL (7.0-11.0); MONO % 6.5 % (0.0-8.0); MONOCYTE # 0.5 TH/MM3 (0-0.9); NEUT % 65.6 % (16.0-70.0); PLATELET COUNT 446 TH/MM3 (150-450); RED BLOOD COUNT 4.09 MIL/MM3 (4.00-5.30); RED CELL DISTRIBUTION WIDTH 16.2 % (11.6-17.2); WHITE BLOOD COUNT 8.2 TH/MM3 (4.0-11.0)
[2017-08-10 07:19] LABS: ALBUMIN 3.2 GM/DL (3.4-5.0); ALKALINE PHOSPHATASE 129 U/L (45-117); ALT (GPT) 23 U/L (10-53); AST (GOT) 21 U/L (15-37); BICARBONATE 24.4 MEQ/L (21.0-32.0); BLOOD UREA NITROGEN 11 MG/DL (7-18); CALCIUM 9.1 MG/DL (8.5-10.1); CHLORIDE 104 MEQ/L (98-107); GLOMERULAR FILTRATION RATE 113 ML/MIN (>89); GLUCOSE,RANDOM 109 MG/DL (74-106); SODIUM (NA) 136 MEQ/L (136-145); TOTAL BILIRUBIN ADULT 0.2 MG/DL (0.2-1.0); TOTAL PROTEIN 7.5 GM/DL (6.4-8.2)
[2017-08-10] MEDS: FERROUS SULFATE 325 MG (65 MG ELEMENTAL IRON) TAB PO SCH (08:36)
[2017-08-10] MEDS: METOPROLOL TARTRATE 25 MG TAB PO SCH (08:36)
[2017-08-10] MEDS: ASPIRIN 81 MG CHEW TAB CHEW SCH (08:37)
[2017-08-10] MEDS: SERTRALINE HCL 50 MG TAB PO SCH (08:37)
[2017-08-10] MEDS: SODIUM CHLORIDE 0.9% FLUSH 10 ML FLUSH IV FLUSH SCH (08:38)
[2017-08-10] MEDS: DOCUSATE SODIUM 50 MG/SENNA 8.6 MG TAB PO SCH (08:38)
[2017-08-10] MEDS ORDERED: CLOPIDOGREL 75 MG TAB PO SCH (09:00)
--- NOTE | 2017-08-10 09:38 | HHI.PR ---
Subjective Remarks in no acute distress. has some chest pain today. no sob. Objective Vitals Vital Signs Date Time Temp Pulse Resp B/P (MAP) Pulse Ox O2 Delivery O2 Flow Rate FiO2 08/10/17 08:10 98.0 70 16 127/76 (93) 99 08/10/17 08:10 70 08/10/17 04:46 97.6 68 18 148/80 (102) 100 08/10/17 04:00 66 08/10/17 04:00 64 08/10/17 03:00 66 08/10/17 02:00 70 08/10/17 01:29 75 124/62 (82) 95 08/10/17 01:00 66 08/10/17 00:11 97.6 66 17 116/74 (88) 99 08/10/17 00:00 64 08/09/17 23:00 68 08/09/17 22:00 66 08/09/17 21:00 66 08/09/17 20:00 69 08/09/17 19:00 64 08/09/17 17:05 97.6 72 18 106/63 (77) 08/09/17 14:38 69 08/09/17 13:37 97.8 68 16 121/72 (88) 100 08/09/17 13:29 08/09/17 12:11 70 18 109/61 (77) 97 Room Air 08/09/17 11:03 18 I/O 08/09/17 08/09/17 08/09/17 08/10/17 08/10/17 08/10/17 07:00 15:00 23:00 07:00 15:00 23:00 Intake Total 118 ml 480 ml Output Total 600 ml Balance 118 ml -120 ml Intake Oral 118 ml 480 ml Output Urine Total 600 ml Result Diagram: 08/10/17 0516 08/10/17 0516 Imaging Last Impressions Chest X-Ray 08/09/17 0156 Signed Impressions: Service Date/Time: Wednesday, August 09, 2017 02:10 - CONCLUSION: No acute disease. Guero Drake MD Objective Remarks GENERAL: This is a well-nourished, well-developed patient, in no apparent distress. CARDIOVASCULAR: Regular rate and regular rhythm without murmurs, gallops, or rubs. RESPIRATORY: Clear to auscultation. Breath sounds equal bilaterally. No wheezes , rales, or rhonchi. GASTROINTESTINAL: Abdomen soft, non-tender, nondistended. Normal, active bowel sounds MUSCULOSKELETAL: Extremities without clubbing, cyanosis, or edema. NEURO: Alert & Oriented x4 to person, place, time, situation. Moves all ext x4 Medications and IVs Inpatient Medications Acetaminophen (Tylenol) 650 mg Q6H PRN PO FEVER/PAIN SCALE 1 TO 2; Start at 03:15 Acetaminophen/ Hydrocodone Bitart (Watkins 5-325 Mg) 1 tab Q4H PRN PO PAIN SCALE 3 TO 5; Start 08/09/17 at 03:15 Amlodipine Besylate (Norvasc) 10 mg DAILY PO Last administered on 08/10/17 08: 36; Start 08/09/17 at 09:00 Aspirin (Aspirin Chew) 81 mg DAILY CHEW Last administered on 08/10/17 08:37; Start 08/09/17 at 09:00 Atorvastatin Calcium (Lipitor) 20 mg HS PO Last administered on 08/09/17at 20:07 ; Start 08/09/17 at 21:00 Bisacodyl (Dulcolax Supp) 10 mg DAILY PRN RECTAL SEVERE CONSITIPATION; Start at 03:15 Clopidogrel Bisulfate (Plavix) 75 mg DAILY PO Last administered on 08/10/17at 08 :37; Start 08/10/17 at 09:00 Ferrous Sulfate (Ferrous Sulfate) 325 mg BIDPC PO Last administered on 08:36; Start 08/09/17 at 09:00 Heparin Sodium (Porcine) (Heparin Inj) 2,500 units UNSCH PRN IV APTT 25 TO 39 Last administered on 08/09/17 11:30; Start 08/09/17 at 08:45 Heparin Sodium/ Dextrose 250 ml @ 7 mls/hr TITRATE PRN IV Coagulation Management Last administered on 08/09/17 03:30; Start 08/09/17 at 02:45 Insulin Detemir (Levemir Inj) 30 units HS SQ Last administered on 08/09/17 20: 08; Start 08/09/17 at 21:00 Insulin Human Regular (NovoLIN R INJ) 10 units ONCE ONCE SQ Last administered on 2/12/18at 03:02; Start 08/09/17 at 02:45; Stop 08/09/17 at 02:47; Status DC Isosorbide Mononitrate (Imdur) 60 mg DAILY@0700 PO Last administered on at 06:19; Start 08/09/17 at 07:00 Lactulose (Lactulose Liq) 30 ml DAILY PRN PO SEVERE CONSITIPATION; Start at 03:15 Magnesium Hydroxide (Milk Of Magnesia Liq) 30 ml Q12H PRN PO Mild constipation ; Start 08/09/17 at 03:15 Metoprolol Tartrate (Lopressor) 25 mg BID PO Last administered on 08/10/17at 08: 36; Start 08/09/17 at 09:00 Morphine Sulfate (Morphine Inj) 6 mg Q3H PRN IV PUSH Pain 6-10 Last administered on 08/10/17at 08:44; Start 08/09/17 at 06:15 Ondansetron HCl (Zofran Inj) 4 mg Q6H PRN IVP NAUSEA OR VOMITING Last administered on 08/09/17at 20:07; Start 08/09/17 at 03:15 Senna/Docusate Sodium (Gracy-Colace) 1 tab BID PO Last administered on at 20:07; Start 08/09/17 at 09:00 Sennosides (Senokot) 17.2 mg Q12H PRN PO Moderate constipation; Start 08/09/17 at 03:15 Sertraline HCl (Zoloft) 50 mg DAILY PO Last administered on 08/10/17at 08:37; Start 08/09/17 at 09:00 Sodium Chloride (NS Flush) 2 ml BID IV FLUSH Last administered on 08/10/17at 08: 38; Start 08/09/17 at 09:00 Ticagrelor (Brilinta) 90 mg BID PO Last administered on 08/09/17at 09:31; Start 08/09/17 at 09:00; Stop 08/09/17 at 15:44; Status DC A/P Problem List: (1) Chest pain ICD Code: R07.9 - Chest pain Status: Acute (2) HTN (hypertension) ICD Code: I10 - Essential (primary) hypertension (3) DM (diabetes mellitus) ICD Code: E11.9 - Type 2 diabetes mellitus without complications Assessment and Plan 1. Chest Pain: s/p Cardiac Cath w/ PCI to RCA and JOYCE by Dr. Benton on , d/c'd on ASA and Brilinta, however pt unable to refill Rx for Brilinta, off since discharge, concern for re-stenosis. Started on Heparin gtt in ER, Morphine prn. Consult Dr. Benton for further evaluation/recommendations. h/ o Jeanette Syndrome, last echo w/ trace pericardial effusion. continue aspirin, BB and imdur. 2. HTN: Resumed home medications, monitor BP. 3. DM: Sliding scale w/ Accu-Cheks. Resume home Insulin. 4. DVT Prophylaxis: Heparin gtt Discharge Planning awaiting cardiology recommendations. Problem Qualifiers (1) Chest pain: Qualified Codes: R07.9 - Chest pain, unspecified Rafa Narayanan MD Aug 10, 2017 09:38
[2017-08-10] MEDS ORDERED: DEXTROSE 50% IN WATER 50 ML VIAL(D50) IV PUSH PRN (09:45)
[2017-08-10] MEDS ORDERED: GLUCAGON 1 MG/ML VIAL OTHER PRN (09:45)
[2017-08-10] MEDS ORDERED: INSULIN ASPART SUPPLEMENTAL SCALE SQ SCH (12:00)
[2017-08-10] MEDS: ONDANSETRON HCL 4 MG/2 ML VIAL IVP PRN (12:04)
[2017-08-10] MEDS ORDERED: PLAV75TA29 PO (13:43)
--- NOTE | 2017-08-10 22:12 | PD.CARD.PN ---
Subjective Subjective Remarks Patient was seen earlier today, late entry note Doing ok, chest pain has been constant since her bypass, reproducible with palpation of the chest wall Objective Vital Signs / I&O Vital Signs Date Time Temp Pulse Resp B/P (MAP) Pulse Ox O2 Delivery O2 Flow Rate FiO2 08/10/17 13:00 76 08/10/17 12:11 17 08/10/17 12:00 72 08/10/17 11:52 98.2 70 17 125/70 (88) 99 08/10/17 11:00 70 08/10/17 11:00 66 08/10/17 10:00 72 08/10/17 09:00 76 08/10/17 08:10 98.0 70 16 127/76 (93) 99 08/10/17 08:10 70 08/10/17 07:00 66 08/10/17 04:46 97.6 68 18 148/80 (102) 100 08/10/17 04:00 66 08/10/17 04:00 64 08/10/17 03:00 66 08/10/17 02:00 70 08/10/17 01:29 75 124/62 (82) 95 08/10/17 01:00 66 08/10/17 00:11 97.6 66 17 116/74 (88) 99 08/10/17 00:00 64 08/09/17 23:00 68 I/O 08/09/17 08/09/17 08/09/17 08/10/17 08/10/17 08/10/17 07:00 15:00 23:00 07:00 15:00 23:00 Intake Total 118 ml 480 ml Output Total 600 ml Balance 118 ml -120 ml Intake Oral 118 ml 480 ml Output Urine Total 600 ml Physical Exam GENERAL: NAD, AAOx3 SKIN: Warm and dry. HEAD: Atraumatic. Normocephalic. EYES: Pupils equal and round. No scleral icterus. No injection or drainage. ENT: No nasal bleeding or discharge. Mucous membranes pink and moist. NECK: Trachea midline. No JVD. CARDIOVASCULAR: Regular rate and rhythm. Chest pain reproducible with palpation of anterior chest wall and left shoulder RESPIRATORY: No accessory muscle use. Clear to auscultation. Breath sounds equal bilaterally. GASTROINTESTINAL: Abdomen soft, non-tender, nondistended. Hepatic and splenic margins not palpable. MUSCULOSKELETAL: Extremities without clubbing, cyanosis, or edema. No obvious deformities. NEUROLOGICAL: Awake and alert. No obvious cranial nerve deficits. Motor grossly within normal limits. Five out of 5 muscle strength in the arms and legs. Normal speech. PSYCHIATRIC: Appropriate mood and affect; insight and judgment normal. Laboratory Laboratory Tests Test 08/10/17 05:16 White Blood Count 8.2 TH/MM3 Red Blood Count 4.09 MIL/MM3 Hemoglobin 11.8 GM/DL Hematocrit 34.4 % Mean Corpuscular Volume 84.1 FL Mean Corpuscular Hemoglobin 28.9 PG Mean Corpuscular Hemoglobin Concent 34.4 % Red Cell Distribution Width 16.2 % Platelet Count 446 TH/MM3 Mean Platelet Volume 6.9 FL Neutrophils (%) (Auto) 65.6 % Lymphocytes (%) (Auto) 24.3 % Monocytes (%) (Auto) 6.5 % Eosinophils (%) (Auto) 2.9 % Basophils (%) (Auto) 0.7 % Neutrophils # (Auto) 5.4 TH/MM3 Lymphocytes # (Auto) 2.0 TH/MM3 Monocytes # (Auto) 0.5 TH/MM3 Eosinophils # (Auto) 0.2 TH/MM3 Basophils # (Auto) 0.1 TH/MM3 CBC Comment DIFF FINAL Differential Comment Blood Urea Nitrogen 11 MG/DL Creatinine 0.70 MG/DL Random Glucose 109 MG/DL Total Protein 7.5 GM/DL Albumin 3.2 GM/DL Calcium Level 9.1 MG/DL Alkaline Phosphatase 129 U/L Aspartate Amino Transf (AST/SGOT) 21 U/L Alanine Aminotransferase (ALT/SGPT) 23 U/L Total Bilirubin 0.2 MG/DL Sodium Level 136 MEQ/L Potassium Level 3.7 MEQ/L Chloride Level 104 MEQ/L Carbon Dioxide Level 24.4 MEQ/L Anion Gap 8 MEQ/L Estimat Glomerular Filtration Rate 113 ML/MIN Assessment and Plan Problem List: (1) Chest pain ICD Codes: R07.9 - Chest pain Status: Acute (2) Elevated troponin ICD Codes: R74.8 - Abnormal levels of other serum enzymes (3) Diabetes mellitus ICD Codes: E11.9 - Type 2 diabetes mellitus without complications Status: Acute (4) HTN (hypertension) ICD Codes: I10 - Essential (primary) hypertension (5) S/P CABG (coronary artery bypass graft) ICD Codes: Z95.1 - Presence of aortocoronary bypass graft Assessment and Plan 1) Chest pain has been constant and more typical of musculoskeletal Has taken nitro before without help 2) Chronically elevated troponin since bypass No change from baseline EKG with no changes 3) Recent JOYCE Con't ASA Loaded with Plavix 4) Consider Ranexa, although concern with overall vann 5) Cardiovascularly stable for discharge, will follow up in the office Problem Qualifiers (1) Chest pain: Qualified Codes: R07.9 - Chest pain, unspecified Mendoza Benton DO Aug 10, 2017 22:12
--- NOTE | 2017-08-11 07:03 | MB ---
cc: IVELISSE OBRIEN DO DATE OF CONSULTATION 08/09/2017 REASON FOR CONSULTATION Chest pain, elevated troponin. HISTORY OF PRESENT ILLNESS Please note this is an evaluation from August 09, 2017, consultation was originally dictated, but not transcribed Piper Nielsen is a pleasant 41-year-old female who presented to [facility] on August 09, 2017 due to chest pain. She was previously here multiple times with the most recent time being at the beginning of July and at that time she underwent stenting of her RCA. She was placed on aspirin and Brilinta, but the patient states that she was unable to fill the Brilinta and did not call my office to have this switched to Plavix. She came in with left-sided chest pain that went up to her shoulder similar to her previous episodes. Chest pain has been relatively constant since her coronary bypass in May. She had an elevated troponin of 0.09 so she was started on heparin. In seeing her, she states the chest pain is the same as it has usually been. She just felt off and so she felt like she needed to come to the emergency room and be checked out. She does get some shortness of breath with it, but she relates this somewhat to anxiety. PAST MEDICAL HISTORY 1. Coronary artery disease with a history of multiple myocardial infarctions 2. Bipolar disease 3. Diabetes mellitus 4. Hypertension 5. Cardiac catheterization (July 27, 2017) left main 20%. LAD 20% proximal. Multiple stents in the midportion of the LAD with 100% stenosis. It gives off two major diagonals, both overall small with the first having 50% ostial stenosis and the second having 70% ostial stenosis. The left circumflex is a small vessel overall within the mid lesion at 50%. First obtuse marginal has a 50% ostial lesion. RCA is small to moderate size with a 70% lesion in the midportion. The LAD is patent and supplies the distal LAD. 6. Cardiac catheterization (August 02, 2017). PCI of RCA with a nicole drug-eluting stent (2.25 x 12). 7. History of seven stents per the patient with one in the RCA as above and the other six believed to be in the LAD. 8. Single-vessel bypass with ASH to LAD at [facility] in [place] (May 2017). 9. Cholecystectomy (2012). 10. BTL (2010). 11. Appendectomy (1980). ALLERGIES 1. Penicillin 2. Lisinopril 3. Shellfish MEDICATIONS 1. Aspirin 81 mg daily 2. Iron 325 mg b.i.d. 3. Lipitor 20 mg every night 4. Isosorbide mononitrate 60 mg daily 5. Nitro sublingual as needed 6. Metoprolol tartrate 25 mg b.i.d. 7. Norvasc 10 mg daily 8. Aspirin 81 mg daily 9. Zoloft 50 mg daily 10. Lantus 30 units subcu every night 11. Kenalog sliding scale FAMILY HISTORY Multiple family members on her mother's side have had coronary artery disease at a young age. SOCIAL HISTORY The patient previously smoked one-pack a day for 25 years stopping four months ago. Denies alcohol or drug abuse. REVIEW OF SYSTEMS 15-systems were reviewed as above, pertinent positives and negatives as above, otherwise negative. PHYSICAL EXAMINATION VITAL SIGNS: Temperature 97.8 heart rate 68, blood pressure 121/72, respirations 16, pulse ox 100% on room air. GENERAL: The patient appears well in no acute distress, alert awake and oriented x3. HEAD, EYES, EARS, NOSE, AND THROAT: Extraocular muscles intact. Mucous membranes moist. NECK: Supple. No JVD at 45 degrees. No carotid bruits heard bilaterally. Carotid upstroke is brisk in nature. HEART: Regular rate and rhythm, positive first and second heart sounds with no murmurs, gallops or rubs. LUNGS: Clear to auscultation bilaterally. No wheezes, rales or rhonchi. Pain with palpation of the left anterior chest wall. ABDOMEN: Soft, nontender and nondistended. No organomegaly noted. EXTREMITIES: Show no clubbing, cyanosis or edema. Femoral and distal pulses intact bilaterally. NEUROLOGIC: No focal deficits. SKIN: Warm, dry and intact. OSTEOPATHIC: No kyphoscoliosis, lordosis or paraspinal tender points. LABORATORY FINDINGS Hemoglobin 11.3, hematocrit 32.5, platelets 472. Potassium 4.1, BUN 13, creatinine 0.85, troponin 0.09. Electrocardiogram (August 09, 2017 at 0142) sinus rhythm, borderline left axis deviation, incomplete right bundle branch block, ST-T wave changes anterolaterally, no change from previous. IMPRESSION 1. Chest pain atypical in nature. 2. Elevated troponin. 3. Coronary artery disease with a history of CABG and recent drug-eluting stent as above. 4. Family history of premature coronary artery disease. 5. Diabetes mellitus 6. Hypertension RECOMMENDATIONS 1. Ms. Nielsen presented back with similar type chest pain which has been relatively constant since her coronary bypass. 2. Recent cardiac catheterization shows small vessel disease but otherwise a patent ASH to LAD and her RCA was recently stented. 3. She was placed on Brilinta, but unable to receive it and so she just stopped dual antiplatelet therapy. Because of this, she will be loaded with Plavix and kept on heparin for eight hours afterwards. I discussed with her the importance of dual antiplatelet therapy and that she can call my office if there is ever a problem at this. 4. Troponins have been chronically elevated since her bypass. At this time, there is no significant rise and her EKG's show no significant changes. She will be continued on medical management. I did discuss with her my concern with her chest pain being very reproducible and most likely coronary insufficiency. 5. She will be watched overnight and if stable in the morning, discharged home for followup in the office. Thank you for allowing me to see Piper Nielsen. If there are any questions, please do not hesitate to call. Ivelisse Obrien DO VGP/DJL /10:51 PM /6:29 AM
== END 2017-08-10 14:49 | disposition home or self-care (01) | DRG 313 ==
LOC: NEPC 01:15 → NEDA 03:05 → OBSVTOIN 04:25 → HCIS 13:13
PROVIDERS: ADMIT Internal Medicine; ATTEND Internal Medicine
DX: R07.89 Other chest pain (principal); I25.2 Old myocardial infarction; E11.51 Type 2 diabetes mellitus with diabetic peripheral angiopathy without gangrene; I50.9 Heart failure, unspecified; I11.0 Hypertensive heart disease with heart failure; I24.1 Dressler's syndrome; I25.10 Atherosclerotic heart disease of native coronary artery without angina pectoris; E11.65 Type 2 diabetes mellitus with hyperglycemia; M19.90 Unspecified osteoarthritis, unspecified site; F31.9 Bipolar disorder, unspecified; F41.9 Anxiety disorder, unspecified; Z79.4 Long term (current) use of insulin; Z82.49 Family history of ischemic heart disease and other diseases of the circulatory system; Z87.891 Personal history of nicotine dependence; Z88.0 Allergy status to penicillin; Z91.013 Allergy to seafood; Z91.14 Patient's other noncompliance with medication regimen; Z95.1 Presence of aortocoronary bypass graft; Z95.5 Presence of coronary angioplasty implant and graft
CPT/HCPCS: 71045; 80048; 80053; 82550; 83735; 84484; 85025; 85610; 85730; 93005; 96372; 96374; 96375; J1644; J1815; J2270; J2405

== ENCOUNTER 2018-02-15 22:29 | Observation (INO) ==
[2018-02-16] MEDS ORDERED: Morphine Inj 4 MG/ML Vial IV.PUSH ONE (02:14)
[2018-02-16 02:19] LABS: Baso # (Auto) 0.1 th/mm3 (0.0-0.2); Baso % (Auto) 0.6 % (0.0-2.0); Eos # (Auto) 0.3 th/mm3 (0.0-0.4); Eos % (Auto) 2.6 % (0.0-4.0); Hematocrit 27.5 % (35.0-46.0); Hemoglobin 9.2 gm/dL (11.6-15.3); Lymph # (Auto) 2.8 th/mm3 (1.0-4.8); Lymph % (Auto) 23.3 % (9.0-44.0); Mean Corpuscular HGB Conc 33.4 % (32.0-36.0); Mean Corpuscular Hemoglobin 27.3 pg (27.0-34.0); Mean Corpuscular Volume 81.8 fL (80.0-100.0); Mean Platelet Volume 7.1 fL (7.0-11.0); Mono # (Auto) 0.7 th/mm3 (0.0-0.9); Mono % (Auto) 6.2 % (0.0-8.0); Neut % (Auto) 67.3 % (16.0-70.0); Platelet Count 587 th/mm3 (150-450); Red Blood Count 3.36 mil/mm3 (4.00-5.30); Red Cell Distribution Width 17.9 % (11.6-17.2); White Blood Count 11.8 th/mm3 (4.0-11.0)
--- NOTE | 2018-02-16 02:20 | XR ---
EXAM DATE: 02/16/2018 2:18 AM EDT AGE/SEX: 42 years / Female INDICATIONS: Shortness of breath CLINICAL DATA: This is the patient's initial encounter. Patient reports that signs and symptoms have been present for 1 day and indicates a pain score of 0/10. MEDICAL/SURGICAL HISTORY: None. None. COMPARISON: [facility] [place], CHEST SINGLE AP, 08/09/2017. . FINDINGS: A single AP view of the chest demonstrates the lungs to be symmetrically aerated without evidence of mass, infiltrate or effusion. The cardiomediastinal contours are unremarkable. Osseous structures a re intact. CONCLUSION: Negative examination. Electronically signed by: Guille Ruffin MD 02/16/2018 2:19 AM EDT
[2018-02-16 02:31] LABS: Activated Partial Thrombo Time 25.4 sec (24.3-30.1); INR 0.9 Ratio; Prothrombin Time 9.6 sec (9.8-11.6)
[2018-02-16 02:43] LABS: Alanine Aminotransferase 24 U/L (10-53); Albumin 3.6 g/dL (3.4-5.0); Anion Gap 7 meq/L (5-15); Aspartate Aminotransferase 17 U/L (15-37); Blood Urea Nitrogen 16 mg/dL (7-18); Calcium 9.1 mg/dL (8.5-10.1); Carbon Dioxide 24.6 meq/L (21.0-32.0); Chloride 104 meq/L (98-107); Glomerular Filtration Rate 67 mL/min (>89); Glucose,Random 283 mg/dL (74-106); Lipase 263 U/L (73-393); Magnesium 1.7 mg/dL (1.5-2.5); Potassium 4.6 meq/L (3.5-5.1); Sodium 136 meq/L (136-145)
[2018-02-16 02:47] LABS: Alkaline Phosphatase 132 U/L (45-117); Total Protein 8.7 g/dL (6.4-8.2); Troponin I 0.14 ng/mL (0.02-0.05)
[2018-02-16 02:52] LABS: Creatine Kinase 59 U/L (26-192)
--- NOTE | 2018-02-16 03:35 | US ---
EXAM DATE: 02/16/2018 2:52 AM EDT AGE/SEX: 42 years / Female INDICATIONS: Post surgery hip pain. CLINICAL DATA: This is the patient's initial encounter. Patient reports that signs and symptoms have been present for 1 day and indicates a pain score of 10/10. MEDICAL/SURGICAL HISTORY: . Coronary artery disease. Diabetes. Hypertension. Myocardial infa rction. None. Coronary artery bypass graft. Cardiac stents. COMPARISON: No prior exams available for comparison. TECHNIQUE: Bell-scale and color Doppler imaging of the inguinal region was performed. FINDINGS: Vascular: The arteries and veins in the inguinal region demonstrate no acute abnormality. There is no aneurysm, pseudoaneurysm, or thrombosis. Other: A 2.5 x 1.5 x 0.9 cm hypoechoic collection is seen superficial to the common femoral artery a nd vein consistent with a small hematoma.. CONCLUSION: 1. Small fluid collection within the right groin possibly related to seroma or hematoma. No pseudoan eurysm. Electronically signed by: Guille Ruffin MD 02/16/2018 3:34 AM EDT
--- NOTE | 2018-02-16 03:45 | ED ---
HPI General Chief complaint: Extremity Injury, Lower Stated complaint: Post surgery hip pain Time Seen by Provider: 02/16/18 01:42 Source: patient Limitations: no limitations History of Present Illness HPI narrative: The patient is a 42 year old female who presents to the [facility] emergency department with a history of increasing right groin pain that began after arriving from [place]. The patient reports that she arrived in the area on Wednesday. She reports that she had a thrombectomy performed on February 07 [facility]. The patient reports that she has enoc and sutures at the site that are supposed to be removed on February 21. She reports that she ended up with a large hematoma at the site after complications from a heart catheterization done on February 03. She reports that on February 04 she was told that she could get up and walk and when she stood to walk she developed severe pain in the right leg and an area of swelling. The patient reports that she underwent the heart catheterization when she had a heart attack on February 03 and had nearly occluded stent that was replaced. The patient reports that she is taking Brilinta. She reports that she was discharged from the hospital with oxycodone, however she did not fill the prescription, prior to traveling back to [place]. She reports having a primary care physician in [place], [place]. She reports that her dot etcher apprentice is Dr. Nguyen. The patient reports that she does have some chest tightness when the pain in her right groin becomes at its worse. She reports having occasional dyspnea on exertion. She denies having any chest pain or shortness of breath currently. On review of systems otherwise , the patient denies having any known recent fevers, cough or congestion cough, neck pain, vomiting, diarrhea, urinary symptoms, or neurologic symptoms. Related Data Home Medications Medication Instructions Recorded Confirmed alprazolam [Xanax] 0.5 mg PO BID PRN 02/15/18 02/15/18 aspirin 81 mg PO DAILY 02/15/18 02/15/18 atorvastatin 80 mg PO DAILY 02/15/18 02/15/18 gabapentin 600 mg PO BID 02/15/18 02/15/18 gabapentin 900 mg PO HS 02/15/18 02/15/18 insulin aspart U-100 [Novolog 1 sliding scale dose SUB-Q UD 02/15/18 02/15/18 U-100 Insulin aspart] insulin glargine [Lantus U-100 30 unit SUB-Q HS 02/15/18 02/15/18 Insulin] isosorbide mononitrate 20 mg PO DAILY 02/15/18 02/15/18 metformin 500 mg PO TID 02/15/18 02/15/18 metoprolol succinate 25 mg PO BID 02/15/18 02/15/18 nitroglycerin 0.4 mg SUBLINGUAL Q5-15M PRN 02/15/18 02/15/18 pantoprazole 40 mg PO DAILY 02/15/18 02/15/18 sertraline 50 mg PO DAILY 02/15/18 02/15/18 ticagrelor [Brilinta] 90 mg PO BID 02/15/18 02/15/18 trazodone 100 mg PO DAILY 02/15/18 02/15/18 Allergies Allergy/AdvReac Type Severity Reaction Status Date / Time Penicillins Allergy Severe Hives Verified 02/15/18 22:40 lisinopril Allergy Mild Rash Verified 02/15/18 22:40 shellfish derived Allergy Unknown RASH Verified 02/15/18 22:40 Review of Systems ROS: all other systems reviewed are negative (Except for that which was mentioned in the HPI.) [facility] Medical History Medical History CAD (coronary artery disease) (Acute) Diabetes (Acute) Hypertension (Acute) Past heart attack (Acute) Surgical History Surgical History Hx of CABG (Acute) Stented coronary artery (Acute) Social History Social History Substance History: No History of Abuse Second Hand Smoke Exposure: No Smoking Status: Former smoker Tobacco Type: Cigarettes How Often Do You Have a Drink Containing Alcohol: Never Recent Travel in [facility] within the Last 8 Weeks: No Recent Out of Country Travel within the Last 8 Weeks: No Immunization History Tetanus Immunization: <5 Years Hx Influenza Vaccine This Season: No Exam Const General: cooperative, no acute distress and well developed Nutritional Appearance: well nourished Orientation: alert, awake and oriented x3 HENMT Head: normocephalic and atraumatic Nose: no nasal discharge and no epistaxis Mouth: moist mucous membranes Throat: posterior oropharynx normal and uvula midline Eyes Sclera: normal sclerae Pupils: PERRL Neck Neck: no meningeal signs, trachea midline and no JVD Resp Effort & Inspection: no use of accessory muscles Auscultation: clear to auscultation bilaterally Cardio Rate: regular rate Rhythm: regular rhythm Heart Sounds: no murmurs GI Inspection: non-distended Palpation: soft, no hepatosplenomegaly, no guarding, not rigid and tender in the RLQ; not in the epigastrum, not in the LLQ, not in the LUQ, not in the RUQ, not at McBurney's point, Arthur's sign negative and with no rebound tenderness Auscultation: normal bowel sounds Other: The right groin, the patient is noted to have enoc and sutures in place overlying a right groin incision. There is no swelling associated with this. There is no drainage. There is no induration or erythema. The wound appears to be healing well. Back/Spine/Pelvis Back: no CVA tenderness Skin General: dry skin (warm) Neuro General: alert, awake and oriented x3 Cranial Nerves: CN's II-XI intact bilaterally Speech: speech normal Motor: strength 5/5 throughout and no movement abnormalities noted Sensory Exam: no sensory deficits noted Extrem General: normal to inspection (No calf tenderness on palpation. 2+ pulses in all 4 extremities.), no clubbing, no cyanosis and edema Laterality: bilaterally Psych Mood: congruent mood Affect: normal affect Judgment: judgment good Course Consultations Consultation #1: The patient's case including history, pertinent physical examination findings, and laboratory studies were discussed with Dr. Rodríguez. It was agreed that the patient would be admitted to the hospitalist service. Initial Documented Vital Signs Temperature 98.0 F 02/15/18 22:33 Pulse Rate 98 H 02/15/18 22:33 Respiratory Rate 20 02/15/18 22:33 Blood Pressure 142/82 H 02/15/18 22:33 Pulse Oximetry 98 02/15/18 22:33 Last Documented Vital Signs Temperature 98.0 F 02/15/18 22:33 Pulse Rate 86 02/16/18 04:00 Respiratory Rate 20 02/16/18 04:00 Blood Pressure 176/84 H 02/16/18 04:00 Pulse Oximetry 99 02/16/18 04:00 Medical Decision Making MDM Narrative Medical decision making narrative: During the course of the patient's emergency department visit, the patient's history, examination, and differential diagnosis were reviewed with the patient. The patient was placed on a cardiac care unit nurse with oximetry and frequent blood pressure monitoring. The patient had IV access obtained and blood work sent for analysis. A diagnostic evaluation was starting regarding this patient's increased right groin pain. An ultrasound to rule out recurrent hematoma/pseudoaneurysm formation was ordered. CT scan of the abdomen and pelvis is also ordered to evaluate for possible retroperitoneal hematoma. The patient was initially provided aspirin 324 mg p.o. 1, nitroglycerin 1 inch the chest wall, Zofran 4 mg IV, morphine 4 mg IV. The patient reports itching with contrast administration, therefore Benadryl 50 mg was administered IV prior to CTA to rule out PE. The patient's diagnostic evaluation was remarkable for a white count of 11.8, platelets 587, hemoglobin 9.2. PT 9.6, PTT 25.4, d-dimer is elevated at 1.71, therefore CTA to rule out PE was ordered as the patient reports being on a prolonged train ride from [facility] 2 days ago. Chemistries remarkable for troponin I of 0.14, glucose is 283, total protein is 8.7, creatinine 1.09, alk phos 132. The patient's chest x-ray shows no acute abnormality, CT scan of the abdomen and pelvis shows no acute abnormality, ultrasound to rule out pseudoaneurysm versus enlarging hematoma shows a small fluid collection within the right groin possibly related to a seroma or hematoma. This is 2.5 cm in greatest dimension. CTA to rule out PE was negative for pulmonary embolism. The patient will be admitted to the hospital for continued evaluation, rule out serial cardiac enzyme protocol given her recurrent chest pain, recent stent placement. The patient's results were discussed with the patient, including the plan of care. I explained that further testing and/ or monitoring is indicated based on the patient's history, examination, and/ or laboratory findings. Therefore, I recommended admission for additional evaluation. The patient expressed understanding and was agreeable with this plan. The patient was admitted to the hospital in stable condition and sent to a bed under the care of the [facility] service. Medical Screen Exam Complete: Yes Emergency Medical Condition: Yes Medical Records Medical records reviewed: Yes I reviewed the patient's medical records. Lab Data Lab results reviewed: Yes I reviewed the patient's lab results. Result diagrams: 02/16/18 01:45 02/16/18 01:45 Lab Results 02/16/18 02/16/18 02/16/18 Range/Units 01:45 01:45 01:45 WBC 11.8 H (4.0-11.0) th/mm3 RBC 3.36 L (4.00-5.30) mil/mm3 Hgb 9.2 L (11.6-15.3) gm/dL Hct 27.5 L (35.0-46.0) % MCV 81.8 (80.0-100.0) fL MCH 27.3 (27.0-34.0) pg MCHC 33.4 (32.0-36.0) % RDW 17.9 H (11.6-17.2) % Plt Count 587 H (150-450) th/mm3 MPV 7.1 (7.0-11.0) fL Neut % (Auto) 67.3 (16.0-70.0) % Lymph % (Auto) 23.3 (9.0-44.0) % [place]bon % (Auto) 6.2 (0.0-8.0) % Eos % (Auto) 2.6 (0.0-4.0) % Baso % (Auto) 0.6 (0.0-2.0) % Neut # (Auto) 8.0 H (1.8-7.7) th/mm3 Lymph # (Auto) 2.8 (1.0-4.8) th/mm3 Bourbon # (Auto) 0.7 (0.0-0.9) th/mm3 Eos # (Auto) 0.3 (0.0-0.4) th/mm3 Baso # (Auto) 0.1 (0.0-0.2) th/mm3 WBC Differential . Differential Comment Auto diff final PT 9.6 L (9.8-11.6) sec INR 0.9 Ratio APTT 25.4 (24.3-30.1) sec D-Dimer Quant (PE/DVT) 1.71 H (0.00-0.50) mg/L FEU Sodium (136-145) meq/L Potassium (3.5-5.1) meq/L Chloride (98-107) meq/L Carbon Dioxide (21.0-32.0) meq/L Anion Gap (5-15) meq/L BUN (7-18) mg/dL Creatinine (0.50-1.00) mg/dL Estimated GFR (>89) mL/min Random Glucose (74-106) mg/dL Calcium (8.5-10.1) mg/dL Magnesium (1.5-2.5) mg/dL Total Bilirubin (0.2-1.0) mg/dL AST (15-37) U/L ALT (10-53) U/L Alkaline Phosphatase (45-117) U/L Total Creatine Kinase (26-192) U/L Troponin I (0.02-0.05) ng/mL Total Protein (6.4-8.2) g/dL Albumin (3.4-5.0) g/dL Lipase (73-393) U/L 02/16/18 Range/Units 01:45 WBC (4.0-11.0) th/mm3 RBC (4.00-5.30) mil/mm3 Hgb (11.6-15.3) gm/dL Hct (35.0-46.0) % MCV (80.0-100.0) fL MCH (27.0-34.0) pg MCHC (32.0-36.0) % RDW (11.6-17.2) % Plt Count (150-450) th/mm3 MPV (7.0-11.0) fL Neut % (Auto) (16.0-70.0) % Lymph % (Auto) (9.0-44.0) % Bourbon % (Auto) (0.0-8.0) % Eos % (Auto) (0.0-4.0) % Baso % (Auto) (0.0-2.0) % Neut # (Auto) (1.8-7.7) th/mm3 Lymph # (Auto) (1.0-4.8) th/mm3 Bourbon # (Auto) (0.0-0.9) th/mm3 Eos # (Auto) (0.0-0.4) th/mm3 Baso # (Auto) (0.0-0.2) th/mm3 WBC Differential Differential Comment PT (9.8-11.6) sec INR Ratio APTT (24.3-30.1) sec D-Dimer Quant (PE/DVT) (0.00-0.50) mg/L FEU Sodium 136 (136-145) meq/L Potassium 4.6 (3.5-5.1) meq/L Chloride 104 (98-107) meq/L Carbon Dioxide 24.6 (21.0-32.0) meq/L Anion Gap 7 (5-15) meq/L BUN 16 (7-18) mg/dL Creatinine 1.09 H (0.50-1.00) mg/dL Estimated GFR 67 L (>89) mL/min Random Glucose 283 H (74-106) mg/dL Calcium 9.1 (8.5-10.1) mg/dL Magnesium 1.7 (1.5-2.5) mg/dL Total Bilirubin 0.2 (0.2-1.0) mg/dL AST 17 (15-37) U/L ALT 24 (10-53) U/L Alkaline Phosphatase 132 H (45-117) U/L Total Creatine Kinase 59 (26-192) U/L Troponin I 0.14 H (0.02-0.05) ng/mL Total Protein 8.7 H (6.4-8.2) g/dL Albumin 3.6 (3.4-5.0) g/dL Lipase 263 (73-393) U/L Imaging Data Radiologist's impression: Lower Extremity Ultrasound 02/16/18 01:46 CONCLUSION: 1. Small fluid collection within the right groin possibly related to seroma or hematoma. No pseudoaneurysm. Chest X-Ray 02/16/18 01:47 CONCLUSION: Negative examination. Abdomen/Pelvis CT 02/16/18 02:13 CONCLUSION: 1. No acute abnormality on this unenhanced study. 2. Emphysematous changes within the visualized lung bases. Chest CTA 02/16/18 04:35 CONCLUSION: 1. This study is negative for pulmonary embolism. Discharge Plan Discharge Disposition Patient Disposition: 30 Still Patient Discharge Details Diagnosis: Chest pain, Elevated troponin, History of coronary artery disease Physicians Team ED Provider: Aruna Heller Primary Care Provider: Zunilda Trujillo Rxs /Orders / Referrals /Forms Prescriptions: No Action metformin 500 mg Tablet 500 mg PO TID RF: 0 atorvastatin 80 mg Tablet 80 mg PO DAILY RF: 0 gabapentin 600 mg Tablet 600 mg PO BID RF: 0 insulin glargine [Lantus U-100 Insulin] 100 unit/mL Solution 30 unit SUB-Q HS RF: 0 isosorbide mononitrate 20 mg Tablet 20 mg PO DAILY RF: 0 alprazolam [Xanax] 0.5 mg Tablet 0.5 mg PO BID PRN (Reason: Anxiety) RF: 0 gabapentin 800 mg Tablet 900 mg PO HS RF: 0 trazodone 100 mg Tablet 100 mg PO DAILY RF: 0 insulin aspart U-100 [Novolog U-100 Insulin aspart] 100 unit/mL Solution 1 sliding scale dose SUB-Q UD RF: 0 pantoprazole 40 mg Tablet,Delayed Release (Dr/Ec) 40 mg PO DAILY RF: 0 nitroglycerin 0.4 mg Tablet, Sublingual 0.4 mg SUBLINGUAL Q5-15M PRN (Reason: Chest Pain) RF: 0 aspirin 81 mg Tablet,Chewable 81 mg PO DAILY RF: 0 metoprolol succinate 25 mg Tablet Extended Release 24 Hr 25 mg PO BID RF: 0 sertraline 50 mg Tablet 50 mg PO DAILY RF: 0 ticagrelor [Brilinta] 90 mg Tablet 90 mg PO BID RF: 0 Discharge Interventions Interventions: Vital Signs Last Done: 02/16/18 01:36 Status ED Status: With Doctor
--- NOTE | 2018-02-16 04:17 | CT ---
EXAM DATE: 02/16/2018 4:05 AM EDT AGE/SEX: 42 years / Female INDICATIONS: Right lower abdomen pain today. CLINICAL DATA: This is the patient's initial encounter. Patient reports that signs and symptoms have been present for 1 day and indicates a pain score of 7/10. MEDICAL/SURGICAL HISTORY: Myocardial infarction. Hypertension. CABG. Coronary artery stent. P atnick had stent placed in leg 02/07/18. RADIATION DOSE: 5.89 CTDI (mGy) COMPARISON: [facility] [place], CTA THORACIC ABDOMINAL AORTA W 3D RECON, 07/25/2017. . TECHNIQUE: Multiple contiguous axial images were obtained through the abdomen. Images were obtained using multiple row detector helical technique. Using automated exposure control and adjustment of the mA and/or kV according to patient size, radiation dose was kept as low as reasonably achievable to o btain optimal diagnostic quality images. DICOM format image data is available electronically for rev iew and comparison. FINDINGS: Lower Lungs: Emphysematous changes within the visualized lung bases. The visualized lower lungs are c lear. Liver: The liver has a homogeneous density without space-occupying lesion. There is no dilation of th e biliary tree. The gallbladder is either decompressed or surgically absent. Spleen: Homogeneous density without enlargement. Pancreas: Unremarkable without mass or calcification. Kidneys: Normal in size and shape. No evidence of mass or hydronephrosis. Adrenal Glands: Unremarkable. Aorta: Scattered calcified atherosclerotic plaque without aneurysmal dilation. Bowel/Mesentery: The bowel loops are grossly unremarkable. The cecum and sigmoid colon have a normal configuration. Abdominal Wall: Intact. Retroperitoneum: No evidence of adenopathy in the retrocrural, para-aortic, or deep pelvic regions. Bladder: Contours are smooth. Reproductive Organs: Uterus rests just to the right of midline. No abnormal masses or calcifications seen. Inguinal: The inguinal region is unremarkable without evidence of adenopathy. Bony Structures: Unremarkable. CONCLUSION: 1. No acute abnormality on this unenhanced study. 2. Emphysematous changes within the visualized lung bases. Electronically signed by: Guille Ruffin MD 02/16/2018 4:15 AM EDT
--- NOTE | 2018-02-16 06:07 | CT ---
EXAM DATE: 02/16/2018 5:39 AM EDT AGE/SEX: 42 years / Female INDICATIONS: Chest pain, elevated d-dimer. CLINICAL DATA: This is the patient's initial encounter. Patient reports that signs and symptoms have been present for 1 day and indicates a pain score of 2/10. MEDICAL/SURGICAL HISTORY: Hypertension. Myocardial infarction. Deep venous thrombosis. CAD. CAB G. Coronary artery stent. RADIATION DOSE: 9.86 CTDI (mGy) COMPARISON: [facility], CT PULMONARY ANGIOGRAM, 02/10/2017. . TECHNIQUE: Volumetric scanning was performed using a multi-row detector CT scanner during bolus infu laura of 70 ml Omnipaque 350 (iohexol) nonionic water-soluble contrast as a single exam dose. The genet a was post processed with a variety of visualization algorithms including full volume maximum intensi ty projection and sliding thin slab reformation. Using automated exposure control and adjustment of t he mA and/or kV according to patient size, radiation dose was kept as low as reasonably achievable to obtain optimal diagnostic quality images. DICOM format image data is available electronically for r eview and comparison. FINDINGS: Pulmonary Arteries: No filling defects are seen in the pulmonary arteries out to the subsegmental ve ssels. The left and right pulmonary arteries are normal in diameter. Lung: No infiltrates seen. Effusion: None. Mediastinum: No evidence of mediastinal or hilar adenopathy. Residual thymic tissue is noted. Other: The axilla is unremarkable. Prior median sternotomy. CONCLUSION: 1. This study is negative for pulmonary embolism. Electronically signed by: Guille Ruffin MD 02/16/2018 6:06 AM EDT
[2018-02-16] MEDS ORDERED: Acetaminophen 500 MG Tablet PO PRN (06:42)
[2018-02-16] MEDS ORDERED: ALPRAZolam 0.5 MG Tablet PO PRN (06:46)
[2018-02-16] MEDS ORDERED: Dextrose 50% in Water 50 ML Vial IV.PUSH PRN (06:49)
[2018-02-16] MEDS: Morphine Inj 4 MG/ML Vial IV.PUSH PRN ×4 (08:00→18:45)
[2018-02-16] MEDS: Insulin NovoLOG Aspart Correctional Sugar Inj SQ SCH ×4 (08:08→22:18)
[2018-02-16] MEDS: Sertraline 50 MG Tablet PO SCH (08:16)
[2018-02-16] MEDS: Isosorbide Mononitrate 20 MG Tablet PO SCH (08:16)
[2018-02-16] MEDS: Gabapentin 300 MG Capsule PO SCH ×2 (08:16→22:25)
[2018-02-16 09:07] LABS: Troponin I 0.14 ng/mL (0.02-0.05)
--- NOTE | 2018-02-16 12:25 | P.HP ---
History of Present Illness Primary Care Physician: Zunilda Trujillo Chief Complaint: right groin pain History of Present Illness: 42-year-old female with history of CAD status post CABG and recent cardiac catheterization with stent placement, DM, HTN, presents with increasing right groin pain and difficulty ambulating. Patient reports she recently had a cardiac catheterization done on 02/03/18 with stent placement 1, discharged on Brilinta. She states she subsequently developed a large hematoma at the right groin catheter site, and ultimately underwent thrombectomy on 02/07 at [facility]. She states she was given a prescription for oxycodone at discharge in [place], however tried to fill prescription in [place] and was unsuccessful. She reports 7/10 pain localized to the right anterior groin without any radiation. She states the pain became much worse and she also developed some mild 3/10 chest tightness localized at the left anterior chest without any radiation, no associated SOB, nausea, or diaphoresis. She states this concerned her because she has not presented with typical chest pains on her previous MIs. She denies any recent fevers or chills. She denies any erythema or drainage from the right groin wound. She states she is supposed to have her sutures/enoc out on 02/21. 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 Nguyen, however has not seen this physician yet. She states she has seen Dr. Benton in the past and would like to continue following him if possible. The patient has no other medical complaints at this time. Review of Systems All other systems reviewed negative except as stated in [facility] - History History Provided By: Patient - Medical History Medical History: Medical History (Last Reviewed 02/17/18 @ 08:52 by Sonia Harvey) CAD (coronary artery disease) Diabetes Hypertension Past heart attack - Surgical History Surgical History: Surgical History (Last Reviewed 02/17/18 @ 08:52 by Sonia Harvey) Hx of CABG Stented coronary artery - Family History Family History: Family History (Last Updated 02/16/18 @ 19:49 by Pooja Holloway) Mother Heart disease Diabetes Sister Heart disease - Tobacco History Second Hand Smoke Exposure: No Tobacco Use In Past 30 Days: No Smoking Status: Former smoker (Smoked 1 PPD since age 16, quit November 2017) Tobacco Type: Cigarettes - Alcohol History How Often Do You Have a Drink Containing Alcohol: Never - Substance Use History Substance History: No History of Abuse - Travel History Recent Travel in the [place] Within the Last 8 Weeks: No Recent Travel Out of the Country Within the Last 8 Weeks: No - Immunization History Tetanus Immunization: <5 Years Hx Influenza Vaccine This Season: No Medications and Allergies Active Medications: Active Medications Acetaminophen (Tylenol) 500 mg PO Q4H PRN PRN Reason: HEADACHE Hydrocodone Bitart/Acetaminophen ([place] 7.5/325) 1 tab PO Q4H PRN PRN Reason: PAIN SCALE 1 TO 5 Alprazolam (Xanax) 0.5 mg PO BID PRN PRN Reason: Anxiety Aspirin (Aspirin Chew) 81 mg PO DAILY [facility] Last Admin: 02/16/18 08:16 Dose: 81 mg Atorvastatin Calcium (Lipitor) 80 mg PO DAILY [facility] Last Admin: 02/16/18 08:17 Dose: 80 mg Dextrose (D50w Vial) 50 ml IV.PUSH UNSCH PRN PRN Reason: PER HYPOGLYCEMIA PROTOCOL Gabapentin (Neurontin) 600 mg PO BID [facility] Last Admin: 02/16/18 08:16 Dose: 600 mg Gabapentin (Neurontin) 900 mg PO HS [facility] Glucagon (Glucagon Inj) 1 mg OTHER PRN PRN PRN Reason: for Hypoglycemia Protocol Insulin Aspart (Novolog Insulin Correctional Sugar Inj) 0 unit SQ [facility]; Protocol Last Admin: 02/16/18 08:08 Dose: Not Given Insulin Detemir (Levemir Inj) 30 unit SQ [facility] Isosorbide Mononitrate (Ismo) 20 mg PO DAILY [facility] Last Admin: 02/16/18 08:16 Dose: 20 mg Metoprolol Succinate (Toprol Xl) 25 mg PO BID [facility] Last Admin: 02/16/18 08:17 Dose: 25 mg Morphine Sulfate (Morphine Inj) 2 mg IV.PUSH Q3H PRN PRN Reason: PAIN SCALE 6 TO 10 Last Admin: 02/16/18 11:47 Dose: 2 mg Nitroglycerin (Nitrostat Sl) 0.4 mg SL Q5M PRN PRN Reason: ANGINA Pantoprazole Sodium (Protonix) 40 mg PO DAILY [facility] Last Admin: 02/16/18 08:16 Dose: 40 mg Sertraline HCl (Zoloft) 50 mg PO DAILY [facility] Last Admin: 02/16/18 08:16 Dose: 50 mg Sodium Chloride (Ns Flush) 2 ml IV.FLUSH UNSCH PRN PRN Reason: FLUSH AFTER USING IV ACCESS Sodium Chloride (Ns Flush) 2 ml IV.FLUSH BID [facility] Last Admin: 02/16/18 08:17 Dose: 2 ml Sodium Chloride (Ns Flush) 2 ml IV.FLUSH PRN PRN PRN Reason: FLUSH AFTER USING IV ACCESS Ticagrelor (Brilinta) 90 mg PO BID [facility] Last Admin: 02/16/18 08:16 Dose: 90 mg Trazodone HCl (Desyrel) 100 mg PO [facility] Allergies Allergy/AdvReac Type Severity Reaction Status Date / Time Penicillins Allergy Severe Hives Verified 02/15/18 22:40 lisinopril Allergy Mild Rash Verified 02/15/18 22:40 shellfish derived Allergy Unknown RASH Verified 02/15/18 22:40 Home Medications Medication Instructions Recorded Confirmed Type alprazolam [Xanax] 0.5 mg PO BID PRN 02/15/18 02/15/18 History aspirin 81 mg PO DAILY 02/15/18 02/15/18 History atorvastatin 80 mg PO DAILY 02/15/18 02/15/18 History gabapentin 600 mg PO BID 02/15/18 02/15/18 History insulin aspart U-100 [Novolog 1 sliding scale dose SUB-Q UD 02/15/18 02/15/18 History U-100 Insulin aspart] insulin glargine [Lantus U-100 30 unit SUB-Q HS 02/15/18 02/15/18 History Insulin] isosorbide mononitrate 20 mg PO DAILY 02/15/18 02/15/18 History metformin 500 mg PO TID 02/15/18 02/15/18 History nitroglycerin 0.4 mg SUBLINGUAL Q5-15M PRN 02/15/18 02/15/18 History pantoprazole 40 mg PO DAILY 02/15/18 02/15/18 History sertraline 50 mg PO DAILY 02/15/18 02/15/18 History ticagrelor [Brilinta] 90 mg PO BID 02/15/18 02/15/18 History trazodone 100 mg PO DAILY 02/15/18 02/15/18 History Exam Vital signs: Vital Signs 02/15/18 22:33 02/16/18 01:36 02/16/18 02:00 Temperature 98.0 F Pulse Rate 98 H 85 82 Respiratory Rate 20 16 16 Blood Pressure 142/82 H 193/101 H 189/100 H Pulse Oximetry 98 100 100 02/16/18 03:00 02/16/18 04:00 02/16/18 08:04 Temperature 97.8 F Pulse Rate 86 86 81 Respiratory Rate 22 20 14 Blood Pressure 176/88 H 176/84 H 140/66 Pulse Oximetry 99 99 98 02/16/18 08:06 02/16/18 11:50 Temperature Pulse Rate 81 Respiratory Rate 12 17 Blood Pressure 137/73 Pulse Oximetry 100 Intake & Output 02/15/18 02/16/18 02/16/18 18:59 06:59 18:59 Weight 58.967 kg Narrative: GENERAL: Well-nourished, well-developed middle aged female patient in [facility]. SKIN: Warm and dry. No rash. Right groin with sutures and enoc in place, tender to palpation, no significant erythema/edema, no drainage, appears to be healing well. HEENT: Normocephalic. Atraumatic. Pupils equal and round. Mucous membranes pink and moist. NECK: Supple. Trachea midline. CARDIOVASCULAR: Regular rate and rhythm. No murmur appreciated. RESPIRATORY: No accessory muscle use. Clear to auscultation. Breath sounds equal bilaterally. GASTROINTESTINAL: Abdomen soft, non-tender, nondistended. Normoactive bowel sounds x4. MUSCULOSKELETAL: No obvious deformities. Extremities without clubbing, cyanosis , or edema. NEUROLOGICAL: Awake and alert. No obvious cranial nerve deficits. Motor grossly within normal limits. Moving all extremities spontaneously. Normal speech. PSYCHIATRIC: Appropriate mood and affect; insight and judgment normal. Results - Labs CBC & Chem 7: 02/17/18 09:55 02/17/18 16:21 Labs: Laboratory Results - last 24 hr 02/16/18 02/16/18 02/16/18 01:45 01:45 01:45 WBC 11.8 H RBC 3.36 L Hgb 9.2 L Hct 27.5 L MCV 81.8 MCH 27.3 MCHC 33.4 RDW 17.9 H Plt Count 587 H MPV 7.1 Neut % (Auto) 67.3 Lymph % (Auto) 23.3 [place] % (Auto) 6.2 Eos % (Auto) 2.6 Baso % (Auto) 0.6 Neut # (Auto) 8.0 H Lymph # (Auto) 2.8 [place] # (Auto) 0.7 Eos # (Auto) 0.3 Baso # (Auto) 0.1 WBC Differential . Differential Comment Auto diff final PT 9.6 L INR 0.9 APTT 25.4 D-Dimer Quant (PE/DVT) 1.71 H Sodium Potassium Chloride Carbon Dioxide Anion Gap BUN Creatinine Estimated GFR Random Glucose Calcium Magnesium Total Bilirubin AST ALT Alkaline Phosphatase Total Creatine Kinase Troponin I Total Protein Albumin Lipase 02/16/18 02/16/18 01:45 08:23 WBC RBC Hgb Hct MCV MCH MCHC RDW Plt Count MPV Neut % (Auto) Lymph % (Auto) [place] % (Auto) Eos % (Auto) Baso % (Auto) Neut # (Auto) Lymph # (Auto) [place] # (Auto) Eos # (Auto) Baso # (Auto) WBC Differential Differential Comment PT INR APTT D-Dimer Quant (PE/DVT) Sodium 136 Potassium 4.6 Chloride 104 Carbon Dioxide 24.6 Anion Gap 7 BUN 16 Creatinine 1.09 H Estimated GFR 67 L Random Glucose 283 H Calcium 9.1 Magnesium 1.7 Total Bilirubin 0.2 AST 17 ALT 24 Alkaline Phosphatase 132 H Total Creatine Kinase 59 52 Troponin I 0.14 H 0.14 H Total Protein 8.7 H Albumin 3.6 Lipase 263 - Imaging Impressions Lower Extremity Ultrasound 02/16/18 01:46 CONCLUSION: 1. Small fluid collection within the right groin possibly related to seroma or hematoma. No pseudoaneurysm. Chest X-Ray 02/16/18 01:47 CONCLUSION: Negative examination. Abdomen/Pelvis CT 02/16/18 02:13 CONCLUSION: 1. No acute abnormality on this unenhanced study. 2. Emphysematous changes within the visualized lung bases. Chest CTA 02/16/18 04:35 CONCLUSION: 1. This study is negative for pulmonary embolism. Caprini VTE Risk Assessment Caprini VTE Risk Assessment: No/Low Risk (score <= 1) Caprini Risk Assessment Model: Point Value = 1 Point Value = 2 Point Value = 3 Point Value = 5 Age 41-60 Minor surgery BMI > 25 kg/m2 Swollen legs Varicose veins or History of unexplained or recurrent spontaneous Oral contraceptives or hormone replacement Sepsis (< 1 month) Serious lung disease, including pneumonia (< 1 month) Abnormal pulmonary function Acute myocardial infarction Congestive heart failure (< 1 month) History of inflammatory bowel disease Medical patient at bed rest Age 61-74 Arthroscopic surgery Major open surgery (> 45 min) Laparoscopic surgery (> 45 min) Malignancy Confined to bed (> 72 hours) Immobilizing plaster cast Central venous access Age >= 75 History of VTE Family history of VTE Factor V Leiden Prothrombin [id number] Lupus anticoagulant Anticardiolipin antibodies Elevated serum homocysteine Heparin-induced thrombocytopenia Other congenital or acquired thrombophilia Stroke (< 1 month) Elective arthroplasty Hip, pelvis, or leg fracture Acute spinal cord injury (< 1 month) Prophylaxis Regimen: Total Risk Factor Score Risk Level Prophylaxis Regimen 0-1 Low Early ambulation 2 Moderate Order ONE of the following: *Sequential Compression Device (SCD) *Heparin 5000 units SQ BID 3-4 Higher Order ONE of the following medications: *Heparin 5000 units SQ TID *Enoxaparin/Lovenox 40 mg SQ daily (WT < 150 kg, CrCl > 30 mL/min) *Enoxaparin/Lovenox 30 mg SQ daily (WT < 150 kg, CrCl > 10-29 mL/min) *Enoxaparin/Lovenox 30 mg SQ BID (WT < 150 kg, CrCl > 30 mL/min) AND/OR *Sequential Compression Device (SCD) 5 or more Highest Order ONE of the following medications: *Heparin 5000 units SQ TID (Preferred with Epidurals) *Enoxaparin/Lovenox 40 mg SQ daily (WT < 150 kg, CrCl > 30 mL/min) *Enoxaparin/Lovenox 30 mg SQ daily (WT < 150 kg, CrCl > 10-29 mL/min) *Enoxaparin/Lovenox 30 mg SQ BID (WT < 150 kg, CrCl > 30 mL/min) AND *Sequential Compression Device (SCD) Assessment and Plan - Plan 42-year-old female with history of CAD status post CABG and recent cardiac catheterization with stent placement, DM, HTN, presents with increasing right groin pain and difficulty ambulating. Patient reports she recently had a cardiac catheterization done on 02/03/18 with stent placement 1, discharged on Brilinta. She states she subsequently developed a large hematoma at the right groin catheter site, and ultimately underwent thrombectomy on 02/07 at [facility]. Right Groin Pain: at prior cardiac cath and thrombectomy site. -RLE U/S showed Small fluid collection within the right groin possibly related to seroma or hematoma. No pseudoaneurysm. -CT abd/pelvis with no acute abnormalities, no retroperitoneal bleeding reported -Continue pain control with norco and IV morphine prn -Consult PT -Monitor for improvement Chest Pain with hx of CAD s/p CABG and stents: atypical. Suspect anxiety related as pain intensified with worsening right groin pain. However with extensive cardiac history -Chest CTA reviewed, negative for PE -Troponins trended but flat at 0.12 -Continue home medications including patient's Brilinta -Monitor on telemetry -IV morphine prn -Consult cardiology Diabetes: chronic -Hold patient's metformin -Continue lantus -Monitor accu-checks and cover with SSI HTN/HLD: chronic -continue patient's home meds including metoprolol and statin -Monitor BP, adjust antihypertensives as needed DVT Prophylaxis: teds/SCDs; on Brilinta
[2018-02-16 14:51] LABS: Troponin I 0.13 ng/mL (0.02-0.05)
[2018-02-16] MEDS ORDERED: traZODone 100 MG Tablet PO SCH (21:00)
[2018-02-16] MEDS ORDERED: Gabapentin 300 MG Capsule PO SCH (21:00)
[2018-02-16] MEDS ORDERED: Insulin Detemir Inj 1,000 UNIT/10 ML Vial SQ SCH (21:00)
--- NOTE | 2018-02-16 21:22 | ECG ---
Date Performed: 02/16/2018 Time Performed: 08:21:59 PTAGE: 42 years EKG: Sinus rhythm POSSIBLE LEFT ATRIAL ENLARGEMENT POSSIBLE RIGHT VENTRICULAR CONDUCTION DELAY BORDERLINE ECG PREVIOUS TRACING : 02/16/2018 00.47 Since the previous tracing, no significant change noted DOCTOR: Mendoza Benton Interpretating Date/Time 02/16/2018 21:21:16
--- NOTE | 2018-02-16 21:42 | ECG ---
Date Performed: 02/16/2018 Time Performed: 00:47:14 PTAGE: 42 years EKG: Sinus rhythm POSSIBLE LEFT ATRIAL ENLARGEMENT INCOMPLETE RIGHT BUNDLE BRANCH BLOCK MINIMAL ST DEPRESSION BORDERLI NE ECG PREVIOUS TRACING : 08/09/2017 01.42 Since the previous tracing, no significant change noted DOCTOR: Mendoza Benton Interpretating Date/Time 02/16/2018 21:40:23
[2018-02-17] MEDS: Morphine Inj 4 MG/ML Vial IV.PUSH PRN ×4 (03:49→16:26)
--- NOTE | 2018-02-17 08:58 | P.PN ---
Subjective Interval history: Follow-up for right groin pain, chest pain. The patient reports overall feeling better today. She states his pain is well controlled except for some pinpoint pain at 1 of the superior enoc, worse with movement or palpation. She has been able to ambulate. She denies any fevers or chills. Denies any erythema or drainage from surgical site. She denies any chest pain overnight. Continues to deny any shortness of breath, palpitations, or abdominal complaints. She feels ready for discharge. She has an upcoming appointment with her PCP at [facility] and plans to follow-up there for suture/ staple removal. She also plans to follow-up with Dr. Benton for cardiology. She has no other medical complaints at this time. Physical Exam Vital signs: Vital Signs 02/16/18 11:50 02/16/18 15:50 02/16/18 20:00 Temperature 98.7 F Pulse Rate 81 75 78 Respiratory Rate 17 19 18 Blood Pressure 137/73 123/72 143/82 H Pulse Oximetry 100 100 02/17/18 00:15 02/17/18 05:00 02/17/18 08:00 Temperature 97.2 F L 96.5 F L 98.1 F Pulse Rate 83 81 74 Respiratory Rate 20 16 Blood Pressure 122/68 95/53 L 103/57 L Pulse Oximetry 98 98 98 Intake & Output 02/16/18 02/17/18 02/17/18 18:59 06:59 18:59 Weight 62.596 kg 62.596 kg Other: # Voids 2 Date of Last Bowel Movement 02/15/18 Weight On Admission 62.596 kg Narrative: GENERAL: Well-nourished, well-developed middle aged female patient in [facility]. SKIN: Warm and dry. No rash. Right groin with sutures and enoc in place, nontender to palpation today, no erythema/edema/drainage, appears to be healing well. HEENT: Normocephalic. Atraumatic. Pupils equal and round. Mucous membranes pink and moist. CARDIOVASCULAR: Regular rate and rhythm. No murmur appreciated. RESPIRATORY: No accessory muscle use. Clear to auscultation. Breath sounds equal bilaterally. GASTROINTESTINAL: Abdomen soft, non-tender, nondistended. MUSCULOSKELETAL: No obvious deformities. Extremities without clubbing, cyanosis , or edema. NEUROLOGICAL: Awake and alert. No obvious cranial nerve deficits. Moving all extremities spontaneously. Normal speech. PSYCHIATRIC: Appropriate mood and affect; insight and judgment normal. Results - Labs CBC & Chem 7: 02/17/18 09:55 02/17/18 09:55 Laboratory Results - last 24 hr 02/16/18 02/16/18 02/16/18 08:23 14:01 18:02 POC Glucose 206 H Total Creatine Kinase 52 43 Troponin I 0.14 H 0.13 H 02/16/18 21:19 POC Glucose 392 H Total Creatine Kinase Troponin I - Imaging Lower Extremity Ultrasound 02/16/18 01:46 CONCLUSION: 1. Small fluid collection within the right groin possibly related to seroma or hematoma. No pseudoaneurysm. Chest X-Ray 02/16/18 01:47 CONCLUSION: Negative examination. Abdomen/Pelvis CT 02/16/18 02:13 CONCLUSION: 1. No acute abnormality on this unenhanced study. 2. Emphysematous changes within the visualized lung bases. Chest CTA 02/16/18 04:35 CONCLUSION: 1. This study is negative for pulmonary embolism. Assessment and Plan - Plan 42-year-old female with history of CAD status post CABG and recent cardiac catheterization with stent placement, DM, HTN, presents with increasing right groin pain and difficulty ambulating. Patient reports she recently had a cardiac catheterization done on 02/03/18 with stent placement 1, discharged on Brilinta. She states she subsequently developed a large hematoma at the right groin catheter site, and ultimately underwent thrombectomy on 02/07 at [facility]. Right Groin Pain: at prior cardiac cath and thrombectomy site. -RLE U/S showed Small fluid collection within the right groin possibly related to seroma or hematoma. No pseudoaneurysm. -CT abd/pelvis with no acute abnormalities, no retroperitoneal bleeding reported -Continue pain control with norco and IV morphine prn -Consult PT -Patient much improved overnight, pain relieved with [place], stable for discharge Chest Pain with hx of CAD s/p CABG and stents: atypical. Suspect anxiety related as pain intensified with worsening right groin pain. However with extensive cardiac history -Chest CTA reviewed, negative for PE -Troponins trended but flat at 0.12 -Continue home medications including patient's Brilinta -Monitor on telemetry -IV morphine prn -Consult cardiology, discussed with Dr. Benton, ok to d/c home from cardiac standpoint, outpatient f/up Orthostatic Hypotension: patient with BP into 70s/40s when attempting ambulation with PT. -Suspect component of dehydration as Cr increased from 1.09 to 1.41 overnight -Give IVF with NS @250cc/hr x1L -Recheck orthostatics prior to discharge -Decrease patient's home metoprolol dosing KADE: Cr bumped to 1.41 overnight. Suspect prerenal secondary to dehydration, patient was NPO most of the day yesterday. -give IVF hydration -avoid nephrotoxins -Repeat BMP this afternoon Diabetes: chronic -Hold patient's metformin -Continue lantus -Monitor accu-checks and cover with SSI HTN/HLD: chronic -continue patient's home meds including metoprolol and statin -Monitor BP, adjust antihypertensives as needed DVT Prophylaxis: teds/SCDs; on Brilinta Discharge Planning: Plan to d/c home today if repeat BMP this afternoon shows improvement and if SBP > 90. Discussed with RN, title curator, and Case management. Discharge patient to home Condition on discharge: Stable Heart Healthy/Diabetic Diet as tolerated Ad Latonya activity Rx written: metoprolol 12.5mg po bid, [place] 7.5/325mg q4h prn #12 tablets ( patient researched on [employer], last filled narcotics in [place] was Tramdol in .) Follow-up with primary care physician as scheduled and cardiology Dr. Benton
[2018-02-17] MEDS: Isosorbide Mononitrate 20 MG Tablet PO SCH (09:37)
[2018-02-17] MEDS: Sertraline 50 MG Tablet PO SCH (09:38)
[2018-02-17] MEDS: Gabapentin 300 MG Capsule PO SCH (09:38)
[2018-02-17 10:11] LABS: Baso # (Auto) 0.1 th/mm3 (0.0-0.2); Baso % (Auto) 0.6 % (0.0-2.0); Eos # (Auto) 0.3 th/mm3 (0.0-0.4); Eos % (Auto) 3.3 % (0.0-4.0); Hematocrit 29.2 % (35.0-46.0); Hemoglobin 9.5 gm/dL (11.6-15.3); Lymph # (Auto) 2.3 th/mm3 (1.0-4.8); Lymph % (Auto) 23.4 % (9.0-44.0); Mean Corpuscular HGB Conc 32.4 % (32.0-36.0); Mean Corpuscular Volume 83.2 fL (80.0-100.0); Mean Platelet Volume 6.7 fL (7.0-11.0); Mono # (Auto) 0.6 th/mm3 (0.0-0.9); Mono % (Auto) 5.9 % (0.0-8.0); Neut # (Auto) 6.5 th/mm3 (1.8-7.7); Neut % (Auto) 66.8 % (16.0-70.0); Platelet Count 520 th/mm3 (150-450); Red Cell Distribution Width 18.1 % (11.6-17.2); White Blood Count 9.7 th/mm3 (4.0-11.0)
[2018-02-17] MEDS: Insulin NovoLOG Aspart Correctional Sugar Inj SQ SCH ×2 (10:28→14:06)
[2018-02-17 10:29] LABS: Calcium 8.8 mg/dL (8.5-10.1); Carbon Dioxide 25.6 meq/L (21.0-32.0)
[2018-02-17] MEDS ORDERED: Sod Chloride 0.9% Inj 1,000 ML IV.CONT SCH (10:30)
--- NOTE | 2018-02-17 13:29 | ECG ---
Date Performed: 02/16/2018 Time Performed: 13:59:33 PTAGE: 42 years EKG: Sinus rhythm POSSIBLE LEFT ATRIAL ENLARGEMENT NONSPECIFIC T-WAVE ABNORMALITY BORDERLINE ECG PREVIOUS TRACING : 02/16/2018 08.21 Since the previous tracing, no significant change noted DOCTOR: Omero Lew Interpretating Date/Time 02/17/2018 13:27:08
[2018-02-17 16:59] LABS: Calcium 8.8 mg/dL (8.5-10.1); Potassium 5.1 meq/L (3.5-5.1)
--- NOTE | 2018-02-18 00:47 | MB ---
cc: Mendoza Benton DO DATE: 02/17/2018 REASON FOR CONSULTATION: Groin pain, chest pain. HISTORY OF PRESENT ILLNESS: Piper Nielsen is a 42-year-old female whom I previously saw in the office and presented to [facility] due to increasing right groin pain. She has a long cardiac history including bypass and multiple cardiac catheterizations. She was up in [place] and decided to go to [facility] to see you what "they could do for her heart." She underwent a cardiac catheterization on 02/03/2018 with 1 stent placed to an unknown vessel. She was discharged home on Brilinta. She subsequently developed a large hematoma at the right groin site and ultimately underwent open thrombectomy on 02/07/2018 at [facility]. She was given a prescription for oxycodone and tried to fill it here in [place] which was unsuccessful. Because of this, she has had significant pain in the groin, and so she presented to the hospital. While here when asked about symptoms, she states that she had chest pain 3/10. She has since been given pain medication for her right groin wound and states that she feels better. PAST MEDICAL HISTORY: 1. Coronary artery disease with multiple myocardial infarctions. 2. Diabetes. 3. Hypertension. PAST SURGICAL HISTORY: 1. Cardiac catheterization (02/03/2018) at [facility] with stent placed to unknown vessel. 2. Cardiac catheterization (07/27/2017): Left main, 20%, LAD 20% proximal. Multiple stents in the mid portion of the LAD with 100% stenosis, gives off 2 major diagonals, both overall small with the first having 50% ostial stenosis and the second having 70% ostial stenosis. Left circumflex is a small vessel overall with a lesion of 50%. First OM has a 50% ostial lesion. RCA is small to moderate sized with a 70% lesion in the mid portion. ASH to LAD is patent and supplies the distal LAD. 3. Cardiac catheterization (08/02/2017): PCI of the RCA with an [place] drug-eluting stent (2.25 x 12). 4. History of 8 stents per the patient with 1 in the RCA as above and 6 believed to be in the LAD while in [place], and the last one being recently placed at [facility] to an unknown vessel. 5. Single vessel bypass with ASH to LAD at [facility] in [place] (05/2017). 6. Cholecystectomy (2012). 7. BTL (2010). 8. Appendectomy (1980). ALLERGIES: 1. PENICILLIN. 2. LISINOPRIL. 3. SHELLFISH. MEDICATIONS: 1. Lipitor 80 mg daily. 2. Zoloft 50 mg daily. 3. Gabapentin 3 times a day, 600 mg twice and 900 at every night. 4. Toprol-XL 25 mg b.i.d. 5. Trazodone 100 mg daily. 6. Lantus 30 units every night. 7. Xanax 0.5 mg twice a day as needed. 8. Isosorbide mononitrate 20 mg daily. 9. Brilinta 90 mg b.i.d. 10. Aspirin 81 mg daily. 11. Protonix 40 mg daily. 12. Nitroglycerin sublingual as needed. 13. Metformin 500 mg t.i.d. FAMILY HISTORY: Multiple family members on her mother's side have had coronary artery disease at a young age. SOCIAL HISTORY: The patient previously smoked 1 pack a day for 25 years but stopped around a year ago. She denies alcohol or drug abuse. REVIEW OF SYSTEMS: Fourteen systems were reviewed including osteopathic. Pertinent positives and negatives above. Otherwise negative. PHYSICAL EXAMINATION: VITAL SIGNS: Temperature 97.6, heart rate 77, blood pressure 100/56, respirations 16, pulse oximetry 99% on room air. GENERAL: The patient appears well, in no acute distress. Alert, awake, and oriented x3. HEENT: Extraocular muscles intact. Mucous membranes moist. NECK: Supple. No JVD at 45 degrees. No carotid bruits heard bilaterally. Carotid upstroke is brisk in nature. HEART: Regular rate and rhythm. Positive first and second heart sounds with no noted murmurs, gallops or rubs. LUNGS: Clear to auscultation bilaterally. No wheezes, rales, or rhonchi. ABDOMEN: Soft, nontender, nondistended. No organomegaly noted. EXTREMITIES: No clubbing, cyanosis, or edema. Right groin has incision with enoc. Mildly tender to palpation, but no significant fluid collection or erythema noted underneath. NEUROLOGIC: No focal deficits. SKIN: Warm, dry, and intact. OSTEOPATHIC: No kyphoscoliosis, lordosis, or paraspinal tender points. LABORATORY DATA: Hemoglobin 9.5, hematocrit 29.2, platelets 520. Potassium 5.0, BUN 17, creatinine 1.41, troponin flat at 0.14. Electrocardiogram (02/16/2018 at 1359): Sinus rhythm, possible left atrial enlargement, nonspecific ST-T wave changes. IMPRESSIONS: 1. Right groin pain secondary to previous hematoma removal and closure. 2. Chest pain, atypical in nature. 3. Significant coronary artery disease with history of coronary artery bypass graft as above and multiple interventions. 4. Acute kidney injury. 5. Diabetes. 6. Hypertension. 7. Hyperlipidemia. 8. Family history of premature coronary artery disease. RECOMMENDATIONS: 1. Ms. Nielsen presented with groin pain secondary to her previous hematoma removal. This has been investigated with a CT and ultrasound showing no significant problems. Since started on pain medications, she has felt better, and this is most likely just post-surgical. 2. As far as chest pain goes, her pain is atypical in nature. Ms. Nielsen earlier this year, both in the hospital and in the office, she has always complained of some chest pain with anxiety. She has also had a mildly elevated troponin throughout. We will attempt to keep trying to treat her medically as she has had significant amount of interventions including 8 stents and coronary artery bypass grafting. She is agreeable with this plan. 3. She is cardiovascularly stable to be discharged later today from my standpoint. 4. This was discussed with the primary team and the patient. Thank you for allowing me to see Piper Nielsen. If there are any questions, please do not hesitate to call. DO MAURIZIO Lundberg/rm , 10:42 PM , 10:59 PM
== END 2018-02-17 18:34 | disposition home or self-care (01) ==
LOC: NEPE 22:29 → NEDA 22:29 → NEPFCDU 02-16 16:40
PROVIDERS: ADMIT Internal Medicine; ATTEND Internal Medicine
DX: R74.8 Abnormal levels of other serum enzymes; Z82.49 Family history of ischemic heart disease and other diseases of the circulatory system; Z95.1 Presence of aortocoronary bypass graft; R10.31 Right lower quadrant pain; Z79.4 Long term (current) use of insulin; Z95.5 Presence of coronary angioplasty implant and graft; N17.9 Acute kidney failure, unspecified; Z83.3 Family history of diabetes mellitus; I95.1 Orthostatic hypotension; G89.18 Other acute postprocedural pain; F17.210 Nicotine dependence, cigarettes, uncomplicated; R07.89 Other chest pain; M79.604 Pain in right leg; I10 Essential (primary) hypertension; Z88.0 Allergy status to penicillin; E11.9 Type 2 diabetes mellitus without complications; I25.10 Atherosclerotic heart disease of native coronary artery without angina pectoris; Z79.82 Long term (current) use of aspirin; I25.2 Old myocardial infarction; E78.5 Hyperlipidemia, unspecified; M25.552 Pain in left hip

== ENCOUNTER 2018-02-23 21:10 | Observation (INO) ==
--- NOTE | 2018-02-23 21:38 | ED ---
HPI General Chief Complaint: Chest Pain Stated Complaint: Chest Pain Time Seen by Provider: 02/23/18 21:20 History of Present Illness HPI narrative: Patient is a 42-year-old female who had sudden onset of chest pain while walking left-sided. She took a baby aspirin herself and paramedics were called they arrived to find her mildly hypertensive gave her 3 more baby aspirins and 3 sublingual. It helped mildly reduced the pain however she still has left-sided chest pain. She has had multiple stents she said she has a bad cardiac family history her mother had a PA 42. Patient had 2 weeks ago a stent placed at another hospital. She is on multiple medications including aspirin Metformin isosorbide she is diabetic on insulin she takes aspirin Brilinta. Pain is a heavy pressure-like left-sided with radiation towards the left shoulder Complete Quality Measures for STEMI Alert Patients Related Data Home Medications Medication Instructions Recorded Confirmed alprazolam [Xanax] 0.5 mg PO BID PRN 02/15/18 02/15/18 aspirin 81 mg PO DAILY 02/15/18 02/15/18 atorvastatin 80 mg PO DAILY 02/15/18 02/15/18 gabapentin 600 mg PO BID 02/15/18 02/15/18 insulin aspart U-100 [Novolog 1 sliding scale dose SUB-Q UD 02/15/18 02/15/18 U-100 Insulin aspart] insulin glargine [Lantus U-100 30 unit SUB-Q HS 02/15/18 02/15/18 Insulin] isosorbide mononitrate 20 mg PO DAILY 02/15/18 02/15/18 metformin 500 mg PO TID 02/15/18 02/15/18 nitroglycerin 0.4 mg SUBLINGUAL Q5-15M PRN 02/15/18 02/15/18 pantoprazole 40 mg PO DAILY 02/15/18 02/15/18 sertraline 50 mg PO DAILY 02/15/18 02/15/18 ticagrelor [Brilinta] 90 mg PO BID 02/15/18 02/15/18 trazodone 100 mg PO DAILY 02/15/18 02/15/18 Previous Rx's Medication Instructions Recorded hydrocodone-acetaminophen 1 tab PO Q4H PRN #12 tab 02/17/18 metoprolol tartrate 12.5 mg PO BID 30 Days #30 tab 02/17/18 Allergies Allergy/AdvReac Type Severity Reaction Status Date / Time Penicillins Allergy Severe Hives Verified 02/15/18 22:40 lisinopril Allergy Mild Rash Verified 02/15/18 22:40 shellfish derived Allergy Unknown RASH Verified 02/15/18 22:40 Review of Systems ROS: all other systems reviewed are negative Cardiovascular Reports chest pain PMFSH Social History Social History Substance History: No History of Abuse Second Hand Smoke Exposure: No Smoking Status: Former smoker Tobacco Type: Cigarettes How Often Do You Have a Drink Containing Alcohol: Never Recent Travel in [facility] within the Last 8 Weeks: No Recent Out of Country Travel within the Last 8 Weeks: No Immunization History Tetanus Immunization: <5 Years Hx Influenza Vaccine This Season: No Exam Narrative Exam Narrative: GENERAL: pt is non diaphoretic no active vomiting , no active distress SKIN: Warm and dry. HEAD: Atraumatic. Normocephalic. EYES: Pupils equal and round. No scleral icterus. No injection or drainage. ENT: No nasal bleeding or discharge. Mucous membranes pink and moist. NECK: Trachea midline. No JVD. CARDIOVASCULAR: Regular rate and rhythm. midline cardiac sternotomy scar visible RESPIRATORY: No accessory muscle use. Clear to auscultation. Breath sounds equal bilaterally. GASTROINTESTINAL: Abdomen soft, non-tender, nondistended. Hepatic and splenic margins not palpable. MUSCULOSKELETAL: Extremities without clubbing, cyanosis, or edema. No obvious deformities. NEUROLOGICAL: Awake and alert. No obvious cranial nerve deficits. Motor grossly within normal limits. Five out of 5 muscle strength in the arms and legs. Normal speech. PSYCHIATRIC: Appropriate mood and affect; insight and judgment normal. Course Initial Documented Vital Signs Temperature 98.1 F 02/23/18 21:17 Pulse Rate 102 H 02/23/18 21:17 Respiratory Rate 18 02/23/18 21:17 Blood Pressure 170/94 H 02/23/18 21:17 Pulse Oximetry 100 02/23/18 21:17 Last Documented Vital Signs Temperature 98.1 F 02/23/18 21:17 Pulse Rate 94 H 02/23/18 23:41 Respiratory Rate 18 02/23/18 23:41 Blood Pressure 150/84 H 02/23/18 23:41 Pulse Oximetry 99 02/23/18 23:41 Medical Decision Making [facility] Narrative Medical decision making narrative: Patient's first troponin is 0.06 EKG is normal sinus rhythm at a rate of 99 bpm patient is received 4 baby aspirin en route as well as 3 sublingual nitro Medical Screen Exam Complete: Yes Emergency Medical Condition: Yes Differential Diagnosis Differential Diagnosis: Differential diagnosis includes cardiac ischemia pain versus costochondritis pain versus sternotomy scar pain versus pneumonia versus pneumothorax versus tachycardia rate dependent ischemia Lab Data Result diagrams: 02/23/18 21:30 02/23/18 21:30 Lab Results 02/23/18 02/23/18 02/23/18 Range/Units 21:30 21:30 21:30 WBC 9.7 (4.0-11.0) th/mm3 RBC 3.41 L (4.00-5.30) mil/mm3 Hgb 9.5 L (11.6-15.3) gm/dL Hct 27.8 L (35.0-46.0) % MCV 81.6 (80.0-100.0) fL MCH 27.9 (27.0-34.0) pg MCHC 34.2 (32.0-36.0) % RDW 17.1 (11.6-17.2) % Plt Count 519 H (150-450) th/mm3 MPV 7.4 (7.0-11.0) fL Neut % (Auto) 66.2 (16.0-70.0) % Lymph % (Auto) 24.6 (9.0-44.0) % [place] % (Auto) 5.8 (0.0-8.0) % Eos % (Auto) 2.7 (0.0-4.0) % Baso % (Auto) 0.7 (0.0-2.0) % Neut # (Auto) 6.4 (1.8-7.7) th/mm3 Lymph # (Auto) 2.4 (1.0-4.8) th/mm3 [place] # (Auto) 0.6 (0.0-0.9) th/mm3 Eos # (Auto) 0.3 (0.0-0.4) th/mm3 Baso # (Auto) 0.1 (0.0-0.2) th/mm3 WBC Differential . Differential Comment Auto diff final Sodium 136 (136-145) meq/L Potassium 3.9 (3.5-5.1) meq/L Chloride 99 (98-107) meq/L Carbon Dioxide 24.4 (21.0-32.0) meq/L Anion Gap 13 (5-15) meq/L BUN 25 H (7-18) mg/dL Creatinine 1.25 H (0.50-1.00) mg/dL Estimated GFR 57 L (>89) mL/min Random Glucose 281 H (74-106) mg/dL Calcium 8.7 (8.5-10.1) mg/dL Total Bilirubin 0.2 (0.2-1.0) mg/dL AST 14 L (15-37) U/L ALT 22 (10-53) U/L Alkaline Phosphatase 144 H (45-117) U/L Total Creatine Kinase 53 (26-192) U/L Troponin I 0.06 H (0.02-0.05) ng/mL Total Protein 8.4 H (6.4-8.2) g/dL Albumin 3.9 (3.4-5.0) g/dL Imaging Data Radiologist's impression: Chest X-Ray 02/23/18 21:23 CONCLUSION: No acute cardiopulmonary process. Discharge Plan Discharge Disposition Patient Disposition: 30 Still Patient Physicians Team ED Provider: Brett Madrigal Primary Care Provider: Zunilda Trujillo Attending Provider: Lorenzo Nelson Discharge Interventions Interventions: Vital Signs Last Done: 02/23/18 23:41 Status ED Status: Admitted Observation Patient
--- NOTE | 2018-02-23 21:56 | XR ---
EXAM DATE: 02/23/2018 9:41 PM EDT AGE/SEX: 42 years / Female INDICATIONS: Chest pain for 1 hour. CLINICAL DATA: This is the patient's initial encounter. Patient reports that signs and symptoms have been present for 1 day and indicates a pain score of 10/10. MEDICAL/SURGICAL HISTORY: None. CABG. 8 stents. Last stent placement on 02/16/2018 COMPARISON: [facility], CHEST 1V SINGLE AP, 02/16/2018. . FINDINGS: The patient is status post sternotomy. The heart size is normal. The lungs are clear. No effusion is seen. CONCLUSION: No acute cardiopulmonary process. Electronically signed by: Kurt Lim MD 02/23/2018 9:54 PM EDT
[2018-02-23 22:27] LABS: Baso # (Auto) 0.1 th/mm3 (0.0-0.2); Baso % (Auto) 0.7 % (0.0-2.0); Eos # (Auto) 0.3 th/mm3 (0.0-0.4); Eos % (Auto) 2.7 % (0.0-4.0); Hematocrit 27.8 % (35.0-46.0); Hemoglobin 9.5 gm/dL (11.6-15.3); Lymph # (Auto) 2.4 th/mm3 (1.0-4.8); Lymph % (Auto) 24.6 % (9.0-44.0); Mean Corpuscular HGB Conc 34.2 % (32.0-36.0); Mean Corpuscular Hemoglobin 27.9 pg (27.0-34.0); Mean Corpuscular Volume 81.6 fL (80.0-100.0); Mean Platelet Volume 7.4 fL (7.0-11.0); Mono # (Auto) 0.6 th/mm3 (0.0-0.9); Mono % (Auto) 5.8 % (0.0-8.0); Neut # (Auto) 6.4 th/mm3 (1.8-7.7); Neut % (Auto) 66.2 % (16.0-70.0); Platelet Count 519 th/mm3 (150-450); Red Blood Count 3.41 mil/mm3 (4.00-5.30); Red Cell Distribution Width 17.1 % (11.6-17.2); White Blood Count 9.7 th/mm3 (4.0-11.0)
[2018-02-23 22:34] LABS: Albumin 3.9 g/dL (3.4-5.0); Anion Gap 13 meq/L (5-15); Aspartate Aminotransferase 14 U/L (15-37); Blood Urea Nitrogen 25 mg/dL (7-18); Calcium 8.7 mg/dL (8.5-10.1); Carbon Dioxide 24.4 meq/L (21.0-32.0); Chloride 99 meq/L (98-107); Glomerular Filtration Rate 57 mL/min (>89); Glucose,Random 281 mg/dL (74-106); Potassium 3.9 meq/L (3.5-5.1); Sodium 136 meq/L (136-145)
[2018-02-23] MEDS ORDERED: Morphine Inj 4 MG/ML Vial IV.PUSH ONE (22:36)
[2018-02-23 22:37] LABS: Alanine Aminotransferase 22 U/L (10-53); Alkaline Phosphatase 144 U/L (45-117); Total Protein 8.4 g/dL (6.4-8.2); Troponin I 0.06 ng/mL (0.02-0.05)
[2018-02-23] MEDS ORDERED: Bisacodyl 10 MG Supp RECTAL PRN (23:43)
[2018-02-23] MEDS ORDERED: Dextrose 50% in Water 50 ML Vial IV.PUSH PRN (23:46)
[2018-02-24] MEDS: Sod Chloride 0.9% Inj 1,000 ML IV.CONT SCH ×2 (00:06→10:37)
--- NOTE | 2018-02-24 01:02 | P.HPIM ---
History of Present Illness Primary Care Physician: Zunilda Trujillo History of Present Illness: 42-year-old female with a history of CAD status post CABGx1 in 05/2017, most recent stenting 02/03/18 to unknown vessel, as well as presentation here last week with chest pain and right groin catheterization access site pain. Patient presents today with acute onset dull nonradiating left-sided chest pain, nonpleuritic but worse with palpation which started while walking to the store the afternoon 02/23. Patient denies any nausea or vomiting. Denies any fevers or chills... Review of Systems All other systems reviewed negative except as stated in HPI PMFSH - History History Provided By: Patient - Medical History Medical History: Medical History (Last Reviewed 02/23/18 @ 21:20 by Daysi Corona) CAD (coronary artery disease) Diabetes Hypertension Past heart attack - Surgical History Surgical History: Surgical History (Last Reviewed 02/23/18 @ 21:20 by Daysi Corona) Hx of CABG Stented coronary artery - Family History Family History: Family History (Last Reviewed 02/22/18 @ 20:16 by SUZANNE Ren) Mother Heart disease Diabetes Sister Heart disease - Tobacco History Second Hand Smoke Exposure: No Tobacco Use In Past 30 Days: No Smoking Status: Former smoker Tobacco Type: Cigarettes - Alcohol History How Often Do You Have a Drink Containing Alcohol: Never - Substance Use History Substance History: No History of Abuse - Travel History Recent Travel in the [place] Within the Last 8 Weeks: No Recent Travel Out of the Country Within the Last 8 Weeks: No - Immunization History Tetanus Immunization: <5 Years Hx Influenza Vaccine This Season: No Medications and Allergies Active Medications: Active Medications Al Hydroxide/Mg Hydroxide (Milk Of Magnkennedi Liq) 30 ml PO Q12H PRN PRN Reason: Mild Constipation Bisacodyl (Dulcolax Supp) 10 mg RECTAL DAILY PRN PRN Reason: SEVERE CONSITIPATION Dextrose (D50w Vial) 50 ml IV.PUSH UNSCH PRN PRN Reason: PER HYPOGLYCEMIA PROTOCOL Glucagon (Glucagon Inj) 1 mg OTHER PRN PRN PRN Reason: for Hypoglycemia Protocol Sodium Chloride (Ns Inj) 1,000 mls @ 100 mls/hr IV.CONT .Q10H [facility] Last Admin: 02/24/18 00:06 Dose: 100 mls/hr Insulin Aspart (Novolog Insulin Correctional Sugar Inj) 0 unit SQ ACHS KAMALJIT; Protocol Insulin Detemir (Levemir Inj) 10 unit SQ BID KAMALJIT Lactulose (Lactulose Liq) 30 ml PO DAILY PRN PRN Reason: SEVERE CONSITIPATION Senna/Docusate Sodium (Gracy-Colace) 1 tab PO BID KAMALJIT Sennosides (Senokot) 17.2 mg PO Q12H PRN PRN Reason: Moderate Constipation Allergies Allergy/AdvReac Type Severity Reaction Status Date / Time Penicillins Allergy Severe Hives Verified 02/15/18 22:40 lisinopril Allergy Mild Rash Verified 02/15/18 22:40 shellfish derived Allergy Unknown RASH Verified 02/15/18 22:40 Home Medications Medication Instructions Recorded Confirmed Type alprazolam [Xanax] 0.5 mg PO BID PRN 02/15/18 02/15/18 History aspirin 81 mg PO DAILY 02/15/18 02/15/18 History atorvastatin 80 mg PO DAILY 02/15/18 02/15/18 History gabapentin 600 mg PO BID 02/15/18 02/15/18 History insulin aspart U-100 [Novolog 1 sliding scale dose SUB-Q UD 02/15/18 02/15/18 History U-100 Insulin aspart] insulin glargine [Lantus U-100 30 unit SUB-Q HS 02/15/18 02/15/18 History Insulin] isosorbide mononitrate 20 mg PO DAILY 02/15/18 02/15/18 History metformin 500 mg PO TID 02/15/18 02/15/18 History nitroglycerin 0.4 mg SUBLINGUAL Q5-15M PRN 02/15/18 02/15/18 History pantoprazole 40 mg PO DAILY 02/15/18 02/15/18 History sertraline 50 mg PO DAILY 02/15/18 02/15/18 History ticagrelor [Brilinta] 90 mg PO BID 02/15/18 02/15/18 History trazodone 100 mg PO DAILY 02/15/18 02/15/18 History Exam Vital signs: Vital Signs 02/23/18 21:17 02/23/18 22:28 02/23/18 23:41 Temperature 98.1 F Pulse Rate 102 H 84 94 H Respiratory Rate 18 18 18 Blood Pressure 170/94 H 153/78 H 150/84 H Pulse Oximetry 100 100 99 Intake & Output 02/23/18 02/23/18 02/24/18 06:59 18:59 06:59 Weight 62.596 kg Narrative: GENERAL: Patient lying in bed. Appears comfortable. Alert and oriented 3. SKIN: Warm and dry. HEAD: Atraumatic. Normocephalic. EYES: Pupils equal and round. No scleral icterus. No injection or drainage. ENT: No nasal bleeding or discharge. Mucous membranes pink and moist. NECK: Trachea midline. No JVD. CARDIOVASCULAR: Regular rate and rhythm. Sternotomy scar well-healed. RESPIRATORY: No accessory muscle use. Clear to auscultation. Breath sounds equal bilaterally. GASTROINTESTINAL: Abdomen soft, non-tender, nondistended. Hepatic and splenic margins not palpable. MUSCULOSKELETAL: Extremities without clubbing, cyanosis, or edema. No obvious deformities. NEUROLOGICAL: Awake and alert. No obvious cranial nerve deficits. Motor grossly within normal limits. Five out of 5 muscle strength in the arms and legs. Normal speech. PSYCHIATRIC: Appropriate mood and affect; insight and judgment normal. Results - Labs CBC & Chem 7: 02/23/18 21:30 02/23/18 21:30 Labs: Short CBC 02/23/18 Range/Units 21:30 WBC 9.7 (4.0-11.0) th/mm3 Hgb 9.5 L (11.6-15.3) gm/dL Hct 27.8 L (35.0-46.0) % Plt Count 519 H (150-450) th/mm3 BMP 02/23/18 21:30 Sodium 136 Potassium 3.9 Chloride 99 Carbon Dioxide 24.4 BUN 25 H Creatinine 1.25 H Calcium 8.7 Cardiac Enzymes 02/23/18 Range/Units 21:30 Total Creatine Kinase 53 (26-192) U/L Troponin I 0.06 H (0.02-0.05) ng/mL Liver Function 02/23/18 Range/Units 21:30 Total Bilirubin 0.2 (0.2-1.0) mg/dL AST 14 L (15-37) U/L ALT 22 (10-53) U/L Alkaline Phosphatase 144 H (45-117) U/L Albumin 3.9 (3.4-5.0) g/dL - Imaging Impressions Chest X-Ray 02/23/18 21:23 CONCLUSION: No acute cardiopulmonary process. Caprini VTE Risk Assessment Caprini VTE Risk Assessment: No/Low Risk (score <= 1) Caprini Risk Assessment Model: Point Value = 1 Point Value = 2 Point Value = 3 Point Value = 5 Age 41-60 Minor surgery BMI > 25 kg/m2 Swollen legs Varicose veins or History of unexplained or recurrent spontaneous Oral contraceptives or hormone replacement Sepsis (< 1 month) Serious lung disease, including pneumonia (< 1 month) Abnormal pulmonary function Acute myocardial infarction Congestive heart failure (< 1 month) History of inflammatory bowel disease Medical patient at bed rest Age 61-74 Arthroscopic surgery Major open surgery (> 45 min) Laparoscopic surgery (> 45 min) Malignancy Confined to bed (> 72 hours) Immobilizing plaster cast Central venous access Age >= 75 History of VTE Family history of VTE Factor V Leiden Prothrombin 10882I Lupus anticoagulant Anticardiolipin antibodies Elevated serum homocysteine Heparin-induced thrombocytopenia Other congenital or acquired thrombophilia Stroke (< 1 month) Elective arthroplasty Hip, pelvis, or leg fracture Acute spinal cord injury (< 1 month) Prophylaxis Regimen: Total Risk Factor Score Risk Level Prophylaxis Regimen 0-1 Low Early ambulation 2 Moderate Order ONE of the following: *Sequential Compression Device (SCD) *Heparin 5000 units SQ BID 3-4 Higher Order ONE of the following medications: *Heparin 5000 units SQ TID *Enoxaparin/Lovenox 40 mg SQ daily (WT < 150 kg, CrCl > 30 mL/min) *Enoxaparin/Lovenox 30 mg SQ daily (WT < 150 kg, CrCl > 10-29 mL/min) *Enoxaparin/Lovenox 30 mg SQ BID (WT < 150 kg, CrCl > 30 mL/min) AND/OR *Sequential Compression Device (SCD) 5 or more Highest Order ONE of the following medications: *Heparin 5000 units SQ TID (Preferred with Epidurals) *Enoxaparin/Lovenox 40 mg SQ daily (WT < 150 kg, CrCl > 30 mL/min) *Enoxaparin/Lovenox 30 mg SQ daily (WT < 150 kg, CrCl > 10-29 mL/min) *Enoxaparin/Lovenox 30 mg SQ BID (WT < 150 kg, CrCl > 30 mL/min) AND *Sequential Compression Device (SCD) Assessment and Plan - Plan //Chest pain //History of coronary artery disease -Awaiting verification of home medications. = Chest x-ray with no acute findings, EKG with no acute changes. Troponin elevation up to 0.06, below previous baseline, however we will trend EKGs and troponins. = Nitropaste. Patient does not want more Nitropaste would like morphine instead. We will try to maximize Nitropaste. = Patient seen by Dr. Benton last admission. If troponin bumps significantly , will consult Dr. Benton. //Hypertension -Continue home meds when verified. //Hyperlipidemia. Continue home meds when verified. //Diabetes. Diabetic diet and insulin sliding scale. Discussed Condition With: patient, nurse, ED physician.
[2018-02-24] MEDS ORDERED: Morphine Inj 4 MG/ML Vial IV.PUSH ONE (01:48)
[2018-02-24 03:59] LABS: Baso # (Auto) 0.1 th/mm3 (0.0-0.2); Baso % (Auto) 0.5 % (0.0-2.0); Eos # (Auto) 0.2 th/mm3 (0.0-0.4); Eos % (Auto) 1.5 % (0.0-4.0); Hematocrit 26.9 % (35.0-46.0); Hemoglobin 8.9 gm/dL (11.6-15.3); Mean Corpuscular HGB Conc 33.3 % (32.0-36.0); Mean Corpuscular Hemoglobin 26.8 pg (27.0-34.0); Mean Corpuscular Volume 80.6 fL (80.0-100.0); Mean Platelet Volume 7.4 fL (7.0-11.0); Mono # (Auto) 0.8 th/mm3 (0.0-0.9); Mono % (Auto) 6.4 % (0.0-8.0); Neut # (Auto) 9.1 th/mm3 (1.8-7.7); Neut % (Auto) 68.6 % (16.0-70.0); Platelet Count 504 th/mm3 (150-450); Red Blood Count 3.33 mil/mm3 (4.00-5.30); Red Cell Distribution Width 17.5 % (11.6-17.2); White Blood Count 13.2 th/mm3 (4.0-11.0)
[2018-02-24 04:17] LABS: Albumin 3.4 g/dL (3.4-5.0); Anion Gap 11 meq/L (5-15); Aspartate Aminotransferase 11 U/L (15-37); Blood Urea Nitrogen 21 mg/dL (7-18); Calcium 8.3 mg/dL (8.5-10.1); Carbon Dioxide 23.3 meq/L (21.0-32.0); Chloride 103 meq/L (98-107); Glomerular Filtration Rate 60 mL/min (>89); Glucose,Random 283 mg/dL (74-106); Sodium 137 meq/L (136-145)
[2018-02-24 04:18] LABS: Alanine Aminotransferase 18 U/L (10-53)
[2018-02-24 04:22] LABS: Alkaline Phosphatase 128 U/L (45-117); Total Protein 7.5 g/dL (6.4-8.2); Troponin I 0.05 ng/mL (0.02-0.05)
[2018-02-24 04:24] LABS: Creatine Kinase 52 U/L (26-192)
[2018-02-24] MEDS: Morphine Inj 4 MG/ML Vial IV.PUSH PRN ×3 (05:08→11:45)
[2018-02-24 07:37] LABS: Troponin I 0.06 ng/mL (0.02-0.05)
[2018-02-24 08:12] VITALS: PULSE 87; RESP 16; TEMP 97.8
[2018-02-24] MEDS ORDERED: Insulin Detemir Inj 1,000 UNIT/10 ML Vial SQ SCH ×2 (09:00→21:00)
[2018-02-24] MEDS ORDERED: Senna/Docusate Sodium 8.6/50 MG Tablet PO SCH (09:00)
[2018-02-24] MEDS: Insulin NovoLOG Aspart Correctional Sugar Inj SQ SCH ×2 (09:07→12:13)
--- NOTE | 2018-02-24 10:59 | ECG ---
Date Performed: 02/23/2018 Time Performed: 21:21:44 PTAGE: 42 years EKG: Sinus rhythm MINIMAL ST DEPRESSION BORDERLINE ECG Since the PREVIOUS TRACING , no significant change noted PREVIOUS TRACIN02/16/2018 13.59 DOCTOR: Reilly Heller Interpretating Date/Time 02/24/2018 10:57:22
[2018-02-24 12:37] VITALS: BP 165/69; O2SAT 100
[2018-02-24] MEDS ORDERED: Nitroglycerin SL (Override) 0.4 MG Tab SL PRN (12:59)
[2018-02-24] MEDS ORDERED: ALPRAZolam 0.5 MG Tablet PO PRN (12:59)
--- NOTE | 2018-02-24 12:59 | P.PNIM ---
Subjective Interval history: 42-year-old female with a history of CAD status post CABGx1 in 05/2017, most recent stenting 02/03/18 to unknown vessel, as well as presentation here last week with chest pain and right groin catheterization access site pain. Patient presents today with acute onset dull nonradiating left-sided chest pain, nonpleuritic but worse with palpation which started while walking to the store the afternoon 02/23. Patient denies any nausea or vomiting. Denies any fevers or chills... 8-30 TROPONINS REMAIN FLAT HAS REPRODUCIBLE PAIN OVER LEFT SIDE OF CHEST ON PALPATION DW RN AND PT AND CM DC TO HOME FOLLOW UP WITH DR OBRIEN SCHEDULED DC TO HOME TODAY Physical Exam Vital signs: Vital Signs 02/23/18 21:17 02/23/18 22:28 02/23/18 23:41 Temperature 98.1 F Pulse Rate 102 H 84 94 H Respiratory Rate 18 18 18 Blood Pressure 170/94 H 153/78 H 150/84 H Pulse Oximetry 100 100 99 02/24/18 00:55 02/24/18 02:30 02/24/18 04:00 Temperature 98.2 F Pulse Rate 94 H 88 Respiratory Rate 18 16 19 Blood Pressure 152/79 H 145/74 H Pulse Oximetry 100 100 02/24/18 04:28 02/24/18 05:41 02/24/18 08:00 Temperature 97.8 F Pulse Rate 86 87 Respiratory Rate 15 16 Blood Pressure 150/87 H Pulse Oximetry 99 02/24/18 12:00 Temperature 97.8 F Pulse Rate 87 Respiratory Rate 16 Blood Pressure 165/69 H Pulse Oximetry 100 Intake & Output 02/23/18 02/24/18 02/24/18 18:59 06:59 18:59 Intake Total 1000 / 1000 Balance 1000 / 1000 Weight 62.596 kg Intake: IV 1000 / 1000 NS Inj 1,000 ML @ 100 mls/hr IV 1000 / 1000 .CONT .Q10H [facility] Rx#:[id number] Other: Weight On Admission 62.596 kg Narrative: GENERAL: Patient lying in bed. Appears comfortable. Alert and oriented 3. SKIN: Warm and dry. HEAD: Atraumatic. Normocephalic. EYES: Pupils equal and round. No scleral icterus. No injection or drainage. ENT: No nasal bleeding or discharge. Mucous membranes pink and moist. NECK: Trachea midline. No JVD. CARDIOVASCULAR: Regular rate and rhythm. Sternotomy scar well-healed. RESPIRATORY: No accessory muscle use. Clear to auscultation. Breath sounds equal bilaterally. GASTROINTESTINAL: Abdomen soft, non-tender, nondistended. Hepatic and splenic margins not palpable. MUSCULOSKELETAL: Extremities without clubbing, cyanosis, or edema. No obvious deformities. NEUROLOGICAL: Awake and alert. No obvious cranial nerve deficits. Motor grossly within normal limits. Five out of 5 muscle strength in the arms and legs. Normal speech. PSYCHIATRIC: Appropriate mood and affect; insight and judgment normal. Results - Labs CBC & Chem 7: 02/24/18 03:20 02/24/18 03:20 Laboratory Results - last 24 hr 02/23/18 02/23/18 02/23/18 21:30 21:30 21:30 WBC 9.7 RBC 3.41 L Hgb 9.5 L Hct 27.8 L MCV 81.6 MCH 27.9 MCHC 34.2 RDW 17.1 Plt Count 519 H MPV 7.4 Neut % (Auto) 66.2 Lymph % (Auto) 24.6 Hunt % (Auto) 5.8 Eos % (Auto) 2.7 Baso % (Auto) 0.7 Neut # (Auto) 6.4 Lymph # (Auto) 2.4 Hunt # (Auto) 0.6 Eos # (Auto) 0.3 Baso # (Auto) 0.1 WBC Differential . Differential Comment Auto diff final Sodium 136 Potassium 3.9 Chloride 99 Carbon Dioxide 24.4 Anion Gap 13 BUN 25 H Creatinine 1.25 H Estimated GFR 57 L POC Glucose Random Glucose 281 H Calcium 8.7 Total Bilirubin 0.2 AST 14 L ALT 22 Alkaline Phosphatase 144 H Total Creatine Kinase 53 Troponin I 0.06 H Total Protein 8.4 H Albumin 3.9 02/24/18 02/24/18 02/24/18 03:20 03:20 06:00 WBC 13.2 H RBC 3.33 L Hgb 8.9 L Hct 26.9 L MCV 80.6 MCH 26.8 L MCHC 33.3 RDW 17.5 H Plt Count 504 H MPV 7.4 Neut % (Auto) 68.6 Lymph % (Auto) 23.0 Hunt % (Auto) 6.4 Eos % (Auto) 1.5 Baso % (Auto) 0.5 Neut # (Auto) 9.1 H Lymph # (Auto) 3.0 Hunt # (Auto) 0.8 Eos # (Auto) 0.2 Baso # (Auto) 0.1 WBC Differential . Differential Comment Auto diff final Sodium 137 Potassium 4.0 Chloride 103 Carbon Dioxide 23.3 Anion Gap 11 BUN 21 H Creatinine 1.21 H Estimated GFR 60 L POC Glucose Random Glucose 283 H Calcium 8.3 L Total Bilirubin 0.2 AST 11 L ALT 18 Alkaline Phosphatase 128 H Total Creatine Kinase 52 53 Troponin I 0.05 0.06 H Total Protein 7.5 D Albumin 3.4 02/24/18 02/24/18 08:38 11:48 WBC RBC Hgb Hct MCV MCH MCHC RDW Plt Count MPV Neut % (Auto) Lymph % (Auto) Hunt % (Auto) Eos % (Auto) Baso % (Auto) Neut # (Auto) Lymph # (Auto) Hunt # (Auto) Eos # (Auto) Baso # (Auto) WBC Differential Differential Comment Sodium Potassium Chloride Carbon Dioxide Anion Gap BUN Creatinine Estimated GFR POC Glucose 321 H 297 H Random Glucose Calcium Total Bilirubin AST ALT Alkaline Phosphatase Total Creatine Kinase Troponin I Total Protein Albumin - Imaging Impressions Chest X-Ray 02/23/18 21:23 CONCLUSION: No acute cardiopulmonary process. - Procedures NONE Assessment and Plan - Plan //Chest pain //History of coronary artery disease -Awaiting verification of home medications. = Chest x-ray with no acute findings, EKG with no acute changes. Troponin elevation up to 0.06, below previous baseline, however we will trend EKGs and troponins. = Nitropaste. Patient does not want more Nitropaste would like morphine instead. We will try to maximize Nitropaste. = Patient seen by Dr. Obrien last admission. If troponin bumps significantly , will consult Dr. Obrien. STABLE- REPRODUCIBLE PAIN NO INCREASE IN TROPONINS DC TO HOME TODAY NONCARDIAC CHEST PAIN TROPONINS ARE FLAT //Hypertension -Continue home meds when verified. //Hyperlipidemia. Continue home meds when verified. //Diabetes. Diabetic diet and insulin sliding scale. Discussed Condition With: PT AND CM AND RN Code Status: FULL CODE Discussed Condition With: RN AND PT AND CASE MANAGEMENT Discharge Planning: DC TO HOME TODAY
[2018-02-24] MEDS ORDERED: Metoprolol Tartrate 25 MG Tablet PO SCH (13:00)
[2018-02-24] MEDS ORDERED: Sertraline 50 MG Tablet PO SCH (13:00)
[2018-02-24] MEDS ORDERED: Isosorbide Mononitrate 20 MG Tablet PO SCH (13:00)
--- NOTE | 2018-02-24 14:03 | P.DS ---
Date of admission: 02/23/18 23:43 Primary care physician: Zunilda Trujillo Attending physician on discharge: Samuel Diaz Anticipated date of discharge: 02/24/18 Brief History from admission: 42-year-old female with a history of CAD status post CABGx1 in 05/2017, most recent stenting 02/03/18 to unknown vessel, as well as presentation here last week with chest pain and right groin catheterization access site pain. Patient presents today with acute onset dull nonradiating left-sided chest pain, nonpleuritic but worse with palpation which started while walking to the store the afternoon 02/23. Patient denies any nausea or vomiting. Denies any fevers or chills... DS: Diagnosis - Discharge Diagnosis (1) Non-cardiac chest pain Status: Chronic (2) Diabetes Status: Chronic (3) Anxiety Status: Chronic (4) Chest pain Status: Acute (5) Elevated troponin Status: Chronic (6) History of coronary artery disease Status: Chronic DS: Medications - Discharge Medications Prescriptions: alprazolam [Xanax] 0.5 mg PO BID PRN #60 tab PRN Reason: Anxiety aspirin 81 mg PO DAILY #30 tab atorvastatin 80 mg PO DAILY #30 tab gabapentin 600 mg PO BID #60 tab hydrocodone-acetaminophen 1 tab PO Q4H PRN #12 tab PRN Reason: Pain insulin glargine [Lantus U-100 Insulin] 30 unit SUB-Q HS #7 vial isosorbide mononitrate 30 mg PO DAILY #30 tab metformin 500 mg PO TID #90 tab metoprolol tartrate 12.5 mg PO BID 30 Days #60 tab nitroglycerin 0.4 mg SUBLINGUAL Q5-15M PRN #100 tab PRN Reason: Chest Pain pantoprazole 40 mg PO DAILY #30 tab sertraline 50 mg PO DAILY #30 tab ticagrelor [Brilinta] 90 mg PO BID #60 tab trazodone 100 mg PO DAILY #30 tab DS: Summary Hospital Course: 42-year-old female with a history of CAD status post CABGx1 in 05/2017, most recent stenting 02/03/18 to unknown vessel, as well as presentation here last week with chest pain and right groin catheterization access site pain. Patient presents today with acute onset dull nonradiating left-sided chest pain, nonpleuritic but worse with palpation which started while walking to the store the afternoon 02/23. Patient denies any nausea or vomiting. Denies any fevers or chills... 8 TROPONINS REMAIN FLAT HAS REPRODUCIBLE PAIN OVER LEFT SIDE OF CHEST ON PALPATION SRIKANTH RN AND PT AND CM DC TO HOME FOLLOW UP WITH DR OBRIEN SCHEDULED DC TO HOME TODAY - Time Spent with Patient Total time spent providing and/or coordinating discharge services: Greater than 30 minutes - Quality: VTE Deep Vein Thrombosis/Pulmonary Embolism Present on Admission: No Exam Vital signs: Vital Signs 02/23/18 21:17 02/23/18 22:28 02/23/18 23:41 Temperature 98.1 F Pulse Rate 102 H 84 94 H Respiratory Rate 18 18 18 Blood Pressure 170/94 H 153/78 H 150/84 H Pulse Oximetry 100 100 99 02/24/18 00:55 02/24/18 02:30 02/24/18 04:00 Temperature 98.2 F Pulse Rate 94 H 88 Respiratory Rate 18 16 19 Blood Pressure 152/79 H 145/74 H Pulse Oximetry 100 100 02/24/18 04:28 02/24/18 05:41 02/24/18 08:00 Temperature 97.8 F Pulse Rate 86 87 Respiratory Rate 15 16 Blood Pressure 150/87 H Pulse Oximetry 99 02/24/18 12:00 Temperature 97.8 F Pulse Rate 87 Respiratory Rate 16 Blood Pressure 165/69 H Pulse Oximetry 100 Intake & Output 02/23/18 02/24/18 02/24/18 18:59 06:59 18:59 Intake Total 1000 / 1000 Balance 1000 / 1000 Weight 62.596 kg Intake: IV 1000 / 1000 NS Inj 1,000 ML @ 100 mls/hr IV 1000 / 1000 .CONT .Q10H [facility] Rx#:[id number] Other: Weight On Admission 62.596 kg Narrative: GENERAL: Patient lying in bed. Appears comfortable. Alert and oriented 3. SKIN: Warm and dry. HEAD: Atraumatic. Normocephalic. EYES: Pupils equal and round. No scleral icterus. No injection or drainage. ENT: No nasal bleeding or discharge. Mucous membranes pink and moist. NECK: Trachea midline. No JVD. CARDIOVASCULAR: Regular rate and rhythm. Sternotomy scar well-healed. RESPIRATORY: No accessory muscle use. Clear to auscultation. Breath sounds equal bilaterally. GASTROINTESTINAL: Abdomen soft, non-tender, nondistended. Hepatic and splenic margins not palpable. MUSCULOSKELETAL: Extremities without clubbing, cyanosis, or edema. No obvious deformities. NEUROLOGICAL: Awake and alert. No obvious cranial nerve deficits. Motor grossly within normal limits. Five out of 5 muscle strength in the arms and legs. Normal speech. PSYCHIATRIC: Appropriate mood and affect; insight and judgment normal. Results Procedures completed during hospitalization: NONE Completed studies during hospitalization: Laboratory Results WBC 13.2 th/mm3 (4.0-11.0) H 02/24/18 03:20 RBC 3.33 mil/mm3 (4.00-5.30) L 02/24/18 03:20 Hgb 8.9 gm/dL (11.6-15.3) L 02/24/18 03:20 Hct 26.9 % (35.0-46.0) L 02/24/18 03:20 MCV 80.6 fL (80.0-100.0) 02/24/18 03:20 MCH 26.8 pg (27.0-34.0) L 02/24/18 03:20 MCHC 33.3 % (32.0-36.0) 02/24/18 03:20 RDW 17.5 % (11.6-17.2) H 02/24/18 03:20 Plt Count 504 th/mm3 (150-450) H 02/24/18 03:20 MPV 7.4 fL (7.0-11.0) 02/24/18 03:20 Neut % (Auto) 68.6 % (16.0-70.0) 02/24/18 03:20 Lymph % (Auto) 23.0 % (9.0-44.0) 02/24/18 03:20 [place] % (Auto) 6.4 % (0.0-8.0) 02/24/18 03:20 Eos % (Auto) 1.5 % (0.0-4.0) 02/24/18 03:20 Baso % (Auto) 0.5 % (0.0-2.0) 02/24/18 03:20 Neut # (Auto) 9.1 th/mm3 (1.8-7.7) H 02/24/18 03:20 Lymph # (Auto) 3.0 th/mm3 (1.0-4.8) 02/24/18 03:20 [place] # (Auto) 0.8 th/mm3 (0.0-0.9) 02/24/18 03:20 Eos # (Auto) 0.2 th/mm3 (0.0-0.4) 02/24/18 03:20 Baso # (Auto) 0.1 th/mm3 (0.0-0.2) 02/24/18 03:20 WBC Differential . 02/24/18 03:20 Differential Comment Auto diff final 02/24/18 03:20 Sodium 137 meq/L (136-145) 02/24/18 03:20 Potassium 4.0 meq/L (3.5-5.1) 02/24/18 03:20 Chloride 103 meq/L (98-107) 02/24/18 03:20 Carbon Dioxide 23.3 meq/L (21.0-32.0) 02/24/18 03:20 Anion Gap 11 meq/L (5-15) 02/24/18 03:20 BUN 21 mg/dL (7-18) H 02/24/18 03:20 Creatinine 1.21 mg/dL (0.50-1.00) H 02/24/18 03:20 Estimated GFR 60 mL/min (>89) L 02/24/18 03:20 POC Glucose 297 mg/dl (68-110) H 02/24/18 11:48 Random Glucose 283 mg/dL (74-106) H 02/24/18 03:20 Calcium 8.3 mg/dL (8.5-10.1) L 02/24/18 03:20 Total Bilirubin 0.2 mg/dL (0.2-1.0) 02/24/18 03:20 AST 11 U/L (15-37) L 02/24/18 03:20 ALT 18 U/L (10-53) 02/24/18 03:20 Alkaline Phosphatase 128 U/L (45-117) H 02/24/18 03:20 Total Creatine Kinase 53 U/L (26-192) 02/24/18 06:00 Troponin I 0.06 ng/mL (0.02-0.05) H 02/24/18 06:00 Total Protein 7.5 g/dL (6.4-8.2) D 02/24/18 03:20 Albumin 3.4 g/dL (3.4-5.0) 02/24/18 03:20 Impressions Chest X-Ray 02/23/18 21:23 CONCLUSION: No acute cardiopulmonary process. Labs on day of discharge: Labs from last 24 hours 02/24/18 02/24/18 02/24/18 11:48 08:38 06:00 WBC RBC Hgb Hct MCV MCH MCHC RDW Plt Count MPV Neut % (Auto) Lymph % (Auto) [place] % (Auto) Eos % (Auto) Baso % (Auto) Neut # (Auto) Lymph # (Auto) [place] # (Auto) Eos # (Auto) Baso # (Auto) WBC Differential Differential Comment Sodium Potassium Chloride Carbon Dioxide Anion Gap BUN Creatinine Estimated GFR POC Glucose 297 H 321 H Random Glucose Calcium Total Bilirubin AST ALT Alkaline Phosphatase Total Creatine Kinase 53 Troponin I 0.06 H Total Protein Albumin 02/24/18 02/24/18 02/23/18 03:20 03:20 21:30 WBC 13.2 H RBC 3.33 L Hgb 8.9 L Hct 26.9 L MCV 80.6 MCH 26.8 L MCHC 33.3 RDW 17.5 H Plt Count 504 H MPV 7.4 Neut % (Auto) 68.6 Lymph % (Auto) 23.0 [place] % (Auto) 6.4 Eos % (Auto) 1.5 Baso % (Auto) 0.5 Neut # (Auto) 9.1 H Lymph # (Auto) 3.0 [place] # (Auto) 0.8 Eos # (Auto) 0.2 Baso # (Auto) 0.1 WBC Differential . Differential Comment Auto diff final Sodium 137 Potassium 4.0 Chloride 103 Carbon Dioxide 23.3 Anion Gap 11 BUN 21 H Creatinine 1.21 H Estimated GFR 60 L POC Glucose Random Glucose 283 H Calcium 8.3 L Total Bilirubin 0.2 AST 11 L ALT 18 Alkaline Phosphatase 128 H Total Creatine Kinase 52 53 Troponin I 0.05 0.06 H Total Protein 7.5 D Albumin 3.4 02/23/18 02/23/18 21:30 21:30 WBC 9.7 RBC 3.41 L Hgb 9.5 L Hct 27.8 L MCV 81.6 MCH 27.9 MCHC 34.2 RDW 17.1 Plt Count 519 H MPV 7.4 Neut % (Auto) 66.2 Lymph % (Auto) 24.6 [place] % (Auto) 5.8 Eos % (Auto) 2.7 Baso % (Auto) 0.7 Neut # (Auto) 6.4 Lymph # (Auto) 2.4 [place] # (Auto) 0.6 Eos # (Auto) 0.3 Baso # (Auto) 0.1 WBC Differential . Differential Comment Auto diff final Sodium 136 Potassium 3.9 Chloride 99 Carbon Dioxide 24.4 Anion Gap 13 BUN 25 H Creatinine 1.25 H Estimated GFR 57 L POC Glucose Random Glucose 281 H Calcium 8.7 Total Bilirubin 0.2 AST 14 L ALT 22 Alkaline Phosphatase 144 H Total Creatine Kinase Troponin I Total Protein 8.4 H Albumin 3.9 - Impressions ITS Impressions Chest X-Ray 02/23/18 21:23 CONCLUSION: No acute cardiopulmonary process. Discharge Plan - Discharge Disposition Patient Disposition: 01 Discharge Home - Discharge Condition Condition: Good - Discharge Order Discharge Orders: Discharge Order (Routine); Ordered 02/24/18 Ordered By: Samuel Diaz - Discharge Details Anticipated Discharge Date: 02/24/18 Discharge Comment: DC TO HOME - Physicians Team Primary Care Provider: Zunilda Trujillo Attending Provider: Samuel Diaz
[2018-02-24] MEDS ORDERED: Gabapentin 300 MG Capsule PO SCH (14:15)
--- NOTE | 2018-02-24 16:26 | ECG ---
Date Performed: 02/24/2018 Time Performed: 06:36:27 PTAGE: 42 years EKG: Sinus rhythm NORMAL ECG PREVIOUS TRACING : 02/23/2018 21.21 Since the previous tracing, no significant change noted DOCTOR: Leonardo Slaughter Interpretating Date/Time 02/24/2018 16:26:14
[2018-02-24] MEDS ORDERED: traZODone 100 MG Tablet PO SCH (21:00)
== END 2018-02-24 14:34 | disposition home or self-care (01) ==
LOC: NEPE 21:10 → NEDA 21:10 → NEPGCP 02-24 01:01
PROVIDERS: ADMIT Hospitalist; ATTEND Hospitalist

== ENCOUNTER 2018-04-14 23:45 | Observation (INO) ==
[2018-04-15] MEDS ORDERED: Sodium Chlor 0.9% Inj 500 ML IV.SIG ONE (00:10)
[2018-04-15] MEDS ORDERED: Morphine Inj 4 MG/ML Vial IV.PUSH ONE ×2 (00:10→00:37)
[2018-04-15 00:28] LABS: Baso # (Auto) 0.1 th/mm3 (0.0-0.2); Baso % (Auto) 0.6 % (0.0-2.0); Eos # (Auto) 0.3 th/mm3 (0.0-0.4); Eos % (Auto) 2.5 % (0.0-4.0); Hematocrit 34.3 % (35.0-46.0); Hemoglobin 11.1 gm/dL (11.6-15.3); Lymph # (Auto) 4.6 th/mm3 (1.0-4.8); Lymph % (Auto) 33.8 % (9.0-44.0); Mean Corpuscular HGB Conc 32.5 % (32.0-36.0); Mean Corpuscular Hemoglobin 25.1 pg (27.0-34.0); Mean Corpuscular Volume 77.4 fL (80.0-100.0); Mean Platelet Volume 7.3 fL (7.0-11.0); Mono # (Auto) 0.6 th/mm3 (0.0-0.9); Mono % (Auto) 4.3 % (0.0-8.0); Neut % (Auto) 58.8 % (16.0-70.0); Platelet Count 478 th/mm3 (150-450); Red Blood Count 4.43 mil/mm3 (4.00-5.30); Red Cell Distribution Width 16.3 % (11.6-17.2); White Blood Count 13.6 th/mm3 (4.0-11.0)
--- NOTE | 2018-04-15 00:42 | XR ---
EXAM DATE: 04/15/2018 12:10 AM EDT AGE/SEX: 42 years / Female INDICATIONS: Chest pain. CLINICAL DATA: This is the patient's initial encounter. Patient reports that signs and symptoms have been present for 1 day and indicates a pain score of 10/10. MEDICAL/SURGICAL HISTORY: . Hypertension. Diabetes. Coronary artery disease. Tubal ligation. Appendectomy. Cholecystectomy. CABG. Coronary artery stent. COMPARISON: [facility], CHEST 1V SINGLE AP, 03/12/2018. . FINDINGS: The patient is status post sternotomy. The heart size is normal. The lungs are clear. CONCLUSION: No acute cardiopulmonary process. Electronically signed by: Kurt Lim MD 04/15/2018 12:41 AM EDT
[2018-04-15 00:48] LABS: Alanine Aminotransferase 23 U/L (10-53); Albumin 4.3 g/dL (3.4-5.0); Alkaline Phosphatase 160 U/L (45-117); Anion Gap 10 meq/L (5-15); Aspartate Aminotransferase 26 U/L (15-37); Blood Urea Nitrogen 14 mg/dL (7-18); Calcium 9.6 mg/dL (8.5-10.1); Carbon Dioxide 22.9 meq/L (21.0-32.0); Chloride 102 meq/L (98-107); Glomerular Filtration Rate 67 mL/min (>89); Glucose,Random 253 mg/dL (74-106); Lipase 639 U/L (73-393); Sodium 135 meq/L (136-145); Total Protein 9.4 g/dL (6.4-8.2); Troponin I 0.04 ng/mL (0.02-0.05)
[2018-04-15] MEDS ORDERED: HYDROmorphone PF Inj 2 MG/ML Vial IV.PUSH ONE (02:28)
--- NOTE | 2018-04-15 02:36 | ED ---
HPI General Chief Complaint: Chest Pain Stated Complaint: Chest Pain/SOB Time Seen by Provider: 04/14/18 23:50 Source: patient Mode of arrival: ambulatory Limitations: no limitations History of Present Illness HPI narrative: The patient is 42 years old and complains of chest pain for about 1 day. Pain started about 12 hours prior to ER arrival. Is continuous. Location is epigastric. No fever or cough. Patient reports a history of coronary disease and multiple stents. She reports compliance with Effient and aspirin among other medications. No exertional or pleuritic component. MD complaint: Reports chest pain STEMI Alert: No Duration: constant Onset: during rest Pain location: Reports epigastric Severity: moderate Quality: Reports tightness Related Data Home Medications Medication Instructions Recorded Confirmed insulin aspart U-100 [Novolog 1 sliding scale dose SUB-Q UD 02/15/18 04/14/18 U-100 Insulin aspart] duloxetine 30 mg PO DAILY 03/12/18 04/14/18 ezetimibe 10 mg PO DAILY 03/12/18 04/14/18 losartan 25 mg PO DAILY 03/12/18 04/14/18 magnesium oxide 400 mg PO DAILY 03/12/18 04/14/18 Previous Rx's Medication Instructions Recorded alprazolam [Xanax] 0.5 mg PO BID PRN #60 tab 02/24/18 aspirin 81 mg PO DAILY #30 tab 02/24/18 atorvastatin 80 mg PO DAILY #30 tab 02/24/18 gabapentin 600 mg PO BID #60 tab 02/24/18 hydrocodone-acetaminophen 1 tab PO Q4H PRN #12 tab 02/24/18 insulin glargine [Lantus U-100 30 unit SUB-Q HS #7 vial 02/24/18 Insulin] isosorbide mononitrate 30 mg PO DAILY #30 tab 02/24/18 metformin 500 mg PO TID #90 tab 02/24/18 nitroglycerin 0.4 mg SUBLINGUAL Q5-15M PRN #100 02/24/18 tab pantoprazole 40 mg PO DAILY #30 tab 02/24/18 sertraline 50 mg PO DAILY #30 tab 02/24/18 ticagrelor [Brilinta] 90 mg PO BID #60 tab 02/24/18 trazodone 100 mg PO DAILY #30 tab 02/24/18 Allergies Allergy/AdvReac Type Severity Reaction Status Date / Time Penicillins Allergy Severe Hives Verified 04/14/18 23:53 lisinopril Allergy Mild Rash Verified 04/14/18 23:53 shellfish derived Allergy Unknown RASH Verified 04/14/18 23:53 Review of Systems ROS: all other systems reviewed are negative PMFSH Social History Social History Substance History: No History of Abuse Second Hand Smoke Exposure: No Smoking Status: Former smoker Tobacco Type: Cigarettes How Often Do You Have a Drink Containing Alcohol: Never Recent Travel in [facility] within the Last 8 Weeks: No Recent Out of Country Travel within the Last 8 Weeks: No Immunization History Tetanus Immunization: Unsure Exam Narrative Exam Narrative: GENERAL: 42-year-old female well-nourished well-developed mild distress secondary to pain SKIN: Focused skin assessment warm/dry. HEAD: Atraumatic. Normocephalic. EYES: Pupils equal and round. No scleral icterus. No injection or drainage. ENT: No nasal bleeding or discharge. Mucous membranes pink and moist. NECK: Trachea midline. No JVD. CARDIOVASCULAR: Tachycardia. Regular rhythm. RESPIRATORY: No accessory muscle use. Clear to auscultation. Breath sounds equal bilaterally. GASTROINTESTINAL: Minimal tenderness palpation epigastrium. Soft. MUSCULOSKELETAL: No obvious deformities. No clubbing. No cyanosis. No edema. NEUROLOGICAL: Awake and alert. No obvious cranial nerve deficits. Motor grossly within normal limits. Normal speech. PSYCHIATRIC: Appropriate mood and affect; insight and judgment normal. Course Initial Documented Vital Signs Pulse Rate 108 H 04/14/18 23:53 Respiratory Rate 18 04/14/18 23:53 Blood Pressure 198/84 H 04/14/18 23:53 Pulse Oximetry 100 04/14/18 23:53 Last Documented Vital Signs Temperature 98.1 F 04/14/18 23:58 Pulse Rate 108 H 04/14/18 23:53 Respiratory Rate 18 04/15/18 02:27 Blood Pressure 198/84 H 04/14/18 23:53 Pulse Oximetry 99 04/15/18 02:27 Medical Decision Making MDM Narrative Medical decision making narrative: Patient has pancreatitis. Troponin is 0.04. She has known coronary artery disease. Patient has no history of pancreatitis. She reports a family history of pancreatic cancer. We have a CT scan from January showing no pancreas mass. Patient received morphine twice here. She reports pain has returned. Patient denies alcohol abuse. Etiology of pancreatitis unclear at this time. Case discussed with Dr. Rodríugez who recommends observation. Medical Screen Exam Complete: Yes Emergency Medical Condition: Yes Differential Diagnosis Differential Diagnosis: NSTEMI, unstable angina, coronary vasospasm, PE, PTX, aortic dissection, pericarditis, myocarditis, endocarditis, PNA, esophageal disease, aneurysm, musculoskeletal etiologies, anxiety, cocaine/sympathomimetic abuse Lab Data Lab results reviewed: Yes I reviewed the patient's lab results. Result diagrams: 04/15/18 00:15 04/15/18 00:15 Lab Results 04/15/18 04/15/18 Range/Units 00:15 00:15 WBC 13.6 H (4.0-11.0) th/mm3 RBC 4.43 (4.00-5.30) mil/mm3 Hgb 11.1 L (11.6-15.3) gm/dL Hct 34.3 L (35.0-46.0) % MCV 77.4 L (80.0-100.0) fL MCH 25.1 L (27.0-34.0) pg MCHC 32.5 (32.0-36.0) % RDW 16.3 (11.6-17.2) % Plt Count 478 H (150-450) th/mm3 MPV 7.3 (7.0-11.0) fL Neut % (Auto) 58.8 (16.0-70.0) % Lymph % (Auto) 33.8 (9.0-44.0) % [place] % (Auto) 4.3 (0.0-8.0) % Eos % (Auto) 2.5 (0.0-4.0) % Baso % (Auto) 0.6 (0.0-2.0) % Neut # (Auto) 8.0 H (1.8-7.7) th/mm3 Lymph # (Auto) 4.6 (1.0-4.8) th/mm3 [place] # (Auto) 0.6 (0.0-0.9) th/mm3 Eos # (Auto) 0.3 (0.0-0.4) th/mm3 Baso # (Auto) 0.1 (0.0-0.2) th/mm3 WBC Differential . Differential Comment Auto diff final Sodium 135 L (136-145) meq/L Potassium 4.0 (3.5-5.1) meq/L Chloride 102 (98-107) meq/L Carbon Dioxide 22.9 (21.0-32.0) meq/L Anion Gap 10 (5-15) meq/L BUN 14 (7-18) mg/dL Creatinine 1.10 H (0.50-1.00) mg/dL Estimated GFR 67 L (>89) mL/min Random Glucose 253 H (74-106) mg/dL Calcium 9.6 (8.5-10.1) mg/dL Total Bilirubin 0.3 (0.2-1.0) mg/dL AST 26 (15-37) U/L ALT 23 (10-53) U/L Alkaline Phosphatase 160 H (45-117) U/L Troponin I 0.04 (0.02-0.05) ng/mL Total Protein 9.4 H (6.4-8.2) g/dL Albumin 4.3 (3.4-5.0) g/dL Lipase 639 H (73-393) U/L Lipase is 639 Troponin 0 0.04 LFTs are otherwise essentially unremarkable Imaging Data Radiologist's impression: Chest X-Ray 04/15/18 00:10 CONCLUSION: No acute cardiopulmonary process. Discharge Plan Discharge Disposition Patient Disposition: 30 Still Patient Physicians Team ED Provider: aJnes Benton Primary Care Provider: Елена River Attending Provider: Saige Rodríguez Status ED Status: Admitted Observation Patient
[2018-04-15] MEDS ORDERED: Acetaminophen 325 MG Tablet PO PRN (04:31)
[2018-04-15] MEDS ORDERED: Bisacodyl 10 MG Supp RECTAL PRN (04:31)
[2018-04-15] MEDS: Morphine Inj 4 MG/ML Vial IV.PUSH PRN ×5 (05:06→23:45)
[2018-04-15] MEDS: Sod Chloride 0.9% Inj 1,000 ML IV.CONT SCH ×2 (05:07→20:08)
[2018-04-15] MEDS ORDERED: Isosorbide Mononitrate 30 MG ER 24HR Tablet (Imdur) PO SCH (07:00)
[2018-04-15 07:22] LABS: Troponin I 0.04 ng/mL (0.02-0.05)
--- NOTE | 2018-04-15 08:29 | P.HP ---
History of Present Illness Service: [facility] Primary Care Physician: Елена River MD Chief Complaint: "Chest pain" History of Present Illness: 42-year-old female with past medical history significant for coronary artery disease, diabetes mellitus, and fibromyalgia presents to the emergency department with chest pain which began about 3 days ago on and off but worsened overnight. She points to epigastric area as site of pain which radiates to her back. She rates pain 10/10 and describes it as a stabbing sensation. Patient states that she feels a sensation of "heartburn". She reports no alleviating factors, palpation over this epigastric area will make pain worse. Patient reports that she is also been having nausea and vomiting along with episodes of diarrhea for the past 3 days and headache. She also endorses decrease in appetite. She denies any fevers, chills, cough, shortness of breath, headache, dizziness, lightheadedness or heart palpitations. She denies any past history of pancreatitis, denies any alcohol use. She reports that her plastics technician is Dr. Benton. Patient reports she had a CABG done in May 2017 and review of medical records show that she had a heart catheterization in January 2018 at [facility] with stent placement. Patient was recently seen in January of this year by Dr. Benton when she developed groin hematoma following heart catheterization with stent placement. During that admission patient's troponins were mildly elevated and she was treated medically. Lab work is reviewed and shows mild microcytic anemia as well as mild leukocytosis. CMP with mild hyponatremia, mildly elevated creatinine and elevated lipase at 639. Chest x-ray is negative and first 2 troponins have also been negative at 0.04. Patient will be admitted to observation unit and will receive hydration and treatment for pancreatitis. Discussed with patient who is agreeable. - Diagnosis (1) Pancreatitis (2) Chest pain (3) Diabetes Review of Systems All other systems reviewed negative except as stated in [facility] - History History Provided By: Patient - Medical History Medical History: Medical History (Last Reviewed 04/15/18 @ 08:35 by Rohit Sandy) Fibromyalgia CAD (coronary artery disease) Diabetes Hypertension Past heart attack - Surgical History Surgical History: Surgical History (Last Reviewed 04/15/18 @ 08:35 by Rohit Sandy) Hx of CABG Hx of tubal ligation Stented coronary artery - Family History Family History: Family History (Last Reviewed 04/15/18 @ 08:35 by Rohit Sandy) Mother Heart disease Diabetes Sister Heart disease - Tobacco History Second Hand Smoke Exposure: No Smoking Status: Former smoker Tobacco Type: Cigarettes - Alcohol History How Often Do You Have a Drink Containing Alcohol: Never - Substance Use History Substance History: No History of Abuse - Travel History Recent Travel in the [place] Within the Last 8 Weeks: No Recent Travel Out of the Country Within the Last 8 Weeks: No - Immunization History Tetanus Immunization: Unsure Medications and Allergies Active Medications: Active Medications Acetaminophen (Tylenol) 650 mg PO Q4H PRN PRN Reason: Temp > 100.4 Al Hydroxide/Mg Hydroxide (Milk Of Magnesia Liq) 30 ml PO Q12H PRN PRN Reason: Mild Constipation Aspirin (Aspirin Chew) 81 mg PO DAILY [facility] [place] Atorvastatin Calcium (Lipitor) 80 mg PO DAILY [facility] Bisacodyl (Dulcolax Supp) 10 mg RECTAL DAILY PRN PRN Reason: SEVERE CONSITIPATION Duloxetine HCl (Cymbalta) 30 mg PO DAILY [facility] [place] Ezetimibe (Zetia) 10 mg PO DAILY [facility] [place] Gabapentin (Neurontin) 600 mg PO BID [facility] Sodium Chloride (Ns Inj) 1,000 mls @ 70 mls/hr IV.CONT .[id number] [facility] [place] Last Admin: 04/15/18 05:07 Dose: 70 mls/hr Isosorbide Mononitrate (Imdur) 30 mg PO DAILY@0700 [facility] [place] [place] Last Admin: 04/15/18 07:18 Dose: 30 mg Lactulose (Lactulose Liq) 30 ml PO DAILY PRN PRN Reason: SEVERE CONSITIPATION Losartan Potassium (Cozaar) 25 mg PO DAILY [facility] [place] [place] Morphine Sulfate (Morphine Inj) 4 mg IV.PUSH Q4H PRN PRN Reason: pain 6-10 Last Admin: 04/15/18 05:06 Dose: 4 mg Ondansetron HCl (Zofran Inj) 4 mg IV.PUSH Q6H PRN PRN Reason: NAUSEA OR VOMITING Last Admin: 04/15/18 05:06 Dose: 4 mg Pantoprazole Sodium (Protonix) 40 mg PO DAILY [facility] [place] Senna/Docusate Sodium (Gracy-Colace) 1 tab PO BID [facility] [place] Sennosides (Senokot) 17.2 mg PO Q12H PRN PRN Reason: Moderate Constipation Sertraline HCl (Zoloft) 50 mg PO DAILY [facility] Sodium Chloride (Ns Flush) 2 ml IV.FLUSH UNSCH PRN PRN Reason: FLUSH AFTER USING IV ACCESS Ticagrelor (Brilinta) 90 mg PO BID [facility] Trazodone HCl (Desyrel) 100 mg PO DAILY [facility] Allergies Allergy/AdvReac Type Severity Reaction Status Date / Time Penicillins Allergy Severe Hives Verified 04/14/18 23:53 lisinopril Allergy Mild Rash Verified 04/14/18 23:53 shellfish derived Allergy Unknown RASH Verified 04/14/18 23:53 Home Medications Medication Instructions Recorded Confirmed Type insulin aspart U-100 [Novolog 1 sliding scale dose SUB-Q UD 02/15/18 04/14/18 History U-100 Insulin aspart] duloxetine 30 mg PO DAILY 03/12/18 04/14/18 History ezetimibe 10 mg PO DAILY 03/12/18 04/14/18 History losartan 25 mg PO DAILY 03/12/18 04/14/18 History magnesium oxide 400 mg PO DAILY 03/12/18 04/14/18 History Exam Vital signs: Vital Signs 04/14/18 23:53 04/14/18 23:58 04/15/18 00:10 Temperature 98.1 F Pulse Rate 108 H Respiratory Rate 18 18 Blood Pressure 198/84 H Pulse Oximetry 100 100 04/15/18 00:44 04/15/18 01:00 04/15/18 02:27 Temperature Pulse Rate 104 H Respiratory Rate 18 18 18 Blood Pressure 124/62 Pulse Oximetry 99 99 04/15/18 03:00 04/15/18 05:00 04/15/18 07:12 Temperature Pulse Rate 100 H 92 H 95 H Respiratory Rate 16 16 18 Blood Pressure 133/66 146/79 H 147/71 H Pulse Oximetry 98 98 98 Intake & Output 04/14/18 04/15/18 04/15/18 18:59 06:59 18:59 Intake Total 500 / 500 Balance 500 / 500 Weight 63 kg Intake: IV 500 / 500 NS Inj 500 ML @ Wide Open IV. 500 / 500 SIG ONCE ONE Rx#:[id number] Narrative: GENERAL: Well-nourished, well-developed female in visible discomfort, grasping abdominal area. SKIN: Warm and dry. HEAD: Atraumatic. Normocephalic. EYES: Pupils equal and round. No scleral icterus. No injection or drainage. ENT: No nasal bleeding or discharge. Mucous membranes pink and moist. NECK: Trachea midline. No JVD. CARDIOVASCULAR: Regular rate and rhythm. RESPIRATORY: No accessory muscle use. Clear to auscultation. Breath sounds equal bilaterally. GASTROINTESTINAL: Abdomen soft, non-tender, nondistended. + Bowel sounds. Epigastric tenderness with palpation. MUSCULOSKELETAL: Extremities without clubbing, cyanosis, or edema. No obvious deformities. NEUROLOGICAL: Awake and alert. No obvious cranial nerve deficits. Motor grossly within normal limits. Five out of 5 muscle strength in the arms and legs. Normal speech. PSYCHIATRIC: Appropriate mood and affect; insight and judgment normal. Results - Labs CBC & Chem 7: 04/15/18 00:15 04/15/18 00:15 Labs: Laboratory Results - last 24 hr 04/15/18 04/15/18 04/15/18 00:15 00:15 06:42 WBC 13.6 H RBC 4.43 Hgb 11.1 L Hct 34.3 L MCV 77.4 L MCH 25.1 L MCHC 32.5 RDW 16.3 Plt Count 478 H MPV 7.3 Neut % (Auto) 58.8 Lymph % (Auto) 33.8 [place] % (Auto) 4.3 Eos % (Auto) 2.5 Baso % (Auto) 0.6 Neut # (Auto) 8.0 H Lymph # (Auto) 4.6 [place] # (Auto) 0.6 Eos # (Auto) 0.3 Baso # (Auto) 0.1 WBC Differential . Differential Comment Auto diff final Sodium 135 L Potassium 4.0 Chloride 102 Carbon Dioxide 22.9 Anion Gap 10 BUN 14 Creatinine 1.10 H Estimated GFR 67 L Random Glucose 253 H Calcium 9.6 Total Bilirubin 0.3 AST 26 ALT 23 Alkaline Phosphatase 160 H Total Creatine Kinase 50 Troponin I 0.04 0.04 Total Protein 9.4 H Albumin 4.3 Lipase 639 H - Imaging Impressions Chest X-Ray 04/15/18 00:10 CONCLUSION: No acute cardiopulmonary process. Caprini VTE Risk Assessment Caprini VTE Risk Assessment: No/Low Risk (score <= 1) Caprini Risk Assessment Model: Point Value = 1 Point Value = 2 Point Value = 3 Point Value = 5 Age 41-60 Minor surgery BMI > 25 kg/m2 Swollen legs Varicose veins or History of unexplained or recurrent spontaneous Oral contraceptives or hormone replacement Sepsis (< 1 month) Serious lung disease, including pneumonia (< 1 month) Abnormal pulmonary function Acute myocardial infarction Congestive heart failure (< 1 month) History of inflammatory bowel disease Medical patient at bed rest Age 61-74 Arthroscopic surgery Major open surgery (> 45 min) Laparoscopic surgery (> 45 min) Malignancy Confined to bed (> 72 hours) Immobilizing plaster cast Central venous access Age >= 75 History of VTE Family history of VTE Factor V Leiden Prothrombin [id number] Lupus anticoagulant Anticardiolipin antibodies Elevated serum homocysteine Heparin-induced thrombocytopenia Other congenital or acquired thrombophilia Stroke (< 1 month) Elective arthroplasty Hip, pelvis, or leg fracture Acute spinal cord injury (< 1 month) Prophylaxis Regimen: Total Risk Factor Score Risk Level Prophylaxis Regimen 0-1 Low Early ambulation 2 Moderate Order ONE of the following: *Sequential Compression Device (SCD) *Heparin 5000 units SQ BID 3-4 Higher Order ONE of the following medications: *Heparin 5000 units SQ TID *Enoxaparin/Lovenox 40 mg SQ daily (WT < 150 kg, CrCl > 30 mL/min) *Enoxaparin/Lovenox 30 mg SQ daily (WT < 150 kg, CrCl > 10-29 mL/min) *Enoxaparin/Lovenox 30 mg SQ BID (WT < 150 kg, CrCl > 30 mL/min) AND/OR *Sequential Compression Device (SCD) 5 or more Highest Order ONE of the following medications: *Heparin 5000 units SQ TID (Preferred with Epidurals) *Enoxaparin/Lovenox 40 mg SQ daily (WT < 150 kg, CrCl > 30 mL/min) *Enoxaparin/Lovenox 30 mg SQ daily (WT < 150 kg, CrCl > 10-29 mL/min) *Enoxaparin/Lovenox 30 mg SQ BID (WT < 150 kg, CrCl > 30 mL/min) AND *Sequential Compression Device (SCD) Assessment and Plan - Assessment (1) Pancreatitis Code(s): K85.90 - Acute pancreatitis without necrosis or infection, unspecified Status: Acute (2) Chest pain Code(s): R07.9 - Chest pain, unspecified Status: Acute (3) Diabetes Code(s): E11.9 - Type 2 diabetes mellitus without complications Status: Chronic - Plan 42-year-old female with past medical history significant for coronary artery disease, diabetes mellitus, and fibromyalgia presents to the emergency department with chest pain which began about 3 days ago on and off but worsened overnight. Pancreatitis, acute -Patient denies any alcohol use -Abdomen/pelvis CT completed on 02/16/18 with no acute abnormality, emphysematous changes within lung bases noted. Pancreas was unremarkable without masses or calcifications. -Keep n.p.o., IV fluids, follow lipase levels, plan to advance diet tomorrow. -IV fluids NS at 70 mL's per hour -Protonix, pain control with IV morphine -Antiemetics for nausea and vomiting -If needed consult GI Chest pain, atypical Hx CAD with CABG and stenting HTN, chronic, stable -Patient of Dr. Benton, pain likely seems to be more epigastric in nature and due to above. -First 2 sets of troponins 0.04, patient with same levels about a month ago -EKG is reviewed, sinus rhythm with no acute ST changes noted -Chest x-ray negative -If warranted consult cardiology for further recommendations -Continue Lipitor, aspirin, Zetia, Brilinta, Imdur and Cozaar Diabetes mellitus -Insulin sliding scale low-dose with Accu-Cheks. DVT prophylaxis-SCDs Discussed Condition With: Discussed with patient and (2) Chest pain Qualifiers: Chest pain type: unspecified Qualified Code(s): R07.9 - Chest pain, unspecified
[2018-04-15] MEDS ORDERED: Sertraline 50 MG Tablet PO SCH (09:00)
[2018-04-15] MEDS ORDERED: traZODone 100 MG Tablet PO SCH (09:00)
[2018-04-15] MEDS ORDERED: HYDROmorphone PF Inj 2 MG/ML Vial IV.PUSH PRN ×2 (09:00)
[2018-04-15] MEDS ORDERED: Ezetimibe 10 MG Tablet PO SCH (09:00)
[2018-04-15] MEDS: Gabapentin 300 MG Capsule PO SCH ×2 (09:55→20:09)
[2018-04-15] MEDS: Senna/Docusate Sodium 8.6/50 MG Tablet PO SCH ×2 (09:58→20:09)
[2018-04-15] MEDS ORDERED: Dextrose 50% in Water 50 ML Vial IV.PUSH PRN (12:41)
[2018-04-15 13:09] LABS: Troponin I 0.04 ng/mL (0.02-0.05)
[2018-04-15] MEDS ORDERED: Morphine Sulfate Inj 2 MG/ML Vial IV.PUSH PRN (15:18)
[2018-04-15] MEDS: Insulin NovoLOG Aspart Correctional Sugar Inj SQ SCH ×2 (17:24→20:10)
--- NOTE | 2018-04-15 17:32 | ECG ---
Date Performed: 04/14/2018 Time Performed: 23:56:23 PTAGE: 42 years EKG: SINUS TACHYCARDIA POSSIBLE LEFT ATRIAL ENLARGEMENT NONSPECIFIC T-WAVE ABNORMALITY Since the previous tracing, no significant change noted ABNORMAL RHYTHM ECG NO PREVIOUS TRACING DOCTOR: Braydon Ragsdale Interpretating Date/Time 04/15/2018 17:30:54
--- NOTE | 2018-04-15 17:32 | ECG ---
Date Performed: 04/15/2018 Time Performed: 06:39:11 PTAGE: 42 years EKG: Sinus rhythm POSSIBLE LEFT ATRIAL ENLARGEMENT LOW QRS VOLTAGE IN PRECORDIAL LEADS NONSPECIFIC T-WAVE ABNORMALITY Since the previous tracing, no significant change noted BORDERLINE ECG PREVIOUS TRACING : 03/12/2018 01.48 DOCTOR: Braydon Ragsdale Interpretating Date/Time 04/15/2018 17:31:09
[2018-04-15 23:34] VITALS: BP 168/86; PULSE 100; RESP 18; TEMP 97.8; O2SAT 99
--- NOTE | 2018-04-16 20:40 | ECG ---
Date Performed: 04/15/2018 Time Performed: 14:01:08 PTAGE: 42 years EKG: Sinus rhythm NONSPECIFIC T-WAVE ABNORMALITY BORDERLINE ECG PREVIOUS TRACING : 04/15/2018 06.39 Since the previous tracing, no significant change noted DOCTOR: Aba Brown Interpretating Date/Time 04/16/2018 20:39:20
[2018-04-16] MEDS ORDERED: traZODone 100 MG Tablet PO SCH (21:00)
== END 2018-04-16 01:05 | disposition left against medical advice (07) ==
LOC: NEPE 23:45 → NEDA 23:45 → NEDH 04-15 06:52 → NEPFCDU 04-15 14:34
PROVIDERS: ADMIT Hospitalist; ATTEND Hospitalist
DX: R74.8 Abnormal levels of other serum enzymes; E87.1 Hypo-osmolality and hyponatremia; D50.9 Iron deficiency anemia, unspecified; I25.2 Old myocardial infarction; M79.7 Fibromyalgia; Z79.01 Long term (current) use of anticoagulants; R19.7 Diarrhea, unspecified; R51 Headache; Z79.4 Long term (current) use of insulin; K85.90 Acute pancreatitis without necrosis or infection, unspecified; Z79.82 Long term (current) use of aspirin; Z87.891 Personal history of nicotine dependence; I25.10 Atherosclerotic heart disease of native coronary artery without angina pectoris; R79.89 Other specified abnormal findings of blood chemistry; Z95.5 Presence of coronary angioplasty implant and graft; Z79.899 Other long term (current) drug therapy; R00.0 Tachycardia, unspecified; Z95.1 Presence of aortocoronary bypass graft; R07.9 Chest pain, unspecified; I10 Essential (primary) hypertension; Z98.51 Tubal ligation status; E11.9 Type 2 diabetes mellitus without complications

== ENCOUNTER 2018-06-08 18:58 | Observation (INO) ==
[2018-06-08] MEDS ORDERED: Morphine Inj 4 MG/ML Vial IV.PUSH ONE (19:56)
--- NOTE | 2018-06-08 20:11 | ED ---
HPI General Chief Complaint: Chest Pain Stated Complaint: Chest pain Time Seen by Provider: 06/08/18 19:49 Source: patient Mode of arrival: ambulatory Limitations: no limitations History of Present Illness HPI narrative: Patient is a 42-year-old female presenting to emergency department for evaluation of chest pain. Patient states it started at rest 3 hours prior to arrival, the chest pain is located to the left anterior chest wall with radiation to the left arm, pressure-like. Patient reports her pain is a 10 out of 10. She reports that approximately the same time her nose started bleeding and she developed a headache, she states she has not had a headache like this before. Pain feels like a migraine. She states the pain is a 10 out of 10, constant, throbbing. Symptom onset was sudden, symptoms are moderate, no alleviating factors, no exacerbating factors. Patient reports that she also feels nauseated but has not vomited. MD complaint: Reports chest pain STEMI Alert: No Onset (ago): hour(s) Duration: constant Onset: during rest Pain location: Reports left chest Severity: moderate Severity scale (1-10): 10 Quality: Reports heaviness Pain radiation: Reports LUE Relieving factors: nothing Exacerbating factors: nothing Associated symptoms: Reports nausea Treatments prior to arrival chest pain: Reports none Related Data Home Medications Medication Instructions Recorded Confirmed insulin aspart U-100 [Novolog 1 sliding scale dose SUB-Q UD 02/15/18 04/20/18 U-100 Insulin aspart] duloxetine 30 mg PO DAILY 03/12/18 04/20/18 ezetimibe 10 mg PO DAILY 03/12/18 04/20/18 losartan 25 mg PO DAILY 03/12/18 04/20/18 magnesium oxide 400 mg PO DAILY 03/12/18 04/20/18 ferrous sulfate 325 mg PO DAILY 04/20/18 04/20/18 hydrocodone-acetaminophen 1 tab PO BID 04/20/18 04/20/18 insulin glargine [Lantus U-100 40 unit SUB-Q HS 04/20/18 04/20/18 Insulin] Previous Rx's Medication Instructions Recorded alprazolam [Xanax] 0.5 mg PO BID PRN #60 tab 02/24/18 aspirin 81 mg PO DAILY #30 tab 02/24/18 atorvastatin 80 mg PO DAILY #30 tab 08/30/18 gabapentin 600 mg PO BID #60 tab 02/24/18 isosorbide mononitrate 30 mg PO DAILY #30 tab 02/24/18 metformin 500 mg PO TID #90 tab 02/24/18 nitroglycerin 0.4 mg SUBLINGUAL Q5-15M PRN #100 02/24/18 tab pantoprazole 40 mg PO DAILY #30 tab 02/24/18 sertraline 50 mg PO DAILY #30 tab 02/24/18 ticagrelor [Brilinta] 90 mg PO BID #60 tab 02/24/18 trazodone 100 mg PO DAILY #30 tab 02/24/18 Allergies Allergy/AdvReac Type Severity Reaction Status Date / Time Penicillins Allergy Severe Hives Verified 05/27/18 01:44 lisinopril Allergy Mild Rash Verified 05/27/18 01:44 shellfish derived Allergy Unknown RASH Verified 05/27/18 01:44 Review of Systems ROS: all other systems reviewed are negative [facility] Medical History Medical History CAD (coronary artery disease) (Acute) Diabetes (Acute) Fibromyalgia (Acute) Hypertension (Acute) Past heart attack (Acute) Surgical History Surgical History Hx of CABG (Acute) Hx of tubal ligation (Acute) Stented coronary artery (Acute) Family History Family History Mother Heart disease Diabetes Sister Heart disease Social History Social History Substance History: No History of Abuse Second Hand Smoke Exposure: No Smoking Status: Former smoker Tobacco Type: Cigarettes How Often Do You Have a Drink Containing Alcohol: Never Recent Travel in [facility] within the Last 8 Weeks: No Recent Out of Country Travel within the Last 8 Weeks: No Immunization History Tetanus Immunization: Unsure Exam Narrative Exam Narrative: GENERAL: Well-developed, well-nourished, alert female. Appears uncomfortable, in no acute distress. SKIN: Focused skin assessment warm/dry. HEAD: Atraumatic. Normocephalic. EYES: Pupils equal and round. No scleral icterus. No injection or drainage. ENT: No nasal discharge, blood noted in the right nostril, bleeding from the anterior upper aspect. Mucous membranes pink and moist. NECK: Trachea midline. No JVD. CARDIOVASCULAR: Regular rate and rhythm. No murmur appreciated. RESPIRATORY: No accessory muscle use. Clear to auscultation. Breath sounds equal bilaterally. GASTROINTESTINAL: Abdomen soft, non-tender, nondistended. Hepatic and splenic margins not palpable. MUSCULOSKELETAL: No obvious deformities. No clubbing. No cyanosis. No edema. NEUROLOGICAL: Awake and alert. No obvious cranial nerve deficits. Motor grossly within normal limits. Normal speech. PSYCHIATRIC: Appropriate mood and affect; insight and judgment normal. Course Initial Documented Vital Signs Temperature 98.5 F 06/08/18 19:17 Pulse Rate 104 H 06/08/18 19:17 Respiratory Rate 18 06/08/18 19:17 Blood Pressure 177/92 H 06/08/18 19:17 Pulse Oximetry 100 06/08/18 19:17 Last Documented Vital Signs Temperature 98.5 F 06/08/18 19:17 Pulse Rate 104 H 06/08/18 19:17 Respiratory Rate 18 06/08/18 19:17 Blood Pressure 177/92 H 06/08/18 19:17 Pulse Oximetry 100 06/08/18 22:15 Medical Decision Making BILLY Attestation BILLY supervised visit: Yes Attestation: I, Dr. Jacobson, have reviewed the advance practice practitioner' s documentation and am in agreement, met with the patient face to face, made the diagnosis, and the medical decision making was done by me. *My assessment and Findings: The patient is a 42-year-old female who presents to the emergency department for chest pain. The patient has a history of coronary artery disease with previous CABG and stent placement. The patient states her last stent was placed in December in [place]. The patient then moved to the local area and January. The patient is followed by her primary physician , Dr. River, and her director correctional agency, Dr. Benton. The patient's chest pain is intermittent, left-sided, radiating to the left upper extremity and associated with shortness of breath, nausea, and diaphoresis. The patient states that every time she has had a stent placed she has had different pain. The patient states she was admitted to the hospital last month for an elevated troponin, however, left AGAINST MEDICAL ADVICE. She has not followed up with her director correctional agency since she left AGAINST MEDICAL ADVICE. She has not had a stress test performed since she had a stent placed in December. The patient does note her symptoms are exertional. She has multiple risk factors including CAD with previous CABG and stent placement, hypertension, hyperlipidemia, and diabetes. Patient's EKG was unremarkable, initial troponin was 0.04. I reviewed the EMR, her last troponin was last month was 0.15. Patient may benefit from evaluation by her director correctional agency, Dr. Benton, for possible nuc med stress test versus cardiac catheterization versus symptomatic treatment with long-acting nitrate such as Imdur. Therefore, the on-call medical service was paged for 23-hour observation. [facility] Narrative Medical decision making narrative: Patient is a 42-year-old female presenting for evaluation of chest pain, epistaxis and a headache. Patient's vital signs are stable, labs and imaging ordered and pending. Patient states that she left AMA last time because she felt like she was accused of being drug seeking. Patient reports that she has never used drugs in her life. Initial set of cardiac enzymes are negative. H/H 8.5/27.2, stable when compared to priors. CXR with no acute disease. Symptoms appear anginal, Nitropaste applied to chest wall. Pt has significant cardiac history with most recent stent placement in January. Pt will be admitted to medicine with consult to director correctional agency. [facility] paged for admit. Discussed with Dr. Nelson who accepted admit. Orders placed. Medical Screen Exam Complete: Yes Emergency Medical Condition: Yes Differential Diagnosis Differential Diagnosis: ACS versus USA versus ICH versus metabolic abnormality versus migraine versus other Medical Records Medical records reviewed: Yes I reviewed the patient's medical records. Her troponin was elevated 0.15, she was admitted to have enzymes trended. Pt left AMA prior to completion of work-up. Lab Data Lab results reviewed: Yes I reviewed the patient's lab results. Result diagrams: 06/08/18 20:25 06/08/18 20:25 Lab Results 06/08/18 06/08/18 06/08/18 Range/Units 20:25 20:25 20:25 WBC 11.3 H (4.0-11.0) th/mm3 RBC 3.82 L (4.00-5.30) mil/mm3 Hgb 8.5 L (11.6-15.3) gm/dL Hct 27.0 L (35.0-46.0) % MCV 70.8 L (80.0-100.0) fL MCH 22.2 L (27.0-34.0) pg MCHC 31.4 L (32.0-36.0) % RDW 16.6 (11.6-17.2) % Plt Count 491 H (150-450) th/mm3 MPV 7.5 (7.0-11.0) fL Neut % (Auto) 64.8 (16.0-70.0) % Lymph % (Auto) 28.5 (9.0-44.0) % [place] % (Auto) 4.9 (0.0-8.0) % Eos % (Auto) 1.4 (0.0-4.0) % Baso % (Auto) 0.4 (0.0-2.0) % Neut # (Auto) 7.3 (1.8-7.7) th/mm3 Lymph # (Auto) 3.2 (1.0-4.8) th/mm3 [place] # (Auto) 0.6 (0.0-0.9) th/mm3 Eos # (Auto) 0.2 (0.0-0.4) th/mm3 Baso # (Auto) 0.0 (0.0-0.2) th/mm3 WBC Differential . Differential Comment Auto diff final PT 9.4 L (9.8-11.6) sec INR 0.9 Ratio APTT 26.8 (23.4-31.7) sec Sodium 138 (136-145) meq/L Potassium 3.8 (3.5-5.1) meq/L Chloride 106 (98-107) meq/L Carbon Dioxide 21.3 (21.0-32.0) meq/L Anion Gap 11 (5-15) meq/L BUN 11 (7-18) mg/dL Creatinine 0.89 (0.50-1.00) mg/dL Estimated GFR 85 L (>89) mL/min Random Glucose 252 H (74-106) mg/dL Calcium 8.6 (8.5-10.1) mg/dL Magnesium 1.6 (1.5-2.5) mg/dL Total Bilirubin 0.2 (0.2-1.0) mg/dL AST 9 L (15-37) U/L ALT 13 (10-53) U/L Alkaline Phosphatase 108 (45-117) U/L Total Creatine Kinase 57 (26-192) U/L Troponin I 0.04 (0.02-0.05) ng/mL Total Protein 7.4 (6.4-8.2) g/dL Albumin 3.5 (3.4-5.0) g/dL Lipase 279 (73-393) U/L Imaging Data Radiologist's impression: Chest X-Ray 06/08/18 19:56 CONCLUSION: No acute cardiopulmonary disease. Head CT 06/08/18 19:58 CONCLUSION: 1. Negative noncontrast head CT. . Discharge Plan Discharge Disposition Patient Disposition: ED Admit(ED Internal Use Only) Discharge Condition Condition: Stable Discharge Order Discharge Orders: ED Use Only Admit Order (Routine); Ordered 06/08/18 Ordered By: Christine Grimaldo Discharge Details Diagnosis: Chest pain, Angina at rest Physicians Team ED Provider: Mando Jacobson ED Midlevel Provider: Christine Grimaldo Primary Care Provider: Елена River Attending Provider: Lorenzo Nelson Rxs /Orders / Referrals /Forms Prescriptions: No Action isosorbide mononitrate 30 mg Tablet Extended Release 24 Hr 30 mg PO DAILY Qty: 30 RF: 0 metformin 500 mg Tablet 500 mg PO TID Qty: 90 RF: 0 atorvastatin 80 mg Tablet 80 mg PO DAILY Qty: 30 RF: 0 gabapentin 600 mg Tablet 600 mg PO BID Qty: 60 RF: 0 alprazolam [Xanax] 0.5 mg Tablet 0.5 mg PO BID PRN (Reason: Anxiety) Qty: 60 RF: 0 trazodone 100 mg Tablet 100 mg PO DAILY Qty: 30 RF: 0 pantoprazole 40 mg Tablet,Delayed Release (Dr/Ec) 40 mg PO DAILY Qty: 30 RF: 0 nitroglycerin 0.4 mg Tablet, Sublingual 0.4 mg SUBLINGUAL Q5-15M PRN (Reason: Chest Pain) Qty: 100 RF: 0 aspirin 81 mg Tablet,Chewable 81 mg PO DAILY Qty: 30 RF: 0 sertraline 50 mg Tablet 50 mg PO DAILY Qty: 30 RF: 0 ticagrelor [Brilinta] 90 mg Tablet 90 mg PO BID Qty: 60 RF: 0 magnesium oxide 400 mg Tablet 400 mg PO DAILY RF: 0 losartan 25 mg Tablet 25 mg PO DAILY RF: 0 ezetimibe 10 mg Tablet 10 mg PO DAILY RF: 0 duloxetine 30 mg Capsule,Delayed Release(Dr/Ec) 30 mg PO DAILY RF: 0 insulin aspart U-100 [Novolog U-100 Insulin aspart] 100 unit/mL Solution 1 sliding scale dose SUB-Q UD RF: 0 ferrous sulfate 325 mg (65 mg iron) Tablet 325 mg PO DAILY RF: 0 insulin glargine [Lantus U-100 Insulin] 100 unit/mL solution 40 unit SUB-Q HS RF: 0 hydrocodone-acetaminophen 7.5-325 mg tablet 1 tab PO BID RF: 0 Discharge Instructions Patient Printed Instructions: Chest Pain (ED) Status ED Status: Admitted Observation Patient
--- NOTE | 2018-06-08 20:23 | XR ---
EXAM DATE: 06/08/2018 8:20 PM EST AGE/SEX: 42 years / Female INDICATIONS: Chest pain with headache and nose bleed for 3 hours. CLINICAL DATA: This is the patient's initial encounter. Patient reports that signs and symptoms have been present for 1 day and indicates a pain score of 9/10. MEDICAL/SURGICAL HISTORY: . Hypertension. Diabetes. Coronary artery disease. . Total knee repl acement, right. CABG. Coronary artery stent. [place] [facility] [place]. . FINDINGS: A single AP view of the chest demonstrates the lungs to be symmetrically aerated without evidence of mass, infiltrate or effusion. The cardiomediastinal contours are unremarkable. Osseous structures a re intact. The patient is status post median sternotomy. CONCLUSION: No acute cardiopulmonary disease. Electronically signed by: Julian Michel MD 06/08/2018 8:21 PM EST
--- NOTE | 2018-06-08 20:44 | CT ---
EXAM DATE: 06/08/2018 8:41 PM EST AGE/SEX: 42 years / Female INDICATIONS: Cephalgia. CLINICAL DATA: This is the patient's initial encounter. Patient reports that signs and symptoms have been present for 1 day and indicates a pain score of 10/10. MEDICAL/SURGICAL HISTORY: Diabetes. Hypertension. Myocardial infarction. CAD. CABG. Tubal liga tion. Coronary artery stent. RADIATION DOSE: 36.57 CTDI (mGy) COMPARISON: [facility] – [place] BRAIN W/O CONTRAST, 07/19/2017. . TECHNIQUE: CT of the head without contrast. Using automated exposure control and adjustment of the mA and/or kV according to patient size, radiation dose was kept as low as reasonably achievable to ob tain optimal diagnostic quality images. DICOM format image data is available electronically for revi ew and comparison. FINDINGS: Cerebrum: The ventricles are normal for age. No evidence of midline shift, mass lesion, hemorrhage or acute infarction. No extraaxial fluid collections are seen. Posterior Fossa: The cerebellum and brainstem are intact. The 4th ventricle is midline. The cerebe llopontine angle is unremarkable. Extracranial: The visualized portion of the orbits is intact. Skull: The calvaria is intact. No evidence of skull fracture. CONCLUSION: 1. Negative noncontrast head CT. . Electronically signed by: Julian Michel MD 06/08/2018 8:43 PM EST
[2018-06-08 20:48] LABS: Baso % (Auto) 0.4 % (0.0-2.0); Eos # (Auto) 0.2 th/mm3 (0.0-0.4); Eos % (Auto) 1.4 % (0.0-4.0); Hemoglobin 8.5 gm/dL (11.6-15.3); Lymph # (Auto) 3.2 th/mm3 (1.0-4.8); Lymph % (Auto) 28.5 % (9.0-44.0); Mean Corpuscular HGB Conc 31.4 % (32.0-36.0); Mean Corpuscular Hemoglobin 22.2 pg (27.0-34.0); Mean Corpuscular Volume 70.8 fL (80.0-100.0); Mean Platelet Volume 7.5 fL (7.0-11.0); Mono # (Auto) 0.6 th/mm3 (0.0-0.9); Mono % (Auto) 4.9 % (0.0-8.0); Neut # (Auto) 7.3 th/mm3 (1.8-7.7); Neut % (Auto) 64.8 % (16.0-70.0); Platelet Count 491 th/mm3 (150-450); Red Blood Count 3.82 mil/mm3 (4.00-5.30); Red Cell Distribution Width 16.6 % (11.6-17.2); White Blood Count 11.3 th/mm3 (4.0-11.0)
[2018-06-08 21:03] LABS: Activated Partial Thrombo Time 26.8 sec (23.4-31.7); INR 0.9 Ratio; Prothrombin Time 9.4 sec (9.8-11.6)
[2018-06-08 21:25] LABS: Alanine Aminotransferase 13 U/L (10-53); Albumin 3.5 g/dL (3.4-5.0); Anion Gap 11 meq/L (5-15); Aspartate Aminotransferase 9 U/L (15-37); Blood Urea Nitrogen 11 mg/dL (7-18); Calcium 8.6 mg/dL (8.5-10.1); Carbon Dioxide 21.3 meq/L (21.0-32.0); Chloride 106 meq/L (98-107); Glomerular Filtration Rate 85 mL/min (>89); Glucose,Random 252 mg/dL (74-106); Lipase 279 U/L (73-393); Magnesium 1.6 mg/dL (1.5-2.5); Potassium 3.8 meq/L (3.5-5.1); Sodium 138 meq/L (136-145)
[2018-06-08 21:29] LABS: Alkaline Phosphatase 108 U/L (45-117); Total Protein 7.4 g/dL (6.4-8.2); Troponin I 0.04 ng/mL (0.02-0.05)
[2018-06-08 21:30] LABS: Creatine Kinase 57 U/L (26-192)
[2018-06-08] MEDS ORDERED: Morphine Sulfate Inj 2 MG/ML Vial IV.PUSH ONE (22:22)
[2018-06-08] MEDS ORDERED: Dextrose 50% in Water 50 ML Vial IV.PUSH PRN (22:29)
[2018-06-08] MEDS ORDERED: Bisacodyl 10 MG Supp RECTAL PRN (22:30)
[2018-06-08] MEDS ORDERED: Acetaminophen 325 MG Tablet PO PRN (22:30)
[2018-06-09] MEDS ORDERED: Morphine Inj 4 MG/ML Vial IV.PUSH ONE (01:57)
[2018-06-09] MEDS: Sod Chloride 0.9% Inj 1,000 ML IV.CONT SCH ×2 (03:44→14:11)
[2018-06-09 04:02] LABS: Baso # (Auto) 0.1 th/mm3 (0.0-0.2); Baso % (Auto) 0.5 % (0.0-2.0); Eos # (Auto) 0.2 th/mm3 (0.0-0.4); Eos % (Auto) 1.6 % (0.0-4.0); Hematocrit 27.1 % (35.0-46.0); Hemoglobin 8.6 gm/dL (11.6-15.3); Lymph # (Auto) 3.2 th/mm3 (1.0-4.8); Lymph % (Auto) 26.2 % (9.0-44.0); Mean Corpuscular HGB Conc 31.8 % (32.0-36.0); Mean Corpuscular Hemoglobin 22.6 pg (27.0-34.0); Mean Corpuscular Volume 71.1 fL (80.0-100.0); Mean Platelet Volume 7.5 fL (7.0-11.0); Mono # (Auto) 0.7 th/mm3 (0.0-0.9); Mono % (Auto) 5.6 % (0.0-8.0); Neut # (Auto) 8.1 th/mm3 (1.8-7.7); Neut % (Auto) 66.1 % (16.0-70.0); Platelet Count 487 th/mm3 (150-450); Red Blood Count 3.81 mil/mm3 (4.00-5.30); Red Cell Distribution Width 16.3 % (11.6-17.2); White Blood Count 12.3 th/mm3 (4.0-11.0)
[2018-06-09 04:17] LABS: Alanine Aminotransferase 15 U/L (10-53); Albumin 3.6 g/dL (3.4-5.0); Anion Gap 10 meq/L (5-15); Aspartate Aminotransferase 8 U/L (15-37); Blood Urea Nitrogen 11 mg/dL (7-18); Calcium 8.4 mg/dL (8.5-10.1); Carbon Dioxide 23.9 meq/L (21.0-32.0); Chloride 106 meq/L (98-107); Glomerular Filtration Rate 79 mL/min (>89); Glucose,Random 212 mg/dL (74-106); Potassium 3.8 meq/L (3.5-5.1); Sodium 140 meq/L (136-145)
[2018-06-09 04:21] LABS: Alkaline Phosphatase 113 U/L (45-117); Total Protein 7.5 g/dL (6.4-8.2); Troponin I 0.03 ng/mL (0.02-0.05)
--- NOTE | 2018-06-09 06:57 | ECG ---
Date Performed: 06/08/2018 Time Performed: 19:29:00 PTAGE: 42 years EKG: Sinus rhythm NORMAL ECG No significant change from prior electrocardiogram. PREVIOUS TRACING : 04/20/2018 08.00 DOCTOR: Cristhian Story Interpretating Date/Time 06/09/2018 06:56:49
--- NOTE | 2018-06-09 07:55 | ECG ---
Date Performed: 06/09/2018 Time Performed: 05:26:50 PTAGE: 42 years EKG: Sinus rhythm NORMAL ECG No significant change from prior electrocardiogram. PREVIOUS TRACING : 06/08/2018 19.29 DOCTOR: Cristhian Story Interpretating Date/Time 06/09/2018 07:54:39
[2018-06-09] MEDS: Insulin NovoLOG Aspart Correctional Sugar Inj SQ SCH ×2 (09:07→12:00)
--- NOTE | 2018-06-09 09:33 | P.HPIM ---
History of Present Illness Primary Care Physician: Елена River MD Patient reports the last few days pepent felt good almmost like she had a cold with fatigue. Yesterday noticed a nose bleed w/ clot which was new and chest tightness w/ pain 9/10, LEFT sided. The chest pain came on suddenly and the patient reports she went to lay down but no relief with resting. ROS(+) nausea , chest tightness/pain, SOB, headache, palpitations ( a few), felt like she would "pass out." + diarhea last 2 days. No recent abx use. ROS (-) vomiting, abdominal pain, constipation. No radiation of pain to the jaw or to the neck but patient is a diabetic. In past the patient had similar symptoms and it was a PA in the past. No sick contacts. No fever or chills. No GERD symptoms such as burning substernally. In emergency department patient was noted to be hypertensive into the 170s. Troponin levels trended thus far negative. CT head negative, chest x-ray negative Allergy: PCN, shellfish Family hx: M ( at 42 - PA) F: unknown Medications: see EMR. Social hx: 1 pack q 2 days for 20+ years. Now quit approx > 1 year. No ETOH. surgical history: CABG, 8 stents for PA Review of Systems Review of Systems: all other systems reviewed are negative [facility] Medical History Medical History CAD (coronary artery disease) (Acute) Diabetes (Acute) Fibromyalgia (Acute) Hypertension (Acute) Past heart attack (Acute) Surgical History Surgical History Hx of CABG (Acute) Hx of tubal ligation (Acute) Stented coronary artery (Acute) Family History Family History Mother Heart disease Diabetes Sister Heart disease Social History Social History Substance History: No History of Abuse Second Hand Smoke Exposure: No Smoking Status: Former smoker Tobacco Type: Cigarettes How Often Do You Have a Drink Containing Alcohol: Never Recent Travel in [facility] within the Last 8 Weeks: No Recent Out of Country Travel within the Last 8 Weeks: No Immunization History Tetanus Immunization: Unsure Medications and Allergies Allergies Allergy/AdvReac Type Severity Reaction Status Date / Time Penicillins Allergy Severe Hives Verified 05/27/18 01:44 lisinopril Allergy Mild Rash Verified 05/27/18 01:44 shellfish derived Allergy Unknown RASH Verified 05/27/18 01:44 Home Medications Medication Instructions Recorded Confirmed Type insulin aspart U-100 [Novolog 1 sliding scale dose SUB-Q UD 02/15/18 04/20/18 History U-100 Insulin aspart] duloxetine 30 mg PO DAILY 03/12/18 04/20/18 History ezetimibe 10 mg PO DAILY 03/12/18 04/20/18 History losartan 25 mg PO DAILY 03/12/18 04/20/18 History magnesium oxide 400 mg PO DAILY 03/12/18 04/20/18 History ferrous sulfate 325 mg PO DAILY 04/20/18 04/20/18 History hydrocodone-acetaminophen 1 tab PO BID 04/20/18 04/20/18 History insulin glargine [Lantus U-100 40 unit SUB-Q HS 04/20/18 04/20/18 History Insulin] Active Medications: Active Medications Acetaminophen (Tylenol) 650 mg PO Q4H PRN PRN Reason: Temp > 100.4 Al Hydroxide/Mg Hydroxide (Milk Of Magnesia Liq) 30 ml PO Q12H PRN PRN Reason: Mild Constipation Aspirin (Aspirin Chew) 81 mg PO DAILY KAMALJIT Bisacodyl (Dulcolax Supp) 10 mg RECTAL DAILY PRN PRN Reason: SEVERE CONSITIPATION Dextrose (D50w Vial) 50 ml IV.PUSH UNSCH PRN PRN Reason: PER HYPOGLYCEMIA PROTOCOL Glucagon (Glucagon Inj) 1 mg OTHER PRN PRN PRN Reason: for Hypoglycemia Protocol Sodium Chloride (Ns Inj) 1,000 mls @ 60 mls/hr IV.CONT .[id number] [facility] Last Admin: 06/09/18 03:44 Dose: 60 mls/hr Insulin Aspart (Novolog Insulin Correctional Sugar Inj) 0 unit SQ ACHS [facility]; Protocol Last Admin: 06/09/18 09:07 Dose: 7 unit Insulin Detemir (Levemir Inj) 20 unit SQ HS [facility]; Protocol Lactulose (Lactulose Liq) 30 ml PO DAILY PRN PRN Reason: SEVERE CONSITIPATION Nitroglycerin (Nitro-Bid 2% Oint) 1 inch TOPICAL Q6HR [facility] Last Admin: 06/09/18 06:25 Dose: Not Given Ondansetron HCl (Zofran Inj) 4 mg IV.PUSH Q6H PRN PRN Reason: NAUSEA OR VOMITING Sennosides (Senokot) 17.2 mg PO Q12H PRN PRN Reason: Moderate Constipation Sodium Chloride (Ns Flush) 2 ml IV.FLUSH BID [facility] Last Admin: 06/09/18 09:08 Dose: 2 ml Sodium Chloride (Ns Flush) 2 ml IV.FLUSH PRN PRN PRN Reason: FLUSH AFTER USING IV ACCESS Physical Exam Vital signs: Last Vital Signs Temp 98.7 F 06/09/18 04:00 Pulse 84 06/09/18 08:00 Resp 12 06/09/18 04:00 BP 117/68 06/09/18 04:00 Pulse Ox 99 06/09/18 04:00 Intake & Output 06/07/18 06/08/18 06/09/18 06/10/18 06:59 06:59 06:59 06:59 Weight 61.689 kg Results Labs CBC & Chem 7: 06/09/18 03:21 06/09/18 03:21 Imaging Impressions Chest X-Ray 06/08/18 19:56 CONCLUSION: No acute cardiopulmonary disease. Head CT 06/08/18 19:58 CONCLUSION: 1. Negative noncontrast head CT. . Caprini VTE Risk Assessment Caprini VTE Risk Assessment: No/Low Risk (score <= 1) Caprini Risk Assessment Model: Point Value = 1 Point Value = 2 Point Value = 3 Point Value = 5 Age 41-60 Minor surgery BMI > 25 kg/m2 Swollen legs Varicose veins or History of unexplained or recurrent spontaneous Oral contraceptives or hormone replacement Sepsis (< 1 month) Serious lung disease, including pneumonia (< 1 month) Abnormal pulmonary function Acute myocardial infarction Congestive heart failure (< 1 month) History of inflammatory bowel disease Medical patient at bed rest Age 61-74 Arthroscopic surgery Major open surgery (> 45 min) Laparoscopic surgery (> 45 min) Malignancy Confined to bed (> 72 hours) Immobilizing plaster cast Central venous access Age >= 75 History of VTE Family history of VTE Factor V Leiden Prothrombin [id number] Lupus anticoagulant Anticardiolipin antibodies Elevated serum homocysteine Heparin-induced thrombocytopenia Other congenital or acquired thrombophilia Stroke (< 1 month) Elective arthroplasty Hip, pelvis, or leg fracture Acute spinal cord injury (< 1 month) Prophylaxis Regimen: Total Risk Factor Score Risk Level Prophylaxis Regimen 0-1 Low Early ambulation 2 Moderate Order ONE of the following: *Sequential Compression Device (SCD) *Heparin 5000 units SQ BID 3-4 Higher Order ONE of the following medications: *Heparin 5000 units SQ TID *Enoxaparin/Lovenox 40 mg SQ daily (WT < 150 kg, CrCl > 30 mL/min) *Enoxaparin/Lovenox 30 mg SQ daily (WT < 150 kg, CrCl > 10-29 mL/min) *Enoxaparin/Lovenox 30 mg SQ BID (WT < 150 kg, CrCl > 30 mL/min) AND/OR *Sequential Compression Device (SCD) 5 or more Highest Order ONE of the following medications: *Heparin 5000 units SQ TID (Preferred with Epidurals) *Enoxaparin/Lovenox 40 mg SQ daily (WT < 150 kg, CrCl > 30 mL/min) *Enoxaparin/Lovenox 30 mg SQ daily (WT < 150 kg, CrCl > 10-29 mL/min) *Enoxaparin/Lovenox 30 mg SQ BID (WT < 150 kg, CrCl > 30 mL/min) AND *Sequential Compression Device (SCD) Assessment and Plan Plan Patient is a 42-year-old female with past medical history of CAD status post myocardial infarction with placement of stents presenting to emergency department for chest pain concerning for acute coronary syndrome versus accelerated hypertension. Cardiology: Chest pain EKG without acute ST changes, troponin levels negative, and recently obtained Lexiscan scan is negative placing patient in a very low risk for acute cardiac event at this time. I suspect the patient's symptoms of chest pain was due to elevated blood pressure at the time resulting in symptoms of chest pain. At this time blood pressure optimization and outpatient follow-up with cardiology is acceptable. 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
[2018-06-09] MEDS: Morphine Inj 4 MG/ML Vial IV.PUSH PRN ×2 (10:26→14:41)
[2018-06-09] MEDS ORDERED: Regadenoson Inj 0.4 MG/5 ML Syringe IV.PUSH ONE (10:30)
--- NOTE | 2018-06-09 13:38 | NM ---
EXAM DATE: 06/09/2018 1:30 PM EST AGE/SEX: 42 years / Female INDICATIONS:Coronary artery disease. Stent Myocardial infarction Left sided chest pain. CLINICAL DATA: This is the patient's initial encounter. Patient reports that signs and symptoms have been present for 1 day and indicates a pain score of 2/10. MEDICAL/SURGICAL HISTORY: Hypertension. Diabetes mellitus type II. CABG. COMPARISON: [facility], MYOCARDIAL PERF PHARM SPECT, 07/26/2017. . DOSE: 8.7 mCi Tc 99m Myoview at rest 25.3 mCi [id number] at stress 0.4 mg Lexiscan STRESS SYMPTOMS: Nausea, chest tightness, heart racing. EJECTION FRACTION: 56 % TECHNIQUE: The patient underwent pharmacologic stress with infusion of prescribed dose. Continuous ECG tracing was monitored during stress. Gated SPECT imaging was performed after stress and conventi onal SPECT imaging was performed at rest. The examination was performed on a SPECT/CT scanner, both attenuation and non-corrected datasets were reviewed. FINDINGS: Distribution: The maximum perfused segment at stress is in the anterior wall. Perfusion Study: The pattern of perfusion at stress is within normal limits. Gated Study: There are intact wall motion and wall thickening without hypokinetic or dyskinetic segm ents. The ejection fraction is calculated at 56%. RISK CATEGORY: Low (<1% Annual Motality Rate) CONCLUSION: 1. Negative examination. 2. No evidence of fixed or reversible perfusion abnormalities. 3. Normal wall motion and ejection fraction. Electronically signed by: Ed Jackson MD Board Certified Radiologist 06/09/2018 1:37 PM EST
[2018-06-09 14:03] VITALS: BP 156/81; PULSE 92; RESP 17; TEMP 98.3; O2SAT 100
--- NOTE | 2018-06-09 16:03 | MB ---
cc: Mendoza Benton DO DATE: 06/09/2018 REASON FOR CONSULTATION: Chest pain. HISTORY OF PRESENT ILLNESS: Piper Nielsen is a 42-year-old female whom I see in the office, who presented to [place] due to not feeling well. She says she feels like she has had a cold and somewhat fatigued. Yesterday, she started noticing some left-sided chest pain, which was sharp in nature. At the time, she had a nosebleed and was also having a headache. She went to lie down and had no relief and so she came to the emergency room. While here troponins have been negative. She had an elevated blood pressure at 180/90. Pain had no radiation to the jaw or neck. She has had multiple symptoms of what she considers an anginal pain in the past and this was different than that. PAST MEDICAL HISTORY: 1. Coronary artery disease with multiple myocardial infarctions. 2. Diabetes. 3. Fibromyalgia. 4. Hypertension. PAST SURGICAL HISTORY: 1. Cardiac catheterization (02/03/2018) at _[facility] with stent placed to unknown vessel. 2. Cardiac catheterization (07/27/2017): Left main, 20%, LAD, 20% proximal. Multiple stents in the mid portion of the LAD with 100% stenosis, gives off 2 major diagonals, both were small with the first having 50% ostial stenosis and the second having 70% ostial stenosis. The left circumflex is a small vessel overall with a lesion of 50%. First obtuse marginal has a 50% ostial lesion. RCA is a small to moderate sized with a 70% lesion in the mid portion. ASH to LAD is patent and supplies the distal LAD. 3. Cardiac catheterization (08/02/2017). PCI of the RCA within the Misael drug-eluting stent (2.25 x 12). 4. History of 8 stents per the patient with one in the RCA as above and believed to be in the LAD while in [place], and the last one being recently placed at ____ [facility] to an unknown vessel. 6. Single vessel bypass with ASH to LAD, a [facility] in [place] (05/2017). 7. Cholecystectomy (2012). 8. BTL (2010). 9. Appendectomy (1980). ALLERGIES: 1. PENICILLIN. 2. LISINOPRIL. 3. SHELLFISH. MEDICATIONS: 1. NovoLog sliding scale. 2. Imdur 30 mg daily. 3. Aspirin 81 mg daily. 4. Lipitor 80 mg daily. 5. Gabapentin 600 mg b.i.d. 6. Metformin 500 mg t.i.d. 7. Nitro sublingual as needed. 8. Protonix 40 mg daily. 9. Zoloft 50 mg daily. 10. Brilinta 90 mg b.i.d. 11. Trazodone 100 mg daily. 12. Xanax 0.5 mg b.i.d. 13. Losartan 25 mg daily. 14. Zetia 10 mg daily. 15. Mag oxide 400 mg daily. 16. Duloxetine 30 mg daily. 17. Iron 325 mg daily. 18. Lantus 40 units subcutaneous every night. 19. Hydrocodone/acetaminophen 7.5/325 b.i.d. FAMILY HISTORY: Multiple family members on her mother's side who had coronary artery disease at a young age. SOCIAL HISTORY: The patient previously smoked 1 pack a day for 25 years, but stopped around a year ago. Denies alcohol or drug abuse. REVIEW OF SYSTEMS: Fourteen systems were reviewed including osteopathic; pertinent positives and negatives above, otherwise negative. PHYSICAL EXAMINATION: VITAL SIGNS: Temperature 98.2, heart rate 83, blood pressure 144/83, respirations 16, pulse oximetry 99% on room air. GENERAL: The patient appears well, in no acute distress; alert, awake and oriented x3. HEENT: Extraocular muscles intact. Mucous membranes moist. NECK: Supple. No JVD at 45 degrees. No carotid bruits heard bilaterally. Carotid upstroke is brisk in nature. HEART: Regular rate and rhythm. Positive first and second heart sounds with no noted murmurs, gallops or rubs. LUNGS: Clear to auscultation bilaterally. No wheezes, rales or rhonchi. ABDOMEN: Soft, nontender, nondistended, no organomegaly noted. EXTREMITIES: Show no clubbing, cyanosis or edema. Femoral and distal pulses are intact bilaterally. NEUROLOGIC: No focal deficits. SKIN: Warm, dry and intact. OSTEOPATHIC: No kyphoscoliosis, lordosis or paraspinal tender points. LABORATORY DATA: Hemoglobin 8.6, hematocrit 27.1, platelets 487. Potassium 3.8, BUN 11, creatinine 0.95. Troponin negative x3. DIAGNOSTIC DATA: Electrocardiogram (06/09/2018 at 10:56): Sinus rhythm, no acute ST-T wave changes. IMPRESSION: 1. Atypical chest pain. 2. Extensive coronary artery disease history with history of coronary artery bypass graft and 8 stents. 3. Diabetes mellitus. 4. Accelerated hypertension/hypertensive urgency. 5. Fibromyalgia. RECOMMENDATIONS: 1. Ms. Nielsen presented with chest pain which is atypical for coronary insufficiency. 2. She does have an extensive coronary artery disease history. 3. As she has not been worked up in some time, I believe that she should undergo a pharmacologic nuclear stress test. If this is negative, then from my standpoint, all she needs further blood pressure control. If positive, then we will plan on cardiac catheterization. Thank you for allowing me to see Piper Nielsen. If there are any questions, please do not hesitate to call. DO MAURIZIO Lundberg/killian/shayne , 03:20 PM , 03:33 PM
[2018-06-09] MEDS ORDERED: Insulin Detemir Inj 1,000 UNIT/10 ML Vial SQ SCH (21:00)
--- NOTE | 2018-06-10 16:22 | ECG ---
Date Performed: 06/09/2018 Time Performed: 10:56:51 PTAGE: 42 years EKG: Sinus rhythm NONSPECIFIC T-WAVE ABNORMALITY BORDERLINE ECG PREVIOUS TRACING : 06/09/2018 05.26 No significant change from previous tracing noted. DOCTOR: Fernando Padilla Interpretating Date/Time 06/10/2018 16:21:28
== END 2018-06-09 15:08 | disposition home or self-care (01) ==
LOC: NEDA 18:58 → NEPC 18:58 → NEPFCDU 06-09 00:25
PROVIDERS: ADMIT Internal Medicine; ATTEND Internal Medicine